=== PATIENT | female | born 2005 | race Caucasian/White ===

== ENCOUNTER 2025-01-25 21:31 | Inpatient (IN) | payer OTHER, SELFPAY ==
[2025-01-25 21:32] VITALS: BP 97/54; PULSE 142; RESP 18; TEMP 39.3; O2SAT 98; BMI 21.4
[2025-01-25 21:59] VITALS: BP 106/66; PULSE 112; PULSE 115; RESP 20; TEMP 37.9; O2SAT 100; BMI 21.7
[2025-01-25 22:04] LABS: Hematocrit 31.9 % (37-47); Hemoglobin 10.3 g/dL (12.0-15.0); Immature Granulocytes Count 0.070 X10^3/uL (0.0-0.0); Mean Corp Hgb Conc 32.3 g/dL (32-36); Mean Corpuscular Volume 85.3 fL (81-99); Mean Platelet Vol. 9.3 fl (6.2-12.0); NRBC Flagged by Analyzer 0 % (0-5); Platelet Count 456 K/mm3 (150-450); RBC Distribution Width CV 13.7 % (11.6-14.6); RBC Distribution Width SD 42.0 fl (35.1-43.9); Red Blood Count 3.74 M/mm3 (4.2-5.4); White Blood Count 12.1 K/mm3 (4.4-11.0)
[2025-01-25 22:13] LABS: Prothrombin Time (Protime)PT. 13.0 SECONDS (11.7-14.9)
[2025-01-25 22:14] LABS: Partial Thromboplast Time 26.7 Seconds (24.1-36.2)
--- NOTE | 2025-01-25 22:30 | RAD_ITS ---
PROCEDURE: CHEST PA AND LATERAL 01/25/2025 REASON FOR EXAM: FEVER TECHNIQUE: CHEST PA AND LATERAL COMPARISON: None. FINDINGS: Lungs/Pleura: Clear. No pleural effusions. Heart/Mediastinum: Normal in size. Bones/Soft tissues: Unremarkable. RAD/Chest PA and Lateral IMPRESSION: No acute pulmonary disease. Reading Location: [id number]
[2025-01-25 22:33] LABS: AST(SGOT) 18 U/L (<=31); Alanine Aminotransfer ALT/SGPT 8 U/L (<=34); Albumin, Serum 3.4 g/dL (3.5-5.0); Alkaline Phosphatase 81 U/L (35-104); Anion Gap 12 (5-15); BUN 13 mg/dL (4-19); BUN/Creat Ratio 14.6 RATIO (10-20); Calcium,Total 8.6 mg/dL (7.6-11.0); Carbon Dioxide 19.3 mmol/L (21.0-32.0); Chloride 104 mmol/L (98-108); Estimated Creatinine Clearance 87.04 ml/min (50-250); Globulin 3.2 g/dL (2.2-4.2); Glucose 126 mg/dL (70-99); Potassium 3.6 mmol/L (3.3-5.1)
[2025-01-25 22:34] VITALS: BP 99/56; PULSE 114; RESP 23; TEMP 37.9; O2SAT 100
--- NOTE | 2025-01-25 22:37 | CT_ITS ---
PROCEDURE: ABDOMEN/PELVIS W IV CONT ONLY 01/26/2025 REASON FOR EXAM: ABDOMINAL PAIN, DIARRHEA, FEVER, ULCERATIVE COLITI None TECHNIQUE: ABDOMEN/PELVIS W IV CONT ONLY Coronal and Sagittal reconstruction series were provided. CONTRAST: VOLUME: mL One or more dose reduction techniques were used (e.g., Automated exposure control, adjustment of the mA and/or kV according to patient size, use of iterative reconstruction technique. RADIATION DOSE SUMMARY: CTDlvol: mGy DLP: mGycm COMPARISON: none FINDINGS: Diffuse rectal and colonic wall thickening and enhancement with prominent isael- rectal, ileocolic and mesenteric lymph nodes, possibly inflammatory (colitis). Advise clinical correlation. Mild gastric wall thickening, possibly gastritis. Advise clinical correlation. The small bowel loops are unremarkable. The appendix is not identified Average sized liver showing homogenous parenchymal attenuation. No dilated intra or extra-hepatic biliary tracts. Gall bladder showing no radiodense calculi. No abnormal mural thickening. Clear surrounding fat planes with no sizeable collections. Normal appearance of the pancreas with clear surrounding fat planes. The spleen, adrenal glands, aorta and IVC are unremarkable. Both kidneys are of average size and showing smooth outline with preserved parenchymal thickness. No renal calculi. No hydronephrosis. Distension of the urinary bladder showing minimal uniform mural thickening with no obvious masses. No obvious masses related to the pelvic viscera. Physiological pelvic fluid noted No ascites or free air. No obvious pathologically enlarged lymph nodes. Scanned osseous structures show no osseous destruction. Scanned lung bases show no obvious abnormalities. CT/Abdomen/Pelvis W IV Cont ONLY IMPRESSION: Diffuse rectal and colonic wall thickening and enhancement with prominent isael- rectal, ileocolic and mesenteric lymph nodes, possibly inflammatory (colitis). Advise clinical correlation. Mild gastric wall thickening, possibly gastritis. Advise clinical correlation. Reading [facility]
[2025-01-25 23:00] VITALS: BP 95/53; PULSE 103; RESP 20; TEMP 37.4; O2SAT 100
[2025-01-25 23:34] LABS: Mucous, Urine 0 SEEN /hpf (<or=2+)
[2025-01-25 23:35] LABS: Glucose, Dipstick Normal (Normal); Ketone-Dipstick Negative (Negative); Leukocyte Esterase-Dipstick 500 /ul (Negative); Nitrite-Dipstick Negative (Negative); Occult Blood-Urine 250 /ul (Negative); Protein-Dipstick 30 mg/dl (Negative); Specific Gravity, Urine 1.005 (1.002-1.030); Urine Bilirubin Dipstick Negative (Negative)
[2025-01-25 23:42] LABS: Color, Urine SEE COMMENT BELOW (Yellow)
[2025-01-26] VITALS (7 sets, daily range): BP systolic 82–97; BP diastolic 51–65; PULSE 62–115; RESP 13–20; TEMP 36.4–37.6; O2SAT 97–100; BMI 21.4
--- NOTE | 2025-01-26 00:12 | EDS_ITS ---
HPI History of Present Illness Chief Complaint: Fever Detail of Chief Complaint: Fever, arthralgias, skin lesion, increased diarrhea with mucus in blood Informant: patient and parent Onset/Context/Timing Onset: Days Context: Sudden Onset Timing: Intermittent Quality: Diarrhea worse at night Location: GI, bowel Current Severity: Moderate Maximum Severity: Severe Worsened by: At night per patient and parents Relieved by: Nothing Associated Symptoms Associated Symptoms: Fever, arthralgias, mild abdominal discomfort, rash Narrative Narrative: Patient is a 19-year-old female who is under the care of Dr. Redd. Her last dose of Humira was 4 weeks ago. She has known history of ulcerative colitis. She presents with several days of increased diarrhea especially at night. She states at night she has 10 loose stools. There is mucus as well as minimal blood. She has had fever without chills. She does report nausea without vomiting. She denies urologic symptoms. She denies upper respiratory symptoms. The rash started 24 to 48 hours ago. Prior similar symptoms: No Recent Illness/Hospitalization: No PFSH PFS Medical History Ulcerative colitis Home Medications ?Medication ?Instructions ?Recorded ?Last Taken ?Type Unobtainable 01/25/25 Unknown History Allergy/AdvReac Type Severity Reaction Status Date / Time morphine Allergy Hives Verified 01/25/25 21:35 prednisone AdvReac can't take Verified 01/25/25 21:35 due to ulcerative colitis Family History no significant family his Surgical History Hx of tonsillectomy Social History (Updated 01/26/25 @ 00:[address] Speedy Amor MD) household members: family Smoking Status: Never smoker ROS ROS ED Constitutional Constitutional ED: Reports fever(s) and sweats; Denies subjective Eyes Eyes: Denies blurry vision or change in vision ENT ENT ED: Denies ear pain, rhinorrhea or sore throat Cardiovascular Cardiovascular: Denies chest pain or palpitations Respiratory/Chest Respiratory/Chest: Denies cough, dyspnea or dyspnea on exertion Genitourinary Genitourinary ED: Denies dysuria or urinary frequency Musculoskeletal Musculoskeletal: Reports arthralgias; Denies back pain, myalgias or neck pain Integumentary Reports rash; Denies abscess or Abrasions Neurologic Neurologic: Reports weakness; Denies headache(s) or paresthesias Endocrine Endocrinology: Denies cold intolerance or heat intolerance Hematologic/Lymphatic Hematologic/Lymphatic: Reports systems reviewed and no addt'l complaints, except as documented EXAM Physical Exam Const Vital Signs: 01/25/25 21:32 01/25/25 21:59 01/25/25 21:59 Temperature 102.8 F H 100.2 F H Temperature Source Oral Oral Pulse Rate 142 H 115 H Respiratory Rate 18 20 H Respiratory Effort Normal Respiratory Pattern Normal Blood Pressure 97/54 L 106/66 Blood Pressure Mean 68 79 Pulse Ox 98 100 Oxygen Delivery Method Room Air Room Air 01/25/25 21:59 01/25/25 21:59 01/25/25 21:59 Temperature Temperature Source Pulse Rate 112 H Respiratory Rate 20 H Respiratory Effort Respiratory Pattern Blood Pressure 106/66 Blood Pressure Mean 79 Pulse Ox 100 100 Oxygen Delivery Method Room Air Room Air Room Air 01/25/25 22:34 01/25/25 23:00 01/26/25 00:00 Temperature 100.2 F H 99.4 F H 99.4 F H Temperature Source Oral Oral Oral Pulse Rate 114 H 103 H 115 H Respiratory Rate 23 H 20 H 18 Respiratory Effort Respiratory Pattern Blood Pressure 99/56 L 95/53 L 95/54 L Blood Pressure Mean 70 67 67 Pulse Ox 100 100 99 Oxygen Delivery Method Room Air Room Air Room Air Vitals are remarkable for low blood pressure. Most recent blood pressure is approximately 109 systolic. She is still tachycardic. Her fever has improved. Positive well nourished and well developed Constitutional Narrative: She appears ill but not toxic. She appears in no obvious discomfort. She appears slightly pale. General Appearance ED: well developed and NAD; Negative for cyanotic, diaphoretic or pallor HEENT Reports dry mucous membranes HEENT Narrative: Head is atraumatic normocephalic. Ears normal. Nares patent. Posterior pharynx is normal. Mouth ED: Yes dry mucous membranes Mouth: dry mucous membranes Eyes PERRL and EOMs intact bilaterally General Eye ED: Negative for pale conjunctiva or scleral icterus Neck no lymphadenopathy, supple and no JVD Chest Wall inspection of chest normal and palpation of chest normal Resp normal respiratory effort and clear to auscultation bilaterally Cardio regular rhythm, S1 normal heart sound, S2 normal heart sound and no murmurs; Negative for regular rate Rate: tachycardic GI normal to inspection, nondistended, normoactive bowel sounds and no masses; Negative for non-tender, non-distended or hepatosplenomegaly GI Narrative: Abdomen is slightly tympanitic. She has slight tenderness left lower quadrant. There is voluntary guarding not involuntary guarding. Auscultation: hyperactive bowel sounds Palpation: soft and tender LLQ Back/Spine no CVA tenderness Extremity Negative for normal to inspection Extremity Narrative: Erythema nodosum lower extremity. General Extremety ED: Yes tenderness; Negative for edema General Extremity: Negative for edema Neuro oriented x3, CN's II-XII intact bilaterally and no sensory deficits noted Sensorium / Orientation: alert Motor Exam: strength 5/5 throughout Psych mental status grossly normal Skin No no rashes or lesions noted, no wounds and skin turgor normal General Skin Exam: Negative for jaundice or pallor MDM MDM MDM Narrative Medical decision making narrative: Concern patient has a flare of ulcerative colitis. In light of the fact she has left lower quadrant abdominal pain fever tachycardia hypotensive we will obtain a CT of the abdomen to assess for abscess, microperforation. There are no prior records for review. Lab Data Attestation: I reviewed the patient's lab results. Lab results narrative: White count is elevated 12.1 thousand. There is a slight shift. Comprehensive metabolic panel is unremarkable. Lactate is normal. UA reveals a spec gravity 1.005. Macro is positive for leukoesterase occult blood negative nitrites. Labs: Laboratory Results - last 24 hr 01/25/25 01/25/25 21:50 23:26 WBC 12.1 H RBC 3.74 L Hgb 10.3 L Hct 31.9 L MCV 85.3 MCH 27.5 MCHC 32.3 RDW Std Deviation 42.0 RDW Coeff of [place] 13.7 Plt Count 456 H MPV 9.3 Immature Gran % (Auto) 0.600 Neut % (Auto) 75.5 H Lymph % (Auto) 11.8 L [place] % (Auto) 10.7 H Eos % (Auto) 1.0 Baso % (Auto) 0.4 Absolute Neuts (auto) 9.2 H Absolute Lymphs (auto) 1.43 Nucleated RBC % 0 PT 13.0 INR 1.0 APTT 26.7 Sodium 136 Potassium 3.6 Chloride 104 Carbon Dioxide 19.3 L Anion Gap 12 BUN 13 Creatinine 0.86 Estim Creat Clear Calc 87.04 Est GFR (MDRD) Non-Af 99 BUN/Creatinine Ratio 14.6 Glucose 126 H Lactic Acid < 1.0 Calcium 8.6 Total Bilirubin 0.16 AST 18 ALT 8 Alkaline Phosphatase 81 Total Protein 6.6 Albumin 3.4 L Globulin 3.2 Albumin/Globulin Ratio 1.0 Urine Color SEE COMMENT BELOW Urine Clarity Sl. Cloudy Urine pH 6.5 Ur Specific [place] 1.005 Urine Protein 30 H Urine Glucose (UA) Normal Urine Ketones Negative Urine Occult Blood 250 H Urine Nitrite Negative Urine Bilirubin Negative Urine Urobilinogen Normal Ur Leukocyte Esterase 500 H Radiography Chest X-Ray - ED: Read by ED Physician (Chest x-ray was obtained per nurse protocol. This reveals no acute pathology. Cardiac silhouette and size normal. Lung parenchyma normal. There is no effusion noted. Osseous structures are unremarkable.) Diagnostic Testing: Clinical Impression(s) from Imaging Studies Chest X-Ray 01/25/25 22:30 IMPRESSION: No acute pulmonary disease. Reading Location: [facility] Abdomen/Pelvis CT 01/25/25 22:37 IMPRESSION: Diffuse rectal and colonic wall thickening and enhancement with prominent isael- rectal, ileocolic and mesenteric lymph nodes, possibly inflammatory (colitis). Advise clinical correlation. Mild gastric wall thickening, possibly gastritis. Advise clinical correlation. Reading Location: [place] [address] The CAT scan was reviewed radiologist. The impression was reviewed. Management Discussion w/another healthcare provider: Hospitalist (Spoke with Dr. Dewey. Patient full admit MedSurg. He will consult GI.) Discharge Plan Triage Chief Complaint: Fever ED Provider: Amor,Speedy Dx/Rx/DC Orders Clinical Impression: Ulcerative colitis, rectosigmoid, Erythema nodosum, Arthralgia, Mesenteric lymphadenopathy, Sinus tachycardia, Acute hypotension, Fever Prescriptions: No Action Unobtainable Primary Care Provider: Gideon Hernandez Referrals: Gideon Hernandez MD [Primary Care Provider] - Print Language: Citizen Of [place]
--- NOTE | 2025-01-26 00:18 | PCM.HP.STD ---
HPI - General General Date of Admission: 01/26/25 Date of Service: 01/26/25 Chief Complaint: Diarrhea and fevers HPI Narrative JUDITH HURLEY, is a 19 F who presented to [facility] ED on 01/26/2025 with diarrhea and fevers. Medical history significant for ulcerative colitis. She was diagnosed 3 years ago and follows with Dr. Artis. She is currently on Humira monthly. Has history of mild UC flares but has not had a flare like this since her initial diagnosis. She has had worsening diarrhea for the past 5 days. There has been some mucus in the diarrhea but minimal blood. She has also had a fever over the past few days now without chills. She does report some nausea but no vomiting. She also reports arthralgias in multiple joints. Vitals in the ED notable for temp 102.8 F, sinus tachycardia to the 120s, BP in the 90s over 50s, otherwise stable on room air. Labs notable for mild leukocytosis with WBC count of 12 and hemoglobin 10.3. BMP was benign. UA infectious appearing with 500 leukocyte esterase, negative nitrates but 3+ bacteria. CT abdomen pelvis showed diffuse rectal and colonic wall thickening and enhancement with prominent perirectal, ileocolic and mesenteric lymph nodes, along with mild gastric wall thickening. Patient was given IV fluids and a dose of IV Solu-Medrol, and hospitalist was contacted for admission. I saw the patient at bedside in the ED, mom and dad were present. Patient was laying back comfortably in bed, conversing normally, in no acute distress. She denied any current abdominal pain or discomfort. Has not had a bowel movement since arriving to the ED. Did feel dry and stated the IV fluids were somewhat helpful for this. No other acute concerns currently. Will be admitted for further management. [facility] Medical History Ulcerative colitis Home Medications ?Medication ?Instructions ?Recorded ?Last Taken ?Type Unobtainable 01/25/25 Unknown History Allergy/AdvReac Type Severity Reaction Status Date / Time morphine Allergy Hives Verified 01/25/25 21:35 prednisone AdvReac can't take Verified 01/25/25 21:35 due to ulcerative colitis Family History no significant family his Surgical History Hx of tonsillectomy Social History (Updated 01/26/25 @ 00:[address] Speedy Amor MD) household members: family Smoking Status: Never smoker ROS Constitutional Constitutional: Reports fatigue and fever(s); Denies chills or weakness Eyes Eyes: Denies change in vision Cardiovascular Cardiovascular: Denies chest pain Respiratory/Chest Respiratory/Chest: Denies shortness of breath at rest Gastrointestinal Gastrointestinal: Reports diarrhea and nausea; Denies abdominal pain, constipation or vomiting Genitourinary Genitourinary: Denies dysuria Musculoskeletal Musculoskeletal: Denies arthralgias or myalgias Neurologic Neurologic: Denies dizziness, focal weakness or headache(s) Vital Signs Vital Signs Vital Signs: 01/25/25 21:32 01/25/25 21:59 01/25/25 21:59 Temperature 102.8 F H 100.2 F H Temperature Source Oral Oral Pulse Rate 142 H 115 H Respiratory Rate 18 20 H Respiratory Effort Normal Respiratory Pattern Normal Blood Pressure 97/54 L 106/66 Blood Pressure Mean 68 79 Pulse Ox 98 100 Oxygen Delivery Method Room Air Room Air 01/25/25 21:59 01/25/25 21:59 01/25/25 21:59 Temperature Temperature Source Pulse Rate 112 H Respiratory Rate 20 H Respiratory Effort Respiratory Pattern Blood Pressure 106/66 Blood Pressure Mean 79 Pulse Ox 100 100 Oxygen Delivery Method Room Air Room Air Room Air 01/25/25 22:34 01/25/25 23:00 01/26/25 00:00 Temperature 100.2 F H 99.4 F H 99.4 F H Temperature Source Oral Oral Oral Pulse Rate 114 H 103 H 115 H Respiratory Rate 23 H 20 H 18 Respiratory Effort Respiratory Pattern Blood Pressure 99/56 L 95/53 L 95/54 L Blood Pressure Mean 70 67 67 Pulse Ox 100 100 99 Oxygen Delivery Method Room Air Room Air Room Air Weight Weight: 55.52 kg Body Mass Index (BMI) 21.7 Physical Exam Const alert, oriented x3, no apparent distress, average body habitus, healthy appearing and well nourished Constitutional Narrative: Pleasant young female, sitting back comfortably in bed, conversing normally, in no acute distress. General Appearance: cooperative, comfortable, well kempt and well developed HEENT normocephalic, head/scalp atraumatic, hearing grossly normal bilaterally and nasal mucous membranes and turbinates normal HEENT Narrative: Dry mucous membranes. Eyes PERRL, EOMs intact bilaterally and conjunctivae normal Neck full ROM Chest inspection of chest normal Resp normal respiratory effort, normal air movement, no use of accessory muscles and clear to auscultation bilaterally Cardio no murmurs and peripheral pulses 2+ throughout Cardio Narrative: Tachycardic, regular rhythm. GI GI Narrative: Mild diffuse tenderness to palpation but otherwise soft and nondistended. Back/Spine normal ROM Extremity normal to inspection, full ROM and no pedal edema Skin Skin Narrative: Erythema nodosum noted on lower extremities. Psych mental status grossly normal Results Lab / Micro Data 01/25/25 21:50 01/25/25 21:50 Labs: Laboratory Results - last 24 hr 01/25/25 21:50: WBC 12.1 H, RBC 3.74 L, Hgb 10.3 L, Hct 31.9 L, MCV 85.3, MCH 27.5, MCHC 32.3, RDW Std Deviation 42.0, RDW Coeff of [place] 13.7, Plt Count 456 H, MPV 9.3, Immature Gran % (Auto) 0.600, Neut % (Auto) 75.5 H, Lymph % (Auto) 11.8 L, [place] % (Auto) 10.7 H, Eos % (Auto) 1.0, Baso % (Auto) 0.4, Absolute Neuts (auto) 9.2 H, Absolute Lymphs (auto) 1.43, Nucleated RBC % 0, PT 13.0, INR 1.0, APTT 26.7, Sodium 136, Potassium 3.6, Chloride 104, Carbon Dioxide 19.3 L, Anion Gap 12, BUN 13, Creatinine 0.86, Estim Creat Clear Calc 87.04, Est GFR (MDRD) Non-Af 99, BUN/Creatinine Ratio 14.6, Glucose 126 H, Lactic Acid < 1.0, Calcium 8.6, Total Bilirubin 0.16, AST 18, ALT 8, Alkaline Phosphatase 81, Total Protein 6.6, Albumin 3.4 L, Globulin 3.2, Albumin/Globulin Ratio 1.0 01/25/25 23:26: Urine Color SEE COMMENT BELOW, Urine Clarity Sl. Cloudy, Urine pH 6.5, Ur Specific [place] 1.005, Urine Protein 30 H, Urine Glucose (UA) Normal, Urine Ketones Negative, Urine Occult Blood 250 H, Urine Nitrite Negative, Urine Bilirubin Negative, Urine Urobilinogen Normal, Ur Leukocyte Esterase 500 H Micro: Microbiology 01/25/25 21:45 Mucosa - Nose SARS-CoV-2, Influenza & RSV (PCR) - Final Imaging Radiology Impression Chest X-Ray 01/25/25 22:30 IMPRESSION: No acute pulmonary disease. Reading Location: [id number] Abdomen/Pelvis CT 01/25/25 22:37 IMPRESSION: Diffuse rectal and colonic wall thickening and enhancement with prominent isael-rectal, ileocolic and mesenteric lymph nodes, possibly inflammatory (colitis). Advise clinical correlation. Mild gastric wall thickening, possibly gastritis. Advise clinical correlation. Reading Location: [place] [address] Assessment & Plan Assessment/Plan (1) Ulcerative colitis, acute: PLAN: Plan Patient is a 19-year-old female who presented to [facility] ED on 01/26/2025 with diarrhea and fevers. 1. Acute ulcerative colitis flare ? Admit under inpatient status to [facility]. GI consulted. Patient diagnosed with UC in 2021, follows with Dr. Artis. Van Stafford every 4 weeks. History of mild UC flares but no significant flares like this since diagnosis. CT abdomen pelvis showed diffuse rectal and colonic wall thickening and enhancement with prominent perirectal, ileocolic and mesenteric lymph nodes, along with mild gastric wall thickening. Febrile, mild hypotension to the 90s over 50s and tachycardic to the 110s on admission. Given 2 L of IV fluids and will run maintenance IV fluids for now as well. Okay for clear liquid diet. Stool PCR panel ordered. Given dose of IV Solu-Medrol 125 mg in the ED; will treat with IV Solu-Medrol 20 mg every 8 hours for now, appreciate further GI recommendations. 2. Concern for UTI ? UA infectious appearing with 500 leukocyte esterase, 10-25 WBCs and 3+ bacteria. Patient denies dysuria but will empirically treat with IV ceftriaxone for now. Follow-up urine culture. 3. Mild normocytic anemia ? Hemoglobin 10.3, MCV 85 on admit. Baseline unknown. Iron studies, B12 and folate ordered for further evaluation. DVT prophylaxis: Low risk, ambulate CODE STATUS: Full code, verified Expected disposition: Home, TBD Total clinical time spent by myself addressing the patient's medical issues, reviewing all the data, and collaborating with patient's care team: 55 minutes. Charges/Coding Visit Charges Inpatient E&M: 81578 Init Hosp L2
[2025-01-26 00:23] LABS: Red Blood Cells-Urine 10-25 SEEN /hpf (0-5); Squamous Epithelial Cells - UA 5-10 SEEN /hpf (5-10)
[2025-01-26] MEDS: 0.9% Normal Saline (1000mL) 1,000 ML 1000 ML IV (00:27)
[2025-01-26 02:04] LABS: Ferritin 104 ng/mL (22-378)
[2025-01-26] MEDS: Lactated Ringers 1,000 ML 999 ML IV (02:21)
[2025-01-26 02:42] LABS: Iron 11 ug/dL (50-170); Iron Binding Capacity,Unsat 212 ug/dL (228-428)
[2025-01-26 02:52] LABS: Iron Binding Capacity,Total 223 ug/dL (250-450)
[2025-01-26] MEDS: Ceftriaxone 2 GM in 0.9% Normal Saline (50mL MB+) 50 ML IV ×2 (03:38→22:24)
[2025-01-26 03:46] LABS: Vitamin B12 2622 pg/mL (180-914)
[2025-01-26 03:58] LABS: Hematocrit 30.5 % (37-47); Hemoglobin 9.9 g/dL (12.0-15.0); Mean Corp Hgb Conc 32.5 g/dL (32-36); Mean Corpuscular Volume 86.2 fL (81-99); Mean Platelet Vol. 9.5 fl (6.2-12.0); Platelet Count 385 K/mm3 (150-450); RBC Distribution Width CV 13.6 % (11.6-14.6); RBC Distribution Width SD 42.3 fl (35.1-43.9); Red Blood Count 3.54 M/mm3 (4.2-5.4); White Blood Count 15.0 K/mm3 (4.4-11.0)
[2025-01-26 04:34] LABS: Anion Gap 10 (5-15); BUN 8 mg/dL (4-19); BUN/Creat Ratio 12.4 RATIO (10-20); Calcium,Total 8.5 mg/dL (7.6-11.0); Carbon Dioxide 20.3 mmol/L (21.0-32.0); Chloride 109 mmol/L (98-108); Estimated Creatinine Clearance 111.72 ml/min (50-250); Glucose 170 mg/dL (70-99); Potassium 4.2 mmol/L (3.3-5.1)
[2025-01-26] MEDS: Lactated Ringers 1,000 ML 75 ML IV ×2 (04:49→19:50)
--- NOTE | 2025-01-26 07:25 | PCM.PN.HOSP ---
Reason for Visit Reason for Visit: Diagnoses Ulcerative colitis, unspecified, without complications (01/26/25) Subjective Subjective Patient notes clinical improvement since initial ED arrival with resolved abdominal pain, no recent diarrhea and toleration of diet. Discussed plan of care which included continued IV steroids and evaluation with gastroenterology. She notes when she was having more loose stools she denied any hematochezia or bloody stools. Patient denies fevers, chills, nausea, emesis, abdominal pain, chest pain or dyspnea. Objective Data Objective Data Vital Signs: Vital Signs Temp Pulse Resp BP Pulse Ox O2 Del Method 97.7 F L 76 16 93/65 98 Room Air 01/26/25 05:00 01/26/25 05:00 01/26/25 05:00 01/26/25 05:00 01/26/25 05:00 01/26/25 05:00 Oxygen Delivery Method Room Air Weight: 121 lb 4.068 oz Body Mass Index (BMI) 21.4 Intake & Output: Intake and Output for Last 24 Hours 01/24/25 01/25/25 01/26/25 23:59 23:59 23:59 Intake Total 1600 / 1600 Balance 1600 / 1600 Lab / Micro Data 01/26/25 03:37 01/26/25 03:37 Labs: Laboratory Results - last 24 hr 01/25/25 21:50: WBC 12.1 H, RBC 3.74 L, Hgb 10.3 L, Hct 31.9 L, MCV 85.3, MCH 27.5, MCHC 32.3, RDW Std Deviation 42.0, RDW Coeff of Lokesh 13.7, Plt Count 456 H, MPV 9.3, Immature Gran % (Auto) 0.600, Neut % (Auto) 75.5 H, Lymph % (Auto) 11.8 L, [place] % (Auto) 10.7 H, Eos % (Auto) 1.0, Baso % (Auto) 0.4, Absolute Neuts (auto) 9.2 H, Absolute Lymphs (auto) 1.43, Nucleated RBC % 0, PT 13.0, INR 1.0, APTT 26.7, Sodium 136, Potassium 3.6, Chloride 104, Carbon Dioxide 19.3 L, Anion Gap 12, BUN 13, Creatinine 0.86, Estim Creat Clear Calc 87.04, Est GFR (MDRD) Non-Af 99, BUN/Creatinine Ratio 14.6, Glucose 126 H, Lactic Acid < 1.0, Calcium 8.6, Iron 11 L, TIBC 223 L, Iron Saturation 4.9 L, Unsaturated IBC 212 L, Ferritin 104, Total Bilirubin 0.16, AST 18, ALT 8, Alkaline Phosphatase 81, Total Protein 6.6, Albumin 3.4 L, Globulin 3.2, Albumin/Globulin Ratio 1.0, Vitamin B12 2622 H 01/25/25 23:26: Urine Color SEE COMMENT BELOW, Urine Clarity Sl. Cloudy, Urine pH 6.5, Ur Specific [place] 1.005, Urine Protein 30 H, Urine Glucose (UA) Normal, Urine Ketones Negative, Urine Occult Blood 250 H, Urine Nitrite Negative, Urine Bilirubin Negative, Urine Urobilinogen Normal, Ur Leukocyte Esterase 500 H, Urine RBC 10-25 SEEN, Urine WBC 10-25 SEEN, Ur Squamous Epith Cells 5-10 SEEN, Urine Bacteria 3+, Urine Mucus 0 SEEN 01/26/25 03:37: WBC 15.0 H, RBC 3.54 L, Hgb 9.9 L, Hct 30.5 L, MCV 86.2, MCH 28.0, MCHC 32.5, RDW Std Deviation 42.3, RDW Coeff of Lokesh 13.6, Plt Count 385, MPV 9.5, Sodium 139, Potassium 4.2, Chloride 109 H, Carbon Dioxide 20.3 L, Anion Gap 10, BUN 8, Creatinine 0.67 L, Estim Creat Clear Calc 111.72, Est GFR (MDRD) Non-Af 129, BUN/Creatinine Ratio 12.4, Glucose 170 H, Calcium 8.5 Micro: Microbiology 01/25/25 21:45 Mucosa - Nose SARS-CoV-2, Influenza & RSV (PCR) - Final Radiography Diagnostic Testing: Radiology Impression Chest X-Ray 01/25/25 22:30 IMPRESSION: No acute pulmonary disease. Reading Location: [facility] Abdomen/Pelvis CT 01/25/25 22:37 IMPRESSION: Diffuse rectal and colonic wall thickening and enhancement with prominent isael-rectal, ileocolic and mesenteric lymph nodes, possibly inflammatory (colitis). Advise clinical correlation. Mild gastric wall thickening, possibly gastritis. Advise clinical correlation. Reading Location: [place] [id number] Physical Exam Narrative Physical Examination: General: Awake, alert, oriented x 3 and cooperative, seated upright in PCU bed is MedSurg patient, no acute distress. Skin: Normal color, normal turgor, no icterus, no cyanosis. HEENT: AT/NC, EOMI, PERRLA, improved MMM. Lungs: CTA bilaterally, moderate effort, mild decrease BL bases, no rales, ronchi or wheezing. Heart: Regular rate and rhythm; no gallop, rub audible. Abdomen: Soft, NTTP, ND, mildly hyperactive BS. Extremities: No cyanosis, clubbing, or edema. Neurological: Patient awake, alert, oriented as noted, cognitive function intact; pupils equally reactive to light and accommodation, cranial nerves grossly normal, moving all 4 extremities, no focal deficits, strength mildly globally creased. Psychiatric: Affect appears fatigued otherwise normal, no acute evidence of depressive or anxiety feelings. Assessment & Plan Assessment/Plan (1) Ulcerative colitis, acute: PLAN: Plan The patient is an 19 y/o F w/ PMHx: Ulcerative colitis, Chronic anemia who presents to the [facility] ED on 01/26/25 with history of significant persistent diarrhea as well as fevers noted to be on Humira monthly with history of previous mild UC flares however never as severe as her current presentation with worsening loose stools for the last 5 days with some mucus in the stools and minimal blood with nausea without emesis prompting eventual ED evaluation. #1. Acute exacerbation ulcerative colitis with associated mild hematochezia: Patient admitted to medical surgical floor, initiated on Solu-Medrol 20 mg IV every 8, will continue to trend CBC, pain regimen and antiemetic regimen as needed, currently on clear liquids, GI consulted and evaluation pending. #2. Chronic normocytic anemia: Admission hemoglobin 10.3, MCV 85, unclear exact baseline, repeat 01/27/2020 5 AM hemoglobin 9.9, MCV 86.2, given acute presentation #1 some concerns about associated mild blood loss, vitamin B12 2622, iron 11, TIBC 223, iron saturation 4.9%, unsaturated IBC 212, ferritin 104, will transfusion of iron 200 mg IV daily x 3 days with then transition to oral regimen following, will continue to trend CBC. #3. Questionable acute complicated urinary tract infection: UA with positive leukocyte esterase, 10-25 urine WBCs and 3+ bacteria, no marked history of dysuria however initiated with empiric IV Rocephin, will continue pending urine culture. #4. Hyperglycemia with no diabetic history: Admission glucose initially 126, repeat 170, ongoing steroid treatments with no previous diabetic history, will obtain hemoglobin C be cautious but low suspicion. #5. DVT prophylaxis: Low risk, encourage ambulation. Charges/Coding Procedures Hospitalists Procedures: Other Procedure - See Report (Billing Code: [id number], nonbillable, admitted same day.)
[2025-01-26 08:38] LABS: Magnesium 1.6 mg/dL (1.5-2.2)
[2025-01-26] MEDS: Sodium Ferric Gluconat 250 MG in 0.9% Normal Saline 250 ML 135 MG IV (10:25)
--- NOTE | 2025-01-26 14:00 | CASEMGMT ---
Dx: Acute UC Flare LACE: 1 6-Clicks: 24 Medical record reviewed and patient evaluated for identification of discharge planning needs. Based on this review, at this time criteria are not present to indicate a need for discharge planning. Will remain available to assist with discharge planning needs as identified or requested.
[2025-01-26] MEDS: 0.9% Saline Lock 10 ML Syringe IV ×2 (14:35→22:24)
--- NOTE | 2025-01-26 17:30 | EX.PCM.CON.G ---
HPI Consult Data Date of Consult: 01/26/25 HPI Narrative Reason for Consultation: presumed UC flare HPI Narrative: JUDITH HURLEY, is a 19 F who presented to [facility] with a presumed history of ulcerative colitis diagnosed approximately 3 years ago at an outside hospital. She presents with a 5-day history of profuse watery diarrhea (8?10 BMs/day), nausea, lower abdominal cramping, and subjective fevers. She reports that her last colonoscopy was at the time of initial diagnosis, but no documentation or pathology reports are currently available. She is on monthly adalimumab (Humira), with the last dose taken approximately 4 weeks ago. She initially presented to the ED with a temperature of 102?F, WBC 12 (which has since risen to 15), and was found to have a positive urinalysis, for which she is receiving ceftriaxone 2g IV daily. Her temperature has since normalized. She also tested C. difficile PCR positive, but toxin was negative. Stool culture is negative. Notably, her hemoglobin has decreased slightly from 10.3 to 9.9, which may be dilutional, and iron studies show iron deficiency. She is presently on her menstrual cycle and receiving Na Ferric Gluconate 250mg IV x3. She remains on CL and is receiving LR at 75 mL/hr. She was started on Solu-Medrol 125 mg IV x1 in the ED and has now been transitioned to methylprednisolone 20 mg IV Q8 hours (60 mg/day) for presumed [id number] UC flare. She has noted an improvement in stools today with two soft (Rocky Type 6) stools. She denies any ongoing abdominal pain or fecal urgency. CT A&P showed diffuse rectal and colonic wall thickening and enhancement, with prominent perirectal, ileocolic, colonic, and mesenteric lymphadenopathy, concerning for active colitis, along with mild gastric wall thickening likely secondary to underdistention. [facility] Medical History Ulcerative colitis Home Medications ?Medication ?Instructions ?Recorded ?Last Taken ?Type adalimumab 40 mg/0.8 mL See Rx Instructions subcut 01/26/25 12/31/24 History subcutaneous pen kit (Humira Pen) .COMPLEX ulcerative colitis Allergy/AdvReac Type Severity Reaction Status Date / Time morphine Allergy Hives Verified 01/25/25 21:35 prednisone AdvReac can't take Verified 01/25/25 21:35 due to ulcerative colitis Family History no significant family his Surgical History Hx of tonsillectomy Social History (Updated 01/26/25 @ 00:[address] Speedy Amor MD) household members: family Smoking Status: Never smoker ROS Constitutional Constitutional: Reports as per HPI Eyes Eyes: Denies change in vision ENT HEENT: Denies dizziness Gastrointestinal Gastrointestinal: Reports as per HPI Physical Exam Const no apparent distress and healthy appearing GI Palpation: soft; Negative for tender or guarding Lab / Micro Data Attestation: I reviewed the patient's lab results. 01/26/25 03:37 01/26/25 03:37 Labs: Laboratory Results - last 24 hr 01/25/25 21:50: WBC 12.1 H, RBC 3.74 L, Hgb 10.3 L, Hct 31.9 L, MCV 85.3, MCH 27.5, MCHC 32.3, RDW Std Deviation 42.0, RDW Coeff of Lokesh 13.7, Plt Count 456 H, MPV 9.3, Immature Gran % (Auto) 0.600, Neut % (Auto) 75.5 H, Lymph % (Auto) 11.8 L, [place] % (Auto) 10.7 H, Eos % (Auto) 1.0, Baso % (Auto) 0.4, Absolute Neuts (auto) 9.2 H, Absolute Lymphs (auto) 1.43, Nucleated RBC % 0, PT 13.0, INR 1.0, APTT 26.7, Sodium 136, Potassium 3.6, Chloride 104, Carbon Dioxide 19.3 L, Anion Gap 12, BUN 13, Creatinine 0.86, Estim Creat Clear Calc 87.04, Est GFR (MDRD) Non-Af 99, BUN/Creatinine Ratio 14.6, Glucose 126 H, Lactic Acid < 1.0, Calcium 8.6, Iron 11 L, TIBC 223 L, Iron Saturation 4.9 L, Unsaturated IBC 212 L, Ferritin 104, Total Bilirubin 0.16, AST 18, ALT 8, Alkaline Phosphatase 81, Total Protein 6.6, Albumin 3.4 L, Globulin 3.2, Albumin/Globulin Ratio 1.0, Vitamin B12 2622 H 01/25/25 23:26: Urine Color SEE COMMENT BELOW, Urine Clarity Sl. Cloudy, Urine pH 6.5, Ur Specific [place] 1.005, Urine Protein 30 H, Urine Glucose (UA) Normal, Urine Ketones Negative, Urine Occult Blood 250 H, Urine Nitrite Negative, Urine Bilirubin Negative, Urine Urobilinogen Normal, Ur Leukocyte Esterase 500 H, Urine RBC 10-25 SEEN, Urine WBC 10-25 SEEN, Ur Squamous Epith Cells 5-10 SEEN, Urine Bacteria 3+, Urine Mucus 0 SEEN 01/26/25 03:37: WBC 15.0 H, RBC 3.54 L, Hgb 9.9 L, Hct 30.5 L, MCV 86.2, MCH 28.0, MCHC 32.5, RDW Std Deviation 42.3, RDW Coeff of Lokesh 13.6, Plt Count 385, MPV 9.5, Sodium 139, Potassium 4.2, Chloride 109 H, Carbon Dioxide 20.3 L, Anion Gap 10, BUN 8, Creatinine 0.67 L, Estim Creat Clear Calc 111.72, Est GFR (MDRD) Non-Af 129, BUN/Creatinine Ratio 12.4, Glucose 170 H, Hemoglobin A1c 5.6, Calcium 8.5, Phosphorus 3.7, Magnesium 1.6 Micro: Microbiology 01/26/25 07:26 Stool C. difficile GDH Antigen & Toxins - Final 01/26/25 07:26 Stool Clostridioides difficile (PCR) - Final 01/26/25 07:26 Stool Enteric Bacteriology - Final 01/25/25 21:45 Mucosa - Nose SARS-CoV-2, Influenza & RSV (PCR) - Final Imaging Radiology Impression Chest X-Ray 01/25/25 22:30 IMPRESSION: No acute pulmonary disease. Reading Location: [id number] Abdomen/Pelvis CT 01/25/25 22:37 IMPRESSION: Diffuse rectal and colonic wall thickening and enhancement with prominent isael-rectal, ileocolic and mesenteric lymph nodes, possibly inflammatory (colitis). Advise clinical correlation. Mild gastric wall thickening, possibly gastritis. Advise clinical correlation. Reading [facility] Assessment & Plan Assessment/Plan (1) Ulcerative colitis, acute: QUALIFIERS: Digestive disease complication type: unspecified complication Qualified Code(s): K51.919 - Ulcerative colitis, unspecified with unspecified complications PLAN: Continue IV methylprednisolone 20mg IV Q8h. Hold adalimumab for now. Continue CL and LR at 75ml/hr pending recommendation from regarding in-patient colonoscopy vs sigmoidoscopy. Adalimumab antibodies/levels, fecal calprotectin, CRP ordered. Continue to monitor CBC, BMP, stool frequency. Request outside colonoscopy/pathology records for diagnosis confirmation. (2) Iron deficiency anemia: QUALIFIERS: Iron deficiency anemia type: other iron deficiency Qualified Code(s): D50.8 - Other iron deficiency anemias PLAN: Hbg 9.9 with low iron and Tsat. Chronic inflammation and possible GI losses. Iron replacement ordered. (3) Leukocytosis: QUALIFIERS: Leukocytosis type: other Qualified Code(s): D72.828 - Other elevated white blood cell count PLAN: WBC 12->15 after initiating IV steroids She is now afebrile, clinically improving, and without new s/sx of infection Likely steroid induced leukocytosis, no evidence of bandemia or left shift (4) Other specified abnormal findings of blood chemistry: PLAN: Hypercobalaminemia (B12) 2622 Discontinue supplements. (5) Hypotension: QUALIFIERS: Hypotension type: unspecified hypotension type Qualified Code(s): I95.9 - Hypotension, unspecified PLAN: Blood cultures pending from ER. C.diff PCR positive with negative toxin. Suspected colonization with improving diarrhea. If hypotension continues to be a concern, consider empiric treatment for C.diff if clinical status does not stabilize. Monitor response to IV fluid. Questionable acute complicated UTI, on empiric IV ceftriaxone, pending UCx PLAN: Plan DVT prophylaxis: Risk of DVT in hospitalized UC patients, especially during a flare, are at substantially increased risk compared to the general population. Given elevated risk both ACG and AHA recommend thromboprophylaxis for all hospitalized patients with active UC, regardless of age or Aj score. Given mild iron deficiency anemia, recommend SCDs while bed.
--- NOTE | 2025-01-26 18:59 | PN_ITS ---
Progress Note 19-year-old female admitted with an acute exacerbation of Ulcerative Colitis, experiencing increased diarrhea, abdominal pain, and rectal bleeding. She is currently on her menstrual cycle. * Patient reports experiencing increased frequency of watery, bloody diarrhea over the past week, now averaging 8-10 bowel movements per day. Notes significant urgency and tenesmus. Denies fever initially, but reports feeling weak and fatigued. Reports abdominal cramping and diffuse tenderness, most pronounced in the lower left quadrant. Has had decreased appetite and unintentional weight loss. Currently experiencing joint pain in her knees and ankles. * Past Medical History (PMH):?Diagnosed with Ulcerative Colitis at age 16. Previous flares managed with oral budesonide and intermittent corticosteroid courses. No prior hospitalizations for UC. * Medications:?Oral mesalamine, dosage as prescribed. * Allergies:?None reported. * Social History:?Denies smoking, alcohol, or illicit drug use. Lives at home with parents. Reports stress from home and social activities, which she feels may worsen her symptoms. * Review of Systems (ROS): * Constitutional:?Fatigue, weight loss. * Gastrointestinal:?Diarrhea, blood and mucus in stool, abdominal pain/cramping, tenesmus, decreased appetite. * Musculoskeletal:?Joint pain. * Psychiatric:?Reports feeling anxious and frustrated due to the impact of UC on her daily life. * Objective: * Vital Signs:?Temperature 37.8?C, HR 98 bpm, BP 110/65 mmHg, RR 18 breaths/min, SpO2 98% on room air. * General Appearance:?Alert and oriented, appears tired and slightly pale. * Cardiovascular:?Regular heart rate and rhythm, no murmurs noted. * Respiratory:?Clear to auscultation bilaterally. * Abdomen:?Mildly distended, active bowel sounds. Tenderness to palpation in the lower left quadrant. No guarding or rebound tenderness. * Rectal Exam:?Mild tenderness, blood and mucus present in stool. * Skin:?No rashes or lesions observed. * Musculoskeletal:?Mild swelling and tenderness noted in both knees. Physical Exam Narrative Physical Examination: General: Awake, alert, oriented x 3 and cooperative, seated upright in PCU bed is MedSurg patient, no acute distress. Skin: Normal color, normal turgor, no icterus, no cyanosis. HEENT: AT/NC, EOMI, PERRLA, improved MMM. Lungs: CTA bilaterally, moderate effort, mild decrease BL bases, no rales, ronchi or wheezing. Heart: Regular rate and rhythm; no gallop, rub audible. Abdomen: Soft, NTTP, ND, mildly hyperactive BS. Extremities: No cyanosis, clubbing, or edema. Neurological: Patient awake, alert, oriented as noted, cognitive function intact; pupils equally reactive to light and accommodation, cranial nerves grossly normal, moving all 4 extremities, no focal deficits, strength mildly globally creased. Psychiatric: Affect appears fatigued otherwise normal, no acute evidence of depressive or anxiety feelings. Assessment & Plan Assessment/Plan (1) Iron deficiency anemia: QUALIFIERS: Iron deficiency anemia type: other iron deficiency Qualified Code(s): D50.8 - Other iron deficiency anemias (2) Ulcerative colitis, acute: QUALIFIERS: Digestive disease complication type: unspecified complication Qualified Code(s): K51.919 - Ulcerative colitis, unspecified with unspecified complications (3) Fever: (4) Ulcerative colitis, rectosigmoid: (5) Erythema nodosum: (6) Hypotension: QUALIFIERS: Hypotension type: unspecified hypotension type Qualified Code(s): I95.9 - Hypotension, unspecified PLAN: Assessment: * 19-year-old female with Ulcerative Colitis, currently experiencing a [id number] flare. * Symptoms include frequent bloody diarrhea, abdominal pain, weight loss, and extra-intestinal manifestations (arthralgia). * Patient requires hospitalization for disease management, control of inflammation, hydration, and nutritional support. Plan: * Medications: * Initiate IV corticosteroids (e.g., methylprednisolone) to reduce inflammation. * Continue oral mesalamine. * Administer intravenous fluids and electrolytes to manage dehydration. * I talk with the patient and patient's mom for a long time she says that she has Humira at home and she missed 1 dose. * Monitoring: * Daily assessment of stool frequency, consistency, and presence of blood. * Monitor vital signs, especially temperature, heart rate, and blood pressure. * Assess for abdominal distension or worsening tenderness, which could indicate complications like toxic megacolon. Clinically she is not showing any signs of toxic megacolon. * Monitor inflammatory markers (CRP). * Check IBD SGI, check adalimumab levels and check ANCA check ,KUSHAL, check food allergy panel * Nutrition: * Consult with a registered dietitian for nutritional assessment and recommendations as an outpatient * Consider a low-fiber diet to reduce gut irritation during the flare. * Pain Management:?Administer pain medication as ordered (avoiding NSAIDs). She does not have any pain at this time. * Follow-up:?Arrange for follow-up with the gastroenterology team if patient decides to switch to [facility]. She was encouraged to follow-up with Dr. Redd. Visit Charges Inpatient E&M: 61776 Subs Hosp L3
--- NOTE | 2025-01-26 18:59 | PCM.PN.BLA ---
Progress Note 19-year-old female admitted with an acute exacerbation of Ulcerative Colitis, experiencing increased diarrhea, abdominal pain, and rectal bleeding. She is currently on her menstrual cycle. Patient reports experiencing increased frequency of watery, bloody diarrhea over the past week, now averaging 8-10 bowel movements per day. Notes significant urgency and tenesmus. Denies fever initially, but reports feeling weak and fatigued. Reports abdominal cramping and diffuse tenderness, most pronounced in the lower left quadrant. Has had decreased appetite and unintentional weight loss. Currently experiencing joint pain in her knees and ankles. Past Medical History (PMH):?Diagnosed with Ulcerative Colitis at age 16. Previous flares managed with oral budesonide and intermittent corticosteroid courses. No prior hospitalizations for UC. Medications:?Oral mesalamine, dosage as prescribed. Allergies:?None reported. Social History:?Denies smoking, alcohol, or illicit drug use. Lives at home with parents. Reports stress from home and social activities, which she feels may worsen her symptoms. Review of Systems (ROS): Constitutional:?Fatigue, weight loss. Gastrointestinal:?Diarrhea, blood and mucus in stool, abdominal pain/cramping, tenesmus, decreased appetite. Musculoskeletal:?Joint pain. Psychiatric:?Reports feeling anxious and frustrated due to the impact of UC on her daily life. Objective: Vital Signs:?Temperature 37.8?C, HR 98 bpm, BP 110/65 mmHg, RR 18 breaths/min, SpO2 98% on room air. General Appearance:?Alert and oriented, appears tired and slightly pale. Cardiovascular:?Regular heart rate and rhythm, no murmurs noted. Respiratory:?Clear to auscultation bilaterally. Abdomen:?Mildly distended, active bowel sounds. Tenderness to palpation in the lower left quadrant. No guarding or rebound tenderness. Rectal Exam:?Mild tenderness, blood and mucus present in stool. Skin:?No rashes or lesions observed. Musculoskeletal:?Mild swelling and tenderness noted in both knees. Physical Exam Narrative Physical Examination: General: Awake, alert, oriented x 3 and cooperative, seated upright in PCU bed is MedSurg patient, no acute distress. Skin: Normal color, normal turgor, no icterus, no cyanosis. HEENT: AT/NC, EOMI, PERRLA, improved MMM. Lungs: CTA bilaterally, moderate effort, mild decrease BL bases, no rales, ronchi or wheezing. Heart: Regular rate and rhythm; no gallop, rub audible. Abdomen: Soft, NTTP, ND, mildly hyperactive BS. Extremities: No cyanosis, clubbing, or edema. Neurological: Patient awake, alert, oriented as noted, cognitive function intact; pupils equally reactive to light and accommodation, cranial nerves grossly normal, moving all 4 extremities, no focal deficits, strength mildly globally creased. Psychiatric: Affect appears fatigued otherwise normal, no acute evidence of depressive or anxiety feelings. Assessment & Plan Assessment/Plan (1) Iron deficiency anemia: QUALIFIERS: Iron deficiency anemia type: other iron deficiency Qualified Code(s): D50.8 - Other iron deficiency anemias (2) Ulcerative colitis, acute: QUALIFIERS: Digestive disease complication type: unspecified complication Qualified Code(s): K51.919 - Ulcerative colitis, unspecified with unspecified complications (3) Fever: (4) Ulcerative colitis, rectosigmoid: (5) Erythema nodosum: (6) Hypotension: QUALIFIERS: Hypotension type: unspecified hypotension type Qualified Code(s): I95.9 - Hypotension, unspecified PLAN: Assessment: 19-year-old female with Ulcerative Colitis, currently experiencing a [id number] flare. Symptoms include frequent bloody diarrhea, abdominal pain, weight loss, and extra-intestinal manifestations (arthralgia). Patient requires hospitalization for disease management, control of inflammation, hydration, and nutritional support. Plan: Medications: Initiate IV corticosteroids (e.g., methylprednisolone) to reduce inflammation. Continue oral mesalamine. Administer intravenous fluids and electrolytes to manage dehydration. I talk with the patient and patient's mom for a long time she says that she has Humira at home and she missed 1 dose. Monitoring: Daily assessment of stool frequency, consistency, and presence of blood. Monitor vital signs, especially temperature, heart rate, and blood pressure. Assess for abdominal distension or worsening tenderness, which could indicate complications like toxic megacolon. Clinically she is not showing any signs of toxic megacolon. Monitor inflammatory markers (CRP). Check IBD SGI, check adalimumab levels and check ANCA check ,KUSHAL, check food allergy panel Nutrition: Consult with a registered dietitian for nutritional assessment and recommendations as an outpatient Consider a low-fiber diet to reduce gut irritation during the flare. Pain Management:?Administer pain medication as ordered (avoiding NSAIDs). She does not have any pain at this time. Follow-up:?Arrange for follow-up with the gastroenterology team if patient decides to switch to [facility]. She was encouraged to follow-up with Dr. Redd. Visit Charges Inpatient E&M: 94413 Subs Hosp L3
[2025-01-27 04:50] VITALS: BP 100/58; PULSE 77; RESP 16; TEMP 37.2; O2SAT 99
[2025-01-27 05:44] LABS: Hematocrit 29.3 % (37-47); Hemoglobin 9.2 g/dL (12.0-15.0); Immature Granulocytes Count 0.420 X10^3/uL (0.0-0.0); Mean Corp Hgb Conc 31.4 g/dL (32-36); Mean Corpuscular Volume 86.9 fL (81-99); Mean Platelet Vol. 9.8 fl (6.2-12.0); NRBC Flagged by Analyzer 0 % (0-5); POSITIVE DIFFERENTIAL YES; Platelet Count 435 K/mm3 (150-450); RBC Distribution Width CV 14.0 % (11.6-14.6); RBC Distribution Width SD 43.8 fl (35.1-43.9); Red Blood Count 3.37 M/mm3 (4.2-5.4); White Blood Count 18.5 K/mm3 (4.4-11.0)
[2025-01-27 05:47] LABS: Differential Indicated SCAN CRITERIA MET
[2025-01-27 06:07] LABS: AST(SGOT) 11 U/L (<=31); Alanine Aminotransfer ALT/SGPT 8 U/L (<=34); Albumin, Serum 2.8 g/dL (3.5-5.0); Alkaline Phosphatase 77 U/L (35-104); Anion Gap 11 (5-15); BUN 6 mg/dL (4-19); BUN/Creat Ratio 10.1 RATIO (10-20); Calcium,Total 9.1 mg/dL (7.6-11.0); Carbon Dioxide 22.2 mmol/L (21.0-32.0); Chloride 109 mmol/L (98-108); Estimated Creatinine Clearance 120.73 ml/min (50-250); Globulin 3.1 g/dL (2.2-4.2); Glucose 162 mg/dL (70-99); Potassium 4.1 mmol/L (3.3-5.1)
[2025-01-27 06:31] LABS: Differential Comment SCANNED
[2025-01-27] MEDS: 0.9% Saline Lock 10 ML Syringe IV (06:35)
--- NOTE | 2025-01-27 06:51 | PN.HOSP_ITS ---
Reason for Visit Reason for Visit: Diagnoses Other iron deficiency anemias (01/26/25) Other elevated white blood cell count (01/26/25) Hypotension, unspecified (01/26/25) Ulcerative (chronic) rectosigmoiditis without complications (01/26/25) Ulcerative colitis, unspecified, without complications (01/26/25) Ulcerative colitis, unspecified with unspecified complications (01/26/25) Erythema nodosum (01/26/25) Fever, unspecified (01/26/25) Other specified abnormal findings of blood chemistry (01/26/25) Subjective Subjective Patient with no acute events overnight per self and per nursing report. Patient has had no further marked diarrhea and notes that her stool is just mildly soft. She notes resolution of previous abdominal pain. She denies any current dysuria. Her and her family are still deciding whether or not they want a follow-up with Dr. Gonzalez or continue to follow with Dr. Redd. Patient denies fevers, chills, nausea, emesis, abdominal pain, chest pain or dyspnea. Objective Data Objective Data Vital Signs: Vital Signs Temp Pulse Resp BP Pulse Ox O2 Del Method 98.9 F 77 16 100/58 L 99 Room Air 01/27/25 04:50 01/27/25 04:50 01/27/25 04:50 01/27/25 04:50 01/27/25 04:50 01/27/25 04:50 Oxygen Delivery Method Room Air Weight: 121 lb 4.068 oz Body Mass Index (BMI) 21.4 Intake & Output: Intake and Output for Last 24 Hours 01/25/25 01/26/25 01/27/25 23:59 23:59 23:59 Intake Total 3010.00 / 3010.00 Balance 3010.00 / 3010.00 Lab / Micro Data 01/27/25 05:11 01/27/25 05:11 Labs: Laboratory Results - last 24 hr 01/26/25 03:37: Hemoglobin A1c 5.6, Phosphorus 3.7, Magnesium 1.6 01/26/25 19:57: Rheumatoid Factor 16.0 H, DEE DEE-1 Antibody TNP, Sm (Garcia) Antibody TNP, WARP TYING MACHINE TENDER Antibody TNP, Scl-70 Scleroderma Ab TNP, Antichromatin Antibodies TNP, Centromere B Antibody TNP, Miscellaneous Test 2 Cancelled 01/27/25 05:11: WBC 18.5 H, RBC 3.37 L, Hgb 9.2 L, Hct 29.3 L, MCV 86.9, MCH 27.3, MCHC 31.4 L, RDW Std Deviation 43.8, RDW Coeff of Lokesh 14.0, Plt Count 435, MPV 9.8, Immature Gran % (Auto) 2.300 H, Neut % (Auto) 76.1 H, Lymph % (Auto) 11.5 L, [place] % (Auto) 9.8, Eos % (Auto) 0.0, Baso % (Auto) 0.3, Absolute Neuts (auto) 14.1 H, Absolute Lymphs (auto) 2.13, Nucleated RBC % 0, Differential Comment SCANNED, Sodium 143, Potassium 4.1, Chloride 109 H, Carbon Dioxide 22.2, Anion Gap 11, BUN 6, Creatinine 0.62 L, Estim Creat Clear Calc 120.73, Est GFR (MDRD) Non-Af 131, BUN/Creatinine Ratio 10.1, Glucose 162 H, Calcium 9.1, Total Bilirubin < 0.15, AST 11, ALT 8, Alkaline Phosphatase 77, Total Protein 6.0, A lbumin 2.8 L, Globulin 3.1, Albumin/Globulin Ratio 0.9 Micro: Microbiology 01/26/25 07:26 Stool C. difficile GDH Antigen & Toxins - Final 01/26/25 07:26 Stool Clostridioides difficile (PCR) - Final 01/26/25 07:26 Stool Enteric Bacteriology - Final 01/25/25 21:45 Mucosa - Nose SARS-CoV-2, Influenza & RSV (PCR) - Final Physical Exam Narrative Physical Examination: General: Awake, alert, oriented x 3 and cooperative, seated upright in PCU bed is MedSur patient, notes resolution of previous abdominal pain. Skin: Normal color, normal turgor, no icterus, no cyanosis. HEENT: AT/NC, EOMI, PERRLA, improved MMM. Lungs: CTA bilaterally, moderate effort, mild decrease BL bases, no rales, ronchi or wheezing. Heart: Regular rate and rhythm; no gallop, rub audible. Abdomen: Soft, NTTP, ND, normalized BS. Extremities: No cyanosis, clubbing, or edema. Neurological: Patient awake, alert, oriented as noted, cognitive function intact; pupils equally reactive to light and accommodation, cranial nerves grossly normal, moving all 4 extremities, no focal deficits, strength improved, preserved. Psychiatric: Affect appears normal, no acute evidence of depressive or anxiety feelings. Assessment & Plan Assessment/Plan (1) Ulcerative colitis, acute: QUALIFIERS: Digestive disease complication type: unspecified complication Qualified Code(s): K51.919 - Ulcerative colitis, unspecified with unspecified complications PLAN: Plan The patient is an 19 y/o F w/ PMHx: Ulcerative colitis, Chronic anemia who presents to the [facility] ED on 01/26/25 with history of significant persistent diarrhea as well as fevers noted to be on Humira monthly with history of previous mild UC flares however never as severe as her current presentation with worsening loose stools for the last 5 days with some mucus in the stools and minimal blood with nausea without emesis prompting eventual ED evaluation. #1. Acute exacerbation ulcerative colitis with associated mild hematochezia: Patient admitted to medical surgical floor, initiated on Solu-Medrol 20 mg IV every 8, CBC trended, pain regimen and antiemetic regimen as needed, tolerating diet, GI consulted and given improvement recommended discharge on prednisone 60 mg daily, omeprazole 20 mg daily while on steroid therapy, follow-up with gastroenterology in 2 weeks. #2. Chronic normocytic anemia: Admission hemoglobin 10.3, MCV 85, unclear exact baseline, repeat 01/27/2020 5 AM hemoglobin 9.9, MCV 86.2, given acute presentation #1 some concerns about associated mild blood loss, vitamin B12 2622, iron 11, TIBC 223, iron saturation 4.9%, unsaturated IBC 212, ferritin 104, upon admission maintained on transfusion of iron 200 mg IV daily with plan transition to oral regimen at discharge. #3. Questionable acute complicated urinary tract infection: UA with positive leukocyte esterase, 10-25 urine WBCs and 3+ bacteria, no marked history of dysuria however initiated with empiric IV Rocephin, will continue pending urine culture. Given clinical improvement quicker than expected #1 plan to discharge patient home on oral Keflex therapy with noted urine culture still pending at discharge. #4. Hyperglycemia with no diabetic history: Admission glucose initially 126, repeat 170, ongoing steroid treatments with no previous diabetic history, hemoglobin A1c 5.6%. #5. DVT prophylaxis: Low risk, encourage ambulation. Charges/Coding Visit Charges Inpatient E&M: 23867 Subs Hosp L2
[2025-01-27 09:17] VITALS: BP 96/69; PULSE 65; RESP 18; TEMP 36.7; O2SAT 98
[2025-01-27] MEDS: Lactated Ringers 1,000 ML 75 ML IV (09:22)
[2025-01-27 10:04] VITALS: O2SAT 99
[2025-01-27] MEDS: Sodium Ferric Gluconat 250 MG in 0.9% Normal Saline 250 ML 135 MG IV (11:03)
--- NOTE | 2025-01-27 11:39 | DS.PCM_ITS ---
Providers Date of Admission: 01/26/25 Date of Discharge: 01/27/25 Primary Care Physician: Dr. Gideon Hernandez MD Consultations 01/26/25 01:45 Consult: Gastroenterology Routine Consulting Provider: [facility] Reason for Consult: acute ulcerative colitis flare EMERGENT Consult: No MD Notified: Yes Date Notified: 01/26/25 Time Notified: 06:45 Method of Notification: Text Reason For Visit: ACUTE UC FLARE Diagnosis Discharge Diagnosis (1) Ulcerative colitis, acute: Status: Acute Code(s): K51.90 - Ulcerative colitis, unspecified, without complications Qualifiers: Digestive disease complication type: unspecified complication Qualified Code(s): K51.919 - Ulcerative colitis, unspecified with unspecified complications Plan: DISCHARGE DIAGNOSES: #1. Acute exacerbation ulcerative colitis with associated mild hematochezia w/ #2 #2. Chronic normocytic anemia #3. Questionable acute complicated urinary tract infection, unclear organism #4. Hyperglycemia with no diabetic history, stress response/steroids Medications at Discharge Home Medications adalimumab 40 mg/0.8 mL subcutaneous pen kit (Humira Pen) See Rx Instructions subcut .COMPLEX ulcerative colitis 01/26/25 cephalexin 500 mg capsule 500 mg PO BID 5 days #10 caps 01/27/25 ferrous gluconate 324 mg (38 mg iron) tablet 324 mg PO DAILY 30 days #30 tabs 01/27/25 omeprazole 20 mg capsule,delayed release 20 mg PO DAILY 30 days #30 caps 01/27/25 prednisone 20 mg tablet 60 mg (3 x 20 mg) PO DAILY 30 days #90 tabs 01/27/25 Hospital Course Operations None Procedures None Summary of Care Provided Minutes Spent on Discharge: 35 Hospital Course: The patient is an 19 y/o F w/ PMHx: Ulcerative colitis, Chronic anemia who presented to the [facility] ED on 01/26/25 with history of significant persistent diarrhea as well as fevers noted to be on Humira monthly with history of previous mild UC flares however never as severe as her current presentation with worsening loose stools for the last 5 days with some mucus in the stools and minimal blood with nausea without emesis prompting eventual ED evaluation. Patient admitted to medical surgical floor, initiated on Solu-Medrol 20 mg IV every 8, CBC trended, pain regimen and antiemetic regimen as needed, tolerating diet, GI consulted. Admission hemoglobin 10.3, MCV 85, unclear exact baseline, repeat 01/26/25 AM hemoglobin 9.9, MCV 86.2->01/27/25 Hgb 9.2, MCV 86.9,, given acute presentation #1 some concerns about associated mild blood loss, vitamin B12 2622, iron 11, TIBC 223, iron saturation 4.9%, unsaturated IBC 212, ferritin 104, upon admission maintained on transfusion of iron 200 mg IV daily with transition to oral regimen at discharge. UA with positive leukocyte esterase, 10-25 urine WBCs and 3+ bacteria, no marked history of dysuria however initiated with empiric IV Rocephin, will continue pending urine culture. Given patient had notable clinical improvement quicker than expected with her UC flare, patient transitioned to oral keflex upon discharge with UCx still pending w/ recommendation to follow-up with PCP to assure UCx re-assessed at follow-up. #1 plan to discharge patient home on oral Keflex therapy with noted urine culture still pending at discharge. Given again as noted clinical improvement quicker than medically expected, GI cleared for discharge on prednisone 60 mg daily, omeprazole 20 mg daily while on steroid therapy, follow-up with gastroenterology in 2 weeks. Weight / BMI Weight Weight: 121 lb 4.068 oz Body Mass Index (BMI) 21.4 ABG / Lab / Microbiology Data 01/27/25 05:11 01/27/25 05:11 Laboratory: Laboratory Results - last 24 hr 01/26/25 19:57: Rheumatoid Factor 16.0 H, DEE DEE-1 Antibody TNP, Sm (Garcia) Antibody TNP, COMMERCIAL ADMINISTRATOR Antibody TNP, Scl-70 Scleroderma Ab TNP, Antichromatin Antibodies TNP, Centromere B Antibody TNP, Miscellaneous Test 2 Cancelled 01/27/25 05:11: WBC 18.5 H, RBC 3.37 L, Hgb 9.2 L, Hct 29.3 L, MCV 86.9, MCH 27.3, MCHC 31.4 L, RDW Std Deviation 43.8, RDW Coeff of Lokesh 14.0, Plt Count 435, MPV 9.8, Immature Gran % (Auto) 2.300 H, Neut % (Auto) 76.1 H, Lymph % (Auto) 11.5 L, [place] % (Auto) 9.8, Eos % (Auto) 0.0, Baso % (Auto) 0.3, Absolute Neuts (auto) 14.1 H, Absolute Lymphs (auto) 2.13, Nucleated RBC % 0, Differential Comment SCANNED, Sodium 143, Potassium 4.1, Chloride 109 H, Carbon Dioxide 22.2, Anion Gap 11, BUN 6, Creatinine 0.62 L, Estim Creat Clear Calc 120.73, Est GFR (MDRD) Non-Af 131, BUN/Creatinine Ratio 10.1, Glucose 162 H, Calcium 9.1, Total Bilirubin < 0.15, AST 11, ALT 8, Alkaline Phosphatase 77, Total Protein 6.0, A lbumin 2.8 L, Globulin 3.1, Albumin/Globulin Ratio 0.9 Microbiology: Microbiology 01/26/25 07:26 Stool C. difficile GDH Antigen & Toxins - Final 01/26/25 07:26 Stool Clostridioides difficile (PCR) - Final 01/26/25 07:26 Stool Enteric Bacteriology - Final 01/25/25 21:45 Mucosa - Nose SARS-CoV-2, Influenza & RSV (PCR) - Final D/C Instructions Discharge Diet: No restrictions May resume sexual activity in: - (No anal sex.) Weight Bearing Status: Weight bearing as tolerated Call your doctor if you observe: Fever of 101 or Higher, Shortness of breath, Dizziness, Swelling in the ankles, Chest pain, Increased palpitations (irregular heartbeat), Calf discomfort, Uncontrolled pain and - (Recurrent severe abdominal pain, diarrhea, nausea or emesis.) DC O2, CPAP, BIPAP Needs Home O2 Discharge instructions: No Meaningful Use Info Meaningful Use Meaningful Use Diagnoses (Choose all that apply): None applicable Ischemic Stroke Statin Dosing Therapy Reference: STATIN DOSE THERAPY REFERENCE: * Patients > 75 years receive moderate or high dose statin therapy. * Patients 75 years or YOUNGER should receive HIGH intensity statin dose unless contraindicated. You will be required to document reason for non-treatment if statin daily dose does not meet guidelines. HIGH DOSE STATIN THERAPY DAILY Atorvastatin > than or = to 40 mg Rosuvastatin > than or = to 20 mg Amlodipine + Atorvastatin > than or = to 2.5/40 mg Ezetimibe + Simvastatin 10/80 mg Simvastatin 80mg Discharge Plan Admission Admit Date/Time: 01/26/25 00:18 Primary Reason for Your Visit: Ulcerative Colitis Flare, Chronic normocytic anemia, UTI Attending Provider: Nikki Harrell Primary Care Provider: Gideon Hernandez Consulting Providers: Tj Dewey Patient Instructions: Your Child Has Ulcerative Colitis, ED Cystitis Female Adult Additional Instructions / Restrictions: ADDITIONAL FOLLOW-UP/INSTRUCTIONS: --Please continue prednisone 60 mg daily until re-evaluation with Gastroenterology. --Please continue omeprazole 20 mg daily while on the high-dose prednisone therapy. --Please continue Keflex 500 mg twice daily to completion for urinary tract infection concern. -- Please continue initiated iron supplementation oral therapy with plan repeat outpatient iron studies and complete blood count at PCP versus gastroenterology discretion. -- Labs pending upon discharge per GI which may be followed up with them in their office at reevaluation included: IBD SGI, adalimumab levels, ANCA check, KUSHAL, food allergy panel. -- Please follow-up with gastroenterology in 2 weeks. You may contact her office earlier if there is any concerns or questions. You may follow with Dr. Gonzalez if you prefer to transition or you make also continue with Dr. Redd. --Urine culture is pending at your discharge, this may be rechecked at follow-up with your primary care physician. Discharge Orders/Prescriptions Prescriptions: New prednisone 20 mg tablet 60 mg PO DAILY 30 Days Qty: 90 0RF omeprazole 20 mg capsule,delayed release(DR/EC) 20 mg PO DAILY 30 Days Qty: 30 0RF ferrous gluconate 324 mg (38 mg iron) tablet 324 mg PO DAILY 30 Days Qty: 30 0RF cephalexin 500 mg capsule 500 mg PO BID 5 Days Qty: 10 0RF Continued Humira Pen 40 mg/0.8 mL pen injector kit See Rx Instructions .ROUTE .COMPLEX Rx Instructions: pt. unsure, follow up needed Referrals / Follow Up: Agustín Gonzalez DO [Med Staff - Active Staff] - (Please follow-up with Dr. Gonzalez in 2 weeks if you prefer to transition.) Gentry Redd MD [Non-Staff] - (Please follow-up with Dr. Redd in 2 weeks for re-evaluation UNLESS you prefer to transition to Dr. Gonzalez.) Gideon Hernandez MD [Primary Care Provider] - (Follow-up in 3-5 days to review admission.) Disposition Disposition (needs filled in before D/C Order can be placed): Home, Self Care Charges/Coding Visit Charges Inpatient E&M: 22744 Disch Hosp >30min
--- NOTE | 2025-01-27 13:18 | CASEMGMT ---
Patient has order for discharge. RN CM in to discuss needs at discharge. Patient denies needs or help at discharge. Patient had no further questions or concerns.
[2025-01-27 15:08] LABS: Folate, Hemolysate Test > 620.0 ng/mL (Not Estab.); Folate, RBC (Hct) Test 30.4 % (34.0-46.6); Folates, RBC Test > 2039 ng/mL (>498)
--- NOTE | 2025-01-27 18:43 | PN_ITS ---
Progress Note Patient did well overnight. She has been tolerating normal diet. She does not seem to be suffering any side effects from steroids. She has been afebrile. She had a normal bowel movement today. She denied any bleeding per rectum, mucus, abdominal pain or urgency. Physical Exam Narrative Physical Examination: General: Awake, alert, oriented x 3 and cooperative, seated upright in PCU bed is MedSurg patient, notes resolution of previous abdominal pain. Skin: Normal color, normal turgor, no icterus, no cyanosis. HEENT: AT/NC, EOMI, PERRLA, improved MMM. Lungs: CTA bilaterally, moderate effort, mild decrease BL bases, no rales, ronchi or wheezing. Heart: Regular rate and rhythm; no gallop, rub audible. Abdomen: Soft, NTTP, ND, normalized BS. Extremities: No cyanosis, clubbing, or edema. Neurological: Patient awake, alert, oriented as noted, cognitive function int act; pupils equally reactive to light and accommodation, cranial nerves grossly normal, moving all 4 extremities, no focal deficits, strength improved, preserved. Psychiatric: Affect appears normal, no acute evidence of depressive or anxiety feelings. Assessment & Plan Assessment/Plan (1) Iron deficiency anemia: QUALIFIERS: Iron deficiency anemia type: other iron deficiency Qualified Code(s): D50.8 - Other iron deficiency anemias (2) Ulcerative colitis, acute: QUALIFIERS: Digestive disease complication type: unspecified complication Qualified Code(s): K51.919 - Ulcerative colitis, unspecified with unspecified complications (3) Fever: (4) Ulcerative colitis, rectosigmoid: (5) Erythema nodosum: (6) Hypotension: QUALIFIERS: Hypotension type: unspecified hypotension type Qualified Code(s): I95.9 - Hypotension, unspecified PLAN: Assessment: * 19-year-old female with Ulcerative Colitis, currently experiencing a tcssihqg-wv-[id number] flare. * Symptoms include frequent bloody diarrhea, abdominal pain, weight loss, and extra-intestinal manifestations (arthralgia). * Patient requires hospitalization for disease management, control of inflammation, hydration, and nutritional support. Plan: * Medications: * Initiate IV corticosteroids (e.g., methylprednisolone) to reduce inflammation. * Switch IV steroids to oral steroids * DC IV fluids * I talk with the patient and patient's mom for a long time she says that she has Humira at home and she missed 1 dose. * Monitoring: * Daily assessment of stool frequency, consistency, and presence of blood. * Monitor vital signs, especially temperature, heart rate, and blood pressure. * Assess for abdominal distension or worsening tenderness, which could indicate complications like toxic megacolon. Clinically she is not showing any signs of toxic megacolon. * Monitor inflammatory markers (CRP). * Check IBD SGI, check adalimumab levels and check ANCA check ,KUSHAL, check food allergy panel * Await biochemical workup * Nutrition: * Consult with a registered dietitian for nutritional assessment and recommendations as an outpatient * Consider a low-fiber diet to reduce gut irritation during the flare. * Pain Management:?Administer pain medication as ordered (avoiding NSAIDs). She does not have any pain at this time. * Follow-up:?Arrange for follow-up with the gastroenterology team if patient decides to switch to [place] [facility]. She was encouraged to follow-up with Dr. Redd. Visit Charges Inpatient E&M: 68869 Subs Hosp L3
[2025-01-28 04:07] LABS: CRP, High Sensitivity 162.20 mg/L (0.00-3.00)
[2025-01-28 23:07] LABS: Calprotectin, Stool 5630 ug/g (0-120)
[2025-01-31 15:07] LABS: Anti-Chromatin <0.2 AI (0.0-0.9); Anti-Jo <0.2 AI (0.0-0.9); Anti-dsDNA Ab 2 IU/mL (0-9); Egg, White <0.10 kU/L (Class 0); SCALLOP <0.10 kU/L (Class 0); SESAME SEED <0.10 kU/L (Class 0); SJOGREN'S Anti-SS-A test < 0.2 AI (0.0-0.9); SJOGREN'S Anti-SS-B test < 0.2 AI (0.0-0.9); Walnut, (Food) <0.10 kU/L (Class 0)
[2025-02-03 15:08] LABS: ACCA 8 units (0-90); ALCA 40 units (0-60); AMCA 12 units (0-100); Albumin 2.9 g/dL (2.9-4.4); Cytoplasmic Ab (C-ANCA) <1:20 titer (Neg:<1:20); Gamma Globulin 1.2 g/dL (0.4-1.8); HEPATITIS B SURFACE AG Negative (Negative); Hep C Antibodies Non Reactive (Non Reactive); IgG, Quant 1174 mg/dL (719-1475); Immunoglobulin A 160 mg/dL (87-352); Immunoglobulin G, Subclass 1 631 mg/dL (325-846); Immunoglobulin G, Subclass 2 327 mg/dL (133-509); Immunoglobulin G, Subclass 3 89 mg/dL (19-109); Immunoglobulin G, Subclass 4 21 mg/dL (3-104); Immunoglobulin M 150 mg/dL (58-230); PROEL- TOTAL PROTEIN 6.7 g/dL (6.0-8.5); Perinuclear Ab (P-ANCA) <1:20 titer (Neg:<1:20)
== END 2025-01-27 15:17 | disposition home or self-care (01) | DRG 386 ==
LOC: ED 22:28 → PCU 01-26 00:42
PROVIDERS: Internal Medicine Gastroenterology; Nurse Practitioner Acute Care; Admitting Provider Hospitalist; Emergency Provider Emergency Medicine; PCP Family Medicine; Visit Provider Family Medicine
DX: K51.311 Ulcerative (chronic) rectosigmoiditis with rectal bleeding (principal); N39.0 Urinary tract infection, site not specified; L52 Erythema nodosum; D50.9 Iron deficiency anemia, unspecified; I95.9 Hypotension, unspecified; D72.828 Other elevated white blood cell count; R73.9 Hyperglycemia, unspecified; T38.0X5A Adverse effect of glucocorticoids and synthetic analogues, initial encounter; Z79.899 Other long term (current) drug therapy
CPT/HCPCS: 36415; 71046; 74177; 80048; 80053; 80074; 81001; 82607; 82728; 82747; 82784; 82785; 82787; 83036; 83516; 83540; 83550; 83605; 83735; 83993; 84100; 84165; 85014; 85025; 85027; 85610; 85730; 86003; 86036; 86037; 86141; 86200; 86225; 86235; 86334; 86431; 86480; 86671; 87040; 87086; 87088; 87493; 87506; 87631; 94668; 94760; 99285; Q9967; A4216; J0696; J2916

== ENCOUNTER → 2025-03-11 | Outpatient (CLI) | payer OTHER, SELFPAY ==
[2025-03-11 13:28] LABS: Hematocrit 37.4 % (37-47); Hemoglobin 12.2 g/dL (12.0-15.0); Immature Granulocytes Count 0.020 X10^3/uL (0.0-0.0); Mean Corp Hgb Conc 32.6 g/dL (32-36); Mean Corpuscular Volume 90.1 fL (81-99); Mean Platelet Vol. 9.6 fl (6.2-12.0); NRBC Flagged by Analyzer 0 % (0-5); Platelet Count 465 K/mm3 (150-450); RBC Distribution Width CV 15.5 % (11.6-14.6); RBC Distribution Width SD 52.1 fl (35.1-43.9); Red Blood Count 4.15 M/mm3 (4.2-5.4); White Blood Count 8.5 K/mm3 (4.4-11.0)
[2025-03-11 14:24] LABS: AST(SGOT) 23 U/L (<=31); Alanine Aminotransfer ALT/SGPT 18 U/L (<=34); Albumin, Serum 4.2 g/dL (3.5-5.0); Alkaline Phosphatase 70 U/L (35-104); Anion Gap 10 (5-15); BUN 14 mg/dL (4-19); BUN/Creat Ratio 17.1 RATIO (10-20); CRP 6.34 mg/L (0.0-3.0); Calcium,Total 9.7 mg/dL (7.6-11.0); Carbon Dioxide 25.3 mmol/L (21.0-32.0); Chloride 104 mmol/L (98-108); Globulin 2.7 g/dL (2.2-4.2); Glucose 82 mg/dL (70-99); Potassium 4.0 mmol/L (3.3-5.1)
[2025-03-13 05:07] LABS: QNTFERON TB Mitogen Value > 10.00 IU/mL (.); QNTFERON TB Nil Value 0.05 IU/mL (.); QNTFERON TB1+ Ag Value 0.04 IU/mL (.); QNTFERON TB2+ Ag Value 0.04 IU/mL (.); QNTIFERON TB Positive Criteria Negative (Negative)
[2025-03-14 00:07] LABS: Calprotectin, Stool 821 ug/g (0-120)
== END | disposition home or self-care (01) ==
PROVIDERS: PCP Family Medicine
DX: K51.919 Ulcerative colitis, unspecified with unspecified complications (principal)
CPT/HCPCS: 36415; 80053; 83993; 85025; 85652; 86140; 86480

== ENCOUNTER → 2025-06-24 | Outpatient (CLI) | payer OTHER, SELFPAY ==
[2025-06-24 15:04] LABS: Hematocrit 34.4 % (37-47); Hemoglobin 11.0 g/dL (12.0-15.0); Immature Granulocytes Count 0.020 X10^3/uL (0.0-0.0); Mean Corp Hgb Conc 32.0 g/dL (32-36); Mean Corpuscular Volume 88.9 fL (81-99); Mean Platelet Vol. 9.8 fl (6.2-12.0); NRBC Flagged by Analyzer 0 % (0-5); POSITIVE DIFFERENTIAL YES; Platelet Count 445 K/mm3 (150-450); RBC Distribution Width CV 12.8 % (11.6-14.6); RBC Distribution Width SD 41.3 fl (35.1-43.9); Red Blood Count 3.87 M/mm3 (4.2-5.4); White Blood Count 8.4 K/mm3 (4.4-11.0)
[2025-06-24 15:31] LABS: Differential Indicated SCAN CRITERIA MET
[2025-06-24 15:43] LABS: AST(SGOT) 16 U/L (<=31); Alanine Aminotransfer ALT/SGPT 8 U/L (<=34); Albumin, Serum 3.6 g/dL (3.5-5.0); Alkaline Phosphatase 64 U/L (35-104); Anion Gap 9 (5-15); BUN 11 mg/dL (4-19); BUN/Creat Ratio 13.7 RATIO (10-20); CRP 26.90 mg/L (0.0-3.0); Calcium,Total 9.3 mg/dL (7.6-11.0); Carbon Dioxide 25.6 mmol/L (21.0-32.0); Chloride 103 mmol/L (98-108); Globulin 2.8 g/dL (2.2-4.2); Glucose 97 mg/dL (70-99); Potassium 4.0 mmol/L (3.3-5.1)
--- OUTSIDE RECORDS SUMMARY | 2025-06-24 17:55 | XMS RPT_ITS | CCD ---
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 Meneses Primary Care Provider Mt ALVARADO, Dr. Ruff Emergency Provider Dr. Tj Dewey DO Admit Provider [phone] Dr. Tj Dewey DO Attending Provider [employer]OVANA [employer], DREW Carcamo Unavailable Unav ailable SCOTT ALVARADO, SAÚL Doll Unavailable HERON [place] Unavailable Unavailable ABRAHAM HOWARD MD Unavailable Dr. Tj Dewey DO Other Provider Dr. Nikki Harrell MD Attending Provider Dr. Nikki Harrell MD Other Provider Abelardo JONES-CDanni Attending Provider Dr. Agustín Gonzalez DO Attending Provider Dr. Deya Chavez MD Referring Provider [phone] Dr. Tj Dewey DO Referring Provider Dr. Agustín Gonzalez DO Attending Provider Dr. Nikki Harrell MD Referring Provider Abelardo JONES-CDanni Attending Provider [phone] Danni Kruger Referring Provider [phone] Tj Dewey Consulting Unavailable Zuleima Jt Referring Unavailable Zuleima Tj Admitting Unavailable Chavez, Deya Primary Care Unavailable Friend, Agustín Attending Unavailable Nikki Harrell L Consulting Unavailable Tj Dewey Attending Unavailable Tj Dewey Consulting Unavailable Zuleima, Tj Admitting Unavailable Chavez, Deya Primary Care Unavailable WhiteNikki L Attending Unavailable Chavez, Deya Referring Unavailable Chavez, Deya Primary Care Unavailable Friend, Agustín Attending Unavailable Chavez, Deya Primary Care Unavailable Danni Zhou Attending Unavailable Danni Zhou Referring Unavailable Chavez, Deya Referring Unavailable Chavez, Deya Primary Care Unavailable Danni Zhou Attending Unavailable WhiteNikki L Referring Unavailable WhiteNikki L Attending Unavailable Allergies Allergy Classification Reported Allergen(s) Allergy Type Date of Onset Reaction(s) Facility (11 sources) Morphine Drug Allergy 5 [facility] (5 sources) predniSONE Drug Allergy 5 can't take due to ulcerative colitis [facility] (1 source) Morphine Drug Allergy 5 [facility] (1 source) predniSONE Drug Allergy 5 [facility] Medications Current Medications Medication Drug Class(es) Dates Sig (Normalized) Sig (Original) 0.8 ml adalimumab 50 mg/ml auto-injector (4 sources) Tumor Necrosis Factor Naresh Start: 01-26-2025 Adalimumab (Humira Pen) 40 mg/0.8 mL pen injector kit Active 0 SC .COMPLEX January 26, 2025 12:00am ulcerative colitis pt. unsure, follow up needed cephalexin 500 mg oral capsule (4 sources) Cephalosporin Antibacterial Start: 01-27-2025 take 1 capsule by mouth twice daily Cephalexin 500 mg capsule Active 500 mg PO TWICE A DAY 10 5 0 January 27, 2025 12:00am ferrous gluconate 324 mg oral tablet (4 sources) Start: 01-27-2025 take 1 tablet by mouth once daily Ferrous Gluconate 324 mg (38 mg iron) tablet Active 324 mg PO DAILY 30 30 0 January 27, 2025 12:00am Multivitamin preparation (6 sources) take 1 tablet by mouth once daily CHEWABLE MULTIVITAMIN (PO Chew Tab) ; 1 daily omeprazole 20 mg delayed release oral capsule (4 sources) Proton Pump Inhibitor Start: 01-27-2025 take 1 capsule by mouth once daily Omeprazole 20 mg capsule,delayed release(DR/EC) Active 20 mg PO DAILY 30 30 0 January 27, 2025 12:00am Completed/Discontinued Medications Medication Drug Class(es) Dates Sig (Normalized) Sig (Original) azithromycin 40 mg/ml oral suspension (6 sources) Macrolide Antimicrobial Start: 02-27-2012 End: 03-03-2012 AZITHROMYCIN, 200MG/5ML (Oral Suspension Reconstituted) ; 1 x 1 then 1/2 x 4 tsp daily for 5 days Quantity: 1 {bottle(s)} Refills: 0 Ordered: 29-Jan-2022 MD ABRAHAM HOWARD Start: 27-Feb-2012 End: 03-Mar-2012 Status: Inactive Comments: 5.5 cc day one then 3 cc daily for 4 daysmeds to be dispensed in office Comment on above: 5.5 cc day one then 3 cc daily for 4 daysmeds to be dispensed in office predniSONE 20 mg oral tablet (6 sources) Start: 02-13-2025 End: 03-16-2025 take 2 tablets by mouth once daily, then take 1 tablet by mouth once daily Prednisone 20 mg tablet Discontinued 20 mg PO daily 38 0 February 13, 2025 12:00am March 15, 2025 12:00am March 16, 2025 12:05am Starting 7.28.25 Take 40mg, 2 tabs, by mouth daily x2 weeks then take 20mg, 1 tab, by mouth daily x1 week then take 10mg, 1/2 tab, by mouth daily x6 days Start: 01-27-2025 End: 02-13-2025 take 3 tablets by mouth once daily Prednisone 20 mg tablet Discontinued 60 mg PO DAILY 90 30 0 January 27, 2025 12:00am February 13, 2025 11:42am Problems Active Problems Problem Classification Problem Date Documented Da te Episodic/Chronic Cardiac dysrhythmias (7 sources) Sinus tachycardia; Translations: [Tachycardia, unspecified] 01-26-2025 Episodic Deficiency and other anemia (8 sources) Iron deficiency anemia; Translations: [Iron deficiency anemia, unspecified] 01-26-2025 Episodic Deficiency and other anemia (1 source) Other iron deficiency anemias; Translations: [Other iron deficiency anemias] Onset: 02-23-2025 Episodic Diseases of white blood cells (6 sources) Leukocytosis; Translations: [Elevated white blood cell count, unspecified] Onset: 02-23-2025 01-26-2025 Chronic Fever of unknown origin (8 sources) Fever; Translations: [Fever, unspecified] Onset: 02-23-2025 01-26-2025 Episodic Lymphadenitis (7 sources) Mesenteric lymphadenopathy; Translations: [Localized enlarged lymph nodes] 01-26-2025 Episodic Other circulatory disease (12 sources) Low blood pressure; Translations: [Hypotension, unspecified] 01-26-2025 Episodic Other circulatory disease (1 source) Hypotension, unspecified; Translations: [Hypotension, unspecified] Onset: 02-23-2025 Episodic Other gastrointestinal disorders (1 source) Diarrhea, unspecified; Translations: [Diarrhea, unspecified] Onset: 02-23-2025 Episodic Other inflammatory condition of skin (10 sources) Erythema nodosum; Translations: [Erythema nodosum] 01-26-2025 Episodic Other inflammatory condition of skin (1 source) Erythema nodosum; Translations: [Erythema nodosum] Onset: 02-23-2025 Episodic Other non-traumatic joint disorders (7 sources) Joint pain; Translations: [Pain in unspecified joint] 01-26-2025 Episodic Other screening for suspected conditions (not mental disorders or infectious disease) (6 sources) Blood chemistry abnormal; Translations: [Other specified abnormal findings of blood chemistry] Onset: 02-23-2025 01-26-2025 Episodic Pneumonia (except that caused by tuberculosis or sexually transmitted disease) (12 sources) Pneumonia, organism unspecified 02-27-2012 Episodic Regional enteritis and ulcerative colitis (20 sources) Ulcerative colitis, unspecified, without complications; Translations: [Proctosigmoiditis ] Onset: 01-24-2022 Chronic Unclassified (4 sources) Please follow-up with Dr. Gonzalez in 2 weeks if you prefer to transition. Unclassified (4 sources) Follow-up in 3-5 days to review admission. Past or Other Problems Problem Classification Problem Date Documented Da te Episodic/Chronic Unclassified (6 sources) cough - The cough has been occurring for 3 days. The cough is characterized as productive of mucopurulent sputum. The symptoms have been associated with fever and sore throat, while the symptoms have not been associated with chest pain, dyspnea, hoarseness or runny nose. 02-27-2012 Results Test Name Value Interpretation Reference Range Facility Gastroenterology Visit Repor ton 03-25-2025 Gastroenterology Visit Report [facility] [address] [place] [address] OFFICE VISIT Date of Service: 03/25/25 MR#: [id number] Acct: [id number] Name: JUDITH HURLEY Rep #: [id number] : 2005 Provider: Agustín Gonzalez DO Age/Sex: 19/F Location[place] [facility] [place] Status: Signed Intake Vital Signs 01/26/25 14:25 Height 5 ft 3 in Intake Visit Reasons: 2 M FU Allergies morphine Allergy (Verified 02/11/25 08:39) Hives prednisone Adverse Reaction (Verified 02/11/25 08:39) can't take due to ulcerative colitis Medications ???Medication ???Instructions ???Recorded ???Confirmed ???Type adalimumab 40 mg/0.8 mL See Rx Instructions subcut 5 03/25/25 History subcutaneous pen kit (Humira Pen) .COMPLEX ulcerative colitis cephalexin 500 mg capsule 500 mg PO BID 5 days #10 caps 04/1503/25/25 Rx ferrous gluconate 324 mg (38 mg 324 mg PO DAILY 30 days #30 tabs 0 01/27/25 03/25/25 Rx iron) tablet omeprazole 20 mg capsule,delayed 20 mg PO DAILY 30 days #30 caps 03/25/25 Rx release [facility] Medical History (Updated 02/11/25 @ 12:50 by SHEREE Menchaca) Iron deficiency anemia Erythema nodosum Ulcerative colitis, rectosigmoid Ulcerative colitis Surgical History Hx of tonsillectomy Social History household members: family Smoking Status: Never smoker HPI HPI Details: JUDITH HURLEY, is a 19 F who presents to the office today for follow up. abd/pelvis CT 7.02.12 Diffuse rectal and colonic wall thickening and enhancement with prominent isael-rectal, ileocolic and mesenteric lymph nodes, possibly inflammatory (colitis). Advise clinical correlation. Mild gastric wall thickening, possibly gastritis. Advise clinical correlation. *BGI established 02.11.25 for ER f/u. PMH of UC diagnosed at outside facility approximately 3 years ago. Pt is taking monthly Humira. OV 03.25.25 pt reports that she is feeling well overall and denies GI symptoms of concern at this time. Pt reports she is here to follow up. ESR / CRP Calp / Lact Serum / AB 01.26.25 -- / -- 5630 / -- -- / -- 03.11.25 821 / -- -- / -- ROS Const Constitutional: No fatigue, fever(s) or weight change ENT ENT: No difficulty swallowing Gastro GI: No abdominal pain, belching, bloating, change in bowel habits, change in stool character, coffee ground emesis, constipation, cramping, diarrhea, heartburn, difficulty swallowing, feeling full early, excessive flatus, incontinent of stools, Vomiting blood/hematemesis, Blood in stool, loose stools, Black,tarry stools, nausea/dyspepsia, pain with swallowing, vomiting or other Musc Musculoskeletal: No joint pain Skin Skin: No yellowing of the eye or itchy eyes Psych Psychiatric: No anxiety and No depression Endo Endocrine: No fatigue or weight change Aller/Imm Allergy/Immunologic: No itchy eyes Bandar/Lymp Hematologic/Lymphatic: No easy bleeding or easy bruising Exam Const General: cooperative, healthy appearing, comfortable, no acute distress and well groomed Nutritional Appearance: average body habitus Orientation: alert and oriented x3 [facility] Head: normal to inspection Ears: hearing grossly normal bilaterally Eyes General: appearance normal, both eyes and all related structures Sclera: sclerae normal Neck Neck: normal visual inspection and full ROM Chest Chest palpation inspection: normal inspection of the chest Resp Effort Inspection: normal respiratory effort, able to speak in complete sentences and symmetric chest movement GI Inspection: normal to inspection Palpation: soft, no hepatosplenomegaly, no guarding and nontender Skin General: no rashes or lesions noted Neuro General: patient alert, patient oriented x3 and moves all extremities Cognition: normal cognition Speech: speech normal Gait: normal gait Extrem General: full ROM Psych Appearance: well kempt Mental Status: mental status grossly normal Mood: congruent mood Judgment: judgment good Assessment and Plan Assessment and Plan (1) Ulcerative colitis: Status: Chronic Qualifiers: Ulcerative colitis location: unspecified ulcerative colitis location Digestive disease complication type: unspecified complication Qualified Code(s): K51.919 - Ulcerative colitis, unspecified with unspecified complications Plan: 19-year-old female with a long-standing history of UC. The patient was recently hospitalized for an acute flare. The patient was successfully stabilized on intravenous corticosteroids and Humira. The patient reports that her Humira regimen has managed her symptoms for several years prior to this most recent flare. The patient feels that the flare was triggered by stress (more content not included)... Normal [facility] L3410.9992on 03-18-2025 [facility] Misc. COMMENT Normal . [facility] Comment on above: Order Comment: [id number] 0adalimumab drug Ab SST FZ Result Comment: Test Ordered: [id number] Adalimumab Drug + Antibody Adalimumab Drug Level 4.6 ug/mL ES Reference Range: . Quantitation Limit: <0.6 ug/mL Results of 0.6 or higher indicate detection of adalimumab. Comments: - The optimal drug concentration depends upon patient- specific factors including the disease and desired therapeutic endpoint. - Maintenance trough concentrations >=7.5 may correspond to higher remission rates.(1) - Mucosal healing may be more likely in patients with maintenance trough levels >8.14.(2) - In rheumatoid arthritis, trough levels of 5-8 are associated with clinical (EULAR) response.(3) - This assay measures the antibody-unbound (free) fraction of adalimumab when serum anti-adalimumab antibodies are present. Anti-Adalimumab Antibody <25 ng/mL ES Reference Range: . Interpretation: The above result is an UNDETECTED Antibody titer Quantitation Limit: <25 ng/mL. Results of 25 or higher indicate detection of anti- adalimumab antibodies. 25 - 100 ng/mL: LOW titer 101 - 300 ng/mL: INTERMEDIATE titer 301 or greater ng/mL: HIGH titer Comments: - Anti-drug antibody levels should be interpreted in the context of the concomitant free drug trough concentration. - Low anti-drug antibodies may be transient while high titers are likely to be more consequential.(4-6) - Some immunogenicity is reversible. Elimination of intermediate titer (and even some high titer) anti-adalimumab antibodies has been achieved with dose escalation and/or methotrexate or 6-MP.(7) - This anti-adalimumab antibody assay is drug tolerant, and all positive results are verified for anti-drug specificity by a confirmatory test. References: 1. Mayela Lopez, et al. AGA Review on TDM in IBD. Gastroenterol 2017;153:835-857. 2. Ze Doll et al. J Crohns Col 2016;10(5):510-515. 3. Pouw MF, et al. Heydi Rheum Dis 2015;74:513-518. 4. Guanaco GM, et al. CARLITO 2011;305(14):3818-7701. 5. Steenhoscart C, et al. J Clin Gastroenterol 2016; 50:482-489. 6. Yanai H, et al. Clin Gastroenterol Hepatol 2015; 13(3):522-530. 7. Karen A, et al. Gastroenterol 2019;156(6):S-617. These tests were developed and their performance characteristics determined by [facility]. They have not been cleared or approved by the Food and Drug Administration. However, these electrochemiluminescence immunoassay (ECLIA) measurements of adalimumab and anti-adalimumab antibody (constituting DoseASSURE ADL) have been developed and validated in accordance with CLIA (Clinical Laboratory Improvement Amendments) and the FDA Guidance document, Assay Development and Validation for Immunogenicity Testing of Therapeutic Protein Products (2019). Performed at: [facility] [address] [place] [id number] Data Support Specialist: Philip Herrera MD, Phone: [phone] Performed at: [address] [id number] Data Support Specialist: Gentry Perkins PhD, Phone: [phone] Performed By: #### L 5548.2742, B452.2309, Z332.2461 #### [facility] [address] [place], [address] Calprotectin, Stoolon [address] 821 ug/g Abnormal 0-120 [facility] Comment on above: Result Comment: Re sults verified by repeat testing Concentration Interpretation Follow-Up < 5 - 50 ug/g Normal None >50 -120 ug/g Borderline Re-evaluate in 4-6 weeks >120 ug/g Abnormal Repeat as clinically indicated Performed at: [address] [id number] Data Support Specialist: Wilmer Allen MD, Phone: [phone] Performed By: #### L 7000.0700 #### [facility] [address] [place], [address] Quantiferon TB-Gold+on 03-13 QFT MITOGEN DORIAN > 10.00 Normal . [facility] Comment on above: Performed By: #### L 3100.1725, L503.6550, L503.6030 #### [facility] [address] [place], [address] QFT NIL VALUE 0.05 IU/mL Normal . [facility] Comment on above: Performed By: #### L 3100.1725, L503.6550, L503.6030 #### [facility] [address] [place], [address] QFT TB GOLD+ Comment Normal . [facility] Comment on above: Result Comment: Braden tiFERON-TB Gold Plus is a qualitative indirect test for M tuberculosis infection (including disease) and is intended for use in conjunction with risk assessment, radiography, and other medical and diagnostic evaluations. The QuantiFERON-TB Gold Plus result is determined by subtracting the Nil value from either TB antigen (Ag) value. The Mitogen tube serves as a control for the test. Performed By: #### L 3100.1725, L503.6550, L503.6030 #### [facility] [address] [place], [address] QFT TB POS CRIT Negative Normal Negative [facility] Comment on above: Result Comment: No r esponse to M tuberculosis antigens detected. Infection with M tuberculosis is unlikely, but high risk individuals should be considered for additional testing (ATS/IDSA/CDC Clinical Practice Guidelines, 2017). The reference range is an Antigen minus Nil result of <0.35 IU/mL. The specimen received for QuantiFERON testing was incubated by the ordering institution. Specific procedures outlined in our Directory of Services and in the package insert for the QuantiFERON Gold (In Tube) test must be followed to enable for proper stimulation of cells for the production of interferon gamma. Chemiluminescence immunoassay methodology Performed at: [address] [id number] Data Support Specialist: Gentry Perkins PhD, Phone: [phone] Performed By: #### L 3100.1725, L503.6550, L503.6030 #### [facility] [address] [place], [address] QFT TB1+ AG DORIAN 0.04 IU/mL Normal . [facility] Comment on above: Performed By: #### L 3100.1725, L503.6550, L503.6030 #### [facility] [address] [place], [address] QFT TB2+ AG DORIAN 0.04 IU/mL Normal . [facility] Comment on above: Performed By: #### L 3100.1725, L503.6550, L503.6030 #### [facility] [address] [place], [address] Absolute lymphocyte countOrd ered By: Danni Zhou on 03-11-2025 Lymphocytes Auto (Unsp spec) [#/Vol] 2.80 10*3/uL 0.83-4.51 [facility] Absolute neutrophil countOrd ered By: Danni Zhou on 03-11-2025 Neutrophils (Bld) [#/Vol] 4.5 10*3/uL 2.0-7.7 [facility] Anion gap in Serum or Plasma Ordered By: Danni Zhou on 03-11-2025 Anion gap [Moles/Vol] 10 mmol/L 5-15 [facility] Automated lymphocyte count a s percentage of total leukocytesOrdered By: Danni Zhou on 03-11-2025 Lymphocytes/100 WBC Auto (Unsp spec) 33.0 % 19-41 [facility] BUN/creatinine ratioOrdered By: Danni Zhou on 03-11-2025 Urea nitrogen/Creatinine [Mass ratio] 17.1 mg/mg 10- [facility] Basophil percentageOrdered B y: Danni Zhou on 03-11-2025 Basophils/100 WBC (Bld) 0.2 % 0-1 [facility] Bilirubin, totalOrdered By: Danni Zhou on 03-11-2025 Bilirubin [Mass/Vol] 0.21 mg/dL 0.00-1.30 [facility] CBC W/Diff, Automatedon 02-20 Absolute Lymph 2.80 X10 3/uL Normal 0.83-4.51 [facility] Comment on above: Performed By: #### L 3410.9992, L100.0100, L101.9900, L501.6710, L3400.8000, L500.4050 #### [facility] [address] [place], [address] Absolute Neut 4.5 X10 3/uL Normal 2.0-7.7 [facility] Comment on above: Performed By: #### L 3410.9992, L100.0100, L101.9900, L501.6710, L3400.8000, L500.4050 #### [facility] [address] [place], [address] Basophils/100 WBC (Bld) 0.2 % Normal 0-1 [facility] Comment on above: Performed By: #### L 3410.9992, L100.0100, L101.9900, L501.6710, L3400.8000, L500.4050 #### [facility] [address] [place], [address] Eosinophils/100 WBC (Bld) 1.6 % Normal 0-5 [facility] Comment on above: Performed By: #### L 3410.9992, L100.0100, L101.9900, L501.6710, L3400.8000, L500.4050 #### [facility] [address] [place], [address] Erythrocyte distribution width (RBC) [Ratio] 15.5 % High 11.6-14.6 [facility] Comment on above: Performed By: #### L 3410.9992, L100.0100, L101.9900, L501.6710, L3400.8000, L500.4050 #### [facility] [address] [place], [address] Hematocrit (Bld) [Volume fraction] 37.4 % Normal 37-47 [facility] Comment on above: Performed By: #### L 3410.9992, L100.0100, L101.9900, L501.6710, L3400.8000, L500.4050 #### [facility] [address] [place], [address] Hemoglobin (Bld) [Mass/Vol] 12.2 g/dL Normal 12.0-15.0 [facility] Comment on above: Performed By: #### L 3410.9992, L100.0100, L101.9900, L501.6710, L3400.8000, L500.4050 #### [facility] [address] [place], [address] IG% 0.200 Normal 0.0-0.9 [facility] Comment on above: Result Comment: IG% - Immature Granulocytes (promyelocytes, myelocytes and metamyelocytes) > 1% indicates that a LEFT SHIFT is Present. Performed By: #### L 3410.9992, L100.0100, L101.9900, L501.6710, L3400.8000, L500.4050 #### [facility] [address] [place], [address] Lymphocytes/100 WBC (Bld) 33.0 % Normal 19-41 [facility] Comment on above: Performed By: #### L 3410.9992, L100.0100, L101.9900, L501.6710, L3400.8000, L500.4050 #### [facility] [address] [place], [address] MCH (RBC) [Entitic mass] 29.4 pg Normal 27.0-32.0 [facility] Comment on above: Performed By: #### L 3410.9992, L100.0100, L101.9900, L501.6710, L3400.8000, L500.4050 #### [facility] [address] [place], [address] MCHC (RBC) [Mass/Vol] 32.6 g/dL Normal 32-36 [facility] Comment on above: Performed By: #### L 3410.9992, L100.0100, L101.9900, L501.6710, L3400.8000, L500.4050 #### [facility] [address] [place], [address] MCV (RBC) [Entitic vol] 90.1 fL Normal 81-99 [facility] Comment on above: Performed By: #### L 3410.9992, L100.0100, L101.9900, L501.6710, L3400.8000, L500.4050 #### [facility] [address] [place], [address] Monocytes/100 WBC (Bld) 11.4 % High 0-10 [facility] Comment on above: Performed By: #### L 3410.9992, L100.0100, L101.9900, L501.6710, L3400.8000, L500.4050 #### [facility] [address] [place], [address] Neutrophils/100 WBC (Bld) 53.6 % Normal 47-70 [facility] Comment on above: Performed By: #### L 3410.9992, L100.0100, L101.9900, L501.6710, L3400.8000, L500.4050 #### [facility] [address] [place], [address] Nucleated RBC (Bld) [#/Vol] 0 10*3/uL Normal 0-5 [facility] Comment on above: Performed By: #### L 3410.9992, L100.0100, L101.9900, L501.6710, L3400.8000, L500.4050 #### [facility] [address] [place], [address] Platelet mean volume (Bld) [Entitic vol] 9.6 fL Normal 6.2-12.0 [facility] Comment on above: Performed By: #### L 3410.9992, L100.0100, L101.9900, L501.6710, L3400.8000, L500.4050 #### [facility] [address] [place], [address] Platelets (Bld) [#/Vol] 465 10*3/uL High 150-450 [facility] Comment on above: Performed By: #### L 3410.9992, L100.0100, L101.9900, L501.6710, L3400.8000, L500.4050 #### [facility] [address] [place], [address] RBC (Bld) [#/Vol] 4.15 10*6/uL Low 4.2-5.4 [facility] Comment on above: Performed By: #### L 3410.9992, L100.0100, L101.9900, L501.6710, L3400.8000, L500.4050 #### [facility] [address] [place], [address] RDW SD 52.1 fl High 35.1-43.9 [facility] Comment on above: Performed By: #### L 3410.9992, L100.0100, L101.9900, L501.6710, L3400.8000, L500.4050 #### [facility] [address] [place], [address] WBC (Bld) [#/Vol] 8.5 10*3/uL Normal 4.4-11.0 [facility] Comment on above: Performed By: #### L 3410.9992, L100.0100, L101.9900, L501.6710, L3400.8000, L500.4050 #### [facility] [address] [place], [address] CRPon 03-11-2025 C-REACTIVE PROT 6.34 mg/L High 0.0-3.0 [facility] Comment on above: Performed By: #### L 3100.1725, L503.6550, L503.6030 #### [facility] [address] [place], [address] Calprotectin stoolOrdered By : Danni Zhou on 03-11-2025 Calprotectin stool 821 ug/g High 0-120 [facility] Comment on above: Results verified b y repeat testingConcentration Interpretation Follow-Up< 5 - 50 ug/g Normal None>50 -120 ug/g Borderline Re-evaluate in 4-6 weeks >120 ug/g Abnormal Repeat as clinically indicatedPerformed at: - [facility] [id number] Director: Wilmer Allen MD, Phone: [phone] Carbon dioxide, total [Moles /volume] in Central venous bloodOrdered By: Danni Zhou on 03-11-2025 CO2 [Moles/Vol] 25.3 mmol/L 21.0-32.0 [facility] Chloride assayOrdered By: Rainer Zhou on 03-11-2025 Chloride [Moles/Vol] 104 mmol/L 98-108 [facility] Comprehensive Metabolic Prof ilon 03-11-2025 Albumin [Mass/Vol] 4.2 g/dL Normal 3.5-5.0 [facility] Comment on above: Performed By: #### L 3410.9992, L100.0100, L101.9900, L501.6710, L3400.8000, L500.4050 #### [facility] [address] [place], [address] Albumin/Globulin [Mass ratio] 1.6 {ratio} Normal 0.9-2.4 [facility] Comment on above: Performed By: #### L 3410.9992, L100.0100, L101.9900, L501.6710, L3400.8000, L500.4050 #### [facility] [address] [place], [address] ALK PHOS 70 U/L Normal 35-104 [facility] Comment on above: Performed By: #### L 3410.9992, L100.0100, L101.9900, L501.6710, L3400.8000, L500.4050 #### [facility] [address] [place], [address] ALT [Catalytic activity/Vol] 18 U/L Normal <=34 [facility] Comment on above: Performed By: #### L 3410.9992, L100.0100, L101.9900, L501.6710, L3400.8000, L500.4050 #### [facility] [address] [place], [address] AST [Catalytic activity/Vol] 23 U/L Normal <=31 [facility] Comment on above: Performed By: #### L 3410.9992, L100.0100, L101.9900, L501.6710, L3400.8000, L500.4050 #### [facility] [address] [place], [address] Bilirubin [Mass/Vol] 0.21 mg/dL Normal 0.00-1.30 [facility] Comment on above: Performed By: #### L 3410.9992, L100.0100, L101.9900, L501.6710, L3400.8000, L500.4050 #### [facility] [address] [place], [address] BUN/CRE 17.1 RATIO Normal 10-20 [facility] Comment on above: Performed By: #### L 3410.9992, L100.0100, L101.9900, L501.6710, L3400.8000, L500.4050 #### [facility] [address] [place], [address] Calcium [Mass/Vol] 9.7 mg/dL Normal 7.6-11.0 [facility] Comment on above: Performed By: #### L 3410.9992, L100.0100, L101.9900, L501.6710, L3400.8000, L500.4050 #### [facility] [address] [place], [address] Chloride [Moles/Vol] 104 mmol/L Normal 98-108 [facility] Comment on above: Performed By: #### L 3410.9992, L100.0100, L101.9900, L501.6710, L3400.8000, L500.4050 #### [facility] [address] [place], [address] CO2 [Moles/Vol] 25.3 mmol/L Normal 21.0-32.0 [facility] Comment on above: Performed By: #### L 3410.9992, L100.0100, L101.9900, L501.6710, L3400.8000, L500.4050 #### [facility] [address] [place], [address] Creatinine [Mass/Vol] 0.82 mg/dL Normal 0.70-1.20 [facility] Comment on above: Performed By: #### L 3410.9992, L100.0100, L101.9900, L501.6710, L3400.8000, L500.4050 #### [facility] [address] [place], [address] GAP 10 Normal 5-15 [facility] Comment on above: Performed By: #### L 3410.9992, L100.0100, L101.9900, L501.6710, L3400.8000, L500.4050 #### [facility] [address] [place], [address] GFR/1.73 sq M.predicted among non-blacks MDRD (S/P/Bld) [Vol rate/Area] 105 mL/min/{1.73_m2} Normal >60 [facility] Comment on above: Result Comment: mL/m in/1.73m2 CKD-EPI Creatinine Equation (2020) Performed By: #### L 3410.9992, L100.0100, L101.9900, L501.6710, L3400.8000, L500.4050 #### [facility] [address] [place], [address] Globulin (S) [Mass/Vol] 2.7 g/dL Normal 2.2-4.2 [facility] Comment on above: Performed By: #### L 3410.9992, L100.0100, L101.9900, L501.6710, L3400.8000, L500.4050 #### [facility] [address] [place], [address] Glucose [Mass/Vol] 82 mg/dL Normal 70-99 [facility] Comment on above: Performed By: #### L 3410.9992, L100.0100, L101.9900, L501.6710, L3400.8000, L500.4050 #### [facility] [address] [place], [address] Potassium [Moles/Vol] 4.0 mmol/L Normal 3.3-5.1 [facility] Comment on above: Performed By: #### L 3410.9992, L100.0100, L101.9900, L501.6710, L3400.8000, L500.4050 #### [facility] [address] [place], [address] Sodium [Moles/Vol] 140 mmol/L Normal 133-145 [facility] Comment on above: Performed By: #### L 3410.9992, L100.0100, L101.9900, L501.6710, L3400.8000, L500.4050 #### [facility] [address] [place], [address] T PROT 6.9 g/dL Normal 5.9-8.4 [facility] Comment on above: Performed By: #### L 3410.9992, L100.0100, L101.9900, L501.6710, L3400.8000, L500.4050 #### [facility] [address] [place], [address] Urea nitrogen [Mass/Vol] 14 mg/dL Normal 4-19 [facility] Comment on above: Performed By: #### L 3410.9992, L100.0100, L101.9900, L501.6710, L3400.8000, L500.4050 #### [facility] [address] [place], [address] Eosinophil percentageOrdered By: Danni Zhou on 03-11-2025 Eosinophils/100 WBC (Bld) 1.6 % 0-5 [facility] Erythrocyte Sed Rateon 03-11 SED RATE 2 mm/hr Normal 0-30 [facility] Comment on above: Performed By: #### L 3410.9992, L100.0100, L101.9900, L501.6710, L3400.8000, L500.4050 #### [facility] [place], [address] Erythrocyte distribution wid th ratioOrdered By: Danni Zhou on 03-11-2025 Erythrocyte distribution width (RBC) [Ratio] 15.5 % High 11.6-14.6 [facility] Erythrocyte distribution wid th standard deviationOrdered By: Danni Zhou on 03-11-2025 Erythrocyte distribution width (RBC) [Ratio] 52.1 fl High 35.1-43.9 [facility] Erythrocyte sedimentation ra teOrdered By: Danni Zhou on 03-11-2025 ESR (Bld) [Velocity] 2 mm/h 0-30 [facility] Glomerular filtration rate ( GFR) estimation/1.73 sq m using serum, plasma, or whole bOrdered By: Danni Zhou on 03-11-2025 GFR/1.73 sq M.predicted among non-blacks MDRD (S/P/Bld) [Vol rate/Area] 105 mL/min/{1.73_m2} >60 [facility] Comment on above: mL/min/1.73m2 CKD-EP I Creatinine Equation (2020) Hematocrit Auto (Bld) [Volum e fraction]Ordered By: Danni Zhou on 03-11-2025 Hematocrit (Bld) [Volume fraction] 37.4 % 37-47 [facility] Hemoglobin measurementOrdere d By: Danni Zhou on 03-11-2025 Hemoglobin (Bld) [Mass/Vol] 12.2 g/dL 12.0-15.0 [facility] Immature granulocytes/100 WB C Auto (Bld)Ordered By: Danni Zhou on 03-11-2025 Immature granulocytes/100 WBC (Bld) 0.200 % 0.0-0.9 [facility] Comment on above: IG% - Immature Granu locytes (promyelocytes, myelocytes and metamyelocytes) > 1% indicates that a LEFT SHIFT is Present. Laboratory - Chemistry and C hemistry - challengeOrdered By: Danni Zhou on 03-11-2025 AST [Catalytic activity/Vol] 23 U/L <32 [facility] MCV (mean corpuscular volume ) determinationOrdered By: Danni Zhou on 03-11-2025 MCV (RBC) [Entitic vol] 90.1 fL 81-99 [facility] Mean corpuscular hemoglobin (MCH) determinationOrdered By: Danni Zhou on 03-11-2025 MCH (RBC) [Entitic mass] 29.4 pg 27.0-32.0 [facility] Mean corpuscular hemoglobin concentration (MCHC) determinationOrdered By: Danni Zhou on 03-11-2025 MCHC (RBC) [Mass/Vol] 32.6 g/dL 32-36 [facility] Mean platelet volume determi nationOrdered By: Danni Zhou on 03-11-2025 Platelet mean volume (Bld) [Entitic vol] 9.6 fL 6.2-12.0 [facility] Monocyte percentageOrdered B y: Danni Zhou on 03-11-2025 Monocytes/100 WBC (Bld) 11.4 % High 0-10 [facility] Neutrophil percentageOrdered By: Danni Zhou on 03-11-2025 Neutrophils/100 WBC (Bld) 53.6 % 47-70 [facility] Nucleated red blood cell per centageOrdered By: Danni Zhou on 03-11-2025 Nucleated RBC/100 WBC (Bld) [Ratio] 0 % 0-5 [facility] Platelet countOrdered By: Rainer Zhou on 03-11-2025 Platelets (Bld) [#/Vol] 465 10*3/uL High 150-450 [facility] Potassium measurement (mass/ volume)Ordered By: Danni Zhou on 03-11-2025 Potassium (Unsp spec) [Mass/Vol] 4.0 mmol/L 3.3-5.1 [facility] Qualitative QuantiFERON-TB g old in tube testOrdered By: Danni Zhou on 03-11-2025 M. tuberculosis tuberculin stim IFN-g Ql (Bld) 0.04 IU/mL . [facility] RBC Auto (Bld) [#/Vol]Ordere d By: Danni Zhou on 03-11-2025 RBC (Bld) [#/Vol] 4.15 10*6/uL Low 4.2-5.4 [facility] Serum creatinine measurement (mass/volume)Ordered By: Danni Zhou on 03-11-2025 Creatinine [Mass/Vol] 0.82 mg/dL 0.70-1.20 [facility] Serum globulin measurementOr dered By: Danni Zhou on 03-11-2025 Globulin (S) [Mass/Vol] 2.7 g/dL 2.2-4.2 [facility] Serum glucose measurement (m ass/volume)Ordered By: Danni Zhou on 03-11-2025 Glucose [Mass/Vol] 82 mg/dL 70-99 [facility] Serum or plasma C reactive p rotein measurement (mass/volume)Ordered By: Danni Zhou on 03-11-2025 CRP [Mass/Vol] 6.34 mg/L High 0.0-3.0 [facility] Serum or plasma alanine thompson otransferase (ALT) measurementOrdered By: Danni Zhou on 03-11-2025 ALT [Catalytic activity/Vol] 18 U/L <35 [facility] Serum or plasma albumin dalton urement (mass/volume)Ordered By: Danni Zhou on 03-11-2025 Albumin [Mass/Vol] 4.2 g/dL 3.5-5.0 [facility] Serum or plasma albumin/glob ulin mass ratioOrdered By: Danni Zhou on 03-11-2025 Albumin/Globulin [Mass ratio] 1.6 {ratio} 0.9-2.4 [facility] Serum or plasma alkaline zen sphatase measurementOrdered By: Danni Zhou on 03-11-2025 ALP [Catalytic activity/Vol] 70 U/L 35-104 [facility] Serum or plasma calcium dalton urement (mass/volume)Ordered By: Danni Zhou on 03-11-2025 Calcium [Mass/Vol] 9.7 mg/dL 7.6-11.0 [facility] Serum or plasma urea nitroge n measurement (mass/volume)Ordered By: Danni Zhou on 03-11-2025 Urea nitrogen [Mass/Vol] 14 mg/dL 4-19 [facility] Sodium levelOrdered By: Alma Rosa Zhou on 03-11-2025 Sodium [Moles/Vol] 140 mmol/L 133-145 [facility] Total proteinOrdered By: Chuckie Zhou on 03-11-2025 Protein [Mass/Vol] 6.9 g/dL 5.9-8.4 [facility] White blood cell (WBC) count Ordered By: Danni Zhou on 03-11-2025 WBC (Bld) [#/Vol] 8.5 10*3/uL 4.4-11.0 [facility] Gastroenterology Visit Repor ton 02-11-2025 Gastroenterology Visit Report [facility] [address] [place] [address] OFFICE VISIT Date of Service: 02/11/25 MR#: [id number] Acct: [id number] Name: JUDITH HURLEY Rep #: [id number] : 2005 Provider: SHEREE mcmillan Age/Sex: 19/F Location[place] [facility] [place] Status: Signed Intake Vital Signs 01/26/25 14:25 Height 5 ft 3 in Intake Visit Reasons: HOSP FU Allergies morphine Allergy (Verified 02/11/25 08:39) Hives prednisone Adverse Reaction (Verified 02/11/25 08:39) can't take due to ulcerative colitis Medications ???Medication ???Instructions ???Recorded ???Confirmed ???Type adalimumab 40 mg/0.8 mL See Rx Instructions subcut 5 02/11/25 History subcutaneous pen kit (Humira Pen) .COMPLEX ulcerative colitis cephalexin 500 mg capsule 500 mg PO BID 5 days #10 caps 04/1502/11/25 Rx ferrous gluconate 324 mg (38 mg 324 mg PO DAILY 30 days #30 tabs 0 01/27/25 02/11/25 Rx iron) tablet omeprazole 20 mg capsule,delayed 20 mg PO DAILY 30 days #30 caps 02/11/25 Rx release prednisone 20 mg tablet 20 mg PO QDAY #38 tabs 02/13/25 Rx PFSH Medical History (Updated 02/11/25 @ 12:50 by SHEREE Menchaca) Iron deficiency anemia Erythema nodosum Ulcerative colitis, rectosigmoid Ulcerative colitis Surgical History Hx of tonsillectomy Social History household members: family Smoking Status: Never smoker HPI HPI Details: JUDITH HURLEY, is a 19 F who presents to the office today for [facility] hospitalization FU regarding presumed ulcerative colitis flare. She presented to [facility] ER on 01.26.25 with a presumed history of ulcerative colitis diagnosed approximately 3 years ago at an outside hospital. She presented with a 5-day history of profuse watery diarrhea (8???10 BMs/day), nausea, lower abdominal cramping, and subjective fevers. She reports that her last colonoscopy was at the time of initial diagnosis at the age of 16, but no documentation or pathology reports are currently available. She had been on monthly adalimumab (Humira), with the last dose taken approximately 4 weeks ago. Her parents are present for exam. She reports never feeling better. States that her abdominal pain and cramping is gone and she is having nearly formed stools daily without straining. She continues to take the 60mg of prednisone that she was discharged on and is taking her scheduled doses of adalimumab every 2 weeks. Her mother states they were directed by to continue taking the adalimumab in addition to the prednisone daily, every 2weeks, and after 4 doses we would retest her drug and drug antibody levels. At the mention of considering a colonoscopy, her mother reports that saw all he needed to see on the cat scan of her abdomen and she didn't need another colonoscopy. She is asking how to taper off of the prednisone ROS Const Constitutional: No fatigue, fever(s) or weight change ENT ENT: No difficulty swallowing Gastro GI: No abdominal pain, belching, bloating, change in bowel habits, change in stool character, coffee ground emesis, constipation, cramping, diarrhea, heartburn, difficulty swallowing, feeling full early, excessive flatus, incontinent of stools, Vomiting blood/hematemesis, Blood in stool, loose stools, Black,tarry stools, nausea/dyspepsia, pain with swallowing, vomiting or other Musc Musculoskeletal: No joint pain Skin Skin: No yellowing of the eye or itchy eyes Psych Psychiatric: No anxiety and No depression Endo Endocrine: No fatigue or weight change Aller/Imm Allergy/Immunologic: No itchy eyes Bandar/Lymp Hematologic/Lymphatic: No easy bleeding or easy bruising Exam Const General: cooperative, healthy appearing, comfortable, no acute distress and well groomed Nutritional Appearance: average body habitus Orientation: alert and oriented x3 HENMT Head: normal to inspection Ears: hearing grossly normal bilaterally Eyes General: appearance normal, both eyes and all related structures Sclera: sclerae normal Neck Neck: normal visual inspection and full ROM Chest Chest palpation inspection: normal inspection of the chest Resp Effort Inspection: normal respiratory effort, able to speak in complete sentences and symmetric chest movement GI Inspection: normal to inspection Palpation: soft, no hepatosplenomegaly, no guarding and nontender Skin General: no rashes or lesions noted Neuro General: patient alert, patient oriented x3 and moves all extremities Cognition: normal cognition Speech: speech normal Gait: normal gait Extrem General: full ROM Psych Appearance: well kempt Mental Status: mental status grossly normal Mood: congruent mood (more content not included)... Normal [facility] ANCAon 02-03-2025 Atypical pANCA <1:20 Normal Neg:<1:20 [facility] Comment on above: Result Comment: The atypical pANCA pattern has been observed in a significant percentage of patients with ulcerative colitis, primary sclerosing cholangitis and autoimmune hepatitis. Performed By: #### L 3100.1725, L503.6550, L503.6030 #### [facility] [address] [place], [address] Cytoplasmic Ab <1:20 Normal Neg:<1:20 [facility] Comment on above: Performed By: #### L 3100.1725, L503.6550, L503.6030 #### [facility] [address] [place], [address] Perinuclear Ab. <1:20 Normal Neg:<1:20 [facility] Comment on above: Result Comment: The presence of positive fluorescence exhibiting P-ANCA or C-ANCA patterns alone is not specific for the diagnosis of Anaid's Granulomatosis (WG) or microscopic polyangiitis. Decisions about treatment should not be based solely on ANCA IFA results. The International ANCA [employer] Consensus recommends follow up testing of positive sera with both TX- 3 and MPO-ANCA enzyme immunoassays. As many as 5% serum samples are positive only by EIA. Ref. AM J Clin Pathol 1999;111:507-513. Performed By: #### L 3100.1725, L503.6550, L503.6030 #### [facility] [address] [place], [address] CCP IgG Antibodieson 025 CCP IgG Ab. 5 units Normal 0-19 [facility] Comment on above: Result Comment: Nega tive <20 Weak positive 20 - 39 Moderate positive 40 - 59 Strong positive >59 Performed By: #### L 3100.1725, L503.6550, L503.6030 #### [facility] [address] [place], [address] Hepatitis Panel Acuteon 01-19 HEP B CORE,IgM Negative Normal Negative [facility] Comment on above: Performed By: #### L 3100.1725, L503.6550, L503.6030 #### [facility] [address] [place], [address] HEP B SURF AG Negative Normal Negative [facility] Comment on above: Performed By: #### L 3100.1725, L503.6550, L503.6030 #### [facility] [address] [place], [address] HEP C VIRUS AB Non-Reactive Normal Non Reactive [facility] Comment on above: Performed By: #### L 3100.1725, L503.6550, L503.6030 #### [facility] [address] [place], [address] HEPATITIS A-IgM Negative Normal Negative [facility] Comment on above: Result Comment: A ne gative anti-HAV IgM result suggests no recent or current HAV infection. Performed By: #### L 3100.1725, L503.6550, L503.6030 #### [facility] [address] [place], [address] GLORIA + Protein Elect, Serumon 02-03-2025 Albumin [Mass/Vol] 2.9 g/dL Normal 2.9-4.4 [facility] Comment on above: Performed By: #### L 3100.1725, L503.6550, L503.6030 #### [facility] [address] [place], [address] Albumin/Globulin [Mass ratio] 0.8 {ratio} Normal 0.7-1.7 [facility] Comment on above: Performed By: #### L 3100.1725, L503.6550, L503.6030 #### [facility] [address] [place], [address] CKLNR-[id number] 0.6 g/dL High 0.0-0.4 [facility] Comment on above: Performed By: #### L 3100.1725, L503.6550, L503.6030 #### [facility] [address] [place], [address] RGTWF-0-LFLX 1.0 g/dL Normal 0.4-1.0 [facility] Comment on above: Performed By: #### L 3100.1725, L503.6550, L503.6030 #### [facility] [address] [place], [address] BETA GLOBULIN 1.0 g/dL Normal 0.7-1.3 [facility] Comment on above: Performed By: #### L 3100.1725, L503.6550, L503.6030 #### [facility] [address] [place], [address] GAMMA GLOBULIN 1.2 g/dL Normal 0.4-1.8 [facility] Comment on above: Performed By: #### L 3100.1725, L503.6550, L503.6030 #### [facility] [address] [place], [address] Globulin (S) [Mass/Vol] 3.8 g/dL Normal 2.2-3.9 [facility] Comment on above: Performed By: #### L 3100.1725, L503.6550, L503.6030 #### [facility] [address] [place], [address] GLORIA RESULT,S Comment Normal . [facility] Comment on above: Result Comment: No m onoclonality detected. Performed By: #### L 3100.1725, L503.6550, L503.6030 #### [facility] [address] [place], [address] IMMUNOGLOB A QN 160 mg/dL Normal 87-352 [facility] Comment on above: Performed By: #### L 3100.1725, L503.6550, L503.6030 #### [facility] [address] [place], [address] IMMUNOGLOB M QN 150 mg/dL Normal 58-230 [facility] Comment on above: Performed By: #### L 3100.1725, L503.6550, L503.6030 #### [facility] [address] [place], [address] M-Sabino Not Observed Normal Not Observed [facility] Comment on above: Performed By: #### L 3100.1725, L503.6550, L503.6030 #### [facility] [address] [place], [address] NOTE: Comment Normal . [facility] Comment on above: Result Comment: Prot ein electrophoresis scan will follow via computer, mail, or christmas tree grower delivery. Performed By: #### L 3100.1725, L503.6550, L503.6030 #### [facility] [address] [place], [address] Protein [Mass/Vol] 6.7 g/dL Normal 6.0-8.5 [facility] Comment on above: Performed By: #### L 3100.1725, L503.6550, L503.6030 #### [facility] [address] [place], [address] IgG Subclasseson 02-03-2025 IgG, SUBCLASS 1 631 mg/dL Normal 325-846 [facility] Comment on above: Performed By: #### L 3100.1725, L503.6550, L503.6030 #### [facility] [address] [place], [address] IgG, SUBCLASS 2 327 mg/dL Normal 133-509 [facility] Comment on above: Performed By: #### L 3100.1725, L503.6550, L503.6030 #### [facility] [address] [place], [address] IgG, SUBCLASS 3 89 mg/dL Normal 19-109 [facility] Comment on above: Performed By: #### L 3100.1725, L503.6550, L503.6030 #### [facility] [address] [place], [address] IgG, SUBCLASS 4 21 mg/dL Normal 3-104 [facility] Comment on above: Performed By: #### L 3100.1725, L503.6550, L503.6030 #### [facility] [address] [place], [address] IGG,QUANT 1174 mg/dL Normal 719-1475 [facility] Comment on above: Performed By: #### L 3100.1725, L503.6550, L503.6030 #### [facility] [address] [place], [address] Immunoglobulins G/A/M/Marcos IMMUNOGLOB E QN 29 IU/mL Normal 6-495 [facility] Comment on above: Performed By: #### L 3100.1725, L503.6550, L503.6030 #### [facility] Laboratory [address] [place], [address] L2100.0000on 02-03-2025 ACCA 8 units Normal 0-90 [facility] Comment on above: Result Comment: Nega tive: <80 Equivocal: 80-90 Positive: >90 Performed By: #### L 3100.1725, L503.6550, L503.6030 #### [facility] [address] [place], [address] ALCA 40 units Normal 0-60 [facility] Comment on above: Result Comment: Nega tive:<55 Equivocal: 55-60 Positive: >60 Performed By: #### L 3100.1725, L503.6550, L503.6030 #### [facility] [address] [place], [address] AMCA 12 units Normal 0-100 [facility] Comment on above: Result Comment: Nega tive: <90 Equivocal: 90-100 Positive: >100 This test was developed and its performance characteristics determined by [employer]. It has not been cleared or approved by the Food and Drug Administration. The FDA has determined that such clearance or approval is not necessary. Performed By: #### L 3100.1725, L503.6550, L503.6030 #### [facility] [address] [place], [address] Atypical pANCA Negative Normal Negative [facility] Comment on above: Performed By: #### L 3100.1725, L503.6550, L503.6030 #### [facility] [address] [place], [address] COMMENT Comment Normal . [facility] Comment on above: Result Comment: Carmelina antonio is not suggestive of Inflammatory Bowel Disease Performed By: #### L 3100.1725, L503.6550, L503.6030 #### [facility] [address] [place], [address] Result Comment: Not infected with HCV unless early or acute infection is suspected (which may be delayed in an immunocompromised individual), or other evidence exists to indicate HCV infection. Ophelia 7 units Normal 0-50 [facility] Comment on above: Result Comment: Nega tive: <45 Equivocal: 45-50 Positive: >50 Performed By: #### L 3100.1725, L503.6550, L503.6030 #### [facility] [address] [place], [address] Quantiferon TB-Gold+on 02-03 QFT MITOGEN DORIAN TNP Normal . [facility] Comment on above: Result Comment: Test not performed Performed By: #### L 3100.1725, L503.6550, L503.6030 #### [facility] [address] [place], [address] QFT NIL VALUE TNP Normal . [facility] Comment on above: Result Comment: Test not performed Performed By: #### L 3100.1725, L503.6550, L503.6030 #### [facility] [address] [place], [address] QFT TB GOLD+ TNP Normal . [facility] Comment on above: Performed By: #### L 3100.1725, L503.6550, L503.6030 #### [facility] [address] [place], [address] QFT TB POS CRIT TNP Normal . [facility] Comment on above: Performed By: #### L 3100.1725, L503.6550, L503.6030 #### [facility] [address] [place], [address] QFT TB1+ AG DORIAN TNP Normal . [facility] Comment on above: Result Comment: Test not performed. Insufficient specimen to perform or complete analysis. Performed By: #### L 3100.1725, L503.6550, L503.6030 #### [facility] [address] [place], [address] QFT TB2+ AG DORIAN TNP Normal . [facility] Comment on above: Result Comment: Test not performed Performed By: #### L 3100.1725, L503.6550, L503.6030 #### [facility] [address] [place], [address] CBC W/Diff, Automatedon 07- Absolute Neut Normal 2.0-7.7 [facility] Comment on above: Result Comment: Canc elled via OM: Order cancelled - Patient discharged Performed By: #### L 100.0100, L500.4050 #### [facility] [address] [place], [address] HCT Normal 37-47 [facility] Comment on above: Result Comment: Canc elled via OM: Order cancelled - Patient discharged Performed By: #### L 100.0100, L500.4050 #### [facility] [address] [place], [address] HGB Normal 12.0-15.0 [facility] Comment on above: Result Comment: Canc elled via OM: Order cancelled - Patient discharged Performed By: #### L 100.0100, L500.4050 #### [facility] [address] [place], [address] MCH Normal 27.0-32.0 [facility] Comment on above: Result Comment: Canc elled via OM: Order cancelled - Patient discharged Performed By: #### L 100.0100, L500.4050 #### [facility] [address] [place], [address] MCHC Normal 32-36 [facility] Comment on above: Result Comment: Canc elled via OM: Order cancelled - Patient discharged Performed By: #### L 100.0100, L500.4050 #### [facility] [address] [place], [address] MCV Normal 81-99 [facility] Comment on above: Result Comment: Canc elled via OM: Order cancelled - Patient discharged Performed By: #### L 100.0100, L500.4050 #### [facility] [address] [place], [address] NEUT% Normal 47-70 [facility] Comment on above: Result Comment: Canc elled via OM: Order cancelled - Patient discharged Performed By: #### L 100.0100, L500.4050 #### [facility] [address] [place], [address] PLT Normal 150-450 [facility] Comment on above: Result Comment: Canc elled via OM: Order cancelled - Patient discharged Performed By: #### L 100.0100, L500.4050 #### [facility] [address] [place], [address] RBC Normal 4.2-5.4 [facility] Comment on above: Result Comment: Canc elled via OM: Order cancelled - Patient discharged Performed By: #### L 100.0100, L500.4050 #### [facility] [address] [place], [address] RDW CV Normal 11.6-14.6 [facility] Comment on above: Result Comment: Canc elled via OM: Order cancelled - Patient discharged Performed By: #### L 100.0100, L500.4050 #### [facility] [address] [place], [address] RDW SD Normal 35.1-43.9 [facility] Comment on above: Result Comment: Canc elled via OM: Order cancelled - Patient discharged Performed By: #### L 100.0100, L500.4050 #### [facility] [address] [place], [address] WBC Normal 4.4-11.0 [facility] Comment on above: Result Comment: Canc elled via OM: Order cancelled - Patient discharged Performed By: #### L 100.0100, L500.4050 #### [facility] [address] [place], [address] Comprehensive Metabolic Prof ilon 02-01-2025 ALB Normal 3.5-5.0 [facility] Comment on above: Result Comment: Canc elled via OM: Order cancelled - Patient discharged Performed By: #### L 100.0100, L500.4050 #### [facility] [address] [place], [address] ALK PHOS Normal 35-104 [facility] Comment on above: Result Comment: Canc elled via OM: Order cancelled - Patient discharged Performed By: #### L 100.0100, L500.4050 #### [facility] [address] [place], [address] ALT Normal <=34 [facility] Comment on above: Result Comment: Canc elled via OM: Order cancelled - Patient discharged Performed By: #### L 100.0100, L500.4050 #### [facility] [address] [place], [address] AST Normal <=31 [facility] Comment on above: Result Comment: Canc elled via OM: Order cancelled - Patient discharged Performed By: #### L 100.0100, L500.4050 #### [facility] [address] [place], [address] BUN Normal 4-19 [facility] Comment on above: Result Comment: Canc elled via OM: Order cancelled - Patient discharged Performed By: #### L 100.0100, L500.4050 #### [facility] [address] [place], [address] BUN/CRE Normal 10-20 [facility] Comment on above: Result Comment: Canc elled via OM: Order cancelled - Patient discharged Performed By: #### L 100.0100, L500.4050 #### [facility] [address] [place], [address] Calcium Normal 7.6-11.0 [facility] Comment on above: Result Comment: Canc elled via OM: Order cancelled - Patient discharged Performed By: #### L 100.0100, L500.4050 #### [facility] [address] [place], [address] CL Normal 98-108 [facility] Comment on above: Result Comment: Canc elled via OM: Order cancelled - Patient discharged Performed By: #### L 100.0100, L500.4050 #### [facility] [address] [place], [address] CO2 Normal 21.0-32.0 [facility] Comment on above: Result Comment: Canc elled via OM: Order cancelled - Patient discharged Performed By: #### L 100.0100, L500.4050 #### [facility] [address] [place], [address] CREAT,SERUM Normal 0.70-1.20 [facility] Comment on above: Result Comment: Canc elled via OM: Order cancelled - Patient discharged Performed By: #### L 100.0100, L500.4050 #### [facility] [address] [place], [address] eGFR Normal >60 [facility] Comment on above: Result Comment: Canc elled via OM: Order cancelled - Patient discharged Performed By: #### L 100.0100, L500.4050 #### [facility] [address] [place], [address] GAP Normal 5-15 [facility] Comment on above: Result Comment: Canc elled via OM: Order cancelled - Patient discharged Performed By: #### L 100.0100, L500.4050 #### [facility] [address] [place], [address] GLU Normal 70-99 [facility] Comment on above: Result Comment: Canc elled via OM: Order cancelled - Patient discharged Performed By: #### L 100.0100, L500.4050 #### [facility] [address] [place], [address] Potassium Normal 3.3-5.1 [facility] Comment on above: Result Comment: Canc elled via OM: Order cancelled - Patient discharged Performed By: #### L 100.0100, L500.4050 #### [facility] [address] [place], [address] T BILI Normal 0.00-1.30 [facility] Comment on above: Result Comment: Canc elled via OM: Order cancelled - Patient discharged Performed By: #### L 100.0100, L500.4050 #### [facility] [address] [place], [address] T PROT Normal 5.9-8.4 [facility] Comment on above: Result Comment: Canc elled via OM: Order cancelled - Patient discharged Performed By: #### L 100.0100, L500.4050 #### [facility] [address] [place], [address] Comprehensive Metabolic Profil Normal 133-145 [facility] Comment on above: Result Comment: Canc elled via OM: Order cancelled - Patient discharged Performed By: #### L 100.0100, L500.4050 #### [facility] [address] [place], [address] L3410.9992on 02-01-2025 [facility] [place]. COMMENT Normal . [facility] Comment on above: Order Comment: [id number] 0Adalimumab and Anti-Adalimumab Result Comment: Test Ordered: [id number] Adalimumab Drug + Antibody Adalimumab Drug Level <0.6 ug/mL ES Reference Range: . Quantitation Limit: <0.6 ug/mL Results of 0.6 or higher indicate detection of adalimumab. Comments: - The optimal drug concentration depends upon patient- specific factors including the disease and desired therapeutic endpoint. - Maintenance trough concentrations >=7.5 may correspond to higher remission rates.(1) - Mucosal healing may be more likely in patients with maintenance trough levels >8.14.(2) - In rheumatoid arthritis, trough levels of 5-8 are associated with clinical (EULAR) response.(3) - This assay measures the antibody-unbound (free) fraction of adalimumab when serum anti-adalimumab antibodies are present. Anti-Adalimumab Antibody 152 ng/mL ES Reference Range: . Interpretation: The above result is an INTERMEDIATE Antibody titer Quantitation Limit: <25 ng/mL. Results of 25 or higher indicate detection of anti- adalimumab antibodies. 25 - 100 ng/mL: LOW titer 101 - 300 ng/mL: INTERMEDIATE titer 301 or greater ng/mL: HIGH titer Comments: - Anti-drug antibody levels should be interpreted in the context of the concomitant free drug trough concentration. - Low anti-drug antibodies may be transient while high titers are likely to be more consequential.(4-6) - Some immunogenicity is reversible. Elimination of intermediate titer (and even some high titer) anti-adalimumab antibodies has been achieved with dose escalation and/or methotrexate or 6-MP.(7) - This anti-adalimumab antibody assay is drug tolerant, and all positive results are verified for anti-drug specificity by a confirmatory test. References: 1. Maylea N, et al. AGA Review on TDM in IBD. Gastroenterol 2017;153:835-857. 2. Ze E, et al. J Crohns Col 2016;10(5):510-515. 3. David SHIPMAN, et al. Heydi Rheum Dis 2015;74:513-518. 4. Jodies GM, et al. CARLITO 2011;305(14):7307-1494. 5. Rizwan Crandall, et al. J Clin Gastroenterol 2016; 50:482-489. 6. Aime H, et al. Clin Gastroenterol Hepatol 2015; 13(3):522-530. 7. Karen Thomas, et al. Gastroenterol 2019;156(6):S-617. These tests were developed and their performance characteristics determined by [facility]. They have not been cleared or approved by the Food and Drug Administration. However, these electrochemiluminescence immunoassay (ECLIA) measurements of adalimumab and anti-adalimumab antibody (constituting DoseASSURE ADL) have been developed and validated in accordance with CLIA (Clinical Laboratory Improvement Amendments) and the FDA Guidance document, Assay Development and Validation for Immunogenicity Testing of Therapeutic Protein Products (2019). Performed at: [facility] [address] [place] [id number] Data Support Specialist: Bay Pierce MD, Phone: [phone] Performed at: [address] [id number] Data Support Specialist: Gentry Perkins PhD, Phone: [phone] Performed By: #### L 3100.1725, L503.6550, L503.6030 #### [facility] [address] [place], [address] KUSHAL Comprehensive Panelon ANTI-DNA (DS)AB 2 IU/mL Normal 0-9 [facility] Comment on above: Result Comment: Nega tive <5 Equivocal 5 - 9 Positive >9 Performed By: #### L 3100.1725, L503.6550, L503.6030 #### [facility] [address] [place], [address] ANTI-SS-A < 0.2 Normal 0.0-0.9 [facility] Comment on above: Performed By: #### L 3100.1725, L503.6550, L503.6030 #### [facility] [address] [place], [address] ANTI-SS-B < 0.2 Normal 0.0-0.9 [facility] Comment on above: Performed By: #### L 3100.1725, L503.6550, L503.6030 #### [facility] [address] [place], [address] Allergen, Food Profileon CLAM <0.10 Normal Class 0 [facility] Comment on above: Performed By: #### L 3100.1725, L503.6550, L503.6030 #### [facility] [address] [place], [address] CODFISH <0.10 Normal Class 0 [facility] Comment on above: Performed By: #### L 3100.1725, L503.6550, L503.6030 #### [facility] [address] [place], [address] COMMENT Comment Normal . [facility] Comment on above: Result Comment: [place] of Specific IgE Class Description of Class ----- < 0.10 0 Negative 0.10 - 0.31 0/I Equivocal/Low 0.32 - 0.55 I Low 0.56 - 1.40 II Moderate 1.41 - 3.90 III High 3.91 - 19.00 IV Very High 19.01 - 100.00 V Very High >100.00 Very High Performed By: #### L 3100.1725, L503.6550, L503.6030 #### [facility] [address] [place], [address] CORN <0.10 Normal Class 0 [facility] Comment on above: Performed By: #### L 3100.1725, L503.6550, L503.6030 #### [facility] [address] [place], [address] EGG, WHITE <0.10 Normal Class 0 [facility] Comment on above: Performed By: #### L 3100.1725, L503.6550, L503.6030 #### [facility] [address] [place], [address] MILK (COW) <0.10 Normal Class 0 [facility] Comment on above: Performed By: #### L 3100.1725, L503.6550, L503.6030 #### [facility] [address] [place], [address] PEANUT <0.10 Normal Class 0 [facility] Comment on above: Performed By: #### L 3100.1725, L503.6550, L503.6030 #### [facility] [address] [place], [address] SCALLOP <0.10 Normal Class 0 [facility] Comment on above: Performed By: #### L 3100.1725, L503.6550, L503.6030 #### [facility] [address] [place], [address] SESAME SEED <0.10 Normal Class 0 [facility] Comment on above: Result Comment: Perf ormed at: [facility] [address] [id number] Data Support Specialist: Gentry Perkins PhD, Phone: [phone] Performed at: [facility] [address] [id number] Data Support Specialist: Wilmer Allen MD, Phone: [phone] Performed By: #### L 3100.1725, L503.6550, L503.6030 #### [facility] [address] [place], [address] SHRIMP <0.10 Normal Class 0 [facility] Comment on above: Performed By: #### L 3100.1725, L503.6550, L503.6030 #### [facility] [address] [place], [address] SOYBEAN <0.10 Normal Class 0 [facility] Comment on above: Performed By: #### L 3100.1725, L503.6550, L503.6030 #### [facility] [address] [place], [address] WALNUT,(Food) <0.10 Normal Class 0 [facility] Comment on above: Performed By: #### L 3100.1725, L503.6550, L503.6030 #### [facility] [address] [place], [address] WHEAT <0.10 Normal Class 0 [facility] Comment on above: Performed By: #### L 3100.1725, L503.6550, L503.6030 #### [facility] [address] [place], [address] CBC W/Diff, Automatedon 07-1 Absolute Neut Normal 2.0-7.7 [facility] Comment on above: Result Comment: Canc elled via OM: Order cancelled - Patient discharged Performed By: #### L 100.0100, L500.4050 #### [facility] [address] [place], [address] HCT Normal 37-47 [facility] Comment on above: Result Comment: Canc elled via OM: Order cancelled - Patient discharged Performed By: #### L 100.0100, L500.4050 #### [facility] [address] [place], [address] HGB Normal 12.0-15.0 [facility] Comment on above: Result Comment: Canc elled via OM: Order cancelled - Patient discharged Performed By: #### L 100.0100, L500.4050 #### [facility] [address] [place], [address] MCH Normal 27.0-32.0 [facility] Comment on above: Result Comment: Canc elled via OM: Order cancelled - Patient discharged Performed By: #### L 100.0100, L500.4050 #### [facility] [address] [place], [address] MCHC Normal 32-36 [facility] Comment on above: Result Comment: Canc elled via OM: Order cancelled - Patient discharged Performed By: #### L 100.0100, L500.4050 #### [facility] [address] [place], [address] MCV Normal 81-99 [facility] Comment on above: Result Comment: Canc elled via OM: Order cancelled - Patient discharged Performed By: #### L 100.0100, L500.4050 #### [facility] [address] [place], [address] NEUT% Normal 47-70 [facility] Comment on above: Result Comment: Canc elled via OM: Order cancelled - Patient discharged Performed By: #### L 100.0100, L500.4050 #### [facility] [address] [place], [address] PLT Normal 150-450 [facility] Comment on above: Result Comment: Canc elled via OM: Order cancelled - Patient discharged Performed By: #### L 100.0100, L500.4050 #### [facility] [address] [place], [address] RBC Normal 4.2-5.4 [facility] Comment on above: Result Comment: Canc elled via OM: Order cancelled - Patient discharged Performed By: #### L 100.0100, L500.4050 #### [facility] [address] [place], [address] RDW CV Normal 11.6-14.6 [facility] Comment on above: Result Comment: Canc elled via OM: Order cancelled - Patient discharged Performed By: #### L 100.0100, L500.4050 #### [facility] [address] [place], [address] RDW SD Normal 35.1-43.9 [facility] Comment on above: Result Comment: Canc elled via OM: Order cancelled - Patient discharged Performed By: #### L 100.0100, L500.4050 #### [facility] [address] [place], [address] WBC Normal 4.4-11.0 [facility] Comment on above: Result Comment: Canc elled via OM: Order cancelled - Patient discharged Performed By: #### L 100.0100, L500.4050 #### [facility] [address] [place], [address] Comprehensive Metabolic Prof ilon 01-31-2025 ALB Normal 3.5-5.0 [facility] Comment on above: Result Comment: Canc elled via OM: Order cancelled - Patient discharged Performed By: #### L 100.0100, L500.4050 #### [facility] [address] [place], [address] ALK PHOS Normal 35-104 [facility] Comment on above: Result Comment: Canc elled via OM: Order cancelled - Patient discharged Performed By: #### L 100.0100, L500.4050 #### [facility] [address] [place], [address] ALT Normal <=34 [facility] Comment on above: Result Comment: Canc elled via OM: Order cancelled - Patient discharged Performed By: #### L 100.0100, L500.4050 #### [facility] [address] [place], [address] AST Normal <=31 [facility] Comment on above: Result Comment: Canc elled via OM: Order cancelled - Patient discharged Performed By: #### L 100.0100, L500.4050 #### [facility] [address] [place], [address] BUN Normal 4-19 [facility] Comment on above: Result Comment: Canc elled via OM: Order cancelled - Patient discharged Performed By: #### L 100.0100, L500.4050 #### [facility] [address] [place], [address] BUN/CRE Normal 10-20 [facility] Comment on above: Result Comment: Canc elled via OM: Order cancelled - Patient discharged Performed By: #### L 100.0100, L500.4050 #### [facility] [address] [place], [address] Calcium Normal 7.6-11.0 [facility] Comment on above: Result Comment: Canc elled via OM: Order cancelled - Patient discharged Performed By: #### L 100.0100, L500.4050 #### [facility] [address] [place], [address] CL Normal 98-108 [facility] Comment on above: Result Comment: Canc elled via OM: Order cancelled - Patient discharged Performed By: #### L 100.0100, L500.4050 #### [facility] [address] [place], [address] CO2 Normal 21.0-32.0 [facility] Comment on above: Result Comment: Canc elled via OM: Order cancelled - Patient discharged Performed By: #### L 100.0100, L500.4050 #### [facility] [address] [place], [address] CREAT,SERUM Normal 0.70-1.20 [facility] Comment on above: Result Comment: Canc elled via OM: Order cancelled - Patient discharged Performed By: #### L 100.0100, L500.4050 #### [facility] [address] [place], [address] eGFR Normal >60 [facility] Comment on above: Result Comment: Canc elled via OM: Order cancelled - Patient discharged Performed By: #### L 100.0100, L500.4050 #### [facility] [address] [place], [address] GAP Normal 5-15 [facility] Comment on above: Result Comment: Canc elled via OM: Order cancelled - Patient discharged Performed By: #### L 100.0100, L500.4050 #### [facility] [address] [place], [address] GLU Normal 70-99 [facility] Comment on above: Result Comment: Canc elled via OM: Order cancelled - Patient discharged Performed By: #### L 100.0100, L500.4050 #### [facility] [address] [place], [address] Potassium Normal 3.3-5.1 [facility] Comment on above: Result Comment: Canc elled via OM: Order cancelled - Patient discharged Performed By: #### L 100.0100, L500.4050 #### [facility] [address] [place], [address] T BILI Normal 0.00-1.30 [facility] Comment on above: Result Comment: Canc elled via OM: Order cancelled - Patient discharged Performed By: #### L 100.0100, L500.4050 #### [facility] [address] [place], [address] T PROT Normal 5.9-8.4 [facility] Comment on above: Result Comment: Canc elled via OM: Order cancelled - Patient discharged Performed By: #### L 100.0100, L500.4050 #### [facility] [address] [place], [address] Comprehensive Metabolic Profil Normal 133-145 [facility] Comment on above: Result Comment: Canc elled via OM: Order cancelled - Patient discharged Performed By: #### L 100.0100, L500.4050 #### [facility] [address] [place], [address] Culture, Blood (WB)on 2024 CUB Blood cultures x2, f rom two different sites No growth in 5 days. Normal [facility] Comment on above: Performed By: #### L 100.0100, L500.4050 #### [facility] [address] [place], [address] CBC W/Diff, Automatedon 01-19 Absolute Neut Normal 2.0-7.7 [facility] Comment on above: Result Comment: Canc elled via OM: Order cancelled - Patient discharged Performed By: #### L 3100.1725, L503.6550, L503.6030 #### [facility] [address] [place], [address] HCT Normal 37-47 [facility] Comment on above: Result Comment: Canc elled via OM: Order cancelled - Patient discharged Performed By: #### L 3100.1725, L503.6550, L503.6030 #### [facility] [address] [place], [address] HGB Normal 12.0-15.0 [facility] Comment on above: Result Comment: Canc elled via OM: Order cancelled - Patient discharged Performed By: #### L 3100.1725, L503.6550, L503.6030 #### [facility] [address] [place], [address] MCH Normal 27.0-32.0 [facility] Comment on above: Result Comment: Canc elled via OM: Order cancelled - Patient discharged Performed By: #### L 3100.1725, L503.6550, L503.6030 #### [facility] [address] [place], [address] MCHC Normal 32-36 [facility] Comment on above: Result Comment: Canc elled via OM: Order cancelled - Patient discharged Performed By: #### L 3100.1725, L503.6550, L503.6030 #### [facility] [address] [place], [address] MCV Normal 81-99 [facility] Comment on above: Result Comment: Canc elled via OM: Order cancelled - Patient discharged Performed By: #### L 3100.1725, L503.6550, L503.6030 #### [facility] [address] [place], [address] NEUT% Normal 47-70 [facility] Comment on above: Result Comment: Canc elled via OM: Order cancelled - Patient discharged Performed By: #### L 3100.1725, L503.6550, L503.6030 #### [facility] [address] [place], [address] PLT Normal 150-450 [facility] Comment on above: Result Comment: Canc elled via OM: Order cancelled - Patient discharged Performed By: #### L 3100.1725, L503.6550, L503.6030 #### [facility] [address] [place], [address] RBC Normal 4.2-5.4 [facility] Comment on above: Result Comment: Canc elled via OM: Order cancelled - Patient discharged Performed By: #### L 3100.1725, L503.6550, L503.6030 #### [facility] [address] [place], [address] RDW CV Normal 11.6-14.6 [facility] Comment on above: Result Comment: Canc elled via OM: Order cancelled - Patient discharged Performed By: #### L 3100.1725, L503.6550, L503.6030 #### [facility] [address] [place], [address] RDW SD Normal 35.1-43.9 [facility] Comment on above: Result Comment: Canc elled via OM: Order cancelled - Patient discharged Performed By: #### L 3100.1725, L503.6550, L503.6030 #### [facility] [address] [place], [address] WBC Normal 4.4-11.0 [facility] Comment on above: Result Comment: Canc elled via OM: Order cancelled - Patient discharged Performed By: #### L 3100.1725, L503.6550, L503.6030 #### [facility] [address] [place], [address] Comprehensive Metabolic Prof ilon 01-30-2025 ALB Normal 3.5-5.0 [facility] Comment on above: Result Comment: Canc elled via OM: Order cancelled - Patient discharged Performed By: #### L 3100.1725, L503.6550, L503.6030 #### [facility] [address] [place], [address] ALK PHOS Normal 35-104 [facility] Comment on above: Result Comment: Canc elled via OM: Order cancelled - Patient discharged Performed By: #### L 3100.1725, L503.6550, L503.6030 #### [facility] [address] [place], [address] ALT Normal <=34 [facility] Comment on above: Result Comment: Canc elled via OM: Order cancelled - Patient discharged Performed By: #### L 3100.1725, L503.6550, L503.6030 #### [facility] [address] [place], [address] AST Normal <=31 [facility] Comment on above: Result Comment: Canc elled via OM: Order cancelled - Patient discharged Performed By: #### L 3100.1725, L503.6550, L503.6030 #### [facility] [address] [place], [address] BUN Normal 4-19 [facility] Comment on above: Result Comment: Canc elled via OM: Order cancelled - Patient discharged Performed By: #### L 3100.1725, L503.6550, L503.6030 #### [facility] [address] [place], [address] BUN/CRE Normal 10-20 [facility] Comment on above: Result Comment: Canc elled via OM: Order cancelled - Patient discharged Performed By: #### L 3100.1725, L503.6550, L503.6030 #### [facility] [address] [place], [address] Calcium Normal 7.6-11.0 [facility] Comment on above: Result Comment: Canc elled via OM: Order cancelled - Patient discharged Performed By: #### L 3100.1725, L503.6550, L503.6030 #### [facility] [address] [place], [address] CL Normal 98-108 [facility] Comment on above: Result Comment: Canc elled via OM: Order cancelled - Patient discharged Performed By: #### L 3100.1725, L503.6550, L503.6030 #### [facility] [address] [place], [address] CO2 Normal 21.0-32.0 [facility] Comment on above: Result Comment: Canc elled via OM: Order cancelled - Patient discharged Performed By: #### L 3100.1725, L503.6550, L503.6030 #### [facility] [address] [place], [address] CREAT,SERUM Normal 0.70-1.20 [facility] Comment on above: Result Comment: Canc elled via OM: Order cancelled - Patient discharged Performed By: #### L 3100.1725, L503.6550, L503.6030 #### [facility] [address] [place], [address] eGFR Normal >60 [facility] Comment on above: Result Comment: Canc elled via OM: Order cancelled - Patient discharged Performed By: #### L 3100.1725, L503.6550, L503.6030 #### [facility] [address] [place], [address] GAP Normal 5-15 [facility] Comment on above: Result Comment: Canc elled via OM: Order cancelled - Patient discharged Performed By: #### L 3100.1725, L503.6550, L503.6030 #### [facility] [address] [place], [address] GLU Normal 70-99 [facility] Comment on above: Result Comment: Canc elled via OM: Order cancelled - Patient discharged Performed By: #### L 3100.1725, L503.6550, L503.6030 #### [facility] [address] [place], [address] Potassium Normal 3.3-5.1 [facility] Comment on above: Result Comment: Canc elled via OM: Order cancelled - Patient discharged Performed By: #### L 3100.1725, L503.6550, L503.6030 #### [facility] [address] [place], [address] T BILI Normal 0.00-1.30 [facility] Comment on above: Result Comment: Canc elled via OM: Order cancelled - Patient discharged Performed By: #### L 3100.1725, L503.6550, L503.6030 #### [facility] [address] [place], [address] T PROT Normal 5.9-8.4 [facility] Comment on above: Result Comment: Canc elled via OM: Order cancelled - Patient discharged Performed By: #### L 3100.1725, L503.6550, L503.6030 #### [facility] [address] [place], [address] Comprehensive Metabolic Profil Normal 133-145 [facility] Comment on above: Result Comment: Canc elled via OM: Order cancelled - Patient discharged Performed By: #### L 3100.1725, L503.6550, L503.6030 #### [facility] [address] [place], [address] CBC W/Diff, Automatedon 07-1 Absolute Neut Normal 2.0-7.7 [facility] Comment on above: Result Comment: Canc elled via OM: Order cancelled - Patient discharged Performed By: #### L 7000.0700 #### [facility] [address] [place], [address] HCT Normal 37-47 [facility] Comment on above: Result Comment: Canc elled via OM: Order cancelled - Patient discharged Performed By: #### L 7000.0700 #### [facility] [address] [place], [address] HGB Normal 12.0-15.0 [facility] Comment on above: Result Comment: Canc elled via OM: Order cancelled - Patient discharged Performed By: #### L 7000.0700 #### [facility] [address] [place], [address] MCH Normal 27.0-32.0 [facility] Comment on above: Result Comment: Canc elled via OM: Order cancelled - Patient discharged Performed By: #### L 7000.0700 #### [facility] [address] [place], [address] MCHC Normal 32-36 [facility] Comment on above: Result Comment: Canc elled via OM: Order cancelled - Patient discharged Performed By: #### L 7000.0700 #### [facility] [address] [place], [address] MCV Normal 81-99 [facility] Comment on above: Result Comment: Canc elled via OM: Order cancelled - Patient discharged Performed By: #### L 7000.0700 #### [facility] [address] [place], [address] NEUT% Normal 47-70 [facility] Comment on above: Result Comment: Canc elled via OM: Order cancelled - Patient discharged Performed By: #### L 7000.0700 #### [facility] [address] [place], [address] PLT Normal 150-450 [facility] Comment on above: Result Comment: Canc elled via OM: Order cancelled - Patient discharged Performed By: #### L 7000.0700 #### [facility] [address] [place], [address] RBC Normal 4.2-5.4 [facility] Comment on above: Result Comment: Canc elled via OM: Order cancelled - Patient discharged Performed By: #### L 7000.0700 #### [facility] [address] [place], [address] RDW CV Normal 11.6-14.6 [facility] Comment on above: Result Comment: Canc elled via OM: Order cancelled - Patient discharged Performed By: #### L 7000.0700 #### [facility] [address] [place], [address] RDW SD Normal 35.1-43.9 [facility] Comment on above: Result Comment: Canc elled via OM: Order cancelled - Patient discharged Performed By: #### L 7000.0700 #### [facility] [address] [place], [address] WBC Normal 4.4-11.0 [facility] Comment on above: Result Comment: Canc elled via OM: Order cancelled - Patient discharged Performed By: #### L 7000.0700 #### [facility] [address] [place], [address] Comprehensive Metabolic Prof ilon 01-29-2025 ALB Normal 3.5-5.0 [facility] Comment on above: Result Comment: Canc elled via OM: Order cancelled - Patient discharged Performed By: #### L 7000.0700 #### [facility] [address] [place], [address] ALK PHOS Normal 35-104 [facility] Comment on above: Result Comment: Canc elled via OM: Order cancelled - Patient discharged Performed By: #### L 7000.0700 #### [facility] [address] [place], [address] ALT Normal <=34 [facility] Comment on above: Result Comment: Canc elled via OM: Order cancelled - Patient discharged Performed By: #### L 7000.0700 #### [facility] [address] [place], [address] AST Normal <=31 [facility] Comment on above: Result Comment: Canc elled via OM: Order cancelled - Patient discharged Performed By: #### L 7000.0700 #### [facility] [address] [place], [address] BUN Normal 4-19 [facility] Comment on above: Result Comment: Canc elled via OM: Order cancelled - Patient discharged Performed By: #### L 7000.0700 #### [facility] [address] [place], [address] BUN/CRE Normal 10-20 [facility] Comment on above: Result Comment: Canc elled via OM: Order cancelled - Patient discharged Performed By: #### L 7000.0700 #### [facility] [address] [place], [address] Calcium Normal 7.6-11.0 [facility] Comment on above: Result Comment: Canc elled via OM: Order cancelled - Patient discharged Performed By: #### L 7000.0700 #### [facility] [address] [place], [address] CL Normal 98-108 [facility] Comment on above: Result Comment: Canc elled via OM: Order cancelled - Patient discharged Performed By: #### L 7000.0700 #### [facility] [address] [place], [address] CO2 Normal 21.0-32.0 [facility] Comment on above: Result Comment: Canc elled via OM: Order cancelled - Patient discharged Performed By: #### L 7000.0700 #### [facility] [address] [place], [address] CREAT,SERUM Normal 0.70-1.20 [facility] Comment on above: Result Comment: Canc elled via OM: Order cancelled - Patient discharged Performed By: #### L 7000.0700 #### [facility] [address] [place], [address] eGFR Normal >60 [facility] Comment on above: Result Comment: Canc elled via OM: Order cancelled - Patient discharged Performed By: #### L 7000.0700 #### [facility] [address] [place], [address] GAP Normal 5-15 [facility] Comment on above: Result Comment: Canc elled via OM: Order cancelled - Patient discharged Performed By: #### L 7000.0700 #### [facility] [address] [place], [address] GLU Normal 70-99 [facility] Comment on above: Result Comment: Canc elled via OM: Order cancelled - Patient discharged Performed By: #### L 7000.0700 #### [facility] [address] [place], [address] Potassium Normal 3.3-5.1 [facility] Comment on above: Result Comment: Canc elled via OM: Order cancelled - Patient discharged Performed By: #### L 7000.0700 #### [facility] [address] [place], [address] T BILI Normal 0.00-1.30 [facility] Comment on above: Result Comment: Canc elled via OM: Order cancelled - Patient discharged Performed By: #### L 7000.0700 #### [facility] [address] [place], [address] T PROT Normal 5.9-8.4 [facility] Comment on above: Result Comment: Canc elled via OM: Order cancelled - Patient discharged Performed By: #### L 7000.0700 #### [facility] [address] [place], [address] Comprehensive Metabolic Profil Normal 133-145 [facility] Comment on above: Result Comment: Canc elled via OM: Order cancelled - Patient discharged Performed By: #### L 7000.0700 #### [facility] [address] [place], [address] CBC W/Diff, Automatedon 07-1 0-2024 Absolute Neut Normal 2.0-7.7 [facility] Comment on above: Result Comment: Canc elled via OM: Order cancelled - Patient discharged Performed By: #### L 3100.1725, L503.6550, L503.6030 #### [facility] [address] [place], [address] HCT Normal 37-47 [facility] Comment on above: Result Comment: Canc elled via OM: Order cancelled - Patient discharged Performed By: #### L 3100.1725, L503.6550, L503.6030 #### [facility] [address] [place], [address] HGB Normal 12.0-15.0 [facility] Comment on above: Result Comment: Canc elled via OM: Order cancelled - Patient discharged Performed By: #### L 3100.1725, L503.6550, L503.6030 #### [facility] [address] [place], [address] MCH Normal 27.0-32.0 [facility] Comment on above: Result Comment: Canc elled via OM: Order cancelled - Patient discharged Performed By: #### L 3100.1725, L503.6550, L503.6030 #### [facility] [address] [place], [address] MCHC Normal 32-36 [facility] Comment on above: Result Comment: Canc elled via OM: Order cancelled - Patient discharged Performed By: #### L 3100.1725, L503.6550, L503.6030 #### [facility] [address] [place], [address] MCV Normal 81-99 [facility] Comment on above: Result Comment: Canc elled via OM: Order cancelled - Patient discharged Performed By: #### L 3100.1725, L503.6550, L503.6030 #### [facility] [address] [place], [address] NEUT% Normal 47-70 [facility] Comment on above: Result Comment: Canc elled via OM: Order cancelled - Patient discharged Performed By: #### L 3100.1725, L503.6550, L503.6030 #### [facility] [address] [place], [address] PLT Normal 150-450 [facility] Comment on above: Result Comment: Canc elled via OM: Order cancelled - Patient discharged Performed By: #### L 3100.1725, L503.6550, L503.6030 #### [facility] [address] [place], [address] RBC Normal 4.2-5.4 [facility] Comment on above: Result Comment: Canc elled via OM: Order cancelled - Patient discharged Performed By: #### L 3100.1725, L503.6550, L503.6030 #### [facility] [address] [place], [address] RDW CV Normal 11.6-14.6 [facility] Comment on above: Result Comment: Canc elled via OM: Order cancelled - Patient discharged Performed By: #### L 3100.1725, L503.6550, L503.6030 #### [facility] [address] [place], [address] RDW SD Normal 35.1-43.9 [facility] Comment on above: Result Comment: Canc elled via OM: Order cancelled - Patient discharged Performed By: #### L 3100.1725, L503.6550, L503.6030 #### [facility] [address] [place], [address] WBC Normal 4.4-11.0 [facility] Comment on above: Result Comment: Canc elled via OM: Order cancelled - Patient discharged Performed By: #### L 3100.1725, L503.6550, L503.6030 #### [facility] [address] [place], [address] CRP, High Sensitivity 625730 on 01-28-2025 CRP, HIGH SENS 162.20 mg/L High 0.00-3.00 [facility] Comment on above: Result Comment: Resu lts confirmed on dilution. Relative Risk for Future Cardiovascular Event Low <1.00 Average 1.00 - 3.00 High >3.00 Performed at: [facility] [address] [id number] Data Support Specialist: Gentry Perkins PhD, Phone: [phone] Performed By: #### L 3100.1725, L503.6550, L503.6030 #### [facility] [address] [place], [address] Calprotectin, Stoolon [address] 5630 ug/g Abnormal 0-120 [facility] Comment on above: Result Comment: Re sults verified by repeat testing Concentration Interpretation Follow-Up < 5 - 50 ug/g Normal None >50 -120 ug/g Borderline Re-evaluate in 4-6 weeks >120 ug/g Abnormal Repeat as clinically indicated Performed at: [facility] [address] [id number] Data Support Specialist: Wilmer Allen MD, Phone: [phone] Performed By: #### L 100.0100, L500.4050 #### [facility] [address] [place], [address] Comprehensive Metabolic Prof ilon 01-28-2025 ALB Normal 3.5-5.0 [facility] Comment on above: Result Comment: Canc elled via OM: Order cancelled - Patient discharged Performed By: #### L 3100.1725, L503.6550, L503.6030 #### [facility] [address] [place], [address] ALK PHOS Normal 35-104 [facility] Comment on above: Result Comment: Canc elled via OM: Order cancelled - Patient discharged Performed By: #### L 3100.1725, L503.6550, L503.6030 #### [facility] [address] [place], [address] ALT Normal <=34 [facility] Comment on above: Result Comment: Canc elled via OM: Order cancelled - Patient discharged Performed By: #### L 3100.1725, L503.6550, L503.6030 #### [facility] [address] [place], [address] AST Normal <=31 [facility] Comment on above: Result Comment: Canc elled via OM: Order cancelled - Patient discharged Performed By: #### L 3100.1725, L503.6550, L503.6030 #### [facility] [address] [place], [address] BUN Normal 4-19 [facility] Comment on above: Result Comment: Canc elled via OM: Order cancelled - Patient discharged Performed By: #### L 3100.1725, L503.6550, L503.6030 #### [facility] [address] [place], [address] BUN/CRE Normal 10-20 [facility] Comment on above: Result Comment: Canc elled via OM: Order cancelled - Patient discharged Performed By: #### L 3100.1725, L503.6550, L503.6030 #### [facility] [address] [place], [address] Calcium Normal 7.6-11.0 [facility] Comment on above: Result Comment: Canc elled via OM: Order cancelled - Patient discharged Performed By: #### L 3100.1725, L503.6550, L503.6030 #### [facility] [address] [place], [address] CL Normal 98-108 [facility] Comment on above: Result Comment: Canc elled via OM: Order cancelled - Patient discharged Performed By: #### L 3100.1725, L503.6550, L503.6030 #### [facility] [address] [place], [address] CO2 Normal 21.0-32.0 [facility] Comment on above: Result Comment: Canc elled via OM: Order cancelled - Patient discharged Performed By: #### L 3100.1725, L503.6550, L503.6030 #### [facility] [address] [place], [address] CREAT,SERUM Normal 0.70-1.20 [facility] Comment on above: Result Comment: Canc elled via OM: Order cancelled - Patient discharged Performed By: #### L 3100.1725, L503.6550, L503.6030 #### [facility] [address] [place], [address] eGFR Normal >60 [facility] Comment on above: Result Comment: Canc elled via OM: Order cancelled - Patient discharged Performed By: #### L 3100.1725, L503.6550, L503.6030 #### [facility] [address] [place], [address] GAP Normal 5-15 [facility] Comment on above: Result Comment: Canc elled via OM: Order cancelled - Patient discharged Performed By: #### L 3100.1725, L503.6550, L503.6030 #### [facility] [address] [place], [address] GLU Normal 70-99 [facility] Comment on above: Result Comment: Canc elled via OM: Order cancelled - Patient discharged Performed By: #### L 3100.1725, L503.6550, L503.6030 #### [facility] [address] [place], [address] Potassium Normal 3.3-5.1 [facility] Comment on above: Result Comment: Canc elled via OM: Order cancelled - Patient discharged Performed By: #### L 3100.1725, L503.6550, L503.6030 #### [facility] [address] [place], [address] T BILI Normal 0.00-1.30 [facility] Comment on above: Result Comment: Canc elled via OM: Order cancelled - Patient discharged Performed By: #### L 3100.1725, L503.6550, L503.6030 #### [facility] [address] [place], [address] T PROT Normal 5.9-8.4 [facility] Comment on above: Result Comment: Canc elled via OM: Order cancelled - Patient discharged Performed By: #### L 3100.1725, L503.6550, L503.6030 #### [facility] [address] [place], [address] Comprehensive Metabolic Profil Normal 133-145 [facility] Comment on above: Result Comment: Canc elled via OM: Order cancelled - Patient discharged Performed By: #### L 3100.1725, L503.6550, L503.6030 #### [facility] [address] [place], [address] Urine Cultureon 01-28-2025 URC #1 POSSIBLE PROTEUS SPP. Below infection level. Gram negative truong [place] Count 1000-10,000 Mixed Gram Pos Gram Neg Org Mixed Gram Pos Gram Neg Org MIXC Mixed contaminants. Submit a new specimen if indicated. Normal [facility] Comment on above: Performed By: #### L 100.0100, L500.4050 #### [facility] [address] [place], [address] Absolute lymphocyte countOrd ered By: Nikki Harrell on 01-27-2025 Lymphocytes Auto (Unsp spec) [#/Vol] 2.13 10*3/uL 0.83-4.51 [facility] Absolute neutrophil countOrd ered By: Nikki Julio Cesar on 01-27-2025 Neutrophils (Bld) [#/Vol] 14.1 10*3/uL High 2.0-7.7 [facility] Anion gap in Serum or Plasma Ordered By: Nikki Julio Cesar on 01-27-2025 Anion gap [Moles/Vol] 11 mmol/L 5-15 [facility] Automated blood erythrocyte countOrdered By: Nikki Julio Cesar on 01-27-2025 RBC (Bld) [#/Vol] 3.37 10*6/uL Low 4.2-5.4 [facility] Automated blood hematocrit ( percentage)Ordered By: Nikki Julio Cesar on 01-27-2025 Hematocrit (Bld) [Volume fraction] 29.3 % Low 37-47 [facility] Automated lymphocyte count a s percentage of total leukocytesOrdered By: Nikki Julio Cesar on 01-27-2025 Lymphocytes/100 WBC Auto (Unsp spec) 11.5 % Low 19-41 [facility] BUN/creatinine ratioOrdered By: Nikki Julio Cesar on 01-27-2025 Urea nitrogen/Creatinine [Mass ratio] 10.1 mg/mg 10-20 [facility] Basophil percentageOrdered B y: Nikki Julio Cesar on 01-27-2025 Basophils/100 WBC (Bld) 0.3 % 0-1 [facility] Bilirubin, totalOrdered By: Nikki Harrell on 01-27-2025 Bilirubin [Mass/Vol] mg/dL 0.00-1.30 [facility] Blood manual differential co mment interpretation (narrative result)Ordered By: Nikki Harrell on 01-27-2025 Manual differential comment John (Bld) [Interp] SCANNED [facility] C-reactive protein measureme nt by high sensitivity methodOrdered By: Asmita Allen on 01-27-2025 C-reactive protein measurement by high sensitivity method 162.20 mg/L High 0.00-3.00 [facility] Comment on above: Results confirmed on dilution. Relative Risk for Future Cardiovascular Event Low <1.00 Average 1.00 - 3.00 High >3.00Performed at: CB - [facility] [id number] [place], [place] [id number] Director: Gentry Perkins PhD, Phone: [phone] CBC W/Diff, Automatedon 07-0 SMEAR COMMENT SCANNED Normal [facility]; [facility] Work Phone: Comment on above: Performed By: #### L 3100.1725, L503.6550, L503.6030 #### [facility] [address] [place], [place], [address] Carbon dioxide, total [Moles /volume] in Central venous bloodOrdered By: Nikki Harrell on 01-27-2025 CO2 [Moles/Vol] 22.2 mmol/L 21.0-32.0 [facility] Chloride assayOrdered By: Sammie Harrell on 01-27-2025 Chloride [Moles/Vol] 109 mmol/L High 98-108 [facility] Comprehensive Metabolic Prof ilon 01-27-2025 Albumin [Mass/Vol] 2.8 g/dL Low 3.5-5.0 [facility] Comment on above: Performed By: #### L 3100.1725, L503.6550, L503.6030 #### [facility] [address] [place], [address] Albumin/Globulin [Mass ratio] 0.9 {ratio} Normal 0.9-2.4 [facility] Comment on above: Performed By: #### L 3100.1725, L503.6550, L503.6030 #### [facility] [address] [place], [address] ALK PHOS 77 U/L Normal 35-104 [facility]. Work Phone: Comment on above: Performed By: #### L 3100.1725, L503.6550, L503.6030 #### [facility] [facility] [address] [place], [address] ALT [Catalytic activity/Vol] 8 U/L Normal <=34 [facility] Comment on above: Performed By: #### L 3100.1725, L503.6550, L503.6030 #### [facility] [address] [place], [address] AST [Catalytic activity/Vol] 11 U/L Normal <=31 [facility] Comment on above: Performed By: #### L 3100.1725, L503.6550, L503.6030 #### [facility] [address] [place], [address] BUN/CRE 10.1 RATIO Normal 10-20 [facility] Comment on above: Performed By: #### L 3100.1725, L503.6550, L503.6030 #### [facility] [address] [place], [address] Calcium [Mass/Vol] 9.1 mg/dL Normal 7.6-11.0 [facility] Comment on above: Performed By: #### L 3100.1725, L503.6550, L503.6030 #### [facility] [address] [place], [address] Chloride [Moles/Vol] 109 mmol/L High 98-108 [facility] Comment on above: Performed By: #### L 3100.1725, L503.6550, L503.6030 #### [facility] [address] [place], [address] CO2 [Moles/Vol] 22.2 mmol/L Normal 21.0-32.0 [facility] Comment on above: Performed By: #### L 3100.1725, L503.6550, L503.6030 #### [facility] [address] [place], [address] Creatinine [Mass/Vol] 0.62 mg/dL Low 0.70-1.20 [facility] Comment on above: Performed By: #### L 3100.1725, L503.6550, L503.6030 #### [facility] [address] [place], [address] ECRCL 120.73 ml/min Normal 50-250 [facility]; [facility] Work Phone: Comment on above: Performed By: #### L 3100.1725, L503.6550, L503.6030 #### [facility] [address] [place], [address] GAP 11 Normal 5-15 [facility]; [facility] Work Phone: Comment on above: Performed By: #### L 3100.1725, L503.6550, L503.6030 #### [facility] [address] [place], [address] GFR/1.73 sq M.predicted among non-blacks MDRD (S/P/Bld) [Vol rate/Area] 131 mL/min/{1.73_m2} Normal >60 [facility] Comment on above: Result Comment: mL/m in/1.73m2 CKD-EPI Creatinine Equation (2020) Performed By: #### L 3100.1725, L503.6550, L503.6030 #### [facility] [address] [place], [address] Globulin (S) [Mass/Vol] 3.1 g/dL Normal 2.2-4.2 [facility] Comment on above: Performed By: #### L 3100.1725, L503.6550, L503.6030 #### [facility] [address] [place] [facility] [place], [address] Glucose [Mass/Vol] 162 mg/dL High 70-99 [facility] Comment on above: Performed By: #### L 3100.1725, L503.6550, L503.6030 #### [facility] [address] [place], [address] Potassium [Moles/Vol] 4.1 mmol/L Normal 3.3-5.1 [facility]; [facility] Work Phone: Comment on above: Performed By: #### L 3100.1725, L503.6550, L503.6030 #### [facility] [address] [place], [address] Sodium [Moles/Vol] 143 mmol/L Normal 133-145 [facility] Comment on above: Performed By: #### L 3100.1725, L503.6550, L503.6030 #### [facility] [address] [place], [address] T BILI < 0.15 Normal 0.00-1.30 [facility]; [facility] Work Phone: Comment on above: Performed By: #### L 3100.1725, L503.6550, L503.6030 #### [facility] [address] [place], [address] T PROT 6.0 g/dL Normal 5.9-8.4 [facility]; [facility] Work Phone: Comment on above: Performed By: #### L 3100.1725, L503.6550, L503.6030 #### [facility] [address] [place], [address] Urea nitrogen [Mass/Vol] 6 mg/dL Normal 4-19 [facility] Comment on above: Performed By: #### L 3100.1725, L503.6550, L503.6030 #### [facility] [address] [place], [address] Discharge Instructionon Discharge Instruction [facility] Medical Records Department [address] [place] [address] Instructions for Home/Discharge Instructions 01/27/25 1138 MR#: [id number] Acct: [id number] Name: JUDITH HURLEY Rep #: [id number] : 2005 From: Nikki Harrell MD PCP: Dr. Deya Chavez MD Status:ADM IN Discharge Instructions Diet Discharge Diet: No restrictions DC O2, CPAP, BIPAP needs Home O2 Discharge instructions: No Dressing / Incision Discharge Activity: Return to Normal Activity May resume sexual activity in: - (No anal sex.) Weight Bearing Status: Weight bearing as tolerated Dressing / Incision Call your doctor if you observe: Fever of 101 or Higher, Shortness of breath, Dizziness, Swelling in the ankles, Chest pain, Increased palpitations (irregular heartbeat), Calf discomfort, Uncontrolled pain and - (Recurrent severe abdominal pain, diarrhea, nausea or emesis.) Follow Up Care Test Results: Test results from this visit will be discussed in further detail at your follow-up appointment, if applicable. Discharge Plan Admission Admit Date/Time: 01/26/25 00:18 Primary Reason for Your Visit: Ulcerative Colitis Flare, Chronic normocytic anemia, UTI Attending Provider: Nikki Harrell Primary Care Provider: Deya Chavez Consulting Providers: Tj Dewey Instructions Patient Instructions: Your Child Has Ulcerative Colitis, ED Cystitis Female Adult Additional Instructions / Restrictions: ADDITIONAL FOLLOW-UP/INSTRUCTIONS: --Please continue prednisone 60 mg daily until re-evaluation with Gastroenterology. --Please continue omeprazole 20 mg daily while on the high-dose prednisone therapy. --Please continue Keflex 500 mg twice daily to completion for urinary tract infection concern. -- Please continue initiated iron supplementation oral therapy with plan repeat outpatient iron studies and complete blood count at PCP versus gastroenterology discretion. -- Labs pending upon discharge per GI which may be followed up with them in their office at reevaluation included: IBD SGI, adalimumab levels, ANCA check, KUSHAL, food allergy panel. -- Please follow-up with gastroenterology in 2 weeks. You may contact her office earlier if there is any concerns or questions. You may follow with Dr. Gonzalez if you prefer to transition or you make also continue with Dr. Rodriguez. Discharge Orders/Prescriptions Prescriptions: New prednisone 20 mg tablet 60 mg PO DAILY 30 Days Qty: 90 0RF omeprazole 20 mg capsule,delayed release(DR/EC) 20 mg PO DAILY 30 Days Qty: 30 0RF ferrous gluconate 324 mg (38 mg iron) tablet 324 mg PO DAILY 30 Days Qty: 30 0RF cephalexin 500 mg capsule 500 mg PO BID 5 Days Qty: 10 0RF Continued Humira Pen 40 mg/0.8 mL pen injector kit See Rx Instructions .ROUTE .COMPLEX Rx Instructions: pt. unsure, follow up needed Referrals / Follow Up: Agustín Gonzalez DO [Med Staff - Active Staff] - (Please follow-up with Dr. Gonzalez in 2 weeks if you prefer to transition.) Gentry Rodriguez MD [Non-Staff] - (Please follow-up with Dr. Rodriguez in 2 weeks for re-evaluation UNLESS you prefer to transition to Dr. Gonzalez.) Deya Chavez MD [Primary Care Provider] - (Follow-up in 3-5 days to review admission.) Disposition Disposition (needs filled in before D/C Order can be placed): Home, Self Care 01/27/25 1139 Nikki Harerll MD CC: Dr. Tj Dewey DO; Dr. Deya Chavez MD Signed Normal [facility] Eosinophil percentageOrdered By: Nikki Julio Cesar on 01-27-2025 Eosinophils/100 WBC (Bld) 0.0 % 0-5 [facility] Erythrocyte distribution wid th ratioOrdered By: Nikki White on 01-27-2025 Erythrocyte distribution width (RBC) [Ratio] 14.0 % 11.6-14.6 [facility] Erythrocyte distribution wid th standard deviationOrdered By: Nikki White on 01-27-2025 Erythrocyte distribution width (RBC) [Ratio] 43.8 fl 35.1-43.9 [facility] Folates, RBCon 01-27-2025 Fol.,Hemolysate > 620.0 Normal Not Estab. [facility] Comment on above: Performed By: #### L 3100.1725, L503.6550, L503.6030 #### [facility] [address] [place], [place], [address] Folate, RBC > 2039 Normal >498 [facility] Comment on above: Result Comment: Perf ormed at: - [facility] [address] [id number] Data Support Specialist: Gentry Perkins PhD, Phone: [phone] Performed By: #### L 3100.1725, L503.6550, L503.6030 #### [facility] [address] [place], [place], [id number] Hematocrit (Bld) [Volume fraction] 30.4 % Low 34.0-46.6 [facility] Comment on above: Performed By: #### L 3100.1725, L503.6550, L503.6030 #### [facility] [address] [place], [place], [address] Glomerular filtration rate ( GFR) estimation/1.73 sq m using serum, plasma, or whole bOrdered By: Nikki Harrell on 01-27-2025 GFR/1.73 sq M.predicted among non-blacks MDRD (S/P/Bld) [Vol rate/Area] 131 mL/min/{1.73_m2} >60 [facility] Comment on above: mL/min/1.73m2 CKD-EP I Creatinine Equation (2020) Hemoglobin measurementOrdere d By: Nikki Harrell on 01-27-2025 Hemoglobin (Bld) [Mass/Vol] 9.2 g/dL Low 12.0-15.0 [facility] Immature granulocytes/100 WB C Auto (Bld)Ordered By: Nikki Harrell on 01-27-2025 Immature granulocytes/100 WBC (Bld) 2.300 % High 0.0-0.9 [facility] Comment on above: IG% - Immature Granu locytes (promyelocytes, myelocytes and metamyelocytes) > 1% indicates that a LEFT SHIFT is Present. Laboratory - Chemistry and C hemistry - challengeOrdered By: Nikki Julio Cesar on 01-27-2025 AST [Catalytic activity/Vol] 11 U/L <32 [facility] - Hematology and Cell countson 01-27-2025 Lymphocytes/100 WBC (Bld) 11.5 % Abnormal 19 - 41 [facility]; [facility] Work Phone: Nucleated RBC (Bld) [#/Vol] 0 10*3/uL Normal 0 - 5 [facility]; [facility] Work Phone: MCV (mean corpuscular volume ) determinationOrdered By: Nikki Harrell on 01-27-2025 MCV (RBC) [Entitic vol] 86.9 fL 81-99 [facility] Mean corpuscular hemoglobin (MCH) determinationOrdered By: on 01-27-2025 MCH (RBC) [Entitic mass] 27.3 pg 27.0-32.0 [facility] Mean corpuscular hemoglobin concentration (MCHC) determinationOrdered By: on 01-27-2025 MCHC (RBC) [Mass/Vol] 31.4 g/dL Low 32-36 [facility] Mean platelet volume determi nationOrdered By: on 01-27-2025 Platelet mean volume (Bld) [Entitic vol] 9.8 fL 6.2-12.0 [facility] Monocyte percentageOrdered B y: on 01-27-2025 Monocytes/100 WBC (Bld) 9.8 % 0-10 [facility] Neutrophil percentageOrdered By: on 01-27-2025 Neutrophils/100 WBC (Bld) 76.1 % High 47-70 [facility] No Panel Informationon 01-27 Absolute Lymph 2.13 {X10_3/uL} Normal 0.83 - 4.51 {X10_3/uL} [facility]; [facility] Work Phone: Absolute Neut 14.1 {X10_3/uL} Abnormal 2.0 - 7.7 {X10_3/uL} [facility]; [facility] Work Phone: BUN/CRE 10.1 {RATIO} Normal 10 - 20 {RATIO} [facility]; [facility] Work Phone: CRP, HIGH SENS 162.20 mg/L Abnormal 0.00 - 3.00 mg/L [facility]; [facility]. Work Phone: IG% 2.300 Abnormal 0.0 - 0.9 [facility]; [facility] Work Phone: RDW SD 43.8 fL Normal 35.1 - 43.9 fL [facility]; [facility] Work Phone: Nucleated red blood cell per centageOrdered By: Nikki Harrell on 01-27-2025 Nucleated RBC/100 WBC (Bld) [Ratio] 0 % 0-5 [facility] Platelet countOrdered By: Sammie Harrell on 01-27-2025 Platelets (Bld) [#/Vol] 435 10*3/uL 150-450 [facility] Potassium measurement (mass/ volume)Ordered By: Nikki Harrell on 01-27-2025 Potassium (Unsp spec) [Mass/Vol] 4.1 mmol/L 3.3-5.1 [facility] Serum creatinine measurement (mass/volume)Ordered By: Nikki Harrell on 01-27-2025 Creatinine [Mass/Vol] 0.62 mg/dL Low 0.70-1.20 [facility] Serum globulin measurementOr dered By: Nikki Harrell on 01-27-2025 Globulin (S) [Mass/Vol] 3.1 g/dL 2.2-4.2 [facility] Serum glucose measurement (m ass/volume)Ordered By: Nikki Harrell on 01-27-2025 Glucose [Mass/Vol] 162 mg/dL High 70-99 [facility] Serum or plasma alanine thompson otransferase (ALT) measurementOrdered By: Nikki Harrell on 01-27-2025 ALT [Catalytic activity/Vol] 8 U/L <35 [facility] Serum or plasma albumin dalton urement (mass/volume)Ordered By: Nikki Harrell on 01-27-2025 Albumin [Mass/Vol] 2.8 g/dL Low 3.5-5.0 [facility] Serum or plasma albumin/glob ulin mass ratioOrdered By: Nikki Harrell on 01-27-2025 Albumin/Globulin [Mass ratio] 0.9 {ratio} 0.9-2.4 [facility] Serum or plasma alkaline zen sphatase measurementOrdered By: Nikki Harrell on 01-27-2025 ALP [Catalytic activity/Vol] 77 U/L 35-104 [facility] Serum or plasma calcium dalton urement (mass/volume)Ordered By: Nikki Harrell on 01-27-2025 Calcium [Mass/Vol] 9.1 mg/dL 7.6-11.0 [facility] Serum or plasma urea nitroge n measurement (mass/volume)Ordered By: Nikki Harrell on 01-27-2025 Urea nitrogen [Mass/Vol] 6 mg/dL 4-19 [facility] Sodium levelOrdered By: Christopheru mn Julio Cesar on 01-27-2025 Sodium [Moles/Vol] 143 mmol/L 133-145 [facility] Total proteinOrdered By: Christopher burkettn Julio Cesar on 01-27-2025 Protein [Mass/Vol] 6.0 g/dL 5.9-8.4 [facility] White blood cell (WBC) count Ordered By: Nikki Harrell on 01-27-2025 WBC (Bld) [#/Vol] 18.5 10*3/uL High 4.4-11.0 [facility] Albumin Elph [Mass/Vol]Order ed By: Agustín Gonzalez on 01-26-2025 Albumin [Mass/Vol] 2.9 g/dL 2.9-4.4 [facility] Basic Metabolic Profile (BMP )on 01-26-2025 BUN/CRE 12.4 RATIO Normal 10-20 [facility] Comment on above: Performed By: #### L 100.0100, L500.4050 #### [facility] [address] [place], [address] Calcium [Mass/Vol] 8.5 mg/dL Normal 7.6-11.0 [facility]; [facility] Work Phone: Comment on above: Performed By: #### L 100.0100, L500.4050 #### [facility] [address] [place], [address] Chloride [Moles/Vol] 109 mmol/L High 98-108 [facility]; [facility] Work Phone: Comment on above: Performed By: #### L 100.0100, L500.4050 #### [facility] [address] [place], [address] CO2 [Moles/Vol] 20.3 mmol/L Low 21.0-32.0 [facility]; [facility], [facility] Work Phone: Comment on above: Performed By: #### L 100.0100, L500.4050 #### [facility] [address] [place], [address] Creatinine [Mass/Vol] 0.67 mg/dL Low 0.70-1.20 [facility]; [facility] Work Phone: Comment on above: Performed By: #### L 100.0100, L500.4050 #### [facility] [address] [place], [address] ECRCL 111.72 ml/min Normal 50-250 [facility]; [facility], [facility] Work Phone: Comment on above: Performed By: #### L 100.0100, L500.4050 #### [facility] [address] [place], [address] GAP 10 Normal 5-15 [facility]; [facility] Work Phone: Comment on above: Performed By: #### L 100.0100, L500.4050 #### [facility] [address] [place], [address] GFR/1.73 sq M.predicted among non-blacks MDRD (S/P/Bld) [Vol rate/Area] 129 mL/min/{1.73_m2} Normal >60 [facility]; [facility] Work Phone: Comment on above: Result Comment: mL/m in/1.73m2 CKD-EPI Creatinine Equation (2020) Performed By: #### L 100.0100, L500.4050 #### [facility] [address] [place], [address] Glucose [Mass/Vol] 170 mg/dL High 70-99 [facility]; [facility] Work Phone: Comment on above: Performed By: #### L 100.0100, L500.4050 #### [facility] [address] [place], [address] Potassium [Moles/Vol] 4.2 mmol/L Normal 3.3-5.1 [facility]; [facility] Work Phone: Comment on above: Performed By: #### L 100.0100, L500.4050 #### [facility] [address] [place], [address] Sodium [Moles/Vol] 139 mmol/L Normal 133-145 [facility]; [facility] Work Phone: Comment on above: Performed By: #### L 100.0100, L500.4050 #### [facility] [address] [place], [address] Urea nitrogen [Mass/Vol] 8 mg/dL Normal 4-19 [facility]; [facility] Work Phone: Comment on above: Performed By: #### L 100.0100, L500.4050 #### [facility] [address] [place], [address] CBC-Complete Blood Cnt No Di ffon 01-26-2025 Erythrocyte distribution width (RBC) [Ratio] 13.6 % Normal 11.6-14.6 [facility]; [facility] Work Phone: Comment on above: Performed By: #### L 100.0100, L500.4050 #### [facility] [address] [place], [address] Hematocrit (Bld) [Volume fraction] 30.5 % Low 37-47 [facility]; [facility] Work Phone: Comment on above: Performed By: #### L 100.0100, L500.4050 #### [facility] [address] [place], [address] Hemoglobin (Bld) [Mass/Vol] 9.9 g/dL Low 12.0-15.0 [facility]; [facility] Work Phone: Comment on above: Performed By: #### L 100.0100, L500.4050 #### [facility] [address] [place], [place], [id number] [phone] [phone] (RBC) [Entitic mass] 28.0 pg Normal 27.0-32.0 [facility]; [facility] Work Phone: Comment on above: Performed By: #### L 100.0100, L500.4050 #### [facility] [address] [place], [address] MCHC (RBC) [Mass/Vol] 32.5 g/dL Normal 32-36 E[facility]; [facility] Work Phone: Comment on above: Performed By: #### L 100.0100, L500.4050 #### [facility] [address] [place], [place], [id number] (337) MCV (RBC) [Entitic vol] 86.2 fL Normal 81-99 [facility]; [facility] Work Phone: Comment on above: Performed By: #### L 100.0100, L500.4050 #### [facility] [address] [place], [address] Platelet mean volume (Bld) [Entitic vol] 9.5 fL Normal 6.2-12.0 [facility]; [facility] Work Phone: Comment on above: Performed By: #### L 100.0100, L500.4050 #### [facility] [address] [place], [address] Platelets (Bld) [#/Vol] 385 10*3/uL Normal 150-450 [facility]; [facility] Work Phone: Comment on above: Performed By: #### L 100.0100, L500.4050 #### [facility] [address] [place], [address] RBC (Bld) [#/Vol] 3.54 10*6/uL Low 4.2-5.4 [facility].; [facility] Work Phone: Comment on above: Performed By: #### L 100.0100, L500.4050 #### [facility] [address] [place], [address] RDW SD 42.3 fL Normal 35.1-43.9 [facility]; [facility] Work Phone: Comment on above: Performed By: #### L 100.0100, L500.4050 #### [facility] [address] [place], [address] WBC (Bld) [#/Vol] 15.0 10*3/uL High 4.4-11.0 [facility].; [facility] Work Phone: Comment on above: Performed By: #### L 100.0100, L500.4050 #### [facility] [address] [place], [address] CDIFF (PCR)on 01-26-2025 CDIFF Is the patient recei ving laxatives? N Above criteria not met but test indicated Y New/unexplained onset of 3 or more stools in past 24 hrs? Y A positive C. difficile molecular test does not differentiate between an active C. difficile infection and C. difficile colonization. Use clinical judgement and paired toxin/antigen testing to identify true infection and need for treatment. C diff DNA Spec Ql JAYME+probe Reference Range: Negative [facility] GeneXpert: polymerase chain reaction (PCR) 027 027 NAP1-B1 Presumptive Negative *for epidemiolologic???use C. Diff PCR A Positive-Toxigenic C. Difficile Detected A Normal [facility] Comment on above: Performed By: #### L 100.0100, L500.4050 #### [facility] [address] [place], [address] Calprotectin stoolOrdered By : Nikki Harrell on 01-26-2025 Calprotectin stool 5630 ug/g High 0-120 [facility] Comment on above: Results verified b y repeat testingConcentration Interpretation Follow-Up< 5 - 50 ug/g Normal None>50 -120 ug/g Borderline Re-evaluate in 4-6 weeks >120 ug/g Abnormal Repeat as clinically indicatedPerformed at: [facility] Lab[address] [id number] Director: Wilmer Allen MD, Phone: [phone] Chitobioside IgA antibody as sayOrdered By: Agustín Friend on 01-26-2025 Chitobioside IgA IA Qn 8 units 0-[address] [facility] Comment on above: Negative: <80 Equivo bowen: 80-90 Positive: >90 Clostridium Diff Toxin/Agon 01-26-2025 CDIFF (EIA) Is the patient recei ving laxatives? N Above criteria not met but test indicated Y New/unexplained onset of 3 or more stools in past 24 hrs? Y Interpretation of C. diff by EIA Method C diff Stl Ql Negative for toxigenic C. difficile, or below limit of detection. C. difficile Antigen Negative C. diff A/B Antigen C. difficile Toxin Negative C. diff Toxin Normal [facility] Comment on above: Performed By: #### L 100.0100, L500.4050 #### [facility] [address] [place], [place], [address] Clostridium difficile detect ion by polymerase chain reactionOrdered By: Nikki Harrell on 01-26-2025 C. difficile DNA JAYME+probe Ql (Unsp spec) [facility] ENTERIC PATHOGEN PANEL STOOL on 01-26-2025 EP PANEL Normal Reference Ran ge = Not Detected Nucleic acid amplification test method Not detected for Campylobacter group, Salmonella species, Shigella species, Vibrio Group, Yersinia enterocolitica, EHEC (Shiga Toxin 1, Shiga Toxin 2), Norovirus Gl/Gll, and Rotavirus A. Other common stool pathogens are not detected on this panel include: Aeromonas/Plesiomonas or parasites. Order testing for these organisms separately if suspected. This is an amplified DNA test which makes it both specific and sensitive. CAMPYLOBACTER Not Detected Norovirus Not Detected Rotavirus Not Detected Salmonella Not Detected Shiga Toxin Not Detected Shigella sp. Not Detected VIBRIO Not Detected Yersinia Not Detected Normal [facility] Comment on above: Performed By: #### L 100.0100, L500.4050 #### [facility] [address] [facility] [place], [address] Emergency Department Summary on 01-26-2025 Emergency Department Summary [facility] Medical Records Department [address] [place] [address] Emergency Department Summary 01/26/25 MR#: [id number] Acct: [id number] Name: UJDITH HURLEY Rep #: [id number] : 2005 19 From: Speedy Amor MD PCP: Dr. Deya Chavez MD Status:REG ER Location: ED HPI History of Present Illness Chief Complaint: Fever Detail of Chief Complaint: Fever, arthralgias, skin lesion, increased diarrhea with mucus in blood Informant: patient and parent Onset/Context/Timing Onset: Days Context: Sudden Onset Timing: Intermittent Quality: Diarrhea worse at night Location: GI, bowel Current Severity: Moderate Maximum Severity: Severe Worsened by: At night per patient and parents Relieved by: Nothing Associated Symptoms Associated Symptoms: Fever, arthralgias, mild abdominal discomfort, rash Narrative Narrative: Patient is a 19-year-old female who is under the care of Dr. Rodriguez. Her last dose of Humira was 4 weeks ago. She has known history of ulcerative colitis. She presents with several days of increased diarrhea especially at night. She states at night she has 10 loose stools. There is mucus as well as minimal blood. She has had fever without chills. She does report nausea without vomiting. She denies urologic symptoms. She denies upper respiratory symptoms. The rash started 24 to 48 hours ago. Prior similar symptoms: No Recent Illness/Hospitalization: No PFSH PFS Medical History Ulcerative colitis Home Medications ???Medication ???Instructions ???Recorded ???Last Taken ???Type Unobtainable 01/25/25 Unknown History Allergy/AdvReac Type Severity Reaction Status Date / Time morphine Allergy Hives Verified 01/25/25 21:35 prednisone AdvReac can't take Verified 01/25/25 21:35 due to ulcerative colitis Family History no significant family his Surgical History Hx of tonsillectomy Social History (Updated 01/26/25 @ 00:[address] Speedy Amor MD) household members: family Smoking Status: Never smoker ROS ROS ED Constitutional Constitutional ED: Reports fever(s) and sweats; Denies subjective Eyes Eyes: Denies blurry vision or change in vision ENT ENT ED: Denies ear pain, rhinorrhea or sore throat Cardiovascular Cardiovascular: Denies chest pain or palpitations Respiratory/Chest Respiratory/Chest: Denies cough, dyspnea or dyspnea on exertion Genitourinary Genitourinary ED: Denies dysuria or urinary frequency Musculoskeletal Musculoskeletal: Reports arthralgias; Denies back pain, myalgias or neck pain Integumentary Reports rash; Denies abscess or Abrasions Neurologic Neurologic: Reports weakness; Denies headache(s) or paresthesias Endocrine Endocrinology: Denies cold intolerance or heat intolerance Hematologic/Lymphatic Hematologic/Lymphatic: Reports systems reviewed and no addt'l complaints, except as documented EXAM Physical Exam Const Vital Signs: 01/25/25 21:32 01/25/25 21:59 01/25/25 21:59 Temperature 102.8 F H 100.2 F H Temperature Source Oral Oral Pulse Rate 142 H 115 H Respiratory Rate 18 20 H Respiratory Effort Normal Respiratory Pattern Normal Blood Pressure 97/54 L 106/66 Blood Pressure Mean 68 79 Pulse Ox 98 100 Oxygen Delivery Method Room Air Room Air 01/25/25 21:59 01/25/25 21:59 01/25/25 21:59 Temperature Temperature Source Pulse Rate 112 H Respiratory Rate 20 H Respiratory Effort Respiratory Pattern Blood Pressure 106/66 Blood Pressure Mean 79 Pulse Ox 100 100 Oxygen Delivery Method Room Air Room Air Room Air 01/25/25 22:34 01/25/25 23:00 01/26/25 00:00 Temperature 100.2 F H 99.4 F H 99.4 F H Temperature Source Oral Oral Oral Pulse Rate 114 H 103 H 115 H Respiratory Rate 23 H 20 H 18 Respiratory Effort Respiratory Pattern Blood Pressure 99/56 L 95/53 L 95/54 L Blood Pressure Mean 70 67 67 Pulse Ox 100 100 99 Oxygen Delivery Method Room Air Room Air Room Air Vitals are remarkable for low blood pressure. Most recent blood pressure is approximately 109 systolic. She is still tachycardic. Her fever has improved. Positive well nourished and well developed Constitutional Narrative: She appears ill but not toxic. She appears in no obvious discomfort. She appears slightly pale. General Appearance ED: well developed and NAD; Negative for cyanotic, diaphoretic or pallor HEENT Reports dry mucous membranes HEENT Narrative: Head is atraumatic normocephalic. Ears normal. Nares patent. Posterior pharynx is normal. Mouth ED: Yes dry mucous membranes Mouth: dry mucous membranes Eyes PERRL and EOMs intact bilaterally General Eye ED: Negative for pale c (more content not included)... Normal [facility] Erythrocyte folate measureme nt with hematocritOrdered By: Tj Dewey on 01-26-2025 Hematocrit (Bld) [Volume fraction] 30.4 % Low 34.0-46.6 [facility] Ferritinon 01-26-2025 Ferritin [Mass/Vol] 104 ng/mL Normal 22-378 [facility] Comment on above: Performed By: #### L 3100.1725, L503.6550, L503.6030 #### [facility] [address] [facility] [place], [place], [address] [facility] H&P Exam - Hospitalist [facility] Medical Records Department [address] [facility] [place] [address] H P Exam - Hospitalist 01/26/25 0018 MR#: [id number] Acct: [id number] Name: JUDITH HURLEY Rep #: [id number] : 2005 19 From: Tj Dewey DO PCP: Dr. Deya Chavez MD Status:ADM IN Location: [facility] [id number] HPI - General General Date of Admission: 01/26/25 Date of Service: 01/26/25 Chief Complaint: Diarrhea and fevers HPI Narrative JUDITH HURLEY, is a 19 F who presented to [facility] ED on 01/26/2025 with diarrhea and fevers. Medical history significant for ulcerative colitis. She was diagnosed 3 years ago and follows with Dr. Artis. She is currently on Humira monthly. Has history of mild UC flares but has not had a flare like this since her initial diagnosis. She has had worsening diarrhea for the past 5 days. There has been some mucus in the diarrhea but minimal blood. She has also had a fever over the past few days now without chills. She does report some nausea but no vomiting. She also reports arthralgias in multiple joints. Vitals in the ED notable for temp 102.8 F, sinus tachycardia to the 120s, BP in the 90s over 50s, otherwise stable on room air. Labs notable for mild leukocytosis with WBC count of 12 and hemoglobin 10.3. BMP was benign. UA infectious appearing with 500 leukocyte esterase, negative nitrates but 3+ bacteria. CT abdomen pelvis showed diffuse rectal and colonic wall thickening and enhancement with prominent perirectal, ileocolic and mesenteric lymph nodes, along with mild gastric wall thickening. Patient was given IV fluids and a dose of IV Solu-Medrol, and hospitalist was contacted for admission. I saw the patient at bedside in the ED, mom and dad were present. Patient was laying back comfortably in bed, conversing normally, in no acute distress. She denied any current abdominal pain or discomfort. Has not had a bowel movement since arriving to the ED. Did feel dry and stated the IV fluids were somewhat helpful for this. No other acute concerns currently. Will be admitted for further management. [facility] Medical History Ulcerative colitis Home Medications ???Medication ???Instructions ???Recorded ???Last Taken ???Type Unobtainable 01/25/25 Unknown History Allergy/AdvReac Type Severity Reaction Status Date / Time morphine Allergy Hives Verified 01/25/25 21:35 prednisone AdvReac can't take Verified 01/25/25 21:35 due to ulcerative colitis Family History no significant family his Surgical History Hx of tonsillectomy Social History (Updated 01/26/25 @ 00:[address] Speedy Amor MD) household members: family Smoking Status: Never smoker ROS Constitutional Constitutional: Reports fatigue and fever(s); Denies chills or weakness Eyes Eyes: Denies change in vision Cardiovascular Cardiovascular: Denies chest pain Respiratory/Chest Respiratory/Chest: Denies shortness of breath at rest Gastrointestinal Gastrointestinal: Reports diarrhea and nausea; Denies abdominal pain, constipation or vomiting Genitourinary Genitourinary: Denies dysuria Musculoskeletal Musculoskeletal: Denies arthralgias or myalgias Neurologic Neurologic: Denies dizziness, focal weakness or headache(s) Vital Signs Vital Signs Vital Signs: 01/25/25 21:32 01/25/25 21:59 01/25/25 21:59 Temperature 102.8 F H 100.2 F H Temperature Source Oral Oral Pulse Rate 142 H 115 H Respiratory Rate 18 20 H Respiratory Effort Normal Respiratory Pattern Normal Blood Pressure 97/54 L 106/66 Blood Pressure Mean 68 79 Pulse Ox 98 100 Oxygen Delivery Method Room Air Room Air 01/25/25 21:59 01/25/25 21:59 01/25/25 21:59 Temperature Temperature Source Pulse Rate 112 H Respiratory Rate 20 H Respiratory Effort Respiratory Pattern Blood Pressure 106/66 Blood Pressure Mean 79 Pulse Ox 100 100 Oxygen Delivery Method Room Air Room Air Room Air 01/25/25 22:34 01/25/25 23:00 01/26/25 00:00 Temperature 100.2 F H 99.4 F H 99.4 F H Temperature Source Oral Oral Oral Pulse Rate 114 H 103 H 115 H Respiratory Rate 23 H 20 H 18 Respiratory Effort Respiratory Pattern Blood Pressure 99/56 L 95/53 L 95/54 L Blood Pressure Mean 70 67 67 Pulse Ox 100 100 99 Oxygen Delivery Method Room Air Room Air Room Air Weight Weight: 55.52 kg Body Mass Index (BMI) 21.7 Physical Exam Const alert, oriented x3, no apparent distress, average body habitus, healthy appearing and well nourished Constitutional Narrative: Pleasant young female, sitting back comfortably in bed, conversing normally, in no acute distress. General Appearance: coope (more content not included)... Normal [facility] Hemoglobin A1c percentageon 01-26-2025 HbA1c (Bld) [Mass fraction] 5.6 % Normal <=5.6 [facility] Work Phone: Comment on above: Normal < 5.7 % Predi abetic 5.7 - 6.4 % Diabetic >or= 6.5 % Please note range changes. Order Comment: Comme nts: add to AM labs Result Comment: Norm al < 5.7 % Prediabetic 5.7 - 6.4 % Diabetic >or= 6.5 % Please note range changes. Performed By: #### L 7000.0700 #### [facility] [address] [place], [address] IgEOrdered By: Agustín oje on 01-26-2025 IgE 29 IU/mL 6-495 [facility] Interpretation of serum or p lasma protein pattern by immunofixation (narrative resultOrdered By: Agustín Gonzalez on 01-26-2025 Protein Fractions Immunofixation John [Interp] Not Observed g/dL Not Observed [facility] Iron+Iron Binding Capacityon 01-26-2025 TIBC 223 ug/dL Low 250-450 [facility] Comment on above: Performed By: #### L 3100.1725, L503.6550, L503.6030 #### [facility] [address] [place], [address] Laboratory - Microbiology an d Antimicrobial susceptibilityon 01-26-2025 C. difficile DNA JAYME+probe Ql (Unsp spec) See Note Normal [facility]; [facility] Work Phone: Laboratory - Miscellaneous t estsOrdered By: Agustín Gonzalez on 01-26-2025 Laboratory comment John (Report) Comment . [facility] Comment on above: Pattern is not sugge stive of Inflammatory Bowel Disease Service comment (Unsp spec) [Interp] Comment . [facility] Comment on above: Levels of Specific I gE Class Description of Class ----- < 0.10 0 Negative 0.10 - 0.31 0/I Equivocal/Low 0.32 - 0.55 I Low 0.56 - 1.40 II Moderate 1.41 - 3.90 III High 3.91 - 19.00 IV Very High 19.01 - 100.00 V Very High >100.00 Very High Laminaribioside carbohydrate IgG antibody assayOrdered By: Agustín Gonzalez on 01-26-2025 Laminaribioside IgG IA Qn 40 units 0-60 [facility] Comment on above: Negative:<55 Equivoc al: 55-60 Positive: >60 MR/CON.PCM.GIon 01-26-2025 MR/CON.PCM.GI [facility] Medical Records Department [address] [place] [address] Consultation - GI 01/26/25 1730 MR#: [id number] Acct: [id number] Name: JUDITH HURLEY Rep #: [id number] : 2005 19 From: Danni BAINC PCP: Dr. Deya Chavez MD Status:ADM IN Location: [place] [address] ADDENDUM by Agustín Gonzalez DO on 01/27/25 at [facility] Addendum Patient seen and evaluated. Agree with above. 01/27/25 [facility] Cosigner Signature (if applicable): cc: Dr. Deya Chavez MD * Signed HPI Consult Data Date of Consult: 01/26/25 HPI Narrative Reason for Consultation: presumed UC flare HPI Narrative: JUDITH HURLEY, is a 19 [address] to [facility] with a presumed history of ulcerative colitis diagnosed approximately 3 years ago at an outside hospital. She presents with a 5-day history of profuse watery diarrhea (8???10 BMs/day), nausea, lower abdominal cramping, and subjective fevers. She reports that her last colonoscopy was at the time of initial diagnosis, but no documentation or pathology reports are currently available. She is on monthly adalimumab (Humira), with the last dose taken approximately 4 weeks ago. She initially presented to the ED with a temperature of 102???F, WBC 12 (which has since risen to 15), and was found to have a positive urinalysis, for which she is receiving ceftriaxone 2g IV daily. Her temperature has since normalized. She also tested C. difficile PCR positive, but toxin was negative. Stool culture is negative. Notably, her hemoglobin has decreased slightly from 10.3 to 9.9, which may be dilutional, and iron studies show iron deficiency. She is presently on her menstrual cycle and receiving Na Ferric Gluconate 250mg IV x3. She remains on CL and is receiving LR at 75 mL/hr. She was started on Solu-Medrol 125 mg IV x1 in the ED and has now been transitioned to methylprednisolone 20 mg IV Q8 hours (60 mg/day) for presumed [id number] UC flare. She has noted an improvement in stools today with two soft ([place] Type 6) stools. She denies any ongoing abdominal pain or fecal urgency. CT A P showed diffuse rectal and colonic wall thickening and enhancement, with prominent perirectal, ileocolic, colonic, and mesenteric lymphadenopathy, concerning for active colitis, along with mild gastric wall thickening likely secondary to underdistention. [facility] Medical History Ulcerative colitis Home Medications ???Medication ???Instructions ???Recorded ???Last Taken ???Type adalimumab 40 mg/0.8 mL See Rx Instructions subcut 5 12/31/24 History subcutaneous pen kit (Humira Pen) .COMPLEX ulcerative colitis Allergy/AdvReac Type Severity Reaction Status Date / Time morphine Allergy Hives Verified 01/25/25 21:35 prednisone AdvReac can't take Verified 01/25/25 21:35 due to ulcerative colitis Family History no significant family his Surgical History Hx of tonsillectomy Social History (Updated 01/26/25 @ 00:[address] Speedy Amor MD) household members: family Smoking Status: Never smoker ROS Constitutional Constitutional: Reports as per HPI Eyes Eyes: Denies change in vision ENT HEENT: Denies dizziness Gastrointestinal Gastrointestinal: Reports as per HPI Physical Exam Const no apparent distress and healthy appearing GI Palpation: soft; Negative for tender or guarding Lab / Micro Data Attestation: I reviewed the patient's lab results. 01/26/25 03:37 01/26/25 03:37 Labs: Laboratory Results - last 24 hr 01/25/25 21:50: WBC 12.1 H, RBC 3.74 L, Hgb 10.3 L, Hct 31.9 L, MCV 85.3, MCH 27.5, MCHC 32.3, RDW Std Deviation 42.0, RDW Coeff of Lokesh 13.7, Plt Count 456 H, MPV 9.3, Immature Gran % (Auto) 0.600, N eut % (Auto) 75.5 H, Lymph % (Auto) 11.8 L, Prairie % (Auto) 10.7 H, Eos % (Auto) 1.0, Baso % (Auto) 0.4, Absolute Neuts (auto) 9.2 H, Absolute Lymphs (auto) 1.43, Nucleated RBC % 0, PT 13.0, INR 1.0, APTT 26.7, Sodium 136, Potassium 3.6, Chloride 104, Carbon Dioxide 19.3 L, Anion Gap 12, BUN 13, Creatinine 0.86, Estim Creat Clear Calc 87.04, Est GFR (MDRD) Non-Af 99, BUN/Creatinine Ratio 14.6, Glucose 126 H, Lactic Acid < 1.0, Calcium 8.6, Iron 11 L, TIBC 223 L, Iron Saturation 4.9 L, U nsaturated IBC 212 L, Ferritin 104, Total Bilirubin 0.16, AST 18, ALT 8, Alkaline Phosphatase 81, Total Protein 6.6, Albumin 3.4 L, Globulin 3.2, Albumin/Globulin Ratio 1.0, Vitamin B12 2622 H 01/25/25 23:26: Urine Color SEE COMMENT BELOW, Urine Clarity Sl. Cloudy, Urine pH 6.5, Ur Specific Aldrich 1.005, Urine Protein 30 H, Urine Glucose (UA) Normal, Urine Ketones Negative, Urine Occult Blood 250 H, Urine Nitrite Negative, Urine Bilirubin Negative, Urine Urobilinogen Normal, Ur Leukocyte Esterase 5 (more content not included)... Normal [facility] Magnesiumon 01-26-2025 Magnesium [Mass/Vol] 1.6 mg/dL Normal 1.5-2.2 [employer] [facility] [employer]. Work Phone: Comment on above: Order Comment: Comme nts: add to AM labs Performed By: #### L 3100.1725, L503.6550, L503.6025 #### [facility] [address] [place], [place], [id number] Magnesium measurement (mass/ volume)Ordered By: Nikki Harrell on 01-26-2025 Magnesium (Unsp spec) [Mass/Vol] 1.6 mg/dL 1.5-2.2 [facility] No Panel InformationOrdered By: Agustín Friend on 01-26-2025 Addendum Document Comment . [facility] Comment on above: Protein electrophore sis scan will follow via computer,mail, or christmas tree grower delivery. Hepatitis C Antibody Comment Comment . [facility] Comment on above: Not infected with HC V unless early or acute infection issuspected (which may be delayed in an immunocompromisedindividual), or other evidence exists to indicate HCVinfection. No Panel Informationon 01-26 KUSHAL TABLE Normal [employer] [facility] [employer]. Work Phone: ANTI-CENT B AB Normal [facility] [employer] [facility] [employer], [employer]. Work Phone: ANTI-DEE DEE-1 Normal [facility] [employer] [facility] [employer], [employer]. Work Phone: ANTICHROMATIN Normal [facility] [employer] [facility] [employer]. Work Phone: ANTISCLERODERM Normal [facility] [employer] [facility] [employer], [employer]. Work Phone: BUN/CRE 12.4 {RATIO} Normal 10 - 20 {RATIO} [employer] [facility] [employer] Work Phone: CDIFF (EIA) See Note Normal [employer]. Work Phone: EP PANEL See Note Normal [facility], [employer]. Work Phone: Fol.,Hemolysate > 620.0 Normal [facility].; [employer] [facility], [employer]. Work Phone: Folate, RBC > 2039 Normal [facility].; [employer] [facility], [employer]. Work Phone: RHEUMATOID FAC 16.0 {IU/mL} [facility]normal [facility], [facility]. Work Phone: ASSISTANT CLINICAL DIRECTOR Ab Normal [facility], [employer]. Work Phone: GARCIA Ab Normal [facility].; [employer] [facility], [employer]. Work Phone: Phosphoruson 01-26-2025 Phosphate [Mass/Vol] 3.7 mg/dL Normal 2.7-4.5 [facility] [employer] [facility], [employer]. Work Phone: Comment on above: Order Comment: Comme nts: add to AM labs Performed By: #### L 100.0100, L500.4050 #### [facility] [address] [place], [address] Qualitative QuantiFERON-TB g old in tube testOrdered By: Agustín Gonzalez on 01-26-2025 M. tuberculosis tuberculin stim IFN-g Ql (Bld) TNP [facility] Comment on above: Test not performedTe st not performed. Insufficient specimen to perform orcomplete analysis. Rheumatoid Factoron 01-27-20 25 RHEUMATOID FAC 16.0 IU/mL High <15 [facility] Comment on above: Performed By: #### L 3100.9185, L503.5653, L503.6018 #### [facility] [address] [place], [address] Serum DNA double strand anti body assay (units/volume)Ordered By: Agustín Gonzalez on 01-26-2025 DNA double strand Ab Qn (S) 2 [IU]/mL 0-9 [facility] Comment on above: Negative <5 Equivoca l 5 - 9 Positive >9 Serum IgG subclass 1 measure ment (mass/volume)Ordered By: Agustín Gonzalez on 01-26-2025 IgG subclass 1 (S) [Mass/Vol] 631 mg/dL 325-846 [facility] Serum IgG subclass 2 measure ment (mass/volume)Ordered By: Agustín Gonzalez on 01-26-2025 IgG subclass 2 (S) [Mass/Vol] 327 mg/dL 133-509 [facility] Serum IgG subclass 3 measure ment (mass/volume)Ordered By: Agustín Gonzalez on 01-26-2025 IgG subclass 3 (S) [Mass/Vol] 89 mg/dL 19-109 [facility] Serum Scl-70 antibody assay (units/volume)Ordered By: Agustín Gonzalez on 01-26-2025 SCL-70 extractable nuclear Ab Qn (S) TNP [facility] Comment on above: Test not performed SCL-70 extractable nuclear Ab Qn (S) <0.2 AI 0.0-0.9 [facility] Comment on above: Previous reported re sult: TNP AIEdited by: CYRUS on 01/31/25:1507 AMENDED REPORT 01/31/25 1507 ANTISCLER previously reported as: Test not performed Serum black walnut IgE antib mily assay (units/volume)Ordered By: Agustín Gonzalez on 01-26-2025 Black Floris IgE Qn (S) <0.10 kU/L Class 0 [facility] Serum clam IgE antibody assa y (units/volume)Ordered By: Agustín Gonzalez on 01-26-2025 Clam IgE Qn (S) <0.10 kU/L Class 0 [facility] Serum classic neutrophil cyt oplasmic antibody assay (units/volume)Ordered By: Agustín Gonzalez on 01-26-2025 Neutrophil cytoplasmic Ab.classic Qn (S) <1:20 titer Neg:<1:20 [facility] Serum codfish IgE antibody a ssay (units/volume)Ordered By: Agustín Gonzalez on 01-26-2025 Codfish IgE Qn (S) <0.10 kU/L Class 0 [facility] Serum corn IgE antibody assa y (units/volume)Ordered By: Agustín Gonzalez on 01-26-2025 [place] IgE Qn (S) <0.10 kU/L Class 0 [facility] Serum cow milk IgE antibody assay (units/volume)Ordered By: Agustín Gonzalez on 01-26-2025 Cow milk IgE Qn (S) <0.10 kU/L Class 0 [facility] Serum egg white IgE antibody assay (units/volume)Ordered By: Agustín Gonzalez on 01-26-2025 Egg white IgE Qn (S) <0.10 kU/L Class 0 [facility] Serum or plasma IgA measurem ent (mass/volume)Ordered By: Agustín Gonzalez on 01-26-2025 IgA [Mass/Vol] 160 mg/dL 87-352 [facility] Serum or plasma IgG measurem ent (mass/volume)Ordered By: Agustín Gonzalez on 01-26-2025 IgG [Mass/Vol] 1174 mg/dL 719-1475 [facility] IgG [Mass/Vol] Not Reportable [facility] Serum or plasma alpha 1 glob ulin measurement by electrophoresis (mass/volume)Ordered By: Agustín Gonzalez on 01-26-2025 Alpha 1 globulin Elph [Mass/Vol] 0.6 g/dL High 0.0-0.4 [facility] Alpha 1 globulin Elph [Mass/Vol] 1.0 g/dL 0.4-1.0 [facility] Serum or plasma beta globuli n measurement by electrophoresis (mass/volume)Ordered By: Agustín Gonzalez on 01-26-2025 Beta globulin Elph [Mass/Vol] 1.0 g/dL 0.7-1.3 [facility] Serum or plasma cyclic citru llinated peptide IgG antibody assay (units/volume)Ordered By: Agustín Gonzalez on 01-26-2025 Cyclic citrullinated peptide IgG Qn 5 units 0-19 [facility] Comment on above: Negative <20 Weak po sitive 20 - 39 Moderate positive 40 - 59 Strong positive >59 Serum or plasma gamma globul in measurement by electrophoresis (mass/volume)Ordered By: Agustín Gonzalez on 01-26-2025 Gamma globulin Elph [Mass/Vol] 1.2 g/dL 0.4-1.8 [facility] Serum or plasma hepatitis B virus surface antigen detection by immunoassayOrdered By: Agustín Gonzalez on 01-26-2025 HBV surface Ag IA Ql Negative Negative [facility] Serum or plasma immunoelectr ophoresis interpretation (nominal result)Ordered By: Agustín Gonzalez on 01-26-2025 Interpretation IEP [Interp] Comment . [facility] Comment on above: No monoclonality det ected. Serum or plasma mannobioside IgG antibody assay by immunoassay (units/volume)Ordered By: Agustín Gonzalez on 01-26-2025 Mannobioside IgG IA Qn 12 units 0-[address] [facility] Comment on above: Negative: <90 Equivo bowen: 90-100 Positive: >100 This test was developed and its performance characteristics determined by [employer]. It has not been cleared or approved by the Food and Drug Administration. The FDA has determined that such clearance or approval is not necessary. Serum or plasma protein dalton urement (mass/volume)Ordered By: Agustín Gonzalez on 01-26-2025 Protein [Mass/Vol] 6.7 g/dL 6.0-8.5 [facility] Serum peanut IgE antibody as say (units/volume)Ordered By: Agustín Gonzalez on 01-26-2025 Peanut IgE Qn (S) <0.10 kU/L Class 0 [facility] Serum perinuclear neutrophil cytoplasmic antibody titer by immunofluorescenceOrdered By: Agustín Gonzalez 01-26-2025 Neutrophil cytoplasmic Ab.perinuclear IF (S) [Titer] <1:20 titer Neg:<1:20 [facility] Comment on above: The presence of posi tive fluorescence exhibiting P-ANCA orC-ANCA patterns alone is not specific for the diagnosis ofWegener's Granulomatosis (WG) or microscopic polyangiitis.Decisions about treatment should not be based solely onANCA IFA results. The [employer] ANCA [employer] Consensusrecommends follow up testing of positive sera with both TX-3 and MPO-ANCA enzyme immunoassays. As many as 5% serumsamples are positive only by EIA. Ref. AM J Clin [id number];111:507-513. Serum rheumatoid factor dete ctionOrdered By: Agustín Gonzalez on 01-26-2025 Rheumatoid factor Ql (S) 16.0 IU/mL High <15 [facility] Serum soybean IgE antibody a ssay (units/volume)Ordered By: Agustín Gonzalez on 01-26-2025 Soybean IgE Qn (S) <0.10 kU/L Class 0 [facility] Serum wheat IgE antibody ass ay (units/volume)Ordered By: Agustín Gonzalez on 01-26-2025 Wheat IgE Qn (S) <0.10 kU/L Class 0 [facility] Stool Clostridium difficile detectionOrdered By: Nikki Harrell on 01-26-2025 C. difficile Ql (Stl) [facility] Urinalysis, Completeon 01-26 BACTERIA 3+ /hpf Normal None Seen [facility] Comment on above: Order Comment: ORI CTOR TO SPECIFY Performed By: #### L 100.0100, L500.4050 #### [facility] [address] [facility] [address] EPI,SQUAMOUS 5-10 SEEN Normal 5-10 [facility].; [facility]. Work Phone: Comment on above: Order Comment: ORI CTOR TO SPECIFY Performed By: #### L 100.0100, L500.4050 #### [facility] [address] [facility] [address] RBC 10-25 SEEN Normal 0-5 [facility].; [facility]. Work Phone: Comment on above: Order Comment: ORI CTOR TO SPECIFY Performed By: #### L 100.0100, L500.4050 #### [facility] [address] [place], [place], [address] WBC 10-25 SEEN Normal 0-5 [facility]; [facility] Work Phone: Comment on above: Order Comment: COLLE CTOR TO SPECIFY Performed By: #### L 100.0100, L500.4050 #### [facility] [address] [place], [place], [address] Vitamin B12on 01-26-2025 Cobalamin (Vitamin B12) [Mass/Vol] 2622 pg/mL High 180-914 [facility] Comment on above: Performed By: #### L 503.010 #### [facility] [address] [place], [place], [address] Abdomen/Pelvis W IV Cont ONL Yon 01-25-2025 Abdomen/Pelvis W IV Cont ONLY [facility] Imaging Services [address] [place], [place] [address] Abdomen/Pelvis W IV Cont ONLY MR#: [id number] Acct: [id number] Name: JUDITH HURLEY Rep #: [id number] : 2005 F 19 From: Ivette lopez MD PCP: Dr. Deya Chavez MD Status: REG ER Study: Abdomen/Pelvis W IV Cont ONLY Date of Exam: Exam# [id number] Ordering Dr: Speedy Amor MD PROCEDURE: ABDOMEN/PELVIS W IV CONT ONLY 01/26/2025 REASON FOR EXAM: ABDOMINAL PAIN, DIARRHEA, FEVER, ULCERATIVE COLITI None TECHNIQUE: ABDOMEN/PELVIS W IV CONT ONLY Coronal and Sagittal reconstruction series were provided. CONTRAST: VOLUME: mL One or more dose reduction techniques were used (e.g., Automated exposure control, adjustment of the mA and/or kV according to patient size, use of iterative reconstruction technique. RADIATION DOSE SUMMARY: CTDlvol: mGy DLP: mGycm COMPARISON: none FINDINGS: Diffuse rectal and colonic wall thickening and enhancement with prominent isael-rectal, ileocolic and mesenteric lymph nodes, possibly inflammatory (colitis). Advise clinical correlation. Mild gastric wall thickening, possibly gastritis. Advise clinical correlation. The small bowel loops are unremarkable. The appendix is not identified Average sized liver showing homogenous parenchymal attenuation. No dilated intra or extra-hepatic biliary tracts. Gall bladder showing no radiodense calculi. No abnormal mural thickening. Clear surrounding fat planes with no sizeable collections. Normal appearance of the pancreas with clear surrounding fat planes. The spleen, adrenal glands, aorta and IVC are unremarkable. Both kidneys are of average size and showing smooth outline with preserved parenchymal thickness. No renal calculi. No hydronephrosis. Distension of the urinary bladder showing minimal uniform mural thickening with no obvious masses. No obvious masses related to the pelvic viscera. Physiological pelvic fluid noted No ascites or free air. No obvious pathologically enlarged lymph nodes. Scanned osseous structures show no osseous destruction. Scanned lung bases show no obvious abnormalities. CT/Abdomen/Pelvis W IV Cont ONLY IMPRESSION: Diffuse rectal and colonic wall thickening and enhancement with prominent isael-rectal, ileocolic and mesenteric lymph nodes, possibly inflammatory (colitis). Advise clinical correlation. Mild gastric wall thickening, possibly gastritis. Advise clinical correlation. Reading Location: [place] [address] CC: Dr. Speedy Amor MD; Dr. Deya Chavez MD Beauty Therapist: Signed Normal [facility] Absolute lymphocyte countOrd ered By: ED PROVIDER on 01-25-2025 Lymphocytes Auto (Unsp spec) [#/Vol] 1.43 10*3/uL 0.83-4.51 [facility] Absolute neutrophil countOrd ered By: ED PROVIDER on 01-25-2025 Neutrophils (Bld) [#/Vol] 9.2 10*3/uL High 2.0-7.7 [facility] Activated partial thrombopla stin time (aPTT) in platelet poor plasma by coagulation aOrdered By: Speedy Amor on 01-25-2025 aPTT Coag (PPP) [Time] 26.7 s 24.1-36.[address] [facility] Anion gap in Serum or Plasma Ordered By: Speedy Amor on 01-25-2025 Anion gap [Moles/Vol] 12 mmol/L 5-15 [facility] Automated blood erythrocyte countOrdered By: ED PROVIDER on 01-25-2025 RBC (Bld) [#/Vol] 3.74 10*6/uL Abnormal 4.2 - 5.4 {M/mm3} [facility] Automated blood hematocrit ( percentage)Ordered By: ED PROVIDER on 01-25-2025 Hematocrit (Bld) [Volume fraction] 31.9 % Abnormal 37 - 47 [facility] Automated lymphocyte count a s percentage of total leukocytesOrdered By: ED PROVIDER on 01-25-2025 Lymphocytes/100 WBC Auto (Unsp spec) 11.8 % Low 19-41 [facility] BUN/creatinine ratioOrdered By: Speedy Amor on 01-25-2025 Urea nitrogen/Creatinine [Mass ratio] 14.6 mg/mg 10-20 [facility] Basophil percentageOrdered B y: ED PROVIDER on 01-25-2025 Basophils/100 WBC (Bld) 0.4 % Normal 0 - 1 [facility] Bilirubin Test strip Ql (U)O rdered By: Speedy Amor on 01-25-2025 Bilirubin Ql (U) Negative Negative [facility] Bilirubin, totalOrdered By: Speedynaman Amor on 01-25-2025 Bilirubin [Mass/Vol] 0.16 mg/dL Normal 0.00 - 1.30 mg/dL [facility] Blood cultureOrdered By: ED PROVIDER on 01-25-2025 Bacteria identified Cx Nom (Bld) No growth in 5 days. [facility] Blood cultureOrdered By: Speedy Amor on 01-25-2025 Bacteria identified Cx Nom (Bld) No growth in 5 days. [facility] CBC W/Diff, Automatedon Absolute Lymph 1.43 X10 3/uL Normal 0.83-4.51 [facility] Comment on above: Performed By: #### L 100.0100, L500.4050 #### [facility] [address] [place], [address] Absolute Neut 9.2 X10 3/uL High 2.0-7.7 [facility] Comment on above: Performed By: #### L 100.0100, L500.4050 #### [facility] [address] [place], [address] Basophils/100 WBC (Bld) 0.4 % Normal 0-1 [facility] Comment on above: Performed By: #### L 100.0100, L500.4050 #### [facility] [address] [place], [address] Eosinophils/100 WBC (Bld) 1.0 % Normal 0-5 [facility] Comment on above: Performed By: #### L 100.0100, L500.4050 #### [facility] [address] [place], [address] Erythrocyte distribution width (RBC) [Ratio] 13.7 % Normal 11.6-14.6 [facility] Comment on above: Performed By: #### L 100.0100, L500.4050 #### [facility] [address] [place], [address] Hematocrit (Bld) [Volume fraction] 31.9 % Low 37-47 [facility] Comment on above: Performed By: #### L 100.0100, L500.4050 #### [facility] [address] [place], [address] Hemoglobin (Bld) [Mass/Vol] 10.3 g/dL Low 12.0-15.0 [facility] Comment on above: Performed By: #### L 100.0100, L500.4050 #### [facility] [address] [place], [address] IG% 0.600 Normal 0.0-0.9 [facility]; [facility] Work Phone: Comment on above: Result Comment: IG% - Immature Granulocytes (promyelocytes, myelocytes and metamyelocytes) > 1% indicates that a LEFT SHIFT is Present. Performed By: #### L 100.0100, L500.4050 #### [facility] [address] [place], [address] Lymphocytes/100 WBC (Bld) 11.8 % Low 19-41 [facility]; [facility] Work Phone: Comment on above: Performed By: #### L 100.0100, L500.4050 #### [facility] [address] [place], [address] MCH (RBC) [Entitic mass] 27.5 pg Normal 27.0-32.0 [facility] Comment on above: Performed By: #### L 100.0100, L500.4050 #### [facility] [address] [place], [address] MCHC (RBC) [Mass/Vol] 32.3 g/dL Normal 32-36 [facility] Comment on above: Performed By: #### L 100.0100, L500.4050 #### [facility] [address] [place], [address] MCV (RBC) [Entitic vol] 85.3 fL Normal 81-99 [facility] Comment on above: Performed By: #### L 100.0100, L500.4050 #### [facility] [address] [place], [address] Monocytes/100 WBC (Bld) 10.7 % High 0-10 [facility] Comment on above: Performed By: #### L 100.0100, L500.4050 #### [facility] [address] [place], [address] Neutrophils/100 WBC (Bld) 75.5 % High 47-70 [facility] Comment on above: Performed By: #### L 100.0100, L500.4050 #### [facility] [address] [place], [address] Nucleated RBC (Bld) [#/Vol] 0 10*3/uL Normal 0-5 [facility].; [facility] Work Phone: Comment on above: Performed By: #### L 100.0100, L500.4050 #### [facility] [address] [place], [address] Platelet mean volume (Bld) [Entitic vol] 9.3 fL Normal 6.2-12.0 [facility] Comment on above: Performed By: #### L 100.0100, L500.4050 #### [facility] [address] [place], [address] Platelets (Bld) [#/Vol] 456 10*3/uL High 150-450 [facility] Comment on above: Performed By: #### L 100.0100, L500.4050 #### [facility] [address] [place], [address] RBC (Bld) [#/Vol] 3.74 10*6/uL Low 4.2-5.4 [facility] Comment on above: Performed By: #### L 100.0100, L500.4050 #### [facility] [address] [place], [address] RDW SD 42.0 fL Normal 35.1-43.9 [facility].; [facility]. Work Phone: Comment on above: Performed By: #### L 100.0100, L500.4050 #### [facility] [address] [place], [address] WBC (Bld) [#/Vol] 12.1 10*3/uL High 4.4-11.0 [facility] Comment on above: Performed By: #### L 100.0100, L500.4050 #### [facility] [address] [place], [address] Carbon dioxide, total [Moles /volume] in Central venous bloodOrdered By: Speedy Amor on 01-25-2025 CO2 [Moles/Vol] 19.3 mmol/L Abnormal 21.0 - 32.0 mmol/L [facility] Chest PA and Lateralon 01-25 Chest PA and Lateral [facility] Imaging Services [address] [place], [place] [address] Chest PA and Lateral MR#: [id number] Acct: [id number] Name: JUDITH HURLEY Rep #: [id number] : 2005 F 19 From: Milton Shah MD PCP: Dr. Deya Chavez MD Status: REG ER Study: Chest PA and Lateral Date of Exam: 01/25/25 Exam# [id number] Ordering Dr: Speedy Amor MD PROCEDURE: CHEST PA AND LATERAL 01/25/2025 REASON FOR EXAM: FEVER TECHNIQUE: CHEST PA AND LATERAL COMPARISON: None. FINDINGS: Lungs/Pleura: Clear. No pleural effusions. Heart/Mediastinum: Normal in size. Bones/Soft tissues: Unremarkable. RAD/Chest PA and Lateral IMPRESSION: No acute pulmonary disease. Reading Location: [id number] CC: Dr. Speedy Amor MD; Dr. Deya Chavez MD Beauty Therapist: Signed Normal [facility] Chloride assayOrdered By: Flor Amor on 01-25-2025 Chloride [Moles/Vol] 104 mmol/L Normal 98 - 10 8 mmol/L [facility] Comprehensive Metabolic Prof ilon 01-25-2025 Albumin [Mass/Vol] 3.4 g/dL Low 3.5-5.0 [facility] Comment on above: Performed By: #### L 100.0100, L500.4050 #### [facility] [address] [place], [address] Albumin/Globulin [Mass ratio] 1.0 {ratio} Normal 0.9-2.4 [facility] Comment on above: Performed By: #### L 100.0100, L500.4050 #### [facility] [address] [place], [address] ALK PHOS 81 U/L Normal 35-104 [facility]; [facility] Work Phone: Comment on above: Performed By: #### L 100.0100, L500.4050 #### [facility] [address] [place], [address] ALT [Catalytic activity/Vol] 8 U/L Normal <=34 [facility] Comment on above: Performed By: #### L 100.0100, L500.4050 #### [facility] [address] [place], [address] AST [Catalytic activity/Vol] 18 U/L Normal <=31 [facility] Comment on above: Performed By: #### L 100.0100, L500.4050 #### [facility] [address] [place], [address] Bilirubin [Mass/Vol] 0.16 mg/dL Normal 0.00-1.30 [facility] Comment on above: Performed By: #### L 100.0100, L500.4050 #### [facility] [address] [place], [address] BUN/CRE 14.6 RATIO Normal 10-20 [facility] Comment on above: Performed By: #### L 100.0100, L500.4050 #### [facility] [address] [place], [address] Calcium [Mass/Vol] 8.6 mg/dL Normal 7.6-11.0 [facility] Comment on above: Performed By: #### L 100.0100, L500.4050 #### [facility] [address] [place], [address] Chloride [Moles/Vol] 104 mmol/L Normal 98-108 [facility] Comment on above: Performed By: #### L 100.0100, L500.4050 #### [facility] [address] [place], [address] CO2 [Moles/Vol] 19.3 mmol/L Low 21.0-32.0 [facility] Comment on above: Performed By: #### L 100.0100, L500.4050 #### [facility] [address] [place], [address] Creatinine [Mass/Vol] 0.86 mg/dL Normal 0.70-1.20 [facility] Comment on above: Performed By: #### L 100.0100, L500.4050 #### [facility] [address] [place], [address] ECRCL 87.04 ml/min Normal 50-250 [facility].; [facility] Work Phone: Comment on above: Performed By: #### L 100.0100, L500.4050 #### [facility] [address] [place], [address] GAP 12 Normal 5-15 [facility] Work Phone: Comment on above: Performed By: #### L 100.0100, L500.4050 #### [facility] [address] [place], [address] GFR/1.73 sq M.predicted among non-blacks MDRD (S/P/Bld) [Vol rate/Area] 99 mL/min/{1.73_m2} Normal >[address] [facility] Comment on above: Result Comment: mL/m in/1.73m2 CKD-EPI Creatinine Equation (2020) Performed By: #### L 100.0100, L500.4050 #### [facility] [address] [place], [address] Globulin (S) [Mass/Vol] 3.2 g/dL Normal 2.2-4.2 [facility] Comment on above: Performed By: #### L 100.0100, L500.4050 #### [facility] [address] [place], [address] Glucose [Mass/Vol] 126 mg/dL High 70-99 [facility] Comment on above: Performed By: #### L 100.0100, L500.4050 #### [facility] [address] [place], [address] Potassium [Moles/Vol] 3.6 mmol/L Normal 3.3-5.1 [facility]; [facility] Work Phone: Comment on above: Performed By: #### L 100.0100, L500.4050 #### [facility] [address] [place], [address] Sodium [Moles/Vol] 136 mmol/L Normal 133-145 [facility] Comment on above: Performed By: #### L 100.0100, L500.4050 #### [facility] [address] [place], [address] T PROT 6.6 g/dL Normal 5.9-8.4 [facility]; [facility] Work Phone: Comment on above: Performed By: #### L 100.0100, L500.4050 #### [facility] [address] [place], [address] Urea nitrogen [Mass/Vol] 13 mg/dL Normal 4-19 [facility] Comment on above: Performed By: #### L 100.0100, L500.4050 #### [facility] [address] [place], [address] Eosinophil percentageOrdered By: ED PROVIDER on 01-25-2025 Eosinophils/100 WBC (Bld) 1.0 % Normal 0 - 5 [facility] Erythrocyte distribution wid th ratioOrdered By: ED PROVIDER on 01-25-2025 Erythrocyte distribution width (RBC) [Ratio] 13.7 % Normal 11.6 - 14.6 [facility] Erythrocyte distribution wid th standard deviationOrdered By: ED PROVIDER on 01-25-2025 Erythrocyte distribution width (RBC) [Ratio] 42.0 fl 35.1-43.9 [facility] Glomerular filtration rate ( GFR) estimation/1.73 sq m using serum, plasma, or whole bOrdered By: Speedy Amor on 01-25-2025 GFR/1.73 sq M.predicted among non-blacks MDRD (S/P/Bld) [Vol rate/Area] 99 mL/min/{1.73_m2} Normal [facility] Comment on above: mL/min/1.73m2 CKD-EP I Creatinine Equation (2020) Hemoglobin measurementOrdere d By: ED PROVIDER on 01-25-2025 Hemoglobin (Bld) [Mass/Vol] 10.3 g/dL Abnormal 12.0 - 15.0 g/dL [facility] Immature granulocytes/100 WB C Auto (Bld)Ordered By: ED PROVIDER on 01-25-2025 Immature granulocytes/100 WBC (Bld) 0.600 % 0.0-0.9 [facility] Comment on above: IG% - Immature Granu locytes (promyelocytes, myelocytes and metamyelocytes) > 1% indicates that a LEFT SHIFT is Present. Influenza virus A and B and SARS-CoV-2 (COVID-19) and Respiratory syncytial virus RNAOrdered By: Speedy Amor on 01-25-2025 SARS-CoV-2 (COVID-19) RNA JAYME+probe Ql (Unsp spec) [facility] International normalized rat io (INR) calculationOrdered By: Speedy Amor on 01-25-2025 INR Coag (Bld) [Relative time] 1.0 {INR} [facility] Iron measurement (mass/mass) Ordered By: Tj Dewey on 01-25-2025 Iron (Unsp spec) [Mass/Mass] 11 ug/dL Low 50-170 [facility] Ketones Test strip Ql (U)Ord ered By: Speedy Amor on 01-25-2025 Ketones Ql (U) Negative Negative [facility] Laboratory - Chemistry and C hemistry - challengeOrdered By: Speedy Amor on 01-25-2025 AST [Catalytic activity/Vol] 18 U/L Normal [facility] Laboratory - Chemistry and C hemistry - challengeon 01-25-2025 Iron [Mass/Vol] 11 ug/dL Abnormal 50 - 170 ug/dL [facility]; [facility] Work Phone: Magnesium [Mass/Vol] 30 mg/dL Abnormal [facility]; [facility] Work Phone: Laboratory - Microbiology an d Antimicrobial susceptibilityon 01-25-2025 Bacteria identified Cx Nom (Unsp spec) 3+ Normal [facility]; [facility] Work Phone: Lactic Acidon 01-25-2025 Lactate [Moles/Vol] mmol/L Normal 0.0-2.0 [facility] Comment on above: Order Comment: Y Performed By: #### L 100.0100, L500.4050 #### [facility] [address] [place], [place], [id number] Lactic acid measurementOrder ed By: Speedy Amor on 01-25-2025 Lactate [Moles/Vol] mmol/L 0.0-2.0 [facility] M100.678on 01-25-2025 M100.678 Normal Reference Ran ge = Negative FLUABV+SARS-CoV-2+RSV Pnl Resp JAYME+probe GeneXpert Instrument, PCR method SARS-CoV-2 (COVID 19) Negative INFLUENZA A Negative INFLUENZA B Negative RSV PCR Negative Normal [facility] Comment on above: Performed By: #### L 3100.1725, L503.6537, L503.6088 #### [facility] [address] [place], [address] MCV (mean corpuscular volume ) determinationOrdered By: ED PROVIDER on 01-25-2025 MCV (RBC) [Entitic vol] 85.3 fL Normal 81 - 99 fL [facility] Mean corpuscular hemoglobin (MCH) determinationOrdered By: ED PROVIDER on 01-25-2025 MCH (RBC) [Entitic mass] 27.5 pg Normal 27. 0 - 32.0 pg [facility] Mean corpuscular hemoglobin concentration (MCHC) determinationOrdered By: ED PROVIDER on 01-25-2025 MCHC (RBC) [Mass/Vol] 32.3 g/dL Normal 32 - 3 6 g/dL [facility] Mean platelet volume determi nationOrdered By: ED PROVIDER on 01-25-2025 Platelet mean volume (Bld) [Entitic vol] 9.3 fL Normal 6.2 - 12.0 fL [facility] Microscopic analysis of urin e for red blood cells (RBC)Ordered By: Speedy Amor on 01-25-2025 Microscopic analysis of urine for red blood cells (RBC) 10-25 SEEN /hpf 0-5 [facility] Monocyte percentageOrdered B y: ED PROVIDER on 01-25-2025 Monocytes/100 WBC (Bld) 10.7 % Abnormal 0 - 10 [facility] Mucus LM Ql (Urine sed)Order ed By: Speedy Amor on 01-25-2025 Mucus Ql (Urine sed) 0 SEEN /hpf [facility] Neutrophil percentageOrdered By: ED PROVIDER on 01-25-2025 Neutrophils/100 WBC (Bld) 75.5 % Abnormal 47 - 70 [facility] No Panel InformationOrdered By: Tj Dewey on 01-25-2025 Unsaturated Iron Binding Capacity 212 ug/dL Low 228-428 [facility] No Panel Informationon 01-25 Absolute Lymph 1.43 {X10_3/uL} Normal 0.83 - 4.51 {X10_3/uL} [facility].; [facility], [facility]. Work Phone: Absolute Neut 9.2 {X10_3/uL} Abnormal 2.0 - 7.7 {X10_3/uL} [facility].; [facility], [facility]. Work Phone: BILIRUBIN URINE Negative Normal [facility].; [facility], [facility]. Work Phone: BUN/CRE 14.6 {RATIO} Normal 10 - 20 {RATIO} [facility].; [facility], [facility]. Work Phone: GLUCOSE, UR Normal Normal [facility].; [facility], [facility]. Work Phone: IRON SATURATION 4.9 Abnormal 13 - 59 [facility].; [facility], [facility]. Work Phone: KETONE UR Negative Normal [facility].; [facility], [facility]. Work Phone: LEUK ESTERASE 500 /ul Abnormal [facility].; [facility], [facility]. Work Phone: M100.678 See Note Normal [facility].; [facility], [facility]. Work Phone: OCCULT BLOOD-UR 250 /ul Abnormal [facility].; [facility], [facility]. Work Phone: pH UR 6.5 Normal 5.0 - 8.0 [facility].; [facility], [facility]. Work Phone: SP.GR. DIPSTX 1.005 Normal 1.002 - 1.030 [facility].; [facility], [facility]. Work Phone: TIBC 223 ug/dL Abnormal 250 - 450 ug/dL [facility]; [facility]. Work Phone: UIBC 212 ug/dL Abnormal 228 - 428 ug/dL [facility]; [facility]. Work Phone: URC See Note Normal [facility]; [facility]. Work Phone: UROBILI Normal Normal [facility]; [facility] Work Phone: Nucleated red blood cell per centageOrdered By: ED PROVIDER on 01-25-2025 Nucleated RBC/100 WBC (Bld) [Ratio] 0 % 0-5 [facility] Partial Thromboplast Timeon 01-25-2025 aPTT Coag (Bld) [Time] 26.7 s Normal 24.1-36.2 [facility]; [facility] Work Phone: Comment on above: Performed By: #### L 100.0100, L500.4050 #### [facility] [address] [place] [address]. [place], [address] Platelet countOrdered By: ED PROVIDER on 01-25-2025 Platelets (Bld) [#/Vol] 456 10*3/uL Abnormal 150 - 450 K/mm3 [facility] Potassium measurement (mass/ volume)Ordered By: Speedy Amor on 01-25-2025 Potassium (Unsp spec) [Mass/Vol] 3.6 mmol/L 3.3-5.1 [facility] Protein Test strip Ql (U)Ord ered By: Speedy Amor on 01-25-2025 Protein Ql (U) 30 mg/dl High Negative [facility] Prothrombin Time w/INRon INR Coag (PPP) [Relative time] 1.0 {INR} Normal [facility]; [facility]. Work Phone: Comment on above: Performed By: #### L 100.0100, L500.4050 #### [facility] [address] [place], [place], [id number] PT Coag (PPP) [Time] 13.0 s Normal 11.7-14.9 [facility] Comment on above: Performed By: #### L 100.0100, L500.4050 #### [facility] [address] [place], [place], [id number] Prothrombin timeOrdered By: Speedy Amor on 01-25-2025 PT Coag (PPP) [Time] 13.0 s 11.7-14.9 [facility] Serum creatinine measurement (mass/volume)Ordered By: Speedy Amor on 01-25-2025 Creatinine [Mass/Vol] 0.86 mg/dL Normal 0.70 - 1.20 mg/dL [facility] Serum globulin measurementOr dered By: Speedy Amor on 01-25-2025 Globulin (S) [Mass/Vol] 3.2 g/dL Normal 2.2 - 4.2 g/dL [facility] Serum glucose measurement (m ass/volume)Ordered By: Speedy Amor on 01-25-2025 Glucose [Mass/Vol] 126 mg/dL Abnormal 70 - 99 mg/dL [facility] Serum or plasma alanine thompson otransferase (ALT) measurementOrdered By: Speedy Amor on 01-25-2025 ALT [Catalytic activity/Vol] 8 U/L Normal [facility] Serum or plasma albumin dalton urement (mass/volume)Ordered By: Speedy Amor on 01-25-2025 Albumin [Mass/Vol] 3.4 g/dL Abnormal 3.5 - 5.0 g/dL [facility] Serum or plasma albumin/glob ulin mass ratioOrdered By: Speedy Amor on 01-25-2025 Albumin/Globulin [Mass ratio] 1.0 {ratio} Normal 0.9 - 2.4 {RATIO} [facility] Serum or plasma alkaline zen sphatase measurementOrdered By: Speedy Amor on 01-25-2025 ALP [Catalytic activity/Vol] 81 U/L 35-104 [facility] Serum or plasma calcium dalton urement (mass/volume)Ordered By: Speedy Amor on 01-25-2025 Calcium [Mass/Vol] 8.6 mg/dL Normal 7.6 - 11. 0 mg/dL [facility] Serum or plasma ferritin russ surement (mass/volume)on 01-25-2025 Ferritin [Mass/Vol] 104 ng/mL 22-378 [facility]; [facility] Work Phone: Serum or plasma iron saturat ion measurement (mass fraction)Ordered By: Tj Dewey on 01-25-2025 Iron saturation [Mass fraction] 4.9 % Low 13-59 [facility] Comment on above: Previous reported re sult: 5.0 %Edited by: EHSAN on 01/26/25:0252 AMENDED REPORT 01/26/25 0252 IRON SATURATION previously reported as: 5.0 L % Serum or plasma urea nitroge n measurement (mass/volume)Ordered By: Speedy Amor on 01-25-2025 Urea nitrogen [Mass/Vol] 13 mg/dL Normal 4 - 19 mg/dL [facility] Sodium levelOrdered By: Speedynaman Amor on 01-25-2025 Sodium [Moles/Vol] 136 mmol/L Normal 133 - 145 mmol/L [facility] Squamous epithelial cells de tection in urine sediment by light microscopyOrdered By: Speedy Amor on 01-25-2025 Epithelial cells.squamous LM Ql (Urine sed) 5-10 SEEN /hpf 5-10 [facility] Total proteinOrdered By: Speedy Amor on 01-25-2025 Protein [Mass/Vol] 6.6 g/dL 5.9-8.4 [facility] Urinalysis, Completeon 01-25 Mucus Ql (Urine sed) 0 SEEN Normal [facility]; [facility] Work Phone: Comment on above: Order Comment: COLLE CTOR TO SPECIFY Performed By: #### L 100.0100, L500.4050 #### [facility] [address] [place], [address] Urine clarityOrdered By: Speedy Amor on 01-25-2025 Clarity (U) Sl. Cloudy Clear [facility] Urine color determinationOrd ered By: Speedy Amor on 01-25-2025 Color (U) SEE COMMENT BELOW Yellow [facility] Comment on above: Visual Urine Color: PINK Urine cultureOrdered By: Speedy Amor on 01-25-2025 Bacteria identified Cx Nom (U) Negative Abnormal [facility] Bacteria identified Cx Nom (U) Mixed Gram Pos & Gram Neg Org Abnormal [facility] Urine glucose detectionOrder ed By: Speedy Amor on 01-25-2025 Glucose Ql (U) Normal mg/dl Normal [facility] Urine leukocyte esterase det ection by dipstickOrdered By: Speedy Amor on 01-25-2025 Leukocyte esterase Test strip Ql (U) 500 /ul High Negative [facility] Urine nitrite test by dipsti ckOrdered By: Speedy Amor on 01-25-2025 Nitrite Ql (U) Negative Negative [facility] Urine pHOrdered By: Speedy florence on 01-25-2025 pH (U) 6.5 [pH] 5.0 - 8.0 [facility] Urine sediment bacteria coun t by microscopy (number/high power field)Ordered By: Speedy Amor on 01-25-2025 Bacteria LM.HPF (Urine sed) [#/Area] 3 /[HPF] None Seen [facility] Urine specific gravity measu rementOrdered By: Speedy Amor on 01-25-2025 Specific gravity (U) [Rel density] 1.005 1.002-1.03 0 [facility] Urine urobilinogen measureme ntOrdered By: Speedy Amor on 01-25-2025 Urobilinogen Ql (U) Normal mg/dl Normal [facility] Vitamin B12 ser/plason 01-25 Cobalamin (Vitamin B12) [Mass/Vol] 2622 pg/mL High 180-914 [facility]; [facility] Work Phone: White blood cell (WBC) count Ordered By: ED PROVIDER on 01-25-2025 WBC (Bld) [#/Vol] 12.1 10*3/uL Abnormal 4.4 - 11.0 K/mm3 [facility] White blood cell countOrdere d By: Speedy Amor on 01-25-2025 White blood cell count 10-25 SEEN /hpf 0-5 [facility] HEP B CORE AB, TOTAL (IgM & IgG) [CCL]on 01-26-2022 Hep B Core Ab,Total Negative Normal Negative [facility] Comment on above: Result Comment: No e vidence of current or past infection with Hepatitis B virus. Should recent infection be suspected, repeat testing may be considered 3-4 weeks after this draw. [facility] [place] [id number] Curt Toussaint III, M.D. [id number] Performed By: #### 2 18698 #### [address] [address] HEP B SURFACE AG [CCL]on Hepatitis B Surf. Ag Negative Normal Negative [facility] Comment on above: Result Comment: [facility] [place] [address] Curt Toussaint III, M.D. [id number] Performed By: #### 2 71633 #### [address] [address] QUANTIFERON TB INCUBATED [CC L]on 01-26-2022 Mitogen minus Nil >9.93 Normal >=0.50 [facility] Comment on above: Result Comment: [facility] [place] [address] Curt Toussaint III, M.D. [id number] Performed By: #### 2 73637 #### [address] [address] TB Gamma Interferon Negative Normal [facility] Comment on above: Performed By: #### 2 29786 #### [facility],[address] [place] [address] TB Gamma Interpretation Infection with M . tuberculosis complex is unlikely. If latent tuberculosis infec Normal [facility] Comment on above: Performed By: #### 2 53177 #### [facility],[address] [place], [place] [id number] TB NIL 0.07 IU/mL Normal <=8.00 [facility] Comment on above: Performed By: #### 2 30120 #### [facility],[address] [place] [address] TB1 Ag minus Nil 0.00 IU/mL Normal <0.35 [facility] Comment on above: Performed By: #### 2 67576 #### [facility],[address] [place] [address] TB2 Ag minus Nil <0.00 Normal <0.35 [facility] Comment on above: Performed By: #### 2 48129 #### [facility],[address] [place] [address] CBC + DIFFon 01-24-2022 Baso # 0.00 x10EE3/UL Normal 0.00 - 0.10 [facility] Comment on above: Performed By: #### 2 18423 #### [facility],[address] [place] [address] Basophils/100 WBC (Bld) 0.4 % Normal 0.0 - 2.0 % [facility] Comment on above: Performed By: #### 2 11629 #### [facility],[address] [place], [place] [id number] CBC + DIFF Normal [facility] Comment on above: Result Comment: CBC- COMPLETE BLOOD COUNT Performed By: #### 2 05397 #### [facility],[address] [place] [address] EO # 0.40 x10EE3/UL Normal 0.00 - 0.50 [facility] Comment on above: Performed By: #### 2 80707 #### [facility],[address] [place] [address] Eosinophils/100 WBC (Bld) 3.6 % Normal 0. 0 - 7.0 % [facility] Comment on above: Performed By: #### 2 [address] #### [place] [address] Erythrocyte distribution width (RBC) [Ratio] 19.1 % Abnormal 12.0 - 15.6 % [facility] Comment on above: Performed By: #### 2 92217 #### [place] [address] Hematocrit (Bld) [Volume fraction] 31.8 % Abnormal 34.0 - 46.0 % [facility] Comment on above: Performed By: #### 2 [address]2871 #### [place] [address] Hemoglobin (Bld) [Mass/Vol] 10.5 g/dL Abnormal 12.0 - 16.0 g/dL [facility] Comment on above: Performed By: #### 2 17466 #### [place] [address] Lymph # 2.00 x10EE3/UL Normal 0.80 - 2.80 [facility] Comment on above: Performed By: #### 2 57643 #### [place] [address] Lymphocytes/100 WBC (Bld) 20.5 % Normal 20 .0 - 45.0 % [facility] Comment on above: Performed By: #### 2 30843 #### [place] [address] MANUAL DIFF N/A Normal [facility] Comment on above: Performed By: #### 2 19271 #### [place] [address] MCH (RBC) [Entitic mass] 26 pg Abnormal 27 - 33 pg [facility] Comment on above: Performed By: #### 2 54081 #### [place] [address] MCHC 33 X10 3 Normal 32 - 36 [facility] Comment on above: Performed By: #### 2 55204 #### [facility],[address] [place] [address] MCV (RBC) [Entitic vol] 78 fL Abnormal 80 - 99 fL [facility] l [facility] Comment on above: Performed By: #### 2 85882 #### [place] [address] [place] # 1.30 x10EE3/UL High 0.20 - 1.00 [facility] Comment on above: Performed By: #### 2 15555 #### [place] [address] MONOS % 12.6 % High 0.0 - 10.0 [facility] Comment on above: Performed By: #### 2 28183 #### [place] [address] Morphology John (Bld) [Interp] N/A Normal [facility] Comment on above: Result Comment: {CD] Performed By: #### 2 36912 #### [place] [address] Neut # 6.30 x10EE3/UL Normal 1.50 - 7.10 [facility] Comment on above: Performed By: #### 2 62635 #### [place] [address] Neutrophils/100 WBC (Bld) 62.9 % Normal 46 .0 - 76.0 % [facility] Comment on above: Performed By: #### 2 30376 #### [place] [address] PLATELET 458 x10EE3/UL High 150 - 450 [facility] Comment on above: Performed By: #### 2 50983 #### [facility],[address] [place] [address] Platelet mean volume (Bld) [Entitic vol] 7.3 fL Normal 6.6 - 10.5 fL [facility] Comment on above: Result Comment: AUTO MATED DIFFERENTIAL Performed By: #### 2 32312 #### [facility],[address] [place] [address] RBC 4.07 x 10EE6/UL Low 4.10 - 5.30 [facility] Comment on above: Performed By: #### 2 57645 #### [facility],[address] [place] [address] WBC 10.0 x 10EE3/UL Normal 4.5 - 10.8 [facility] Comment on above: Performed By: #### 2 10673 #### [facility],[address] [place], [place] [id number] Laboratory - Hematology and Cell countson 01-24-2022 Basophils (Bld) [#/Vol] 0.00 {x10EE3/UL} Normal 0.00 - 0.10 {x10EE3/UL } [facility]. Work Phone: Eosinophils (Bld) [#/Vol] 0.40 {x10EE3/UL} Normal 0.00 - 0.50 {x10EE3/UL } [facility].; [facility]. Work Phone: Lymphocytes (Bld) [#/Vol] 2.00 {x10EE3/UL} Normal 0.80 - 2.80 {x10EE3/UL } [facility].; [facility]. Work Phone: MCHC (RBC) [Mass/Vol] 33 {X10_3} Normal 32 - 3 6 {X10_3} [facility].; [facility], [facility]. Work Phone: Monocytes (Bld) [#/Vol] 1.30 {x10EE3/UL} Abnormal 0.20 - 1.00 {x10EE3/UL } [facility].; [facility], [facility]. Work Phone: Monocytes/100 WBC (Bld) 12.6 % Abnormal 0.0 - 10.0 % [facility]; [facility], [facility]. Work Phone: Neutrophils (Bld) [#/Vol] 6.30 {x10EE3/UL} Normal 1.50 - 7.10 {x10EE3/UL } [facility].; [facility], [facility]. Work Phone: Platelets (Bld) [#/Vol] 458 {x10EE3/UL} Abnormal 1 50 - 450 {x10EE3/UL } [facility].; [facility], [facility]. Work Phone: RBC (Bld) [#/Vol] 4.07 {x_10EE6/UL} Abnormal 4.10 - 5.30 {x_10EE6/U L} [facility].; [facility], [facility]. Work Phone: WBC (Bld) [#/Vol] 10.0 {x_10EE3/UL} Normal 4.5 - 10.8 {x_10EE3/U L} [facility].; [facility], [facility]. Work Phone: No Panel Informationon 01-24 CBC + DIFF Normal [facility]; [facility]. Work Phone: Hep B Core Ab,Total Negative Normal [facility]; [facility]. Work Phone: Hepatitis B Surf. Ag Negative [facility].; [facility]. Work Phone: Mitogen minus Nil >9.93 Normal [facility].; [facility]. Work Phone: TB Gamma Interferon Negative Normal [facility].; [facility]. Work Phone: TB Gamma Interpretation Infection with M . tuberculosis complex is unlikely. If latent tuberculosis infec [facility].; [facility] Work Phone: TB NIL 0.07 {IU/mL} [facility].; [facility]. Work Phone: TB1 Ag minus Nil 0.00 {IU/mL} Normal [facility].; [facility]. Work Phone: TB2 Ag minus Nil <0.00 [facility].; [facility] Work Phone: Vital Signs Date Time Vital Sign Value Performing Clinician Facility 01-27-2025 10:04-0400 SaO2% (BldA) [Mass fraction] 99 % Dr. Deya Chavez MD Work Phone: [facility] 01-27-2025 09:17-0400 Body temperature 98.1 [degF] Dr. Deya Chavez MD Work Phone: [facility] 01-27-2025 09:17-0400 Diastolic blood pressure 69 mm[Hg] Dr. Deya Chavez MD Work Phone: [facility] 01-27-2025 09:17-0400 Heart rate 65 /min Dr. Deya Chavez MD Work Phone: [facility] 01-27-2025 09:17-0400 Respiratory rate 18 /min Dr. Deya Chavez MD Work Phone: [facility] 01-27-2025 09:17-0400 Systolic blood pressure 96 mm[Hg] Dr. Deya Chavez MD Work Phone: [facility] 01-26-2025 14:25-0400 Body height 160.[address] Deya Chavez MD Work Phone: [facility] 01-26-2025 14:25-0400 Body weight [address] Deya Chavez MD Work Phone: [facility] 01-26-2025 01:46-0400 Body mass index (BMI) [Percentile] Per age and sex 46.8 % Dr. Deya Chavez MD Work Phone: [facility] 01-26-2025 01:46-0400 Body mass index (BMI) [Ratio] 21.4 kg/m2 Dr. Deya Chavez MD Work Phone: [facility] 01-26-2025 00:29-0400 Body temperature 99.7 [degF] Dr. Deya Chavez MD Work Phone: [facility] 01-26-2025 00:29-0400 Diastolic blood pressure 55 mm[Hg] Dr. Deya Chavez MD Work Phone: [facility] 01-26-2025 00:29-0400 Heart rate 113 /min Dr. Deya Chavez MD Work Phone: [facility] 01-26-2025 00:29-0400 Respiratory rate 20 /min Dr. Deya Chavez MD Work Phone: [facility] 01-26-2025 00:29-0400 SaO2% (BldA) [Mass fraction] 99 % Dr. Deya Chavez MD Work Phone: [facility] 01-26-2025 00:29-0400 Systolic blood pressure 97 mm[Hg] Dr. Deya Chavez MD Work Phone: [facility] 01-25-2025 21:59-0400 Body height 160.[address] Deya Chavez MD Work Phone: [facility] 01-25-2025 21:59-0400 Body mass index (BMI) [Percentile] Per age and sex 50.5 % Dr. Deya Chavez MD Work Phone: [facility] 01-25-2025 21:59-0400 Body mass index (BMI) [Ratio] 21.7 kg/m2 Dr. Deya Chavez MD Work Phone: [facility] 01-25-2025 21:59-0400 Body weight 55.[address] Deya Chavez MD Work Phone: [facility] 02-27-2012 13:17-0400 Body height 119.38 cm [facility].; [facility]. 02-27-2012 13:17-0400 Body mass index (BMI) [Percentile] Per age and sex 40 % [facility]ITALMARTIKING[facility]ENTERCode71[facility] [place] [facility].; [facility] CenterExp[facility]. 02-27-2012 13:17-0400 Body mass index (BMI) [Ratio] 14.96 kg/m2 DREW YEN [facility] [place] [facility].; [facility]. 02-27-2012 13:17-0400 Body surface area Derived from formula 0.85 m2 [facility]GHANSHYAM [facility]Code71[facility] Center[facility] [place] [facility].; [facility]. 02-27-2012 13:17-0400 Body temperature 99.4 [degF] DREW YEN [facility]71[facility] Center[facility] [place] [facility].; [facility]. Comment on above: Method: Oral 02-27-2012 13:17-0400 Body weight 21.32 kg DREW YEN [employer] [facility] [employer] [facility] 02-27-2012 13:17-0400 Diastolic blood pressure 64 mm[Hg] DREW YEN [employer] [facility] [employer] [facility] Comment on above: Patient Position: Sitting; Cuff Location : Left Arm; Cuff Size: Standard 02-27-2012 13:17-0400 Heart rate 103 /min DREW YEN [employer] E[employer] [facility] [employer] [facility] Comment on above: Pattern: Regular 02-27-2012 13:17-0400 Systolic blood pressure 94 mm[Hg] DREW YEN [employer] [facility] [employer] [facility] Comment on above: Patient Position: Sitting; Cuff Location : Left Arm; Cuff Size: Standard Encounters Encounter Date Encounter Type Care Provider Facility Start: 03-25-2025 End: 03-25-2025 Patient encounter procedure Agustín Gonzalez DO -[facility] Work Phone: Start: 03-25-2025 End: 03-25-[address] Deya Chavez MD Work Phone: [facility] Start: 03-11-2025 End: 03-11-[address] Deya Chavez MD Work Phone: -Laboratory Start: 03-11-2025 End: 03-11-2025 Patient encounter procedure Danni BENTLEY -Laboratory Work Phone: Start: 03-11-2025 End: 03-11-2025 ambulatory Deya Chavez Facility:[facility] Start: 02-11-2025 End: 02-11-2025 Patient encounter procedure Danni BENTLEY -[facility] Work Phone: Start: 02-11-2025 End: 02-11-[address] Deya Chavez MD Work Phone: [facility] Start: 01-27-2025 Non-patient / Non-visit Agustín Gonzalez DO -[facility] Start: 01-27-2025 Non-patient / Non-visit Dr. Nikki Harrell MD -[facility] Work Phone: Start: 01-26-2025 Non-patient / Non-visit Danni Zhou DIRECTOR OF QUALITY CONTROL-C -[facility] Start: 01-26-2025 ambulatory Tj Dewey Fac ility:[facility] Start: 01-26-2025 End: 01-27-2025 Evaluation and management of inpatient Dr. Tj Dewey DO -[facility] Work Phone: Start: 01-24-2022 End: 01-24-[address] GENTRY RODRIGUEZ [facility] Start: 02-27-2012 End: 02-27-2012 Patient encounter procedure [employer] [facility] [employer] [facility] Start: 11-06-2011 End: 11-06-2011 Injection/immunizatio n only [employer] [facility] [employer] [facility] [employer] [facility]. Procedures Date Procedure Procedure Detail Performing Clinician Start: 03-11-2025 In-vitro immunologic test Dr. Deya andrews MD Work Phone: Comment on above: QuantiFERON-TB Gold Plus is a qualitativ e indirect test forM tuberculosis infection (including disease) and isintended for use in conjunction with risk assessment,radiography, and other medical and diagnostic evaluations.The QuantiFERON-TB Gold Plus result is determined bysubtracting the Nil value from either TB antigen (Ag)value. The Mitogen tube serves as a control for the test. No response to M tub erculosis antigens detected.Infection with M tuberculosis is unlikely, but high riskindividuals should be considered for additional testing(ATS/IDSA/CDC Clinical Practice Guidelines, 2017). Thereference range is an Antigen minus Nil result of <0.35IU/mL.The specimen received for QuantiFERON testing was incubatedby the ordering institution. Specific procedures outlinedin our Directory of Services and in the package insert forthe QuantiFERON Gold (In Tube) test must be followed toenable for proper stimulation of cells for the productionof interferon gamma. Chemiluminescence immunoassaymethodologyPerformed at: CB - [facility] [address] [place], [place] [id number] Director: Gentry Perkins PhD, Phone: [phone] Start: 03-11-[address] Deya Chavez MD Work Phone: Comment on above: Test Ordered: [id number] Adalimumab Drug + A ntibodyAdalimumab Drug Level 4.6 ug/mL ES Reference Range: .Quantitation Limit: <0.6 ug/mLResults of 0.6 or higher indicate detection of adalimumab.Comments: - The optimal drug concentration depends upon patient- specific factors including the disease and desired therapeutic endpoint. - Maintenance trough concentrations >=7.5 may correspond to higher remission rates.(1) - Mucosal healing may be more likely in patients with maintenance trough levels >8.14.(2) - In rheumatoid arthritis, trough levels of 5-8 are associated with clinical (EULAR) response.(3) - This assay measures the antibody-unbound (free) fraction of adalimumab when serum anti-adalimumab antibodies are present.Anti-Adalimumab Antibody <25 ng/mL ES Reference Range: . Interpretation: The above result is an UNDETECTED Antibody titer Quantitation Limit: <25 ng/mL. Results of 25 or higher indicate detection of anti- adalimumab antibodies. 25 - 100 ng/mL: LOW titer 101 - 300 ng/mL: INTERMEDIATE titer 301 or greater ng/mL: HIGH titerComments: - Anti-drug antibody levels should be interpreted in the context of the concomitant free drug trough concentration. - Low anti-drug antibodies may be transient while high titers are likely to be more consequential.(4-6) - Some immunogenicity is reversible. Elimination of intermediate titer (and even some high titer) anti-adalimumab antibodies has been achieved with dose escalation and/or methotrexate or 6-MP.(7) - This anti-adalimumab antibody assay is drug tolerant, and all positive results are verified for anti-drug specificity by a confirmatory test.References:1. Mayela Lopez et al. AGA Review on TDM in IBD. Gastroenterol 2017;153:835-857.2. Ze E, et al. J Crohns Col 2016;10(5):510-515.3. David SHIPMAN, et al. Heydi Rheum Dis 2015;74:513-518.4. Barttessas GM, et al. CARLITO 2011;305(14):5971-3090.5. Steenholdt C, et al. J Clin Gastroenterol 2016; 50:482-489.6. Aime H, et al. Clin Gastroenterol Hepatol 2015; 13(3):522-530.7. Karen A, et al. Gastroenterol 2019;156(6):S-617.These tests were developed and their performancecharacteristics determined by [facility]. They have not beencleared or approved by the Food and Drug Administration.However, these electrochemiluminescence immunoassay (ECLIA)measurements of adalimumab and anti-adalimumab antibody(constituting DoseASSURE ADL) have been developed andvalidated in accordance with CLIA (Clinical LaboratoryImprovement Amendments) and the FDA Guidance document, AssayDevelopment and Validation for Immunogenicity Testing ofTherapeutic Protein Products (2019).Performed at: [facility] - [facility] [address] [id number] Director: Philip Herrera MD, Phone: [phone] at: - [facility] [address] [id number] Director: Gentry Perkins PhD, Phone: [phone] Start: 01-27-[address] Marlene Chavez MD Work Phone: Start: 01-26-2025 Albumin/Globulin ratio Dr. Deya Chavez MD Work Phone: Start: 01-26-[address] Deya Chavez MD Work Phone: Comment on above: *Additional results available. Contact l aboratory/see report*The atypical pANCA pattern has been observed in asignificant percentage of patients with ulcerative colitis,primary sclerosing cholangitis and autoimmune hepatitis. Start: 01-26-2025 Antibody to centromere measurement Dr. Eros Chavez MD Work Phone: Comment on above: Test not performed Previous reported re sult: TNP AIEdited by: CYRUS on 01/31/25:1507 AMENDED REPORT 01/31/25 1507 ANTI-CENT B previously reported as: Test not performed Start: 01-26-2025 Antibody to extractable nuclear antigen measurement Dr. Deya Chavez MD Work Phone: Comment on above: Test not performed Previous reported re sult: TNP AIEdited by: CYRUS on 01/31/25:1507 AMENDED REPORT 01/31/25 1507 GARCIA Ab previously reported as: Test not performed Start: 01-26-2025 Antibody to DEE DEE-[address] Deya Chavez MD Work Phone: Comment on above: Test not performed Previous reported re sult: TNP AIEdited by: CYRUS on 01/31/25:1507 AMENDED REPORT 01/31/25 1507 ANTI-DEE DEE previously reported as: Test not performed Start: 01-26-2025 Antibody to lupus La protein measurement Dr. Deya Chavez MD Work Phone: Start: 01-26-2025 Antibody to SS-A measurement Dr. Deya Chavez MD Work Phone: Start: 01-26-[address] Deya joe MD Work Phone: Comment on above: Test not performed Previous reported re sult: TNP AIEdited by: CYRUS on 01/31/25:1507 AMENDED REPORT 01/31/25 1507 ANTICHROMATIN previously reported as: Test not performed Start: 01-26-2025 Hepatitis A virus antibody, IgM type Dr. Deya Chavez MD Work Phone: Comment on above: A negative anti-HAV IgM result suggests no recent orcurrent HAV infection. Start: 01-26-2025 Hepatitis B core antibody measurement, IgM type Dr. Deya Chavez MD Work Phone: Start: 01-26-2025 Hepatitis C antibody measurement Dr. Hero hCavez MD Work Phone: Start: 01-26-2025 Immunoglobulin G subclass, G4 measurement Dr. Deya Chavez MD Work Phone: Start: 01-26-[address] M measurement Dr. Deya Chavez MD Work Phone: Start: 01-26-2025 In-vitro immunologic test Dr. Deya andrews MD Work Phone: Comment on above: Test not performed Test not performedTe st not performed Start: 01-26-2025 Measurement of fungal antibody Dr. Marlene Chavez MD Work Phone: Comment on above: Negative: <45 Equivocal: 45-50 Positive: >50 Start: 01-26-[address] Deya Chavez MD Work Phone: Comment on above: Test Ordered: [id number] Adalimumab Drug + A ntibodyAdalimumab Drug Level <0.6 ug/mL ES Reference Range: .Quantitation Limit: <0.6 ug/mLResults of 0.6 or higher indicate detection of adalimumab.Comments: - The optimal drug concentration depends upon patient- specific factors including the disease and desired therapeutic endpoint. - Maintenance trough concentrations >=7.5 may correspond to higher remission rates.(1) - Mucosal healing may be more likely in patients with maintenance trough levels >8.14.(2) - In rheumatoid arthritis, trough levels of 5-8 are associated with clinical (EULAR) response.(3) - This assay measures the antibody-unbound (free) fraction of adalimumab when serum anti-adalimumab antibodies are present.Anti-Adalimumab Antibody 152 ng/mL ES Reference Range: . Interpretation: The above result is an INTERMEDIATE Antibody titer Quantitation Limit: <25 ng/mL. Results of 25 or higher indicate detection of anti- adalimumab antibodies. 25 - 100 ng/mL: LOW titer 101 - 300 ng/mL: INTERMEDIATE titer 301 or greater ng/mL: HIGH titerComments: - Anti-drug antibody levels should be interpreted in the context of the concomitant free drug trough concentration. - Low anti-drug antibodies may be transient while high titers are likely to be more consequential.(4-6) - Some immunogenicity is reversible. Elimination of intermediate titer (and even some high titer) anti-adalimumab antibodies has been achieved with dose escalation and/or methotrexate or 6-MP.(7) - This anti-adalimumab antibody assay is drug tolerant, and all positive results are verified for anti-drug specificity by a confirmatory test.References:1. Mayela Lopez, et al. AGA Review on TDM in IBD. Gastroenterol 2017;153:835-857.2. Ze Doll et al. J Crohns Col 2016;10(5):510-515.3. Pouw MF, et al. Heydi Rheum Dis 2015;74:513-518.4. Guanaco GM, et al. CARLITO 2011;305(14):2663-6467.5. Steenholdt C, et al. J Clin Gastroenterol 2016; 50:482-489.6. Yanai H, et al. Clin Gastroenterol Hepatol 2015; 13(3):522-530.7. Karen A, et al. Gastroenterol 2019;156(6):S-617.These tests were developed and their performancecharacteristics determined by [employer]. They have not beencleared or approved by the Food and Drug Administration.However, these electrochemiluminescence immunoassay (ECLIA)measurements of adalimumab and anti-adalimumab antibody(constituting DoseASSURE ADL) have been developed andvalidated in accordance with CLIA (Clinical LaboratoryImprovement Amendments) and the FDA Guidance document, AssayDevelopment and Validation for Immunogenicity Testing ofTherapeutic Protein Products (2019).Performed at: [facility] - [facility] [address] [id number] Director: Bay Pierce MD, Phone: [phone] at: [facility] [id number] Director: Gentry Perkins PhD, Phone: [phone] Start: 01-26-2025 ASSISTANT CLINICAL DIRECTOR antibody measurement Dr. Deya joe MD Work Phone: Comment on above: Test not performed Previous reported re sult: TNP AIEdited by: CYRUS on 01/31/25:1507 AMENDED REPORT 01/31/25 150 ASSISTANT CLINICAL DIRECTOR Ab previously reported as: Test not performed Start: 01-26-2025 Trey Chavez MD Work Phone: Start: 01-26-2025 Sesame seed NANDO Chavez MD Work Phone: Comment on above: Performed at: [address] [id number] Director: Gentry Perkins PhD, Phone: [phone] at: [address] [id number] Director: Wilmer Allen MD, Phone: [phone] Start: 01-26-[address] Deya Chavez MD Work Phone: Start: 01-26-[address] Juve Chavez MD Work Phone: Start: 01-26-[address] Deya Chavez MD Work Phone: Start: 01-26-2025 Iadna-dna/rna gi pthgn multiplex probe tq 6-11 Dr. Deya Chavez MD Work Phone: Start: 01-26-2025 Folic acid measurement, RBC Dr. Deya Chavez MD Work Phone: Comment on above: Performed at: [address] [id number] Director: Gentry Perkins PhD, Phone: [phone] Start: 01-26-2025 Serum inorganic phosphate measurement Dr Fabricio Chavez MD Work Phone: Start: 01-25-2025 Urnls dip stick/tablet reagent auto microscopy Dr. Deya Chavez MD Work Phone: Start: 01-25-2025 Computed tomography of abdomen and pelvis with intravenous contrast Dr. Deya Chavez MD Work Phone: Start: 01-25-2025 X-ray of chest, PA and lateral views Dr. Deya Chavez MD Work Phone: Start: 01-25-[address] Marlene Chavez MD Work Phone: Start: 01-25-2025 Total iron binding capacity measurement Dr. Deya Chavez MD Work Phone: Start: 01-25-[address] Deya Chavez MD Work Phone: Start: 01-25-2025 SARS-CoV-2, Influenza & RSV (PCR) Dr. Tania Chavez MD Work Phone: Start: 01-25-[address] Deya Chavez MD Work Phone: Start: 02-27-2012 End: 02-27-2012 Ceftriaxone sodium injection ABRAHAM DUQUE MD Work Phone: Start: 02-27-2012 End: 02-27-2012 Therapeutic prophylactic/dx injection subq/im ABRAHAM HOWARD MD Work Phone: Plan of Treatment Date Care Activity Detail Author Start: 01-27-2025 Patient discharge [facility] Start: 01-26-2025 [facility] Start: 01-26-2025 Immunoglobulin measurement [facility] Start: 01-26-2025 In-vitro immunologic test [facility] Start: 01-26-2025 Procedure [facility] Start: 01-26-2025 Serum immunofixation [facility] Start: 01-26-2025 End: 01-27-2025 [facility] Start: 01-26-2025 Protein measurement [facility] Start: 01-26-2025 Measurement of C-reactive protein using high sensitivity technique [facility] Start: 01-26-2025 Following clinical pathway protocol [facility] Start: 01-26-2025 Ambulation without limitation [facility] Start: 01-26-2025 Assessment of risk of venous thromboembolism [facility] Start: 01-26-2025 Incentive spirometry [facility] Start: 01-26-2025 Insertion of catheter into peripheral vein [facility] Start: 01-26-2025 Oxygen therapy [facility] Start: 01-26-2025 Providing care according to standard [facility] Start: 01-26-2025 Referral to gastroenterology service [facility] Start: 01-26-2025 [facility] Start: 01-26-2025 Hospital admission, emergency, from emergency room, medical nature [facility] Start: 01-26-2025 Folic acid measurement, RBC [facility] Start: 01-26-2025 Nucleic acid assay [facility] Start: 01-26-2025 Verification routine [facility] Start: 01-26-2025 Admission procedure [facility] Start: 01-25-2025 [facility] Start: 01-25-2025 End: 01-25-2025 [facility] Start: 01-25-2025 Bacteria identified in Blood by Culture Blood Culture [facility] Start: 01-25-2025 Bacteria identified in Urine by Culture Urine Culture [facility] Start: 02-27-2012 Patient Education BRONCHITIS - PNEUMONIA INSTRUCTIONS Indication: PNEUMONIA (486.) Start: 27-Feb-2012 Instruction Type: Patient Education [facility] Albumin [Moles/volum e] in Serum or Plasma [facility] Albumin/Globulin ratio [facility] Antibody to lupus La protein measurement [facility] Antibody to SS-A measurement [facility] Chitobioside IgA Ab [Units/volume] in Serum or Plasma by Immunoassay [facility] Clam IgE Ab [Units/v olume] in Serum [facility] Codfish IgE Ab [Unit s/volume] in Serum [facility] [place] IgE Ab [Units/v olume] in Serum [facility] Cow milk IgE Ab [Units/volume] in Serum [facility] Cyclic citrullinated peptide IgG Ab [Units/volume] in Serum or Plasma [facility] DNA double strand Ab [Units/volume] in Serum [facility] Egg white RAST [facility] Electrophoresis: [id number] [facility] Electrophoresis: rob ma globulin [facility] Ferritin [Mass/volum e] in Serum or Plasma [facility] Globulin measurement [facility] Hematocrit [Volume F raction] of Blood [facility] Hepatitis A virus Ig M Ab [Presence] in Serum [facility] Hepatitis B core ant ibody measurement, IgM type [facility] Hepatitis B surface antigen measurement [facility] Hepatitis C antibody measurement [facility] IgA [Mass/volume] in Serum or Plasma [facility] IgE [Units/volume] i n Serum or Plasma [facility] IgG [Mass/volume] in Serum or Plasma [facility] IgG subclass 1 [Mass /volume] in Serum [facility] IgG subclass 2 [Mass /volume] in Serum [facility] IgG subclass 3 [Mass /volume] in Serum [facility] IgG subclass 4 [Mass /volume] in Serum [facility] IgM [Mass/volume] in Serum or Plasma [facility] Iron [Mass/mass] in Unspecified specimen [facility] Iron saturation [Mas s Fraction] in Serum or Plasma [facility] Laboratory data interpretation [facility] Laminaribioside IgG Ab [Units/volume] in Serum or Plasma by Immunoassay [facility] Mannobioside IgG Ab [Units/volume] in Serum or Plasma by Immunoassay [facility] Measurement of C-jere ctive protein using high sensitivity technique [facility] Measurement of funga l antibody [facility] Mycobacterium tuberc ulosis tuberculin stimulated gamma interferon [Presence] in Blood [facility] Neutrophil cytoplasm ic Ab.classic [Units/volume] in Serum [facility] Neutrophil cytoplasm ic Ab.perinuclear.atypical [Titer] in Serum by Immunofluorescence [facility] P-ANCA measurement [facility] Patient Education Your Child Has Ulcerative Colitis ED Cystitis Female Adult [facility] Work Phone: Peanut IgE Ab [Units /volume] in Serum [facility] Procedure [facility] Protein electrophore sis panel - Serum or Plasma [facility] Scallop RAST [facility] Sesame seed RAST [facility] Shrimp IgE Ab [Units /volume] in Serum [facility] Soybean IgE Ab [Unit s/volume] in Serum [facility] Total iron binding c apacity measurement [facility] Urine culture 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; [facility] 11-20-2006 DTaP-hepatitis B and poliovirus vaccine [facility]; [facility] 06-26-2006 DTaP-hepatitis B and poliovirus vaccine [facility]; [facility] 03-27-2006 DTaP-hepatitis B and poliovirus vaccine [facility]; [facility] Payers Date Payer Category Payer Self-pay 2025 Unknown [id number] 1981 Unknown [id number] 2.16.84 [id number] Unknown [id number] Unknown [id number] 2.16.8 [id number] Unknown [id number] 2.16.8 [id number] Unknown [id number] 2.16.8 [id number] Unknown [id number] 2.16.8 [id number] Unknown [id number] 2.16.8 [id number] Unknown [id number] 2.16.8 [id number] Unknown [id number] 2.16.8 [id number] Unknown [id number] Social History Date Type Detail Facility Start: 01-26-2025 End: 02-11-2025 Tobacco smoking status NVIS Never smoked tobacco (finding) [facility] Start: 2005 Sex Assigned At Female W [facility] Work Phone: Not [facility] NEGATED: Highlighted row No Social History Information Available No Social History Information Available [facility] Work Phone: NEGATED: Highlighted row Not [facility] Goals Date Patient Goal Desired Activity /State Functional Status Date Assessment Result Facility 01-27-2025 Functional status Ambulates;Up a d dottie;Chair;Bathroom Privilege [facility] Work Phone: Mental Status Date Assessment Result Facility 01-27-2025 Cognitive function Voice/Name [facility] Work Phone: 01-25-2025 Cognitive function Level Of Cons ciousness Awake;Alert;Appropriate;Follow s Commands [facility] Work Phone: Clinical Notes 01-25-2025 to 01-27-2025 Note Date & Type Note Facility 01-27-2025 Discharge summary Note Date/Time January 27, 2025 11:45am [facility] Medical Records Department [address] [place] [address] Discharge Summary 01/27/25 1139 MR#: [id number] Acct: [id number] Name: JUDITH HURLEY Rep #:[id number] 5 : 2005 19 From: Nikki Harrell MD PCP: Dr. Deya Chavez MD Status:ADM I N Location: [place] [address] Providers Date of Admission: 01/26/25 Date of Discharge: 01/27/25 Primary Care Physician: Dr. Deya Chavez MD Consultations 01/26/25 01:45 Consult: Gastroenterology Routine Consulting Provider: [facility] Reason for Consult: acute ulcerative colitis flare EMERGENT Consult: No MD Notified: Yes Date Notified: 01/26/25 Time Notified: 06:45 Method of Notification: Text Reason For Visit: ACUTE UC FLARE Diagnosis Discharge Diagnosis (1) Ulcerative colitis, acute: Status: Acute Code(s): K51.90 - Ulcerative colitis, unspecified, without complications Qualifiers: Digestive disease complication type: unspecified complication QualifiedCode(s): K51.919 - Ulcerative colitis, unspecified with unspecified complications Plan: DISCHARGE DIAGNOSES: #1. Acute exacerbation ulcerative colitis with associated mild hematochezia w/ #2 #2. Chronic normocytic anemia #3. Questionable acute complicated urinary tract infection, unclear organism #4. Hyperglycemia with no diabetic history, stress response/steroids Medications at Discharge Home Medications adalimumab 40 mg/0.8 mL subcutaneous pen kit (Humira Pen) See Rx Instructions subcut .COMPLEX ulcerative colitis 01/26/25 cephalexin 500 mg capsule 500 mg PO BID 5 days #10 caps 01/27/25 ferrous gluconate 324 mg (38 mg iron) tablet 324 mg PO DAILY 30 days #30 tabs 01/27/25 omeprazole 20 mg capsule,delayed release 20 mg PO DAILY 30 days #30 caps 01/27/25 prednisone 20 mg tablet 60 mg (3 x 20 mg) PO DAILY 30 days #90 tabs 01/27/25 Hospital Course Operations None Procedures None Summary of Care Provided Minutes Spent on Discharge: 35 Hospital Course: The patient is an 19 y/o F w/ PMHx: Ulcerative colitis, Chronic anemia who presented to the [facility] ED on 01/26/25 with history of significant persistent diarrhea as well as fevers noted to be on Humira monthly with history of previous mild UC flares however never as severe as her current presentation with worsening loose stools for the last 5 days with some mucus in the stools and minimal blood with nausea without emesis prompting eventual ED evaluation. Patient admitted to medical surgical floor, initiated on Solu-Cpsmvr99 mg IV every 8, CBC trended, pain regimen and antiemetic regimen as needed, tolerating diet, GI consulted. Admission hemoglobin 10.3, MCV 85, unclear exact baseline, repeat 01/26/25 AM hemoglobin 9.9, MCV 86.2->01/27/25 Hgb 9.2, MCV 86.9,, given acute presentation #1 some concerns about associated mild blood loss, vitamin B12 2622, iron 11, TIBC 223, iron saturation 4.9%, unsaturated IBC 212, ferritin 104, upon admission maintained on transfusion of iron 200 mg IV daily with transition to oral regimen at discharge. UA with positive leukocyte esterase, 10-25 urine WBCs and 3+ bacteria, no marked history of dysuria howeverinitiated with empiric IV Rocephin, will continue pending urine culture. Given patient had notable clinical improvement quicker than expected with her UC flare, patient transitioned to oral keflex upon discharge with UCx still pendingw/ recommendation to follow-up with PCP to assure UCx re-assessed at follow-up. #1 plan to discharge patient home on oral Keflex therapy with noted urine culture still pending at discharge. Given again as noted clinical improvement quicker than medically expected, GI cleared for discharge on prednisone 60 mg daily, omeprazole 20 mg daily while on steroid therapy, follow-up with gastroenterology in 2 weeks. Weight / BMI Weight Weight: 121 lb 4.068 oz Body Mass Index (BMI) 21.4 ABG / Lab / Microbiology Data 01/27/25 05:11 01/27/25 05:11 Laboratory: Laboratory Results - last 24 hr 01/26/25 19:57: Rheumatoid Factor 16.0 H, DEE DEE-1 Antibody TNP, Sm (Garcia) AntibodyTNP, ASSISTANT CLINICAL DIRECTOR Antibody TNP, Scl-70 Scleroderma Ab TNP, Antichromatin Antibodies TNP, Centromere B Antibody TNP, Miscellaneous Test 2 Cancelled 01/27/25 05:11: WBC 18.5 H, RBC 3.37 L, Hgb 9.2 L, Hct 29.3 L, MCV 86.9, MCH 27.3, MCHC 31.4 L, RDW Std Deviation 43.8, RDW Coeff of Lokesh 14.0, Plt Count 435,MPV 9.8, Immature Gran % (Auto) 2.300 H, Neut % (Auto) 76.1 H, Lymph % (Auto) 11.5 L, Prairie % (Auto) 9.8, Eos % (Auto) 0.0, Baso % (Auto) 0.3, Absolute Neuts (auto) 14.1 H, Absolute Lymphs (auto) 2.13, Nucleated RBC % 0, Differential Comment SCANNED, Sodium 143, Potassium 4.1, Chloride 109 H, Carbon Dioxide 22.2,Anion Gap 11, BUN 6, Creatinine 0.62 L, Estim Creat Clear Calc 120.73, Est GFR (MDRD) Non-Af 131, BUN/Creatinine Ratio 10.1, Glucose 162 H, Calcium 9.1, Total Bilirubin < 0.15, AST 11, ALT 8, Alkaline Phosphatase 77, Total Protein 6.0, Albumin 2.8 L, Globulin 3.1, Albumin/Globulin Ratio 0.9 Microbiology: Microbiology 01/26/25 07:26 Stool C. difficile GDH Antigen & Toxins - Final 01/26/25 07:26 Stool Clostridioides difficile (PCR) - Final 01/26/25 07:26 Stool Enteric Bacteriology - Final 01/25/25 21:45 Mucosa - Nose SARS-CoV-2, Influenza & RSV (PCR) - Final D/C Instructions Discharge Diet: No restrictions May resume sexual activity in: - (No anal sex.) Weight Bearing Status: Weight bearing as tolerated Call your doctor if you observe: Fever of 101 or Higher, Shortness of breath, Dizziness, Swelling in the ankles, Chest pain, Increased palpitations (irregularheartbeat), Calf discomfort, Uncontrolled pain and - (Recurrent severe abdominalpain, diarrhea, nausea or emesis.) DC O2, CPAP, BIPAP Needs Home O2 Discharge instructions: No Meaningful Use Info Meaningful Use Meaningful Use Diagnoses (Choose all that apply): None applicable Ischemic Stroke Statin Dosing Therapy Reference: STATIN DOSE THERAPY REFERENCE: * Patients > 75 years receive moderate or high dose statin therapy. * Patients 75 years or YOUNGER should receive HIGH intensity statin dose unless contraindicated. You will be required to document reason for non-treatment if statin daily dose does not meet guidelines. HIGH DOSE STATIN THERAPY DAILY Atorvastatin > than or = to 40 mg Rosuvastatin > than or = to 20 mg Amlodipine + Atorvastatin > than or = to 2.5/40 mg Ezetimibe + Simvastatin 10/80 mg Simvastatin 80mg Discharge Plan Admission Admit Date/Time: 01/26/25 00:18 Primary Reason for Your Visit: Ulcerative Colitis Flare, Chronic normocytic anemia, UTI Attending Provider: Nikki Harrell Primary Care Provider: Deya Chavez Consulting Providers: Tj Dewey Instructions Patient Instructions: Your Child Has Ulcerative Colitis, ED Cystitis Female Adult Additional Instructions / Restrictions: ADDITIONAL FOLLOW-UP/INSTRUCTIONS: --Please continue prednisone 60 mg daily until re-evaluation with Gastroenterology. --Please continue omeprazole 20 mg daily while on the high-dose prednisone therapy. --Please continue Keflex 500 mg twice daily to completion for urinary tract infection concern. -- Please continue initiated iron supplementation oral therapy with plan repeat outpatient iron studies and complete blood count at PCP versus gastroenterology discretion. -- Labs pending upon discharge per GI which may be followed up with them in their office at reevaluation included: IBD SGI, adalimumab levels, ANCA check, KUSHAL, food allergy panel. -- Please follow-up with gastroenterology in 2 weeks. You may contact her office earlier if there is any concerns or questions. You may follow with Dr. Gonzalez if you prefer to transition or you make also continue with Dr. Rodriguez. --Urine culture is pending at your discharge, this may be rechecked at follow-upwith your primary care physician. Discharge Orders/Prescriptions Prescriptions: New prednisone 20 mg tablet 60 mg PO DAILY 30 Days Qty: 90 0RF omeprazole 20 mg capsule,delayed release(DR/EC) 20 mg PO DAILY 30 Days Qty: 30 0RF ferrous gluconate 324 mg (38 mg iron) tablet 324 mg PO DAILY 30 Days Qty: 30 0RF cephalexin 500 mg capsule 500 mg PO BID 5 Days Qty: 10 0RF Continued Humira Pen 40 mg/0.8 mL pen injector kit See Rx Instructions .ROUTE .COMPLEX Rx Instructions: pt. unsure, follow up needed Referrals / Follow Up: Agustín Gonzalez DO [Med Staff - Active Staff] - (Please follow-up with Dr. Gonzalez in 2 weeks if you prefer to transition.) Gentry Rodriguez MD [Non-Staff] - (Please follow-up with Dr. Rodriguez in 2 weeks for re-evaluation UNLESS you prefer to transition to Dr. Gonzalez.) Deya Chavez MD [Primary Care Provider] - (Follow-up in 3-5 days to review admission.) Disposition Disposition (needs filled in before D/C Order can be placed): Home, Self Care Charges/Coding Visit Charges Inpatient E&M: 30492 Disch Hosp >30min 01/27/25 1145 <Electronically signed by Nikki Harrell MD> Cosigner Signature (if applicable): CC: Dr. Nikki Harrell MD; Dr. Deya Chavez MD~ Signed [facility] Work Phone: 1(781) 902-269207-09-2025 Progress note Author Nikki Harrell [facility] Note Date/Time January 27, 2025 11:41 am [facility] Medical Records Department [address] [place] [address] Progress Note - Hospitalist 01/27/2551 MR#: [id number] Acct: [id number] Name: JUDITH HURLEY Rep #:[id number] 7 : 2005 19 From: Nikki Harrell MD PCP: Dr. 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 Patienthaarnold had no further marked diarrhea and notes that her stool is just mildly soft. She notes resolution of previous abdominal pain. She denies any current dysuria. Her and her family are still deciding whether or not they want a follow-up with Dr. Gonzalez or continue to follow with Dr. Rodriguez. Patient deniesfevers, chills, nausea, emesis, abdominal pain, chest pain or dyspnea. Objective Data Objective Data Vital Signs: Vital Signs Temp Pulse Resp BP Pulse Ox O2 Del Method 98.9 F 77 16 100/58 L 99 Room Air 01/27/25 04:50 01/27/25 04:50 01/27/25 04:50 01/27/25 04:50 01/27/25 04:50 01/27/25 04:50 Oxygen Delivery Method Room Air Weight: 121 lb 4.068 oz Body Mass Index (BMI) 21.4 Intake & Output: Intake and Output for Last 24 Hours 01/25/25 01/26/25 01/27/25 23:59 23:59 23:59 Intake Total 3010.00 / 3010.00 Balance 3010.00 / 3010.00 Lab / Micro Data 01/27/25 05:11 01/27/25 05:11 Labs: Laboratory Results - last 24 hr 01/26/25 03:37: Hemoglobin A1c 5.6, Phosphorus 3.7, Magnesium 1.6 01/26/25 19:57: Rheumatoid Factor 16.0 H, DEE DEE-1 Antibody TNP, Sm (Garcia) AntibodyTNP, ASSISTANT CLINICAL DIRECTOR Antibody TNP, Scl-70 Scleroderma Ab TNP, Antichromatin Antibodies TNP, Centromere B Antibody TNP, Miscellaneous Test 2 Cancelled 01/27/25 05:11: WBC 18.5 H, RBC 3.37 L, Hgb 9.2 L, Hct 29.3 L, MCV 86.9, MCH 27.3, MCHC 31.4 L, RDW Std Deviation 43.8, RDW Coeff of Lokesh 14.0, Plt Count 435,MPV 9.8, Immature Gran % (Auto) 2.300 H, Neut % (Auto) 76.1 H, Lymph % (Auto) 11.5 L, Prairie % (Auto) 9.8, Eos % (Auto) 0.0, Baso % (Auto) 0.3, Absolute Neuts (auto) 14.1 H, Absolute Lymphs (auto) 2.13, Nucleated RBC % 0, Differential Comment SCANNED, Sodium 143, Potassium 4.1, Chloride 109 H, Carbon Dioxide 22.2,Anion Gap 11, BUN 6, Creatinine 0.62 L, Estim Creat Clear Calc 120.73, Est GFR (MDRD) Non-Af 131, BUN/Creatinine Ratio 10.1, Glucose 162 H, Calcium 9.1, Total Bilirubin < 0.15, AST 11, ALT 8, Alkaline Phosphatase 77, Total Protein 6.0, Albumin 2.8 L, Globulin 3.1, Albumin/Globulin Ratio 0.9 Micro: Microbiology 01/26/25 07:26 Stool C. difficile GDH Antigen & Toxins - Final 01/26/25 07:26 Stool Clostridioides difficile (PCR) - Final 01/26/25 07:26 Stool Enteric Bacteriology - Final 01/25/25 21:45 Mucosa - Nose SARS-CoV-2, Influenza & RSV (PCR) - Final Physical Exam Narrative Physical Examination: General: Awake, alert, oriented x 3 and cooperative, seated upright in PCU bed is MedSurg patient, notes resolution of previous abdominal pain. Skin: Normal color, normal turgor, no icterus, no cyanosis. HEENT: AT/NC, EOMI, PERRLA, improved MMM. Lungs: CTA bilaterally, moderate effort, mild decrease BL bases, no rales, ronchi or wheezing. Heart: Regular rate and rhythm; no gallop, rub audible. Abdomen: Soft, NTTP, ND, normalized BS. Extremities: No cyanosis, clubbing, or edema. Neurological: Patient awake, alert, oriented as noted, cognitive function intact; pupils equally reactive to light and accommodation, cranial nerves grossly normal, moving all 4 extremities, no focal deficits, strength improved, preserved. Psychiatric: Affect appears normal, no acute evidence of depressive or anxiety feelings. Assessment & Plan Assessment/Plan (1) Ulcerative colitis, acute: QUALIFIERS: Digestive disease complication type: unspecified complication Qualified Code(s): K51.919 - Ulcerative colitis, unspecified with unspecified complications PLAN: Plan The patient is an 19 y/o F w/ PMHx: Ulcerative colitis, Chronic anemia who presents to the [facility] ED on 01/26/25 with history of significant persistent diarrhea as well as fevers noted to be on Humira monthly with history of previous mild UC flares however never as severe as her current presentation with worsening loose stools for the last 5 days with some mucus in the stools and minimal blood with nausea without emesis prompting eventual ED evaluation. #1. Acute exacerbation ulcerative colitis with associated mild hematochezia: Patient admitted to medical surgical floor, initiated on Solu-Medrol 20 mg IV every 8, CBC trended, pain regimen and antiemetic regimen as needed, tolerating diet, GI consulted and given improvement recommended discharge on prednisone 60 mg daily, omeprazole 20 mg daily while on steroid therapy, follow-up with gastroenterology in 2 weeks. #2. Chronic normocytic anemia: Admission hemoglobin 10.3, MCV 85, unclear exactbaseline, repeat 01/27/2020 5 AM hemoglobin 9.9, MCV 86.2, given acute presentation #1 some concerns about associated mild blood loss, vitamin B12 2622, iron 11, TIBC 223, iron saturation 4.9%, unsaturated IBC 212, ferritin 104, upon admission maintained on transfusion of iron 200 mg IV daily with plan transition to oral regimen at discharge. #3. Questionable acute complicated urinary tract infection: UA with positive leukocyte esterase, 10-25 urine WBCs and 3+ bacteria, no marked history of dysuria however initiated with empiric IV Rocephin, will continue pending urine culture. Given clinical improvement quicker than expected #1 plan to discharge patient home on oral Keflex therapy with noted urine culture still pending at discharge. #4. Hyperglycemia with no diabetic history: Admission glucose initially 126, repeat 170, ongoing steroid treatments with no previous diabetic history, hemoglobin A1c 5.6%. #5. DVT prophylaxis: Low risk, encourage ambulation. Charges/Coding Visit Charges Inpatient E&M: 66374 Subs Hosp L2 01/27/25 1141 <Electronically signed by Nikki Harrell MD> Cosigner Signature (if applicable): CC: ~ Signed [facility] Work Phone: 1(282) 243-689807-09-2025 Discharge summary Author [facility] Note Date/Time January 27, 2025 11:39 am [facility] Medical Records Department [address] [place] [address] Instructions for Home/Discharge Instructions 01/27/25 1138 MR#: [id number] Acct: [id number] Name: JUDITH HURLEY Rep #:[id number] 4 : 2005 19 From: Nikki Harrell MD PCP: Dr. Deya Chavez MD Status:ADM I N Discharge Instructions Diet Discharge Diet: No restrictions DC O2, CPAP, BIPAP needs Home O2 Discharge instructions: No Dressing / Incision Discharge Activity: Return to Normal Activity May resume sexual activity in: - (No anal sex.) Weight Bearing Status: Weight bearing as tolerated Dressing / Incision Call your doctor if you observe: Fever of 101 or Higher, Shortness of breath, Dizziness, Swelling in the ankles, Chest pain, Increased palpitations (irregularheartbeat), Calf discomfort, Uncontrolled pain and - (Recurrent severe abdominalpain, diarrhea, nausea or emesis.) Follow Up Care Test Results: Test results from this visit will be discussed in further detail at your follow- up appointment, if applicable. Discharge Plan Admission Admit Date/Time: 01/26/25 00:18 Primary Reason for Your Visit: Ulcerative Colitis Flare, Chronic normocytic anemia, UTI Attending Provider: Nikki Harrell Primary Care Provider: Deya Chavez Consulting Providers: Tj Dewey Instructions Patient Instructions: Your Child Has Ulcerative Colitis, ED Cystitis Female Adult Additional Instructions / Restrictions: ADDITIONAL FOLLOW-UP/INSTRUCTIONS: --Please continue prednisone 60 mg daily until re-evaluation with Gastroenterology. --Please continue omeprazole 20 mg daily while on the high-dose prednisone therapy. --Please continue Keflex 500 mg twice daily to completion for urinary tract infection concern. -- Please continue initiated iron supplementation oral therapy with plan repeat outpatient iron studies and complete blood count at PCP versus gastroenterology discretion. -- Labs pending upon discharge per GI which may be followed up with them in their office at reevaluation included: IBD SGI, adalimumab levels, ANCA check, KUSHAL, food allergy panel. -- Please follow-up with gastroenterology in 2 weeks. You may contact her office earlier if there is any concerns or questions. You may follow with Dr. Gonzalez if you prefer to transition or you make also continue with Dr. Rodriguez. Discharge Orders/Prescriptions Prescriptions: New prednisone 20 mg tablet 60 mg PO DAILY 30 Days Qty: 90 0RF omeprazole 20 mg capsule,delayed release(DR/EC) 20 mg PO DAILY 30 Days Qty: 30 0RF ferrous gluconate 324 mg (38 mg iron) tablet 324 mg PO DAILY 30 Days Qty: 30 0RF cephalexin 500 mg capsule 500 mg PO BID 5 Days Qty: 10 0RF Continued Humira Pen 40 mg/0.8 mL pen injector kit See Rx Instructions .ROUTE .COMPLEX Rx Instructions: pt. unsure, follow up needed Referrals / Follow Up: Agustín Gonzalez DO [Med Staff - Active Staff] - (Please follow-up with Dr. Gonzalez in 2 weeks if you prefer to transition.) Gentry Rodriguez MD [Non-Staff] - (Please follow-up with Dr. Rodriguez in 2 weeks for re-evaluation UNLESS you prefer to transition to Dr. Gonzalez.) Deya Chavez MD [Primary Care Provider] - (Follow-up in 3-5 days to review admission.) Disposition Disposition (needs filled in before D/C Order can be placed): Home, Self Care 01/27/25 4504<Electronically signed by Nikki Harrell MD>Nikki Harrell MD CC: Dr. Tj Dewey DO; Dr. Deya Chavez MD ~ Signed [facility] Work Phone: 1(978) 269-137507-09-2025 Discharge summary [facility] Medical Records Department [address] [place] [address] Discharge Summary 01/27/25 1139 MR#: [id number] Acct: [id number] Name: JUDITH HURLEY Rep #:[id number] 5 : 2005 19 From: Nikki Harrell MD PCP: Dr. Deya Chavez MD Status:ADM I N Location: [place] [address] Providers Date of Admission: 01/26/25 Date of Discharge: 01/27/25 Primary Care Physician: Dr. Deya Chavez MD Consultations 01/26/25 01:45 Consult: Gastroenterology Routine Consulting Provider: [facility] Reason for Consult: acute ulcerative colitis flare EMERGENT Consult: No MD Notified: Yes Date Notified: 01/26/25 Time Notified: 06:45 Method of Notification: Text Reason For Visit: ACUTE UC FLARE Diagnosis Discharge Diagnosis (1) Ulcerative colitis, acute: Status: Acute Code(s): K51.90 - Ulcerative colitis, unspecified, without complications Qualifiers: Digestive disease complication type: unspecified complication QualifiedCode(s): K51.919 - Ulcerative colitis, unspecified with unspecified complications Plan: DISCHARGE DIAGNOSES: #1. Acute exacerbation ulcerative colitis with associated mild hematochezia w/ #2 #2. Chronic normocytic anemia #3. Questionable acute complicated urinary tract infection, unclear organism #4. Hyperglycemia with no diabetic history, stress response/steroids Medications at Discharge Home Medications adalimumab 40 mg/0.8 mL subcutaneous pen kit (Humira Pen) See Rx Instructions subcut .COMPLEX ulcerative colitis 01/26/25 cephalexin 500 mg capsule 500 mg PO BID 5 days #10 caps 01/27/25 ferrous gluconate 324 mg (38 mg iron) tablet 324 mg PO DAILY 30 days #30 tabs 01/27/25 omeprazole 20 mg capsule,delayed release 20 mg PO DAILY 30 days #30 caps 01/27/25 prednisone 20 mg tablet 60 mg (3 x 20 mg) PO DAILY 30 days #90 tabs 01/27/25 Hospital Course Operations None Procedures None Summary of Care Provided Minutes Spent on Discharge: 35 Hospital Course: The patient is an 19 y/o F w/ PMHx: Ulcerative colitis, Chronic anemia who presented to the [facility] ED on 01/26/25 with history of significant persistent diarrhea as well as fevers noted to be on Humira monthly with history of previous mild UC flares however never as severe as her current presentation with worsening loose stools for the last 5 days with some mucus in the stools and minimal blood with nausea without emesis prompting eventual ED evaluation. Patient admitted to medical surgical floor, initiated on Solu- Stcyrk20 mg IV every 8, CBC trended, pain regimen and antiemetic regimen as needed, tolerating diet, GI consulted. Admission hemoglobin 10.3, MCV 85, unclear exact baseline, repeat 01/26/25 AM hemoglobin 9.9, MCV 86.2->01/27/25 Hgb 9.2, MCV 86.9,, given acute presentation #1 some concerns about associated mild blood loss, vitamin B12 2622, iron 11, TIBC 223, iron saturation 4.9%, unsaturated IBC 212, ferritin 104, upon admission maintained on transfusion of iron 200 mg IV daily with transition to oral regimen at discharge. UA with positive leukocyte esterase, 10-25 urine WBCs and 3+ bacteria, no marked history of dysuria howeverinitiated with empiric IVRocephin, will continue pending urine culture. Given patient had notable clinical improvement quicker than expected with her UC flare, patient transitioned to oral keflex upon discharge with UCx still pendingw/ recommendation to follow-up with PCP to assure UCx re-assessed at follow-up. #1 plan to discharge patient home on oral Keflex therapy with noted urine culture still pending at discharge. Given again as noted clinical improvement quicker than medically expected, GI cleared for discharge on prednisone 60 mg daily, omeprazole 20 mg daily while on steroid therapy, follow- up with gastroenterology in 2 weeks. Weight / BMI Weight Weight: 121 lb 4.068 oz Body Mass Index (BMI) 21.4 ABG / Lab / Microbiology Data 01/27/25 05:11 01/27/25 05:11 Laboratory: Laboratory Results - last 24 hr 01/26/25 19:57: Rheumatoid Factor 16.0 H, DEE DEE-1 Antibody TNP, Sm (Garcia) AntibodyTNP, ASSISTANT CLINICAL DIRECTOR Antibody TNP, Scl-70 Scleroderma Ab TNP, Antichromatin Antibodies TNP, Centromere B Antibody TNP, Miscellaneous Test 2 Cancelled 01/27/25 05:11: WBC 18.5 H, RBC 3.37 L, Hgb 9.2 L, Hct 29.3 L, MCV 86.9, MCH 27.3, MCHC 31.4 L, RDWStd Deviation 43.8, RDW Coeff of Lokesh 14.0, Plt Count 435,MPV 9.8, Immature Gran % (Auto) 2.300 H, Neut % (Auto) 76.1 H, Lymph % (Auto) 11.5 L, Prairie % (Auto) 9.8, Eos % (Auto) 0.0, Baso % (Auto) 0.3, Absolute Neuts (auto) 14.1 H, Absolute Lymphs (auto) 2.13, Nucleated RBC % 0, Differential Comment SCANNED, Sodium 143, Potassium 4.1, Chloride 109 H, Carbon Dioxide 22.2,Anion Gap 11, BUN 6, Creatinine 0.62 L, Estim Creat Clear Calc 120.73, Est GFR (MDRD) Non-Af 131, BUN/Creatinine Ratio 10.1, Glucose 162 H, Calcium 9.1, Total Bilirubin < 0.15, AST 11, ALT 8, Alkaline Phosphatase 77, Total Protein 6.0, Albumin 2.8 L, Globulin 3.1, Albumin/Globulin Ratio 0.9 Microbiology: Microbiology 01/26/25 07:26 Stool C. difficile GDH Antigen & Toxins - Final 01/26/25 07:26 Stool Clostridioides difficile (PCR) - Final 01/26/25 07:26 Stool Enteric Bacteriology - Final 01/25/25 21:45 Mucosa - Nose SARS-CoV-2, Influenza & RSV (PCR) - Final D/C Instructions Discharge Diet: No restrictions May resume sexual activity in: - (No anal sex.) Weight Bearing Status: Weight bearing as tolerated Call your doctor if you observe: Fever of 101 or Higher, Shortness of breath, Dizziness, Swelling in the ankles, Chest pain, Increased palpitations (irregularheartbeat), Calf discomfort, Uncontrolledpain and - (Recurrent severe abdominalpain, diarrhea, nausea or emesis.) DC O2, CPAP, BIPAP Needs Home O2 Discharge instructions: No Meaningful Use Info Meaningful Use Meaningful Use Diagnoses (Choose all that apply): None applicable Ischemic Stroke Statin Dosing Therapy Reference: STATIN DOSE THERAPY REFERENCE: * Patients > 75 years receive moderate or high dose statin therapy. * Patients 75 years or YOUNGER should receive HIGH intensity statin dose unless contraindicated. You will be required to document reason for non-treatment if statin daily dose does not meet guidelines. HIGH DOSE STATIN THERAPY DAILY Atorvastatin > than or = to 40 mg Rosuvastatin > than or = to 20 mg Amlodipine + Atorvastatin > than or = to 2.5/40 mg Ezetimibe + Simvastatin 10/80 mg Simvastatin 80mg Discharge Plan Admission Admit Date/Time: 01/26/25 00:18 Primary Reason for Your Visit: Ulcerative Colitis Flare, Chronic normocytic anemia, UTI Attending Provider: Nikki Harrell Primary Care Provider: Deya Chavez Consulting Providers: Tj Dewey Instructions Patient Instructions: Your Child Has Ulcerative Colitis, ED Cystitis Female Adult Additional Instructions / Restrictions: ADDITIONAL FOLLOW-UP/INSTRUCTIONS: --Please continue prednisone 60 mg daily until re-evaluation with Gastroenterology. --Please continue omeprazole 20 mg daily while on the high-dose prednisone therapy. --Please continue Keflex 500 mg twice daily to completion for urinary tract infection concern. -- Please continue initiated iron supplementation oral therapy with plan repeat outpatient iron studies and complete blood count at PCP versus gastroenterology discretion. -- Labs pending upon discharge per GI which may be followed up with them in their office at reevaluation included: IBD SGI, adalimumab levels, ANCA check, KUSHAL, food allergy panel. -- Please follow-up with gastroenterology in 2 weeks. You may contact her office earlier if there is any concerns or questions. You may follow with Dr. Gonzalez if you prefer to transition or you make also continue with Dr. Rodriguez. --Urine culture is pending at your discharge, this may be rechecked at follow- upwith your primary care physician. Discharge Orders/Prescriptions Prescriptions: New prednisone 20 mg tablet 60 mg PO DAILY 30 Days Qty: 90 0RF omeprazole 20 mg capsule,delayed release(DR/EC) 20 mg PO DAILY 30 Days Qty: 30 0RF ferrous gluconate 324 mg (38 mg iron) tablet 324 mg PO DAILY 30 Days Qty: 30 0RF cephalexin 500 mg capsule 500 mg PO BID 5 Days Qty: 10 0RF Continued Humira Pen 40 mg/0.8 mL pen injector kit See Rx Instructions .ROUTE .COMPLEX Rx Instructions: pt. unsure, follow up needed Referrals / Follow Up: Agustín Gonzalez DO [Med Staff - Active Staff] - (Please follow-up with Dr. Gonzalez in 2 weeks if youprefer to transition.) Gentry Rodriguez MD [Non-Staff] - (Please follow-up with Dr. Rodriguez in 2 weeks for re-evaluation UNLESS you prefer to transition to Dr. Gonzalez.) Deya Chavez MD [Primary Care Provider] - (Follow-up in 3-5 days to review admission.) Disposition Disposition (needs filled in before D/C Order can be placed): Home, Self Care Charges/Coding Visit Charges Inpatient E&M: 80088 Disch Hosp >30min 01/27/25 1145 Cosigner Signature (if applicable): CC: Dr. Nikki Harrell MD; Dr. Deya Chavez MD~ Signed [facility]07-09-2025 Progress note [facility] Medical Records Department [address] [place] [address] Progress Note - Hospitalist 01/27/25 0651 MR#: [id number] Acct: [id number] Name: JUDITH HURLEY Rep #:[id number] : 2005 19 From: Nikki Harrell MD PCP: Dr. 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 Patienthas had no further marked diarrhea and notes that her stool is just mildly soft. She notes resolution of previous abdominal pain. She denies any current dysuria. Her and her family are still deciding whether or not they want a follow-up with Dr. Gonzalez or continue to follow with Dr. Rodriguez. Patient deniesfevers, chills, nausea, emesis, abdominal pain, chest pain or dyspnea. Objective Data Objective Data Vital Signs: Vital Signs Temp Pulse Resp BP Pulse Ox O2 Del Method 98.9 F 77 16 100/58 L 99 Room Air 01/27/25 04:50 01/27/25 04:50 01/27/25 04:50 01/27/25 04:50 01/27/25 04:50 01/27/25 04:50 Oxygen Delivery Method Room Air Weight: 121 lb 4.068 oz Body Mass Index (BMI) 21.4 Intake & Output: Intake and Output for Last 24 Hours 01/25/25 01/26/25 01/27/25 23:59 23:59 23:59 Intake Total 3010.00 / 3010.00 Balance 3010.00 / 3010.00 Lab / Micro Data 01/27/25 05:11 01/27/25 05:11 Labs: Laboratory Results - last 24 hr 01/26/25 03:37: Hemoglobin A1c 5.6, Phosphorus 3.7, Magnesium 1.6 01/26/25 19:57: Rheumatoid Factor 16.0 H, DEE DEE-1 Antibody TNP, Sm (Garcia) AntibodyTNP, ASSISTANT CLINICAL DIRECTOR Antibody TNP, Scl-70 Scleroderma Ab TNP, Antichromatin Antibodies TNP, Centromere B Antibody TNP, Miscellaneous Test 2 Cancelled 01/27/25 05:11: WBC 18.5 H, RBC 3.37 L, Hgb 9.2 L, Hct 29.3 L, MCV 86.9, MCH 27.3, MCHC 31.4 L, RDWStd Deviation 43.8, RDW Coeff of Lokesh 14.0, Plt Count 435,MPV 9.8, Immature Gran % (Auto) 2.300 H, Neut % (Auto) 76.1 H, Lymph % (Auto) 11.5 L, Prairie % (Auto) 9.8, Eos % (Auto) 0.0, Baso % (Auto) 0.3, Absolute Neuts (auto) 14.1 H, Absolute Lymphs (auto) 2.13, Nucleated RBC % 0, Differential Comment SCANNED, Sodium 143, Potassium 4.1, Chloride 109 H, Carbon Dioxide 22.2,Anion Gap 11, BUN 6, Creatinine 0.62 L, Estim Creat Clear Calc 120.73, Est GFR (MDRD) Non-Af 131, BUN/Creatinine Ratio 10.1, Glucose 162 H, Calcium 9.1, Total Bilirubin < 0.15, AST 11, ALT 8, Alkaline Phosphatase 77, Total Protein 6.0, Albumin 2.8 L, Globulin 3.1, Albumin/Globulin Ratio 0.9 Micro: Microbiology 01/26/25 07:26 Stool C. difficile GDH Antigen & Toxins - Final 01/26/25 07:26 Stool Clostridioides difficile (PCR) - Final 01/26/25 07:26 Stool Enteric Bacteriology - Final 01/25/25 21:45 Mucosa - Nose SARS-CoV-2, Influenza & RSV (PCR) - Final Physical Exam Narrative Physical Examination: General: Awake, alert, oriented x 3 and cooperative, seated upright in PCU bed is MedSurg patient, notes resolution of previous abdominal pain. Skin: Normal color, normal turgor, no icterus, no cyanosis. HEENT: AT/NC, EOMI, PERRLA, improved MMM. Lungs: CTA bilaterally, moderate effort, mild decrease BL bases, no rales, ronchi or wheezing. Heart: Regular rate and rhythm; no gallop, rub audible. Abdomen: Soft, NTTP, ND, normalized BS. Extremities: No cyanosis, clubbing, or edema. Neurological: Patient awake, alert, oriented as noted, cognitive function intact; pupils equally reactive to light and accommodation, cranial nerves grossly normal, moving all 4 extremities, no focaldeficits, strength improved, preserved. Psychiatric: Affect appears normal, no acute evidence of depressive or anxiety feelings. Assessment & Plan Assessment/Plan (1) Ulcerative colitis, acute: QUALIFIERS: Digestive disease complication type: unspecified complication Qualified Code(s): K51.919 - Ulcerative colitis, unspecified with unspecified complications PLAN: Plan The patient is an 19 y/o F w/ PMHx: Ulcerative colitis, Chronic anemia who presents to the [facility] ED on 01/26/25 with history of significant persistent diarrhea as well as fevers noted to be on Humira monthly with history of previous mild UC flares however never as severe as her current presentation with worsening loose stools for the last 5 days with some mucus in the stools and minimal blood with nausea without emesis prompting eventual ED evaluation. #1. Acute exacerbation ulcerative colitis with associated mild hematochezia: Patient admitted to medical surgical floor, initiated on Solu-Medrol 20 mg IV every 8, CBC trended, pain regimen and antiemetic regimen as needed, tolerating diet, GI consulted and given improvement recommended discharge on prednisone 60 mg daily, omeprazole 20 mg daily while on steroid therapy, follow-up with gastroenterology in 2 weeks. #2. Chronic normocytic anemia: Admission hemoglobin 10.3, MCV 85, unclear exactbaseline, repeat 01/27/2020 5 AM hemoglobin 9.9, MCV 86.2, given acute presentation #1 some concerns about associated mildblood loss, vitamin B12 2622, iron 11, TIBC 223, iron saturation 4.9%, unsaturated IBC 212, ferritin 104, upon admission maintained on transfusion of iron 200 mg IV daily with plan transition to oralregimen at discharge. #3. Questionable acute complicated urinary tract infection: UA with positive leukocyte esterase, 10-25 urine WBCs and 3+ bacteria, no marked history of dysuria however initiated with empiric IV Rocephin, will continue pending urine culture. Given clinical improvement quicker than expected #1 plan to discharge patient home on oral Keflex therapy with noted urine culture still pending at discharge. #4. Hyperglycemia with no diabetic history: Admission glucose initially 126, repeat 170, ongoing steroid treatments with no previous diabetic history, hemoglobin A1c 5.6%. #5. DVT prophylaxis: Low risk, encourage ambulation. Charges/Coding Visit Charges Inpatient E&M: 01388 Subs Hosp L2 01/27/25 1141 Cosigner Signature (if applicable): CC: ~ Signed [facility]07-09-2025 Discharge summary [facility] Medical Records Department [address] [place] [address] Instructions for Home/Discharge Instructions 01/27/25 1138 MR#: [id number] Acct: [id number] Name: JUDITH HURLEY Rep #:[id number] : 2005 19 From: Nikki Harrell MD PCP: Dr. Deya Chavez MD Status:ADM I N Discharge Instructions Diet Discharge Diet: No restrictions DC O2, CPAP, BIPAP needs Home O2 Discharge instructions: No Dressing / Incision Discharge Activity: Return to Normal Activity May resume sexual activity in: - (No anal sex.) Weight Bearing Status: Weight bearing as tolerated Dressing / Incision Call your doctor if you observe: Fever of 101 or Higher, Shortness of breath, Dizziness, Swelling in the ankles, Chest pain, Increased palpitations (irregularheartbeat), Calf discomfort, Uncontrolledpain and - (Recurrent severe abdominalpain, diarrhea, nausea or emesis.) Follow Up Care Test Results: Test results from this visit will be discussed in further detail at your follow- up appointment, if applicable. Discharge Plan Admission Admit Date/Time: 01/26/25 00:18 Primary Reason for Your Visit: Ulcerative Colitis Flare, Chronic normocytic anemia, UTI Attending Provider: Nikki Harrell Primary Care Provider: Deya Chavez Consulting Providers: Tj Dewey Patient Instructions: Your Child Has Ulcerative Colitis, ED Cystitis Female Adult Additional Instructions / Restrictions: ADDITIONAL FOLLOW-UP/INSTRUCTIONS: --Please continue prednisone 60 mg daily until re-evaluation with Gastroenterology. --Please continue omeprazole 20 mg daily while on the high-dose prednisone therapy. --Please continue Keflex 500 mg twice daily to completion for urinary tract infection concern. -- Please continue initiated iron supplementation oral therapy with plan repeat outpatient iron studies and complete blood count at PCP versus gastroenterology discretion. -- Labs pending upon discharge per GI which may be followed up with them in their office at reevaluation included: IBD SGI, adalimumab levels, ANCA check, KUSHAL, food allergy panel. -- Please follow-up with gastroenterology in 2 weeks. You may contact her office earlier if there is any concerns or questions. You may follow with Dr. Gonzalez if you prefer to transition or you make also continue with Dr. Rodriguez. Discharge Orders/Prescriptions Prescriptions: New prednisone 20 mg tablet 60 mg PO DAILY 30 Days Qty: 90 0RF omeprazole 20 mg capsule,delayed release(DR/EC) 20 mg PO DAILY 30 Days Qty: 30 0RF ferrous gluconate 324 mg (38 mg iron) tablet 324 mg PO DAILY 30 Days Qty: 30 0RF cephalexin 500 mg capsule 500 mg PO BID 5 Days Qty: 10 0RF Continued Humira Pen 40 mg/0.8 mL pen injector kit See Rx Instructions .ROUTE .COMPLEX Rx Instructions: pt. unsure, follow up needed Referrals / Follow Up: Agustín Gonzalez DO [Med Staff - Active Staff] - (Please follow-up with Dr. Gonzalez in 2 weeks if youprefer to transition.) Gentry Rodriguez MD [Non-Staff] - (Please follow-up with Dr. Rodriguez in 2 weeks for re-evaluation UNLESS you prefer to transition to Dr. Gonzalez.) Deya Chavez MD [Primary Care Provider] - (Follow-up in 3-5 days to review admission.) Disposition Disposition (needs filled in before D/C Order can be placed): Home, Self Care 01/27/25 1139Asarkis Harrell MD CC: Dr. Tj Dewey DO; Dr. Deya Chavez MD ~ Signed [facility]07-09-2025 [facility] Medical Records Department [address] [place] [address] Discharge Summary 01/27/25 1139 MR#: [id number] Acct: [id number] Name: JUDITH HURLEY Rep #: [id number] : 2005 19 From: Nikki Harrell MD PCP: Dr. Deya Chavez MD Status:ADM IN Location: [place] [address]1 Providers Date of Admission: 01/26/25 Date of Discharge: 01/27/25 Primary Care Physician: Dr. Deya Chavez MD Consultations 01/26/25 01:45 Consult: Gastroenterology Routine Consulting Provider: [facility] Reason for Consult: acute ulcerative colitis flare EMERGENT Consult: No MD Notified: Yes Date Notified: 01/26/25 Time Notified: 06:45 Method of Notification: Text Reason For Visit: ACUTE UC FLARE Diagnosis Discharge Diagnosis (1) Ulcerative colitis, acute: Status: Acute Code(s): K51.90 - Ulcerative colitis, unspecified, without complications Qualifiers: Digestive disease complication type: unspecified complication Qualified Code(s): K51.919 - Ulcerative colitis, unspecified with unspecified complications Plan: DISCHARGE DIAGNOSES: #1. Acute exacerbation ulcerative colitis with associated mild hematochezia w/ #2 #2. Chronic normocytic anemia #3. Questionable acute complicated urinary tract infection, unclear organism #4. Hyperglycemia with no diabetic history, stress response/steroids Medications at Discharge Home Medications adalimumab 40 mg/0.8 mL subcutaneous pen kit (Humira Pen) See Rx Instructions subcut .COMPLEX ulcerative colitis 01/26/25 cephalexin 500 mg capsule 500 mg PO BID 5 days #10 caps 01/27/25 ferrous gluconate 324 mg (38 mg iron) tablet 324 mg PO DAILY 30 days #30 tabs 01/27/25 omeprazole 20 mg capsule,delayed release 20 mg PO DAILY 30 days #30 caps 01/27/25 prednisone 20 mg tablet 60 mg (3 x 20 mg) PO DAILY 30 days #90 tabs 01/27/25 Hospital Course Operations None Procedures None Summary of Care Provided Minutes Spent on Discharge: 35 Hospital Course: The patient is an 19 y/o F w/ PMHx: Ulcerative colitis, Chronic anemia who presented to the [facility] ED on 01/26/25 with history of significant persistent diarrhea as well as fevers noted to be on Humira monthly with history of previous mild UC flares however never as severe as her current presentation with worsening loose stools for the last 5 days with some mucus in the stools and minimal blood with nausea without emesis prompting eventual ED evaluation. Patient admitted to medical surgical floor, initiated on Solu-Medrol 20 mg IV every 8, CBC trended, pain regimen and antiemetic regimen as needed, tolerating diet, GI consulted. Admission hemoglobin 10.3, MCV 85, unclear exact baseline, repeat 01/26/25 AM hemoglobin 9.9, MCV 86.2->01/27/25 Hgb 9.2, MCV 86.9,, given acute presentation #1 some concerns about associated mild blood loss, vitamin B12 2622, iron 11, TIBC 223, iron saturation 4.9%, unsaturated IBC 212, ferritin 104, upon admission maintained on transfusion of iron 200 mg IV daily with transition to oral regimen at discharge. UA with positive leukocyte esterase, 10-25 urine WBCs and 3+ bacteria, no marked history of dysuria however initiated with empiric IV Rocephin, will continue pending urine culture. Given patient had notable clinical improvement quicker than expected with her UC flare, patient transitioned to oral keflex upon discharge with UCx still pending w/ recommendation to follow-up with PCP to assure UCx re-assessed at follow-up. #1 plan to discharge patient home on oral Keflex therapy with noted urine culture still pending at discharge. Given again as noted clinical improvement quicker than medically expected, GI cleared for discharge on prednisone 60 mg daily, omeprazole 20 mg daily while on steroid therapy, follow-up with gastroenterology in 2 weeks. Weight / BMI Weight Weight: 121 lb 4.068 oz Body Mass Index (BMI) 21.4 ABG / Lab / Microbiology Data 01/27/25 05:11 01/27/25 05:11 Laboratory: Laboratory Results - last 24 hr 01/26/25 19:57: Rheumatoid Factor 16.0 H, DEE DEE-1 Antibody TNP, Sm (Garcia) Antibody TNP, ASSISTANT CLINICAL DIRECTOR Antibody TNP, Scl-70 Scleroderma Ab TNP, Antichromatin Antibodies TNP, Centromere B Antibody TNP, Miscellaneous Test 2 Cancelled 01/27/25 05:11: WBC 18.5 H, RBC 3.37 L, Hgb 9.2 L, Hct 29.3 L, MCV 86.9, MCH 27.3, MCHC 31.4 L, RDW Std Deviation 43.8, RDW Coeff of Lokesh 14.0, Plt Count 435, MPV 9.8, Immature Gran % (Auto) 2.300 H, N eut % (Auto) 76.1 H, Lymph % (Auto) 11.5 L, Prairie % (Auto) 9.8, Eos % (Auto) 0.0, Baso % (Auto) 0.3, Absolute Neuts (auto) 14.1 H, Absolute Lymphs (auto) 2.13, Nucleated RBC % 0, Differential Comment SCANNED, Sodium 143, Potassium 4.1, Chloride 109 H, Carbon Dioxide 22.2, Anion Gap 11, BUN 6, C reatinine 0.62 L, Estim Creat Clear Calc 120.73, Est GFR (MDRD) Non-Af 131, BUN/Creatinine Ratio 10 (more content not included)...[facility]07-09-2025 Consult note Author Danni Zhou [facility] Note Date/Time January 27, 2025 7:44a m [facility] Medical Records Department [address] [place] [address] Consultation - GI 01/26/25 1730 MR#: [id number] Acct: [id number] Name: JUDITH HURLEY Rep #:[id number] : 2005 19 From: Danni Cruz PCP: Dr. Deya Chavez MD Status:ADM I N Location: [place] [address] ADDENDUM by Agustín Gonzalez DO on 01/27/25 at 0744 Addendum Patient seen and evaluated. Agree with above. 01/27/25 0744<Electronically signed by Agustín Gonzalez DO> Cosigner Signature (if applicable): cc: Dr. Deya Chavez MD ~* Signed HPI Consult Data Date of Consult: 01/26/25 HPI Narrative Reason for Consultation: presumed UC flare HPI Narrative: JUDITH HURLEY, is a 19 F [address] to [facility] with a presumed history of ulcerative colitis diagnosed approximately 3 years ago at an outside hospital. She presents with a 5-day history of profuse watery diarrhea (8?10 BMs/day), nausea, lower abdominal cramping, and subjective fevers. She reports that her last colonoscopy was at the time of initial diagnosis, but no documentation or pathology reports are currently available. She is on monthly adalimumab (Humira), with the last dose taken approximately 4 weeks ago. She initially presented to the ED with a temperature of 102?F, WBC 12 (which hassince risen to 15), and was found to have a positive urinalysis, for which she is receiving ceftriaxone 2g IV daily. Her temperature has since normalized. She also tested C. difficile PCR positive, but toxin was negative. Stool culture is negative. Notably, her hemoglobin has decreased slightly from 10.3 to 9.9, whichmay be dilutional, and iron studies show iron deficiency. She is presently on her menstrual cycle and receiving Na Ferric Gluconate 250mg IV x3. She remains on CL and is receiving LR at 75 mL/hr. She was started on Solu-Medrol 125 mg IV x1 in the ED and has now been transitioned to methylprednisolone 20 mg IV Q8 hours (60 mg/day) for presumed [id number] UC flare. She has noted an improvement in stools today with two soft ([place] Type 6) stools. She denies any ongoing abdominal pain or fecalurgency. CT A&P showed diffuse rectal and colonic wall thickening and enhancement, with prominent perirectal, ileocolic, colonic, and mesenteric lymphadenopathy, concerning for active colitis, along with mild gastric wall thickening likely secondary to underdistention. [facility] Medical History Ulcerative colitis Home Medications ?Medication ?Instructions ?Recorded ?Last Taken ?Type adalimumab 40 mg/0.8 mL See Rx Instructions subcut 0 01/26/25 12/31/24 History subcutaneous pen kit (Humira Pen) .COMPLEX ulcerative colitis Allergy/AdvReac Type Severity Reaction Status Date / Time morphine Allergy Hives Verified 01/25/25 21:35 prednisone AdvReac can't take Verified 01/25/25 21:35 due to ulcerative colitis Family History no significant family his Surgical History Hx of tonsillectomy Social History (Updated 01/26/25 @ 00:[address] Speedy Amor MD) household members: family Smoking Status: Never smoker ROS Constitutional Constitutional: Reports as per HPI Eyes Eyes: Denies change in vision ENT HEENT: Denies dizziness Gastrointestinal Gastrointestinal: Reports as per HPI Physical Exam Const no apparent distress and healthy appearing GI Palpation: soft; Negative for tender or guarding Lab / Micro Data Attestation: I reviewed the patient's lab results. 01/26/25 03:37 01/26/25 03:37 Labs: Laboratory Results - last 24 hr 01/25/25 21:50: WBC 12.1 H, RBC 3.74 L, Hgb 10.3 L, Hct 31.9 L, MCV 85.3, MCH 27.5, MCHC 32.3, RDW Std Deviation 42.0, RDW Coeff of Lokesh 13.7, Plt Count 456 H,MPV 9.3, Immature Gran % (Auto) 0.600, Neut % (Auto) 75.5 H, Lymph % (Auto) 11.8L, Prairie % (Auto) 10.7 H, Eos % (Auto) 1.0, Baso % (Auto) 0.4, Absolute Neuts (auto) 9.2 H, Absolute Lymphs (auto) 1.43, Nucleated RBC % 0, PT 13.0, INR 1.0, APTT 26.7, Sodium 136, Potassium 3.6, Chloride 104, Carbon Dioxide 19.3 L, AnionGap 12, BUN 13, Creatinine 0.86, Estim Creat Clear Calc 87.04, Est GFR (MDRD) Non-Af 99, BUN/Creatinine Ratio 14.6, Glucose 126 H, Lactic Acid < 1.0, Calcium 8.6, Iron 11 L, TIBC 223 L, Iron Saturation 4.9 L, Unsaturated IBC 212 L, Ferritin 104, Total Bilirubin 0.16, AST 18, ALT 8, Alkaline Phosphatase 81, Total Protein 6.6, Albumin 3.4 L, Globulin 3.2, Albumin/Globulin Ratio 1.0, Vitamin B12 2622 H 01/25/25 23:26: Urine Color SEE COMMENT BELOW, Urine Clarity Sl. Cloudy, Urine pH 6.5, Ur Specific Aldrich 1.005, Urine Protein 30 H, Urine Glucose (UA) Normal, Urine Ketones Negative, Urine Occult Blood 250 H, Urine Nitrite Negative, Urine Bilirubin Negative, Urine Urobilinogen Normal, Ur Leukocyte Esterase 500 H, Urine RBC 10- 25 SEEN, Urine WBC 10-25 SEEN, Ur Squamous Epith Cells 5-10 SEEN, Urine Bacteria 3+, Urine Mucus 0 SEEN 01/26/25 03:37: WBC 15.0 H, RBC 3.54 L, Hgb 9.9 L, Hct 30.5 L, MCV 86.2, MCH 28.0, MCHC 32.5, RDW Std Deviation 42.3, RDW Coeff of Lokesh 13.6, Plt Count 385, MPV 9.5, Sodium 139, Potassium 4.2, Chloride 109 H, Carbon Dioxide 20.3 L, AnionGap 10, BUN 8, Creatinine 0.67 L, Estim Creat Clear Calc 111.72, Est GFR (MDRD) Non-Af 129, BUN/Creatinine Ratio 12.4, Glucose 170 H, Hemoglobin A1c 5.6, Calcium 8.5, Phosphorus 3.7, Magnesium 1.6 Micro: Microbiology 01/26/25 07:26 Stool C. difficile GDH Antigen & Toxins - Final 01/26/25 07:26 Stool Clostridioides difficile (PCR) - Final 01/26/25 07:26 Stool Enteric Bacteriology - Final 01/25/25 21:45 Mucosa - Nose SARS-CoV-2, Influenza & RSV (PCR) - Final Imaging Radiology Impression Chest X-Ray 01/25/25 22:30 IMPRESSION: No acute pulmonary disease. Reading Location: [facility] Abdomen/Pelvis CT 01/25/25 22:37 IMPRESSION: Diffuse rectal and colonic wall thickening and enhancement with prominent isael-rectal, ileocolic and mesenteric lymph nodes, possibly inflammatory (colitis). Advise clinical correlation. Mild gastric wall thickening, possibly gastritis. Advise clinical correlation. Reading Location: [place] [address] Assessment & Plan Assessment/Plan (1) Ulcerative colitis, acute: QUALIFIERS: Digestive disease complication type: unspecified complication Qualified Code(s): K51.919 - Ulcerative colitis, unspecified with unspecified complications PLAN: Continue IV methylprednisolone 20mg IV Q8h. Hold adalimumab for now. Continue CL and LR at 75ml/hr pending recommendation from regarding in-patient colonoscopy vs sigmoidoscopy. Adalimumab antibodies/levels, fecal calprotectin, CRP ordered. Continue to monitor CBC, BMP, stool frequency. Request outside colonoscopy/pathology records for diagnosis confirmation. (2) Iron deficiency anemia: QUALIFIERS: Iron deficiency anemia type: other iron deficiency Qualified Code(s): D50.8 - Other iron deficiency anemias PLAN: Hbg 9.9 with low iron and Tsat. Chronic inflammation and possible GI losses. Iron replacement ordered. (3) Leukocytosis: QUALIFIERS: Leukocytosis type: other Qualified Code(s): D72.828 -Other elevated white blood cell count PLAN: WBC 12->15 after initiating IV steroids She is now afebrile, clinically improving, and without new s/sx of infection Likely steroid induced leukocytosis, no evidence of bandemia or left shift (4) Other specified abnormal findings of blood chemistry: PLAN: Hypercobalaminemia (B12) 2622 Discontinue supplements. (5) Hypotension: QUALIFIERS: Hypotension type: unspecified hypotension type Qualified Code(s): I95.9 - Hypotension, unspecified PLAN: Blood cultures pending from ER. C.diff PCR positive with negative toxin. Suspected colonization with improving diarrhea. If hypotension continues to be a concern, consider empiric treatment for C.diff if clinical status does not stabilize. Monitor response to IV fluid. Questionable acute complicated UTI, on empiric IV ceftriaxone, pending UCx PLAN: Plan DVT prophylaxis: Risk of DVT in hospitalized UC patients, especially during a flare, are at substantially increased risk compared to the general population. Given elevated risk both ACG and AHA recommend thromboprophylaxis for all hospitalized patients with active UC, regardless of age or Aj score. Given mild iron deficiency anemia, recommend SCDs while bed. 01/26/25 1847 <Electronically signed by Danni BENTLEY> Cosigner Signature (if applicable): CC: Dr. Deya Chavez MD~ Signed [facility] Work Phone: [phone]) 168-444207-09-2025 Consult note [facility] Medical Records Department [address] [place] [address] Consultation - GI 01/26/25 1730 MR#: [id number] Acct: [id number] Name: JUDITH HURLEY Rep #:[id number] : 2005 19 From: Danni Cruz PCP: Dr. Deya Chavez MD Status:ADM I N Location: [place] [address] ADDENDUM by Agustín Gonzalez DO on 01/27/25 at 0744 Addendum Patient seen and evaluated. Agree with above. 01/27/25 0744 Cosigner Signature (if applicable): cc: Dr. Deya Chavez MD ~* Signed HPI Consult Data Date of Consult: 01/26/25 HPI Narrative Reason for Consultation: presumed UC flare HPI Narrative: JUDITH HURLEY, is a 19 F [address] presented to [facility] with a presumed history of ulcerative colitis diagnosed approximately 3 years ago at an outside hospital. She presents with a 5-day history of profuse watery diarrhea (8?10 BMs/day), nausea, lower abdominal cramping, and subjective fevers. She reports that her last colonoscopy was at the time of initial diagnosis, but no documentation or pathologyreports are currently available. She is on monthly adalimumab (Humira), with the last dose taken approximately 4 weeks ago. She initially presented to the ED with a temperature of 102?F, WBC 12 (which hassince risen to 15),and was found to have a positive urinalysis, for which she is receiving ceftriaxone 2g IV daily. Her temperature has since normalized. She also tested C. difficile PCR positive, but toxin was negative. Stool culture is negative. Notably, her hemoglobin has decreased slightly from 10.3 to 9.9, whichmay be dilutional, and iron studies show iron deficiency. She is presently on her menstrual cycle and receiving Na Ferric Gluconate 250mg IV x3. She remains on CL and is receiving LR at 75 mL/hr. She was started on Solu-Medrol 125 mg IV x1 in the ED and has now been transitioned to methylprednisolone 20 mg IV Q8 hours (60 mg/day) for presumed hxlvbldz-oq-jfdajs UC flare. She has noted an improvement in stools today with two soft ([place] Type 6) stools. She denies any ongoing abdominal painor fecalurgency. CT A&P showed diffuse rectal and colonic wall thickening and enhancement, with prominent perirectal, ileocolic, colonic, and mesenteric lymphadenopathy, concerning for active colitis, along with mild gastric wall thickening likely secondary to underdistention. [facility] Medical History Ulcerative colitis Home Medications ?Medication ?Instructions ?Recorded ?Last Taken ?Type adalimumab 40 mg/0.8 mL See Rx Instructions subcut 0 01/26/25 12/31/24 History subcutaneous pen kit (Humira Pen) .COMPLEX ulcerative colitis Allergy/AdvReac Type Severity Reaction Status Date / Time morphine Allergy Hives Verified 01/25/25 21:35 prednisone AdvReac can't take Verified 01/25/25 21:35 due to ulcerative colitis Family History no significant family his Surgical History Hx of tonsillectomy Social History (Updated 01/26/25 @ 00:[address] Speedy Amor MD) household members: family Smoking Status: Never smoker ROS Constitutional Constitutional: Reports as per HPI Eyes Eyes: Denies change in vision ENT HEENT: Denies dizziness Gastrointestinal Gastrointestinal: Reports as per HPI Physical Exam Const no apparent distress and healthy appearing GI Palpation: soft; Negative for tender or guarding Lab / Micro Data Attestation: I reviewed the patient's lab results. 01/26/25 03:37 01/26/25 03:37 Labs: Laboratory Results - last 24 hr 01/25/25 21:50: WBC 12.1 H, RBC 3.74 L, Hgb 10.3 L, Hct 31.9 L, MCV 85.3, MCH 27.5, MCHC 32.3, RDW Std Deviation 42.0, RDW Coeff of Lokesh 13.7, Plt Count 456 H,MPV 9.3, Immature Gran % (Auto) 0.600, Neut % (Auto) 75.5 H, Lymph % (Auto) 11.8L, [place] % (Auto) 10.7 H, Eos % (Auto) 1.0, Baso % (Auto) 0.4,Absolute Neuts (auto) 9.2 H, Absolute Lymphs (auto) 1.43, Nucleated RBC % 0, PT 13.0, INR 1.0, APTT26.7, Sodium 136, Potassium 3.6, Chloride 104, Carbon Dioxide 19.3 L, AnionGap 12, BUN 13, Creatinine 0.86, Estim Creat Clear Calc 87.04, Est GFR (MDRD) Non-Af 99, BUN/Creatinine Ratio 14.6, Glucose 126 H, Lactic Acid < 1.0, Calcium 8.6, Iron 11 L, TIBC 223 L, Iron Saturation 4.9 L, Unsaturated IBC 212 L, Ferritin 104, Total Bilirubin 0.16, AST 18, ALT 8, Alkaline Phosphatase 81, Total Protein6.6, Albumin 3.4 L, Globulin 3.2, Albumin/Globulin Ratio 1.0, Vitamin B12 2622 H 01/25/25 23:26: Urine Color SEE COMMENT BELOW, Urine Clarity Sl. Cloudy, Urine pH 6.5, Ur Specific Aldrich 1.005, Urine Protein 30 H, Urine Glucose (UA) Normal, Urine Ketones Negative, Urine Occult Blood 250 H, Urine Nitrite Negative, Urine Bilirubin Negative, Urine Urobilinogen Normal, Ur Leukocyte Esterase 500 H, Urine RBC 10-25 SEEN, Urine WBC 10-25 SEEN, Ur Squamous Epith Cells 5-10 SEEN, Urine Bacteria 3+, Urine Mucus 0 SEEN 01/26/25 03:37: WBC 15.0 H, RBC 3.54 L, Hgb 9.9 L, Hct 30.5 L, MCV 86.2, MCH 28.0, MCHC 32.5, RDW Std Deviation 42.3, RDW Coeff of Lokesh 13.6, Plt Count 385, MPV 9.5, Sodium 139, Potassium 4.2, Chloride 109 H, Carbon Dioxide 20.3 L, AnionGap 10, BUN 8, Creatinine 0.67 L, Estim Creat Clear Calc 111.72, Est GFR (MDRD) Non-Af 129, BUN/Creatinine Ratio 12.4, Glucose 170 H, Hemoglobin A1c 5.6, Calcium 8.5, Phosphorus 3.7, Magnesium 1.6 Micro: Microbiology 01/26/25 07:26 Stool C. difficile GDH Antigen & Toxins - Final 01/26/25 07:26 Stool Clostridioides difficile (PCR) - Final 01/26/25 07:26 Stool Enteric Bacteriology - Final 01/25/25 21:45 Mucosa - Nose SARS-CoV-2, Influenza & RSV (PCR) - Final Imaging Radiology Impression Chest X-Ray 01/25/25 22:30 IMPRESSION: No acute pulmonary disease. Reading Location: [id number] Abdomen/Pelvis CT 01/25/25 22:37 IMPRESSION: Diffuse rectal and colonic wall thickening and enhancement with prominent isael- rectal, ileocolic and mesenteric lymph nodes, possibly inflammatory (colitis). Advise clinical correlation. Mild gastric wall thickening, possibly gastritis. Advise clinical correlation. Reading Location: [place] [address] Assessment & Plan Assessment/Plan (1) Ulcerative colitis, acute: QUALIFIERS: Digestive disease complication type: unspecified complication Qualified Code(s): K51.919 - Ulcerative colitis, unspecified with unspecified complications PLAN: Continue IV methylprednisolone 20mg IV Q8h. Hold adalimumab for now. Continue CL and LR at 75ml/hr pending recommendation from regarding in-patient colonoscopy vs sigmoidoscopy. Adalimumab antibodies/levels, fecal calprotectin, CRP ordered. Continue to monitor CBC, BMP, stool frequency. Request outside colonoscopy/pathology records for diagnosis confirmation. (2) Iron deficiency anemia: QUALIFIERS: Iron deficiency anemia type: other iron deficiency Qualified Code(s): D50.8 - Other iron deficiency anemias PLAN: Hbg 9.9 with low iron and Tsat. Chronic inflammation and possible GI losses. Iron replacementordered. (3) Leukocytosis: QUALIFIERS: Leukocytosis type: other Qualified Code(s): D72.828 -Other elevated white blood cell count PLAN: WBC 12->15 after initiating IV steroids She is now afebrile, clinically improving, and without new s/sx of infection Likely steroid induced leukocytosis, no evidence of bandemia or left shift (4) Other specified abnormal findings of blood chemistry: PLAN: Hypercobalaminemia (B12) 2622 Discontinue supplements. (5) Hypotension: QUALIFIERS: Hypotension type: unspecified hypotension type Qualified Code(s): I95.9 - Hypotension, unspecified PLAN: Blood cultures pending from ER. C.diff PCR positive with negative toxin. Suspected colonization with improving diarrhea. If hypotension continues to be a concern, consider empiric treatment for C.diff if clinical status does not stabilize. Monitor response to IV fluid. Questionable acute complicated UTI, on empiric IV ceftriaxone, pending UCx PLAN: Plan DVT prophylaxis: Risk of DVT in hospitalized UC patients, especially during a flare, are at substantially increased risk compared to the general population. Given elevated risk both ACG and AHA recommend thromboprophylaxis for all hospitalized patients with active UC, regardless of age or Aj score. Given mild iron deficiency anemia, recommend SCDs while bed. 01/26/25 1847 Cosigner Signature (if applicable): CC: Dr. Deya Chavez MD~ Signed [facility]07-08-2025 Progress note Author Agustín Friend [facility] Note Date/Time January 26, 2025 7:09p m [facility] Medical Records Department [address] [place] [address] Progress Note 01/26/25 1859 MR#: [id number] Acct: [id number] Name: JUDITH HURLEY Rep #:[id number] : 2005 19 From: Agustín Gonzalez DO PCP: Dr. Deya Chavez MD Status:ADM I N Location: [place] [address] Progress Note 19-year-old female admitted with an acute exacerbation of Ulcerative Colitis, experiencing increased diarrhea, abdominal pain, and rectal bleeding. She is currently on her menstrual cycle. * Patient reports experiencing increased frequency of watery, bloody diarrhea over the past week, now averaging 8-10 bowel movements per day. Notes significant urgency and tenesmus. Denies fever initially, but reports feeling weak and fatigued. Reports abdominal cramping and diffuse tenderness, most pronounced in the lower left quadrant. Has had decreased appetite and un intentional weight loss. Currently experiencing joint pain in her knees and ankles. * Past Medical History (PMH):?Diagnosed with Ulcerative Colitis at age 16. Previous flares managed with oral budesonide and intermittent corticosteroid courses. No prior hospitalizations for UC. * Medications:?Oral mesalamine, dosage as prescribed. * Allergies:?None reported. * Social History:?Denies smoking, alcohol, or illicit drug use. Lives at home with parents. Reports stress from home and social activities, which she feels may worsen her symptoms. * Review of Systems (ROS): * Constitutional:?Fatigue, weight loss. * Gastrointestinal:?Diarrhea, blood and mucus in stool, abdominal pain/cramping, tenesmus, decreased appetite. * Musculoskeletal:?Joint pain. * Psychiatric:?Reports feeling anxious and frustrated due to the impact of UC on her daily life. * Objective: * Vital Signs:?Temperature 37.8?C, HR 98 bpm, BP 110/65 mmHg, RR 18 breaths/min, SpO2 98% on room air. * General Appearance:?Alert and oriented, appears tired and slightly pale. * Cardiovascular:?Regular heart rate and rhythm, no murmurs noted. * Respiratory:?Clear to auscultation bilaterally. * Abdomen:?Mildly distended, active bowel sounds. Tenderness to palpation in the lower left quadrant. No guarding or rebound tenderness. * Rectal Exam:?Mild tenderness, blood and mucus present in stool. * Skin:?No rashes or lesions observed. * Musculoskeletal:?Mild swelling and tenderness noted in both knees. Physical Exam Narrative Physical Examination: General: Awake, alert, oriented x 3 and cooperative, seated upright in PCU bed is MedSurg patient, no acute distress. Skin: Normal color, normal turgor, no icterus, no cyanosis. HEENT: AT/NC, EOMI, PERRLA, improved MMM. Lungs: CTA bilaterally, moderate effort, mild decrease BL bases, no rales, ronchi or wheezing. Heart: Regular rate and rhythm; no gallop, rub audible. Abdomen: Soft, NTTP, ND, mildly hyperactive BS. Extremities: No cyanosis, clubbing, or edema. Neurological: Patient awake, alert, oriented as noted, cognitive function intact; pupils equally reactive to light and accommodation, cranial nerves grossly normal, moving all 4 extremities, no focal deficits, strength mildly globally creased. Psychiatric: Affect appears fatigued otherwise normal, no acute evidence of depressive or anxiety feelings. Assessment & Plan Assessment/Plan (1) Iron deficiency anemia: QUALIFIERS: Iron deficiency anemia type: other iron deficiency Qualified Code(s): D50.8 - Other iron deficiency anemias (2) Ulcerative colitis, acute: QUALIFIERS: Digestive disease complication type: unspecified complication Qualified Code(s): K51.919 - Ulcerative colitis, unspecified with unspecified complications (3) Fever: (4) Ulcerative colitis, rectosigmoid: (5) Erythema nodosum: (6) Hypotension: QUALIFIERS: Hypotension type: unspecified hypotension type Qualified Code(s): I95.9 - Hypotension, unspecified PLAN: Assessment: * 19-year-old female with Ulcerative Colitis, currently experiencing a xaptjhyn-ez-lxxaro flare. * Symptoms include frequent bloody diarrhea, abdominal pain, weight loss, and extra-intestinal manifestations (arthralgia). * Patient requires hospitalization for disease management, control of inflammation, hydration, and nutritional support. Plan: * Medications: * Initiate IV corticosteroids (e.g., methylprednisolone) to reduce inflammation. * Continue oral mesalamine. * Administer intravenous fluids and electrolytes to manage dehydration. * I talk with the patient and patient's mom for a long time she says that she has Humira at home and she missed 1 dose. * Monitoring: * Daily assessment of stool frequency, consistency, and presence of blood. * Monitor vital signs, especially temperature, heart rate, and blood pressure. * Assess for abdominal distension or worsening tenderness, which could indicate complications like toxic megacolon. Clinically she is not showing any signs of toxic megacolon. * Monitor inflammatory markers (CRP). * Check IBD SGI, check adalimumab levels and check ANCA check ,KUSHAL, check food allergy panel * Nutrition: * Consult with a registered dietitian for nutritional assessment and recommendations as an outpatient * Consider a low-fiber diet to reduce gut irritation during the flare. * Pain Management:?Administer pain medication as ordered (avoiding NSAIDs). She does not have any pain at this time. * Follow-up:?Arrange for follow-up with the gastroenterology team if patient decides to switch to [facility]. She was encouraged to follow-up with Dr. Rodriguez. Visit Charges Inpatient E&M: 42103 Subs Hosp L3 01/26/25 190 <Electronically signed by Agustín Gonzalez DO> Agustín Gonzalez DO Cosigner Signature (if applicable): CC: ~ Signed [facility] Work Phone: 1(558) 248-246907-08-2025 Progress note [facility] Medical Records Department [address] [place] [address] Progress Note 01/26/25 185 MR#: [id number] Acct: [id number] Name: JUDITH HURLEY Rep #:[id number] 5 : 2005 19 From: Agustín Gonzalez DO PCP: Dr. Deya Chavez MD Status:ADM I N Location: [place] [address] Progress Note 19-year-old female admitted with an acute exacerbation of Ulcerative Colitis, experiencing increased diarrhea, abdominal pain, and rectal bleeding. She is currently on her menstrual cycle. * Patient reports experiencing increased frequency of watery, bloody diarrhea over the past week, now averaging 8-10 bowel movements per day. Notes significant urgency and tenesmus. Denies fever initially, but reports feeling weak and fatigued. Reports abdominal cramping and diffuse tenderness, most pronounced in the lower left quadrant. Has had decreased appetite and un intentional weight loss. Currently experiencing joint pain in her knees and ankles. * Past Medical History (PMH):?Diagnosed with Ulcerative Colitis at age 16. Previous flares managed with oral budesonide and intermittent corticosteroid courses. No prior hospitalizations for UC. * Medications:?Oral mesalamine, dosage as prescribed. * Allergies:?None reported. * Social History:?Denies smoking, alcohol, or illicit drug use. Lives at home with parents. Reportsstress from home and social activities, which she feels may worsen her symptoms. * Review of Systems (ROS): * Constitutional:?Fatigue, weight loss. * Gastrointestinal:?Diarrhea, blood and mucus in stool, abdominal pain/cramping, tenesmus, decreased appetite. * Musculoskeletal:?Joint pain. * Psychiatric:?Reports feeling anxious and frustrated due to the impact of UC on her daily life. * Objective: * Vital Signs:?Temperature 37.8?C, HR 98 bpm, BP 110/65 mmHg, RR 18 breaths/min, SpO2 98% on room air. * General Appearance:?Alert and oriented, appears tired and slightly pale. * Cardiovascular:?Regular heart rate and rhythm, no murmurs noted. * Respiratory:?Clear to auscultation bilaterally. * Abdomen:?Mildly distended, active bowel sounds. Tenderness to palpation in the lower left quadrant. No guarding or rebound tenderness. * Rectal Exam:?Mild tenderness, blood and mucus present in stool. * Skin:?No rashes or lesions observed. * Musculoskeletal:?Mild swelling and tenderness noted in both knees. Physical Exam Narrative Physical Examination: General: Awake, alert, oriented x 3 and cooperative, seated upright in PCU bed is MedSurg patient, no acute distress. Skin: Normal color, normal turgor, no icterus, no cyanosis. HEENT: AT/NC, EOMI, PERRLA, improved MMM. Lungs: CTA bilaterally, moderate effort, mild decrease BL bases, no rales, ronchi or wheezing. Heart: Regular rate and rhythm; no gallop, rub audible. Abdomen: Soft, NTTP, ND, mildly hyperactive BS. Extremities: No cyanosis, clubbing, or edema. Neurological: Patient awake, alert, oriented as noted, cognitive function intact; pupils equally reactive to light and accommodation, cranial nerves grossly normal, moving all 4 extremities, no focaldeficits, strength mildly globally creased. Psychiatric: Affect appears fatigued otherwise normal, no acute evidence of depressive or anxiety feelings. Assessment & Plan Assessment/Plan (1) Iron deficiency anemia: QUALIFIERS: Iron deficiency anemia type: other iron deficiency Qualified Code(s): D50.8 - Other iron deficiency anemias (2) Ulcerative colitis, acute: QUALIFIERS: Digestive disease complication type: unspecified complication Qualified Code(s): K51.919 - Ulcerative colitis, unspecified with unspecified complications (3) Fever: (4) Ulcerative colitis, rectosigmoid: (5) Erythema nodosum: (6) Hypotension: QUALIFIERS: Hypotension type: unspecified hypotension type Qualified Code(s): I95.9 - Hypotension, unspecified PLAN: Assessment: * 19-year-old female with Ulcerative Colitis, currently experiencing a ejvodiza-nf-tefjhv flare. * Symptoms include frequent bloody diarrhea, abdominal pain, weight loss, and extra-intestinal manifestations (arthralgia). * Patient requires hospitalization for disease management, control of inflammation, hydration, and nutritional support. Plan: * Medications: * Initiate IV corticosteroids (e.g., methylprednisolone) to reduce inflammation. * Continue oral mesalamine. * Administer intravenous fluids and electrolytes to manage dehydration. * I talk with the patient and patient's mom for a long time she says that she has Humira at home and she missed 1 dose. * Monitoring: * Daily assessment of stool frequency, consistency, and presence of blood. * Monitor vital signs, especially temperature, heart rate, and blood pressure. * Assess for abdominal distension or worsening tenderness, which could indicate complications like toxic megacolon. Clinically she is not showing any signs of toxic megacolon. * Monitor inflammatory markers (CRP). * Check IBD SGI, check adalimumab levels and check ANCA check ,KUSHAL, check food allergy panel * Nutrition: * Consult with a registered dietitian for nutritional assessment and recommendations as an outpatient * Consider a low-fiber diet to reduce gut irritation during the flare. * Pain Management:?Administer pain medication as ordered (avoiding NSAIDs). She does not have any pain at this time. * Follow-up:?Arrange for follow-up with the gastroenterology team if patient decides to switch to [facility]. She was encouraged to follow- up with Dr. Rodriguez. Visit Charges Inpatient E&M: 80617 [facility] Hosp 01/26/250 [facility] Friend DO Lugo Signature (if applicable): CC: ~ Signed [facility]07-08-2025 Progress note Author Nikki Harrell [facility] Note Date/Time January 26, 2025 2:38p m [facility] Medical Records Department [address] [place] [address] Progress Note - Hospitalist 01/26/25 0725 MR#: [id number] Acct: [id number] Name: JUDITH HURLEY Rep #:[id number] : 2005 19 From: Nikki Harrell MD PCP: Dr. Deya Chavez MD Status:ADM I N Location: [place] [address] Reason for Visit Reason for Visit: Diagnoses Ulcerative colitis, unspecified, without complications (01/26/25) Subjective Subjective Patient notes clinical improvement since initial ED arrival with resolved abdominal pain, no recent diarrhea and toleration of diet. Discussed plan of care which included continued IV steroids and evaluation with gastroenterology. She notes when she was having more loose stools she denied any hematochezia or bloody stools. Patient denies fevers, chills, nausea, emesis, abdominal pain, chest pain or dyspnea. Objective Data Objective Data Vital Signs: Vital Signs Temp Pulse Resp BP Pulse Ox O2 Del Method 97.7 F L 76 16 93/65 98 Room Air 01/26/25 05:00 01/26/25 05:00 01/26/25 05:00 01/26/25 05:00 01/26/25 05:00 01/26/25 05:00 Oxygen Delivery Method Room Air Weight: 121 lb 4.068 oz Body Mass Index (BMI) 21.4 Intake & Output: Intake and Output for Last 24 Hours 01/24/25 01/25/25 01/26/25 23:59 23:59 23:59 Intake Total 1600 / 1600 Balance 1600 / 1600 Lab / Micro Data 01/26/25 03:37 01/26/25 03:37 Labs: Laboratory Results - last 24 hr 01/25/25 21:50: WBC 12.1 H, RBC 3.74 L, Hgb 10.3 L, Hct 31.9 L, MCV 85.3, MCH 27.5, MCHC 32.3, RDW Std Deviation 42.0, RDW Coeff of Lokesh 13.7, Plt Count 456 H,MPV 9.3, Immature Gran % (Auto) 0.600, Neut % (Auto) 75.5 H, Lymph % (Auto) 11.8L, Prairie % (Auto) 10.7 H, Eos % (Auto) 1.0, Baso % (Auto) 0.4, Absolute Neuts (auto) 9.2 H, Absolute Lymphs (auto) 1.43, Nucleated RBC % 0, PT 13.0, INR 1.0, APTT 26.7, Sodium 136, Potassium 3.6, Chloride 104, Carbon Dioxide 19.3 L, AnionGap 12, BUN 13, Creatinine 0.86, Estim Creat Clear Calc 87.04, Est GFR (MDRD) Non-Af 99, BUN/Creatinine Ratio 14.6, Glucose 126 H, Lactic Acid < 1.0, Calcium 8.6, Iron 11 L, TIBC 223 L, Iron Saturation 4.9 L, Unsaturated IBC 212 L, Ferritin 104, Total Bilirubin 0.16, AST 18, ALT 8, Alkaline Phosphatase 81, Total Protein 6.6, Albumin 3.4 L, Globulin 3.2, Albumin/Globulin Ratio 1.0, Vitamin B12 2622 H 01/25/25 23:26: Urine Color SEE COMMENT BELOW, Urine Clarity Sl. Cloudy, Urine pH 6.5, Ur Specific Aldrich 1.005, Urine Protein 30 H, Urine Glucose (UA) Normal, Urine Ketones Negative, Urine Occult Blood 250 H, Urine Nitrite Negative, Urine Bilirubin Negative, Urine Urobilinogen Normal, Ur Leukocyte Esterase 500 H, Urine RBC 10- 25 SEEN, Urine WBC 10-25 SEEN, Ur Squamous Epith Cells 5-10 SEEN, Urine Bacteria 3+, Urine Mucus 0 SEEN 01/26/25 03:37: WBC 15.0 H, RBC 3.54 L, Hgb 9.9 L, Hct 30.5 L, MCV 86.2, MCH 28.0, MCHC 32.5, RDW Std Deviation 42.3, RDW Coeff of Lokesh 13.6, Plt Count 385, MPV 9.5, Sodium 139, Potassium 4.2, Chloride 109 H, Carbon Dioxide 20.3 L, AnionGap 10, BUN 8, Creatinine 0.67 L, Estim Creat Clear Calc 111.72, Est GFR (MDRD) Non-Af 129, BUN/Creatinine Ratio 12.4, Glucose 170 H, Calcium 8.5 Micro: Microbiology 01/25/25 21:45 Mucosa - Nose SARS-CoV-2, Influenza & RSV (PCR) - Final Radiography Diagnostic Testing: Radiology Impression Chest X-Ray 01/25/25 22:30 IMPRESSION: No acute pulmonary disease. Reading Location: [id number] Abdomen/Pelvis CT 01/25/25 22:37 IMPRESSION: Diffuse rectal and colonic wall thickening and enhancement with prominent isael-rectal, ileocolic and mesenteric lymph nodes, possibly inflammatory (colitis). Advise clinical correlation. Mild gastric wall thickening, possibly gastritis. Advise clinical correlation. Reading Location: [place] [address] Physical Exam Narrative Physical Examination: General: Awake, alert, oriented x 3 and cooperative, seated upright in PCU bed is MedSurg patient, no acute distress. Skin: Normal color, normal turgor, no icterus, no cyanosis. HEENT: AT/NC, EOMI, PERRLA, improved MMM. Lungs: CTA bilaterally, moderate effort, mild decrease BL bases, no rales, ronchi or wheezing. Heart: Regular rate and rhythm; no gallop, rub audible. Abdomen: Soft, NTTP, ND, mildly hyperactive BS. Extremities: No cyanosis, clubbing, or edema. Neurological: Patient awake, alert, oriented as noted, cognitive function intact; pupils equally reactive to light and accommodation, cranial nerves grossly normal, moving all 4 extremities, no focal deficits, strength mildly globally creased. Psychiatric: Affect appears fatigued otherwise normal, no acute evidence of depressive or anxiety feelings. Assessment & Plan Assessment/Plan (1) Ulcerative colitis, acute: PLAN: Plan The patient is an 19 y/o F w/ PMHx: Ulcerative colitis, Chronic anemia who presents to the [facility] ED on 01/26/25 with history of significant persistent diarrhea as well as fevers noted to be on Humira monthly with history of previous mild UC flares however never as severe as her current presentation with worsening loose stools for the last 5 days with some mucus in the stools and minimal blood with nausea without emesis prompting eventual ED evaluation. #1. Acute exacerbation ulcerative colitis with associated mild hematochezia: Patient admitted to medical surgical floor, initiated on Solu-Medrol 20 mg IV every 8, will continue to trend CBC, pain regimen and antiemetic regimen as needed, currently on clear liquids, GI consulted and evaluation pending. #2. Chronic normocytic anemia: Admission hemoglobin 10.3, MCV 85, unclear exactbaseline, repeat 01/27/2020 5 AM hemoglobin 9.9, MCV 86.2, given acute presentation #1 some concerns about associated mild blood loss, vitamin B12 2622, iron 11, TIBC 223, iron saturation 4.9%, unsaturated IBC 212, ferritin 104, will transfusion of iron 200 mg IV daily x 3 days with then transition to oral regimen following, will continue to trend CBC. #3. Questionable acute complicated urinary tract infection: UA with positive leukocyte esterase, 10-25 urine WBCs and 3+ bacteria, no marked history of dysuria however initiated with empiric IV Rocephin, will continue pending urine culture. #4. Hyperglycemia with no diabetic history: Admission glucose initially 126, repeat 170, ongoing steroid treatments with no previous diabetic history, will obtain hemoglobin C be cautious but low suspicion. #5. DVT prophylaxis: Low risk, encourage ambulation. Charges/Coding Procedures Hospitalists Procedures: Other Procedure - See Report (Billing Code: 63697, nonbillable, admitted same day.) 01/26/25 1438 <Electronically signed by Nikki Harrell MD> Cosigner Signature (if applicable): CC: ~ Signed [facility] Work Phone: 1(205) 277-375507-08-2025 Progress note [facility] Medical Records Department [address] [place] [address] Progress Note - Hospitalist 01/26/25 0725 MR#: [id number] Acct: [id number] Name: JUDITH HURLEY Rep #:[id number] : 2005 19 From: Nikki Harrell MD PCP: Dr. Deya Chavez MD Status:ADM I N Location: [place] [address] Reason for Visit Reason for Visit: Diagnoses Ulcerative colitis, unspecified, without complications (01/26/25) Subjective Subjective Patient notes clinical improvement since initial ED arrival with resolved abdominal pain, no recentdiarrhea and toleration of diet. Discussed plan of care which included continued IV steroids and evaluation with gastroenterology. She notes when she was having more loose stools she denied any hematochezia or bloody stools. Patient denies fevers, chills, nausea, emesis, abdominal pain, chest pain or dyspnea. Objective Data Objective Data Vital Signs: Vital Signs Temp Pulse Resp BP Pulse Ox O2 Del Method 97.7 F L 76 16 93/65 98 Room Air 01/26/25 05:00 01/26/25 05:00 01/26/25 05:00 01/26/25 05:00 01/26/25 05:00 01/26/25 05:00 Oxygen Delivery Method Room Air Weight: 121 lb 4.068 oz Body Mass Index (BMI) 21.4 Intake & Output: Intake and Output for Last 24 Hours 01/24/25 01/25/25 01/26/25 23:59 23:59 23:59 Intake Total 1600 / 1600 Balance 1600 / 1600 Lab / Micro Data 01/26/25 03:37 01/26/25 03:37 Labs: Laboratory Results - last 24 hr 01/25/25 21:50: WBC 12.1 H, RBC 3.74 L, Hgb 10.3 L, Hct 31.9 L, MCV 85.3, MCH 27.5, MCHC 32.3, RDW Std Deviation 42.0, RDW Coeff of Lokesh 13.7, Plt Count 456 H,MPV 9.3, Immature Gran % (Auto) 0.600, Neut % (Auto) 75.5 H, Lymph % (Auto) 11.8L, Prairie % (Auto) 10.7 H, Eos % (Auto) 1.0, Baso % (Auto) 0.4,Absolute Neuts (auto) 9.2 H, Absolute Lymphs (auto) 1.43, Nucleated RBC % 0, PT 13.0, INR 1.0, APTT26.7, Sodium 136, Potassium 3.6, Chloride 104, Carbon Dioxide 19.3 L, AnionGap 12, BUN 13, Creatinine 0.86, Estim Creat Clear Calc 87.04, Est GFR (MDRD) Non-Af 99, BUN/Creatinine Ratio 14.6, Glucose 126 H, Lactic Acid < 1.0, Calcium 8.6, Iron 11 L, TIBC 223 L, Iron Saturation 4.9 L, Unsaturated IBC 212 L, Ferritin 104, Total Bilirubin 0.16, AST 18, ALT 8, Alkaline Phosphatase 81, Total Protein6.6, Albumin 3.4 L, Globulin 3.2, Albumin/Globulin Ratio 1.0, Vitamin B12 2622 H 01/25/25 23:26: Urine Color SEE COMMENT BELOW, Urine Clarity Sl. Cloudy, Urine pH 6.5, Ur Specific Aldrich 1.005, Urine Protein 30 H, Urine Glucose (UA) Normal, Urine Ketones Negative, Urine Occult Blood 250 H, Urine Nitrite Negative, Urine Bilirubin Negative, Urine Urobilinogen Normal, Ur Leukocyte Esterase 500 H, Urine RBC 10-25 SEEN, Urine WBC 10-25 SEEN, Ur Squamous Epith Cells 5-10 SEEN, Urine Bacteria 3+, Urine Mucus 0 SEEN 01/26/25 03:37: WBC 15.0 H, RBC 3.54 L, Hgb 9.9 L, Hct 30.5 L, MCV 86.2, MCH 28.0, MCHC 32.5, RDW Std Deviation 42.3, RDW Coeff of Lokesh 13.6, Plt Count 385, MPV 9.5, Sodium 139, Potassium 4.2, Chloride 109 H, Carbon Dioxide 20.3 L, AnionGap 10, BUN 8, Creatinine 0.67 L, Estim Creat Clear Calc 111.72, Est GFR (MDRD) Non-Af 129, BUN/Creatinine Ratio 12.4, Glucose 170 H, Calcium 8.5 Micro: Microbiology 01/25/25 21:45 Mucosa - Nose SARS-CoV-2, Influenza & RSV (PCR) - Final Radiography Diagnostic Testing: Radiology Impression Chest X-Ray 01/25/25 22:30 IMPRESSION: No acute pulmonary disease. Reading Location: [facility] Abdomen/Pelvis CT 01/25/25 22:37 IMPRESSION: Diffuse rectal and colonic wall thickening and enhancement with prominent isael- rectal, ileocolic and mesenteric lymph nodes, possibly inflammatory (colitis). Advise clinical correlation. Mild gastric wall thickening, possibly gastritis. Advise clinical correlation. Reading Location: [place] [address] Physical Exam Narrative Physical Examination: General: Awake, alert, oriented x 3 and cooperative, seated upright in PCU bed is MedSur patient, no acute distress. Skin: Normal color, normal turgor, no icterus, no cyanosis. HEENT: AT/NC, EOMI, PERRLA, improved MMM. Lungs: CTA bilaterally, moderate effort, mild decrease BL bases, no rales, ronchi or wheezing. Heart: Regular rate and rhythm; no gallop, rub audible. Abdomen: Soft, NTTP, ND, mildly hyperactive BS. Extremities: No cyanosis, clubbing, or edema. Neurological: Patient awake, alert, oriented as noted, cognitive function intact; pupils equally reactive to light and accommodation, cranial nerves grossly normal, moving all 4 extremities, no focaldeficits, strength mildly globally creased. Psychiatric: Affect appears fatigued otherwise normal, no acute evidence of depressive or anxiety feelings. Assessment & Plan Assessment/Plan (1) Ulcerative colitis, acute: PLAN: Plan The patient is an 19 y/o F w/ PMHx: Ulcerative colitis, Chronic anemia who presents to the [facility] ED on 01/26/25 with history of significant persistent diarrhea as well as fevers noted to be on Humira monthly with history of previous mild UC flares however never as severe as her current presentation with worsening loose stools for the last 5 days with some mucus in the stools and minimal blood with nausea without emesis prompting eventual ED evaluation. #1. Acute exacerbation ulcerative colitis with associated mild hematochezia: Patient admitted to medical surgical floor, initiated on Solu-Medrol 20 mg IV every 8, will continue to trend CBC, pain regimen and antiemetic regimen as needed, currently on clear liquids, GI consulted and evaluation pending. #2. Chronic normocytic anemia: Admission hemoglobin 10.3, MCV 85, unclear exactbaseline, repeat 01/27/2020 5 AM hemoglobin 9.9, MCV 86.2, given acute presentation #1 some concerns about associated mildblood loss, vitamin B12 2622, iron 11, TIBC 223, iron saturation 4.9%, unsaturated IBC 212, ferritin 104, will transfusion of iron 200 mg IV daily x 3 days with then transition to oral regimen following, will continue to trend CBC. #3. Questionable acute complicated urinary tract infection: UA with positive leukocyte esterase, 10-25 urine WBCs and 3+ bacteria, no marked history of dysuria however initiated with empiric IV Rocephin, will continue pending urine culture. #4. Hyperglycemia with no diabetic history: Admission glucose initially 126, repeat 170, ongoing steroid treatments with no previous diabetic history, will obtain hemoglobin C be cautious but low suspicion. #5. DVT prophylaxis: Low risk, encourage ambulation. Charges/Coding Procedures Hospitalists Procedures: Other Procedure - See Report (Billing Code: [id number], nonbillable, admitted same day.) 01/26/25 1438 Cosigner Signature (if applicable): CC: ~ Signed [facility]07-08-2025 History and physical note Author Tj Pritchardromán [facility] Note Date/Time January 26, 2025 2:15a m [facility] Medical Records Department [address] [place] [address] H&P Exam - Hospitalist 01/26/25 0018 MR#: [id number] Acct: [id number] Name: JUDITH HURLEY Rep #:[id number] : 2005 19 From: Tj rodas DO PCP: Dr. Deya Chavez MD Status:ADM I N Location: [place] [address] HPI - General General Date of Admission: 01/26/25 Date of Service: 01/26/25 Chief Complaint: Diarrhea and fevers HPI Narrative JUDITH HURLEY, is a 19 F who presented to [facility] ED on 01/26/2025 with diarrhea and fevers. Medical history significant for ulcerative colitis. She was diagnosed 3 years ago and follows with Dr. Artis. She is currently on Humira monthly. Has history of mild UC flares but has not had a flare like this since her initial diagnosis. She has had worsening diarrhea forthe past 5 days. There has been some mucus in the diarrhea but minimal blood. She has also had a fever over the past few days now without chills. She does report some nausea but no vomiting. She also reports arthralgias in multiple joints. Vitals in the ED notable for temp 102.8 F, sinus tachycardia to the 120s, BP in the 90s over 50s, otherwise stable on room air. Labs notable for mild leukocytosis with WBC count of 12 and hemoglobin 10.3. BMP was benign. UAinfectious appearing with 500 leukocyte esterase, negative nitrates but 3+ bacteria. CT abdomen pelvis showed diffuse rectal and colonic wall thickening and enhancement with prominent perirectal, ileocolic and mesenteric lymph nodes,along with mild gastric wall thickening. Patient was given IV fluids and a doseof IV Solu-Medrol, and hospitalist was contacted for admission. I saw the patient at bedside in the ED, mom and dad were present. Patient was laying backcomfortably in bed, conversing normally, in no acute distress. She denied any current abdominal pain or discomfort. Has not had a bowel movement since arriving to the ED. Did feel dry and stated the IV fluids were somewhat helpfulfor this. No other acute concerns currently. Will be admitted for further management. [facility] Medical History Ulcerative colitis Home Medications ?Medication ?Instructions ?Recorded ?Last Taken ?Type Unobtainable 01/25/25 Unknown History Allergy/AdvReac Type Severity Reaction Status Date / Time morphine Allergy Hives Verified 01/25/25 21:35 prednisone AdvReac can't take Verified 01/25/25 21:35 due to ulcerative colitis Family History no significant family his Surgical History Hx of tonsillectomy Social History (Updated 01/26/25 @ 00:[address] Speedy Amor MD) household members: family Smoking Status: Never smoker ROS Constitutional Constitutional: Reports fatigue and fever(s); Denies chills or weakness Eyes Eyes: Denies change in vision Cardiovascular Cardiovascular: Denies chest pain Respiratory/Chest Respiratory/Chest: Denies shortness of breath at rest Gastrointestinal Gastrointestinal: Reports diarrhea and nausea; Denies abdominal pain, constipation or vomiting Genitourinary Genitourinary: Denies dysuria Musculoskeletal Musculoskeletal: Denies arthralgias or myalgias Neurologic Neurologic: Denies dizziness, focal weakness or headache(s) Vital Signs Vital Signs Vital Signs: 01/25/25 21:32 01/25/25 21:59 01/25/25 21:59 Temperature 102.8 F H 100.2 F H Temperature Source Oral Oral Pulse Rate 142 H 115 H Respiratory Rate 18 20 H Respiratory Effort Normal Respiratory Pattern Normal Blood Pressure 97/54 L 106/66 Blood Pressure Mean 68 79 Pulse Ox 98 100 Oxygen Delivery Method Room Air Room Air 01/25/25 21:59 01/25/25 21:59 01/25/25 21:59 Temperature Temperature Source Pulse Rate 112 H Respiratory Rate 20 H Respiratory Effort Respiratory Pattern Blood Pressure 106/66 Blood Pressure Mean 79 Pulse Ox 100 100 Oxygen Delivery Method Room Air Room Air Room Air 01/25/25 22:34 01/25/25 23:00 01/26/25 00:00 Temperature 100.2 F H 99.4 F H 99.4 F H Temperature Source Oral Oral Oral Pulse Rate 114 H 103 H 115 H Respiratory Rate 23 H 20 H 18 Respiratory Effort Respiratory Pattern Blood Pressure 99/56 L 95/53 L 95/54 L Blood Pressure Mean 70 67 67 Pulse Ox 100 100 99 Oxygen Delivery Method Room Air Room Air Room Air Weight Weight: 55.52 kg Body Mass Index (BMI) 21.7 Physical Exam Const alert, oriented x3, no apparent distress, average body habitus, healthy appearing and well nourished Constitutional Narrative: Pleasant young female, sitting back comfortably in bed, conversing normally, in no acute distress. General Appearance: cooperative, comfortable, well kempt and well developed HEENT normocephalic, head/scalp atraumatic, hearing grossly normal bilaterally and nasal mucous membranes and turbinates normal HEENT Narrative: Dry mucous membranes. Eyes PERRL, EOMs intact bilaterally and conjunctivae normal Neck full ROM Chest inspection of chest normal Resp normal respiratory effort, normal air movement, no use of accessory muscles and clear to auscultation bilaterally Cardio no murmurs and peripheral pulses 2+ throughout Cardio Narrative: Tachycardic, regular rhythm. GI GI Narrative: Mild diffuse tenderness to palpation but otherwise soft and nondistended. Back/Spine normal ROM Extremity normal to inspection, full ROM and no pedal edema Skin Skin Narrative: Erythema nodosum noted on lower extremities. Psych mental status grossly normal Results Lab / Micro Data 01/25/25 21:50 01/25/25 21:50 Labs: Laboratory Results - last 24 hr 01/25/25 21:50: WBC 12.1 H, RBC 3.74 L, Hgb 10.3 L, Hct 31.9 L, MCV 85.3, MCH 27.5, MCHC 32.3, RDW Std Deviation 42.0, RDW Coeff of Lokesh 13.7, Plt Count 456 H,MPV 9.3, Immature Gran % (Auto) 0.600, Neut % (Auto) 75.5 H, Lymph % (Auto) 11.8L, Prairie % (Auto) 10.7 H, Eos % (Auto) 1.0, Baso % (Auto) 0.4, Absolute Neuts (auto) 9.2 H, Absolute Lymphs (auto) 1.43, Nucleated RBC % 0, PT 13.0, INR 1.0, APTT 26.7, Sodium 136, Potassium 3.6, Chloride 104, Carbon Dioxide 19.3 L, AnionGap 12, BUN 13, Creatinine 0.86, Estim Creat Clear Calc 87.04, Est GFR (MDRD) Non-Af 99, BUN/Creatinine Ratio 14.6, Glucose 126 H, Lactic Acid < 1.0, Calcium 8.6, Total Bilirubin 0.16, AST 18, ALT 8, Alkaline Phosphatase 81, Total Protein6.6, Albumin 3.4 L, Globulin 3.2, Albumin/Globulin Ratio 1.0 01/25/25 23:26: Urine Color SEE COMMENT BELOW, Urine Clarity Sl. Cloudy, Urine pH 6.5, Ur Specific Aldrich 1.005, Urine Protein 30 H, Urine Glucose (UA) Normal, Urine Ketones Negative, Urine Occult Blood 250 H, Urine Nitrite Negative, Urine Bilirubin Negative, Urine Urobilinogen Normal, Ur Leukocyte Esterase 500 H Micro: Microbiology 01/25/25 21:45 Mucosa - Nose SARS-CoV-2, Influenza & RSV (PCR) - Final Imaging Radiology Impression Chest X-Ray 01/25/25 22:30 IMPRESSION: No acute pulmonary disease. Reading Location: [facility] Abdomen/Pelvis CT 01/25/25 22:37 IMPRESSION: Diffuse rectal and colonic wall thickening and enhancement with prominent isael-rectal, ileocolic and mesenteric lymph nodes, possibly inflammatory (colitis). Advise clinical correlation. Mild gastric wall thickening, possibly gastritis. Advise clinical correlation. Reading Location: [place] [address] Assessment & Plan Assessment/Plan (1) Ulcerative colitis, acute: PLAN: Plan Patient is a 19-year-old female who presented to [facility] ED on 01/26/2025 with diarrhea and fevers. 1. Acute ulcerative colitis flare ? Admit under inpatient status to [facility]. GI consulted. Patient diagnosed with UC in 2021, follows with Dr. Artis. On Humsydni every 4 weeks. History ofmild UC flares but no significant flares like this since diagnosis. CT abdomen pelvis showed diffuse rectal and colonic wall thickening and enhancement with prominent perirectal, ileocolic and mesenteric lymph nodes, along with mild gastric wall thickening. Febrile, mild hypotension to the 90s over 50s and tachycardic to the 110s on admission. Given 2 L of IV fluids and will run maintenance IV fluids for now as well. Okay for clear liquid diet. Stool PCR panel ordered. Given dose of IV Solu- Medrol 125 mg in the ED; will treat with IV Solu-Medrol 20 mg every 8 hours for now, appreciate further GI recommendations. 2. Concern for UTI ? UA infectious appearing with 500 leukocyte esterase, 10-25 WBCs and 3+ bacteria. Patient denies dysuria but will empirically treat with IV ceftriaxonefor now. Follow-up urine culture. 3. Mild normocytic anemia ? Hemoglobin 10.3, MCV 85 on admit. Baseline unknown. Iron studies, B12 and folate ordered for further evaluation. DVT prophylaxis: Low risk, ambulate CODE STATUS: Full code, verified Expected disposition: Home, TBD Total clinical time spent by myself addressing the patient's medical issues, reviewing all the data, and collaborating with patient's care team: 55 minutes. Charges/Coding Visit Charges Inpatient E&M: 16660 Init Hosp L2 01/26/25 0215 <Electronically signed by Tj Dewey DO> Cosigner Signature (if applicable): CC: Dr. Tj Dewey DO; Dr. Deya Chavez MD~ Signed [facility] Work Phone: 1(123) 606-489007-08-2025 Discharge summary Author Speedy Amor [facility] Note Date/Time January 26, 2025 12:21 am [facility] Medical Records Department [address] [place] [address] Emergency Department Summary 01/26/25 MR#: [id number] Acct: [id number] Name: JUDITH HURLEY Rep #:[id number] : 2005 19 From: Speedy Amor MD PCP: Dr. Deya Chavez MD Status:REG E R Location: ED HPI History of Present Illness Chief Complaint: Fever Detail of Chief Complaint: Fever, arthralgias, skin lesion, increased diarrhea with mucus in blood Informant: patient and parent Onset/Context/Timing Onset: Days Context: Sudden Onset Timing: Intermittent Quality: Diarrhea worse at night Location: GI, bowel Current Severity: Moderate Maximum Severity: Severe Worsened by: At night per patient and parents Relieved by: Nothing Associated Symptoms Associated Symptoms: Fever, arthralgias, mild abdominal discomfort, rash Narrative Narrative: Patient is a 19-year-old female who is under the care of Dr. Rodriguez. Her last dose of Humira was 4 weeks ago. She has known history of ulcerative colitis. She presents with several days of increased diarrhea especially at night. She states at night she has 10 loose stools. There is mucus as well as minimal blood. She has had fever without chills. She does report nausea without vomiting. She denies urologic symptoms. She denies upper respiratory symptoms. The rash started 24 to 48 hours ago. Prior similar symptoms: No Recent [facility]ness[facility] Medical History Ulcerative colitis Home Medications ?Medication ?Instructions ?Recorded ?Last Taken ?Type Unobtainable 01/25/25 Unknown History Allergy/AdvReac Type Severity Reaction Status Date / Time morphine Allergy Hives Verified 01/25/25 21:35 prednisone AdvReac can't take Verified 01/25/25 21:35 due to ulcerative colitis Family History no significant family his Surgical History Hx of tonsillectomy Social History (Updated 01/26/25 @ 00:[address] Speedy Amor MD) household members: family Smoking Status: Never smoker ROS ROS ED Constitutional Constitutional ED: Reports fever(s) and sweats; Denies subjective Eyes Eyes: Denies blurry vision or change in vision ENT ENT ED: Denies ear pain, rhinorrhea or sore throat Cardiovascular Cardiovascular: Denies chest pain or palpitations Respiratory/Chest Respiratory/Chest: Denies cough, dyspnea or dyspnea on exertion Genitourinary Genitourinary ED: Denies dysuria or urinary frequency Musculoskeletal Musculoskeletal: Reports arthralgias; Denies back pain, myalgias or neck pain Integumentary Reports rash; Denies abscess or Abrasions Neurologic Neurologic: Reports weakness; Denies headache(s) or paresthesias Endocrine Endocrinology: Denies cold intolerance or heat intolerance Hematologic/Lymphatic Hematologic/Lymphatic: Reports systems reviewed and no addt'l complaints, exceptas documented EXAM Physical Exam Const Vital Signs: 01/25/25 21:32 01/25/25 21:59 01/25/25 21:59 Temperature 102.8 F H 100.2 F H Temperature Source Oral Oral Pulse Rate 142 H 115 H Respiratory Rate 18 20 H Respiratory Effort Normal Respiratory Pattern Normal Blood Pressure 97/54 L 106/66 Blood Pressure Mean 68 79 Pulse Ox 98 100 Oxygen Delivery Method Room Air Room Air 01/25/25 21:59 01/25/25 21:59 01/25/25 21:59 Temperature Temperature Source Pulse Rate 112 H Respiratory Rate 20 H Respiratory Effort Respiratory Pattern Blood Pressure 106/66 Blood Pressure Mean 79 Pulse Ox 100 100 Oxygen Delivery Method Room Air Room Air Room Air 01/25/25 22:34 01/25/25 23:00 01/26/25 00:00 Temperature 100.2 F H 99.4 F H 99.4 F H Temperature Source Oral Oral Oral Pulse Rate 114 H 103 H 115 H Respiratory Rate 23 H 20 H 18 Respiratory Effort Respiratory Pattern Blood Pressure 99/56 L 95/53 L 95/54 L Blood Pressure Mean 70 67 67 Pulse Ox 100 100 99 Oxygen Delivery Method Room Air Room Air Room Air Vitals are remarkable for low blood pressure. Most recent blood pressure is approximately 109 systolic. She is still tachycardic. Her fever has improved. Positive well nourished and well developed Constitutional Narrative: She appears ill but not toxic. She appears in no obvious discomfort. She appears slightly pale. General Appearance ED: well developed and NAD; Negative for cyanotic, diaphoretic or pallor HEENT Reports dry mucous membranes HEENT Narrative: Head is atraumatic normocephalic. Ears normal. Nares patent. Posterior pharynx is normal. Mouth ED: Yes dry mucous membranes Mouth: dry mucous membranes Eyes PERRL and EOMs intact bilaterally General Eye ED: Negative for pale conjunctiva or scleral icterus Neck no lymphadenopathy, supple and no JVD Chest Wall inspection of chest normal and palpation of chest normal Resp normal respiratory effort and clear to auscultation bilaterally Cardio regular rhythm, S1 normal heart sound, S2 normal heart sound and no murmurs; Negative for regular rate Rate: tachycardic GI normal to inspection, nondistended, normoactive bowel sounds and no masses; Negative for non-tender, non-distended or hepatosplenomegaly GI Narrative: Abdomen is slightly tympanitic. She has slight tenderness left lower quadrant. There is voluntary guarding not involuntary guarding. Auscultation: hyperactive bowel sounds Palpation: soft and tender LLQ Back/Spine no CVA tenderness Extremity Negative for normal to inspection Extremity Narrative: Erythema nodosum lower extremity. General Extremety ED: Yes tenderness; Negative for edema General Extremity: Negative for edema Neuro oriented x3, CN's II-XII intact bilaterally and no sensory deficits noted Sensorium / Orientation: alert Motor Exam: strength 5/5 throughout Psych mental status grossly normal Skin No no rashes or lesions noted, no wounds and skin turgor normal General Skin Exam: Negative for jaundice or pallor MDM MDM MDM Narrative Medical decision making narrative: Concern patient has a flare of ulcerative colitis. In light of the fact she hasleft lower quadrant abdominal pain fever tachycardia hypotensive we will obtain a CT of the abdomen to assess for abscess, microperforation. There are no priorrecords for review. Lab Data Attestation: I reviewed the patient's lab results. Lab results narrative: White count is elevated 12.1 thousand. There is a slight shift. Comprehensive metabolic panel is unremarkable. Lactate is normal. UA reveals a spec gravity 1.005. Macro is positive for leukoesterase occult blood negative nitrites. Labs: Laboratory Results - last 24 hr 01/25/25 01/25/25 21:50 23:26 WBC 12.1 H RBC 3.74 L Hgb 10.3 L Hct 31.9 L MCV 85.3 MCH 27.5 MCHC 32.3 RDW Std Deviation 42.0 RDW Coeff of Lokesh 13.7 Plt Count 456 H MPV 9.3 Immature Gran % (Auto) 0.600 Neut % (Auto) 75.5 H Lymph % (Auto) 11.8 L Prairie % (Auto) 10.7 H Eos % (Auto) 1.0 Baso % (Auto) 0.4 Absolute Neuts (auto) 9.2 H Absolute Lymphs (auto) 1.43 Nucleated RBC % 0 PT 13.0 INR 1.0 APTT 26.7 Sodium 136 Potassium 3.6 Chloride 104 Carbon Dioxide 19.3 L Anion Gap 12 BUN 13 Creatinine 0.86 Estim Creat Clear Calc 87.04 Est GFR (MDRD) Non-Af 99 BUN/Creatinine Ratio 14.6 Glucose 126 H Lactic Acid < 1.0 Calcium 8.6 Total Bilirubin 0.16 AST 18 ALT 8 Alkaline Phosphatase 81 Total Protein 6.6 Albumin 3.4 L Globulin 3.2 Albumin/Globulin Ratio 1.0 Urine Color SEE COMMENT BELOW Urine Clarity Sl. Cloudy Urine pH 6.5 Ur Specific Aldrich 1.005 Urine Protein 30 H Urine Glucose (UA) Normal Urine Ketones Negative Urine Occult Blood 250 H Urine Nitrite Negative Urine Bilirubin Negative Urine Urobilinogen Normal Ur Leukocyte Esterase 500 H Radiography Chest X-Ray - ED: Read by ED Physician (Chest x-ray was obtained per nurse protocol. This reveals no acute pathology. Cardiac silhouette and size normal. Lung parenchyma normal. There is no effusion noted. Osseous structures are unremarkable.) Diagnostic Testing: Clinical Impression(s) from Imaging Studies Chest X-Ray 01/25/25 22:30 IMPRESSION: No acute pulmonary disease. Reading Location: [facility] Abdomen/Pelvis CT 01/25/25 22:37 IMPRESSION: Diffuse rectal and colonic wall thickening and enhancement with prominent isael-rectal, ileocolic and mesenteric lymph nodes, possibly inflammatory (colitis). Advise clinical correlation. Mild gastric wall thickening, possibly gastritis. Advise clinical correlation. Reading Location: [place] [address] The CAT scan was reviewed radiologist. The impression was reviewed. Management Discussion w/another healthcare provider: Hospitalist (Spoke with Dr. Dewey. Patient full admit MedSur. He will consult GI.) Discharge Plan Triage Chief Complaint: Fever ED Provider: [facility] Dx/Rx/DC Orders Clinical Impression: Ulcerative colitis, rectosigmoid, Erythema nodosum, Arthralgia, Mesenteric lymphadenopathy, Sinus tachycardia, Acute hypotension, Fever Prescriptions: No Action Unobtainable Primary Care Provider: Deya Chavez Referrals: Deya Chavez MD [Primary Care Provider] - Print Language: Tunisian What to do if you have Problems For any increased pain, shortness of breath, bleeding, nausea or vomiting, chestpain, or any unexpected problems, contact your Primary Care Provider. Call [facility] ([phone]) or report to the closest Emergency Room. Call 911 if necessary. 01/26/25 0021 <Electronically signed by Speedy Amor MD> Cosigner Signature (if applicable): CC: Dr. Deya Chavez MD ~ Signed [facility] Work Phone: 1(557) 522-921607-08-2025 Evaluation note* Diagnosis Onset Date Resolution Status Admit Date Acute hypotension acute January 12:18am Arthralgia acute January 26, 2025 12:18am Erythema nodosum acute January 12:18am Fever acute January 26, 2025 12:18am Hypotension acute January 26 12:18am Iron deficiency anemia acute 2024 12:18am Leukocytosis acute January 26 12:18am Mesenteric lymphadenopathy acute January 26, 2025 12:18am Other specified abnormal fin dings of blood chemistry acute January 26 12:18am Sinus tachycardia acute January 12:18am Ulcerative colitis, acute acute January 26, 2025 12:18am Ulcerative colitis, rectosigmoid acu te January 26, 2025 12:18am [facility] Work Phone: 1(325) 160-746207-08-2025 Evaluation note* Diagnosis Onset Date Resolution Status Admit Date Erythema nodosum inactive January 12:18am Iron deficiency anemia inactive 2024 12:18am Ulcerative colitis, rectosigmoid gaye ctive January 26, 2025 12:18am Acute hypotension deleted January 12:18am Arthralgia deleted January 26, 2025 12:18am Fever deleted January 26, 2025 12:18am Hypotension deleted January 26 12:18am Leukocytosis deleted January 26 12:18am Mesenteric lymphadenopathy deleted January 26, 2025 12:18am Other specified abnormal findings of blood chemistry deleted January 26, 2025 12:18am Sinus tachycardia deleted January 12:18am Ulcerative colitis, acute deleted January 26, 2025 12:18am [facility] Work Phone: 1(245) 879-969907-08-2025 Evaluation note* Diagnosis Onset Date Resolution Status Admit Date Erythema nodosum inactive January 12:18am Iron deficiency anemia inactive 2024 12:18am Ulcerative colitis, rectosigmoid gaye ctive January 26, 2025 12:18am Acute hypotension deleted January 12:18am Arthralgia deleted January 26, 2025 12:18am Fever deleted January 26, 2025 12:18am Hypotension deleted January 26 12:18am Leukocytosis deleted January 26 12:18am Mesenteric lymphadenopathy deleted January 26, 2025 12:18am Other specified abnormal findings of blood chemistry deleted January 26, 2025 12:18am Sinus tachycardia deleted January 12:18am Ulcerative colitis, acute deleted January 26, 2025 12:18am Ulcerative colitis chronic January 202024 8:22am [facility] Work Phone: [phone] 490-815307-08-2025 History and physical note [facility] Medical Records Department [address] [place] [address] H&P Exam - Hospitalist 01/26/25 0018 MR#: [id number] Acct: [id number] Name: JUDITH HURLEY Rep #:[id number] : 2005 19 From: Tj rodas DO PCP: Dr. Deya Chavez MD Status:ADM I N Location: [place] [address] HPI - General General Date of Admission: 01/26/25 Date of Service: 01/26/25 Chief Complaint: Diarrhea and fevers HPI Narrative JUDITH HURLEY, is a 19 F who presented to [facility] ED on 01/26/2025 with diarrhea and fevers. Medical history significant for ulcerative colitis. She was diagnosed 3 years ago andfollows with Dr. Artis. She is currently on Humira monthly. Has history of mild UC flares but hasnot had a flare like this since her initial diagnosis. She has had worsening diarrhea forthe past 5days. There has been some mucus in the diarrhea but minimal blood. She has also had a fever over the past few days now without chills. She does report some nausea but no vomiting. She also reports arthralgias in multiple joints. Vitals in the ED notable for temp 102.8 F, sinus tachycardia to the 120 s, BP in the 90s over 50s, otherwise stable on room air. Labs notable for mild leukocytosis with WBC count of 12 and hemoglobin 10.3. BMP was benign. UAinfectious appearing with 500 leukocyte esterase, negative nitrates but 3+ bacteria. CT abdomen pelvis showed diffuse rectal and colonic wall thickening and enhancement with prominent perirectal, ileocolic and mesenteric lymph nodes,along with mild gastric wall thickening. Patient was given IV fluids and a doseof IV Solu-Medrol, and hospitalist was contacted for admission. I saw the patient at bedside in the ED, mom and dad were present. Patient was laying backcomfortably in bed, conversing normally, in no acute distress. She denied any current abdominal pain or discomfort. Has not had a bowel movement since arriving to the ED. Did feel dry and stated the IV fluids were somewhat helpfulfor this. No other acute concerns currently. Will beadmitted for further management. [facility] Medical History Ulcerative colitis Home Medications ?Medication ?Instructions ?Recorded ?Last Taken ?Type Unobtainable 01/25/25 Unknown History Allergy/AdvReac Type Severity Reaction Status Date / Time morphine Allergy Hives Verified 01/25/25 21:35 prednisone AdvReac can't take Verified 01/25/25 21:35 due to ulcerative colitis Family History no significant family his Surgical History Hx of tonsillectomy Social History (Updated 01/26/25 @ 00:[address] Speedy Amor MD) household members: family Smoking Status: Never smoker ROS Constitutional Constitutional: Reports fatigue and fever(s); Denies chills or weakness Eyes Eyes: Denies change in vision Cardiovascular Cardiovascular: Denies chest pain Respiratory/Chest Respiratory/Chest: Denies shortness of breath at rest Gastrointestinal Gastrointestinal: Reports diarrhea and nausea; Denies abdominal pain, constipation or vomiting Genitourinary Genitourinary: Denies dysuria Musculoskeletal Musculoskeletal: Denies arthralgias or myalgias Neurologic Neurologic: Denies dizziness, focal weakness or headache(s) Vital Signs Vital Signs Vital Signs: 01/25/25 21:32 01/25/25 21:59 01/25/25 21:59 Temperature 102.8 F H 100.2 F H Temperature Source Oral Oral Pulse Rate 142 H 115 H Respiratory Rate 18 20 H Respiratory Effort Normal Respiratory Pattern Normal Blood Pressure 97/54 L 106/66 Blood Pressure Mean 68 79 Pulse Ox 98 100 Oxygen Delivery Method Room Air Room Air 01/25/25 21:59 01/25/25 21:59 01/25/25 21:59 Temperature Temperature Source Pulse Rate 112 H Respiratory Rate 20 H Respiratory Effort Respiratory Pattern Blood Pressure 106/66 Blood Pressure Mean 79 Pulse Ox 100 100 Oxygen Delivery Method Room Air Room Air Room Air 01/25/25 22:34 01/25/25 23:00 01/26/25 00:00 Temperature 100.2 F H 99.4 F H 99.4 F H Temperature Source Oral Oral Oral Pulse Rate 114 H 103 H 115 H Respiratory Rate 23 H 20 H 18 Respiratory Effort Respiratory Pattern Blood Pressure 99/56 L 95/53 L 95/54 L Blood Pressure Mean 70 67 67 Pulse Ox 100 100 99 Oxygen Delivery Method Room Air Room Air Room Air Weight Weight: 55.52 kg Body Mass Index (BMI) 21.7 Physical Exam Const alert, oriented x3, no apparent distress, average body habitus, healthy appearing and well nourished Constitutional Narrative: Pleasant young female, sitting back comfortably in bed, conversing normally, in no acute distress. General Appearance: cooperative, comfortable, well kempt and well developed HEENT normocephalic, head/scalp atraumatic, hearing grossly normal bilaterally and nasal mucous membranesand turbinates normal HEENT Narrative: Dry mucous membranes. Eyes PERRL, EOMs intact bilaterally and conjunctivae normal Neck full ROM Chest inspection of chest normal Resp normal respiratory effort, normal air movement, no use of accessory muscles and clear to auscultation bilaterally Cardio no murmurs and peripheral pulses 2+ throughout Cardio Narrative: Tachycardic, regular rhythm. GI GI Narrative: Mild diffuse tenderness to palpation but otherwise soft and nondistended. Back/Spine normal ROM Extremity normal to inspection, full ROM and no pedal edema Skin Skin Narrative: Erythema nodosum noted on lower extremities. Psych mental status grossly normal Results Lab / Micro Data 01/25/25 21:50 01/25/25 21:50 Labs: Laboratory Results - last 24 hr 01/25/25 21:50: WBC 12.1 H, RBC 3.74 L, Hgb 10.3 L, Hct 31.9 L, MCV 85.3, MCH 27.5, MCHC 32.3, RDW Std Deviation 42.0, RDW Coeff of Lokesh 13.7, Plt Count 456 H,MPV 9.3, Immature Gran % (Auto) 0.600, Neut % (Auto) 75.5 H, Lymph % (Auto) 11.8L, Prairie % (Auto) 10.7 H, Eos % (Auto) 1.0, Baso % (Auto) 0.4,Absolute Neuts (auto) 9.2 H, Absolute Lymphs (auto) 1.43, Nucleated RBC % 0, PT 13.0, INR 1.0, APTT26.7, Sodium 136, Potassium 3.6, Chloride 104, Carbon Dioxide 19.3 L, AnionGap 12, BUN 13, Creatinine 0.86, Estim Creat Clear Calc 87.04, Est GFR (MDRD) Non-Af 99, BUN/Creatinine Ratio 14.6, Glucose 126 H, Lactic Acid < 1.0, Calcium 8.6, Total Bilirubin 0.16, AST 18, ALT 8, Alkaline Phosphatase 81, Total Protein6.6, Albumin 3.4 L, Globulin 3.2, Albumin/Globulin Ratio 1.0 01/25/25 23:26: Urine Color SEE COMMENT BELOW, Urine Clarity Sl. Cloudy, Urine pH 6.5, Ur Specific Aldrich 1.005, Urine Protein 30 H, Urine Glucose (UA) Normal, Urine Ketones Negative, Urine Occult Blood 250 H, Urine Nitrite Negative, Urine Bilirubin Negative, Urine Urobilinogen Normal, Ur Leukocyte Esterase 500 H Micro: Microbiology 01/25/25 21:45 Mucosa - Nose SARS-CoV-2, Influenza & RSV (PCR) - Final Imaging Radiology Impression Chest X-Ray 01/25/25 22:30 IMPRESSION: No acute pulmonary disease. Reading Location: [id number] Abdomen/Pelvis CT 01/25/25 22:37 IMPRESSION: Diffuse rectal and colonic wall thickening and enhancement with prominent isael- rectal, ileocolic and mesenteric lymph nodes, possibly inflammatory (colitis). Advise clinical correlation. Mild gastric wall thickening, possibly gastritis. Advise clinical correlation. Reading Location: [place] [address] Assessment & Plan Assessment/Plan (1) Ulcerative colitis, acute: PLAN: Plan Patient is a 19-year-old female who presented to [facility] ED on 01/26/2025 with diarrhea and fevers. 1. Acute ulcerative colitis flare ? Admit under inpatient status to [facility]. GI consulted. Patient diagnosed with UC in 2021, followswith Dr. Artis. On Humira every 4 weeks. History ofmild UC flares but no significant flares like this since diagnosis. CT abdomen pelvis showed diffuse rectal and colonic wall thickening and enhancement with prominent perirectal, ileocolic and mesenteric lymph nodes, along with mild gastric wall t hickening. Febrile, mild hypotension to the 90s over 50s and tachycardic to the 110s on admission. Given 2 L of IV fluids and will run maintenance IV fluids for now as well. Okay for clear liquid diet. Stool PCR panel ordered. Given dose of IV Solu-Medrol 125 mg in the ED; will treat with IV Solu-Medrol 20 mg every 8 hours for now, appreciate further GI recommendations. 2. Concern for UTI ? UA infectious appearing with 500 leukocyte esterase, 10-25 WBCs and 3+ bacteria. Patient denies dysuria but will empirically treat with IV ceftriaxonefor now. Follow-up urine culture. 3. Mild normocytic anemia ? Hemoglobin 10.3, MCV 85 on admit. Baseline unknown. Iron studies, B12 and folate ordered for further evaluation. DVT prophylaxis: Low risk, ambulate CODE STATUS: Full code, verified Expected disposition: Home, TBD Total clinical time spent by myself addressing the patient's medical issues, reviewing all the data, and collaborating with patient's care team: 55 minutes. Charges/Coding Visit Charges Inpatient E&M: 35990 Init Hosp L2 01/26/25 0215 Cosigner Signature (if applicable): CC: Dr. Tj Dewey DO; Dr. Deya Chavez MD~ Signed [facility]07-08-2025 Discharge summary [facility] Medical Records Department [address] [place] [address] Emergency Department Summary 01/26/25 MR#: [id number] Acct: [id number] Name: RAINER HURLEYIDI Rep #:[id number] : 2005 19 From: Speedy Amor MD PCP: Dr. Deya Chavez MD Status:REG E R Location: ED HPI History of Present Illness Chief Complaint: Fever Detail of Chief Complaint: Fever, arthralgias, skin lesion, increased diarrhea with mucus in blood Informant: patient and parent Onset/Context/Timing Onset: Days Context: Sudden Onset Timing: Intermittent Quality: Diarrhea worse at night Location: GI, bowel Current Severity: Moderate Maximum Severity: Severe Worsened by: At night per patient and parents Relieved by: Nothing Associated Symptoms Associated Symptoms: Fever, arthralgias, mild abdominal discomfort, rash Narrative Narrative: Patient is a 19-year-old female who is under the care of Dr. Rodriguez. Her last dose of Humira was 4 weeks ago. She has known history of ulcerative colitis. She presents with several days of increased diarrhea especially at night. She states at night she has 10 loose stools. There is mucus as well asminimal blood. She has had fever without chills. She does report nausea without vomiting. She denies urologic symptoms. She denies upper respiratory symptoms. The rash started 24 to 48 hours ago. Prior similar symptoms: No Recent Illness/Hospitalization: No PFSH PFS Medical History Ulcerative colitis Home Medications ?Medication ?Instructions ?Recorded ?Last Taken ?Type Unobtainable 01/25/25 Unknown History Allergy/AdvReac Type Severity Reaction Status Date / Time morphine Allergy Hives Verified 01/25/25 21:35 prednisone AdvReac can't take Verified 01/25/25 21:35 due to ulcerative colitis Family History no significant family his Surgical History Hx of tonsillectomy Social History (Updated 01/26/25 @ 00:[address] Speedy Amor MD) household members: family Smoking Status: Never smoker ROS ROS ED Constitutional Constitutional ED: Reports fever(s) and sweats; Denies subjective Eyes Eyes: Denies blurry vision or change in vision ENT ENT ED: Denies ear pain, rhinorrhea or sore throat Cardiovascular Cardiovascular: Denies chest pain or palpitations Respiratory/Chest Respiratory/Chest: Denies cough, dyspnea or dyspnea on exertion Genitourinary Genitourinary ED: Denies dysuria or urinary frequency Musculoskeletal Musculoskeletal: Reports arthralgias; Denies back pain, myalgias or neck pain Integumentary Reports rash; Denies abscess or Abrasions Neurologic Neurologic: Reports weakness; Denies headache(s) or paresthesias Endocrine Endocrinology: Denies cold intolerance or heat intolerance Hematologic/Lymphatic Hematologic/Lymphatic: Reports systems reviewed and no addt'l complaints, exceptas documented EXAM Physical Exam Const Vital Signs: 01/25/25 21:32 01/25/25 21:59 01/25/25 21:59 Temperature 102.8 F H 100.2 F H Temperature Source Oral Oral Pulse Rate 142 H 115 H Respiratory Rate 18 20 H Respiratory Effort Normal Respiratory Pattern Normal Blood Pressure 97/54 L 106/66 Blood Pressure Mean 68 79 Pulse Ox 98 100 Oxygen Delivery Method Room Air Room Air 01/25/25 21:59 01/25/25 21:59 01/25/25 21:59 Temperature Temperature Source Pulse Rate 112 H Respiratory Rate 20 H Respiratory Effort Respiratory Pattern Blood Pressure 106/66 Blood Pressure Mean 79 Pulse Ox 100 100 Oxygen Delivery Method Room Air Room Air Room Air 01/25/25 22:34 01/25/25 23:00 01/26/25 00:00 Temperature 100.2 F H 99.4 F H 99.4 F H Temperature Source Oral Oral Oral Pulse Rate 114 H 103 H 115 H Respiratory Rate 23 H 20 H 18 Respiratory Effort Respiratory Pattern Blood Pressure 99/56 L 95/53 L 95/54 L Blood Pressure Mean 70 67 67 Pulse Ox 100 100 99 Oxygen Delivery Method Room Air Room Air Room Air Vitals are remarkable for low blood pressure. Most recent blood pressure is approximately 109 systolic. She is still tachycardic. Her fever has improved. Positive well nourished and well developed Constitutional Narrative: She appears ill but not toxic. She appears in no obvious discomfort. She appears slightly pale. General Appearance ED: well developed and NAD; Negative for cyanotic, diaphoretic or pallor HEENT Reports dry mucous membranes HEENT Narrative: Head is atraumatic normocephalic. Ears normal. Nares patent. Posterior pharynx is normal. Mouth ED: Yes dry mucous membranes Mouth: dry mucous membranes Eyes PERRL and EOMs intact bilaterally General Eye ED: Negative for pale conjunctiva or scleral icterus Neck no lymphadenopathy, supple and no JVD Chest Wall inspection of chest normal and palpation of chest normal Resp normal respiratory effort and clear to auscultation bilaterally Cardio regular rhythm, S1 normal heart sound, S2 normal heart sound and no murmurs; Negative for regular rate Rate: tachycardic GI normal to inspection, nondistended, normoactive bowel sounds and no masses; Negative for non-tender, non-distended or hepatosplenomegaly GI Narrative: Abdomen is slightly tympanitic. She has slight tenderness left lower quadrant. There is voluntary guarding not involuntary guarding. Auscultation: hyperactive bowel sounds Palpation: soft and tender LLQ Back/Spine no CVA tenderness Extremity Negative for normal to inspection Extremity Narrative: Erythema nodosum lower extremity. General Extremety ED: Yes tenderness; Negative for edema General Extremity: Negative for edema Neuro oriented x3, CN's II-XII intact bilaterally and no sensory deficits noted Sensorium / Orientation: alert Motor Exam: strength 5/5 throughout Psych mental status grossly normal Skin No no rashes or lesions noted, no wounds and skin turgor normal General Skin Exam: Negative for jaundice or pallor MDM MDM MDM Narrative Medical decision making narrative: Concern patient has a flare of ulcerative colitis. In light of the fact she hasleft lower quadrant abdominal pain fever tachycardia hypotensive we will obtain a CT of the abdomen to assess for abscess, microperforation. There are no priorrecords for review. Lab Data Attestation: I reviewed the patient's lab results. Lab results narrative: White count is elevated 12.1 thousand. There is a slight shift. Comprehensive metabolic panel is unremarkable. Lactate is normal. UA reveals a spec gravity 1.005. Macro is positive for leukoesterase occult blood negative nitrites. Labs: Laboratory Results - last 24 hr 01/25/25 01/25/25 21:50 23:26 WBC 12.1 H RBC 3.74 L Hgb 10.3 L Hct 31.9 L MCV 85.3 MCH 27.5 MCHC 32.3 RDW Std Deviation 42.0 RDW Coeff of Lokesh 13.7 Plt Count 456 H MPV 9.3 Immature Gran % (Auto) 0.600 Neut % (Auto) 75.5 H Lymph % (Auto) 11.8 L Prairie % (Auto) 10.7 H Eos % (Auto) 1.0 Baso % (Auto) 0.4 Absolute Neuts (auto) 9.2 H Absolute Lymphs (auto) 1.43 Nucleated RBC % 0 PT 13.0 INR 1.0 APTT 26.7 Sodium 136 Potassium 3.6 Chloride 104 Carbon Dioxide 19.3 L Anion Gap 12 BUN 13 Creatinine 0.86 Estim Creat Clear Calc 87.04 Est GFR (MDRD) Non-Af 99 BUN/Creatinine Ratio 14.6 Glucose 126 H Lactic Acid < 1.0 Calcium 8.6 Total Bilirubin 0.16 AST 18 ALT 8 Alkaline Phosphatase 81 Total Protein 6.6 Albumin 3.4 L Globulin 3.2 Albumin/Globulin Ratio 1.0 Urine Color SEE COMMENT BELOW Urine Clarity Sl. Cloudy Urine pH 6.5 Ur Specific Aldrich 1.005 Urine Protein 30 H Urine Glucose (UA) Normal Urine Ketones Negative Urine Occult Blood 250 H Urine Nitrite Negative Urine Bilirubin Negative Urine Urobilinogen Normal Ur Leukocyte Esterase 500 H Radiography Chest X-Ray - ED: Read by ED Physician (Chest x-ray was obtained per nurse protocol. This reveals no acute pathology. Cardiac silhouette and size normal. Lung parenchyma normal. There is no effusion noted. Osseous structures are unremarkable.) Diagnostic Testing: Clinical Impression(s) from Imaging Studies Chest X-Ray 01/25/25 22:30 IMPRESSION: No acute pulmonary disease. Reading Location: [facility] Abdomen/Pelvis CT 01/25/25 22:37 IMPRESSION: Diffuse rectal and colonic wall thickening and enhancement with prominent isael- rectal, ileocolic and mesenteric lymph nodes, possibly inflammatory (colitis). Advise clinical correlation. Mild gastric wall thickening, possibly gastritis. Advise clinical correlation. Reading Location: [place] [address] The CAT scan was reviewed radiologist. The impression was reviewed. Management Discussion w/another healthcare provider: Hospitalist (Spoke with Dr. Dewey. Patient full admitMedSurg. He will consult GI.) Discharge Plan Triage Chief Complaint: Fever ED Provider: MtSpeedy Dx/Rx/DC Orders Clinical Impression: Ulcerative colitis, rectosigmoid, Erythema nodosum, Arthralgia, Mesenteric lymphadenopathy, Sinus tachycardia, Acute hypotension, Fever Prescriptions: No Action Unobtainable Primary Care Provider: Deya Chavez Referrals: Deya Chavez MD [Primary Care Provider] - Print Language: Tunisian What to do if you have Problems For any increased pain, shortness of breath, bleeding, nausea or vomiting, chestpain, or any unexpected problems, contact your Primary Care Provider. Call [facility] ([phone]) or report tothe closest Emergency Room. Call 911 if necessary. 01/26/25 0021 Cosigner Signature (if applicable): CC: Dr. Deya Chavez MD ~ Signed [facility]07-08-2025 Radiology Diagnostic study note [facility] Imaging Services [address] [place] [address] Abdomen/Pelvis W IV Cont ONLY MR#: [id number] Acct: [id number] Name: JUDITH HURLEY Rep #: [id number] 1 : 2005 F 19 From: Ananda Castaneda MD PCP: Dr. Deya Chavez MD Status: REG E R Study:Abdomen/Pelvis W IV Cont ONLY Date of E xam: 01/25/25 Exam# [id number] Ordering Dr: Flor Amor MD PROCEDURE: ABDOMEN/PELVIS W IV CONT ONLY 01/26/2025 REASON FOR EXAM: ABDOMINAL PAIN, DIARRHEA, FEVER, ULCERATIVE COLITI None TECHNIQUE: ABDOMEN/PELVIS W IV CONT ONLY Coronal and Sagittal reconstruction series were provided. CONTRAST: VOLUME: mL One or more dose reduction techniques were used (e.g., Automated exposure control, adjustment of the mA and/or kV according to patient size, use of iterative reconstruction technique. RADIATION DOSE SUMMARY: CTDlvol: mGy DLP: mGycm COMPARISON: none FINDINGS: Diffuse rectal and colonic wall thickening and enhancement with prominent isael- rectal, ileocolic and mesenteric lymph nodes, possibly inflammatory (colitis). Advise clinical correlation. Mild gastric wall thickening, possibly gastritis. Advise clinical correlation. The small bowel loops are unremarkable. The appendix is not identified Average sized liver showing homogenous parenchymal attenuation. No dilated intraor extra-hepatic biliary tracts. Gall bladder showing no radiodense calculi. No abnormal mural thickening. Clear surrounding fat planes with no sizeable collections. Normal appearance of the pancreas with clear surrounding fat planes. The spleen, adrenal glands, aorta and IVC are unremarkable. Both kidneys are of average size and showing smooth outline with preserved parenchymal thickness. No renal calculi. No hydronephrosis. Distension of the urinary bladder showing minimal uniform mural thickening with no obvious masses. No obvious masses related to the pelvic viscera. Physiological pelvic fluid noted No ascites or free air. No obvious pathologically enlarged lymph nodes. Scanned osseous structures show no osseous destruction. Scanned lung bases show no obvious abnormalities. CT/Abdomen/Pelvis W IV Cont ONLY IMPRESSION: Diffuse rectal and colonic wall thickening and enhancement with prominent isael- rectal, ileocolic and mesenteric lymph nodes, possibly inflammatory (colitis). Advise clinical correlation. Mild gastric wall thickening, possibly gastritis. Advise clinical correlation. Reading Location: [place] [address] CC: Dr. Speedy Amor MD; Dr. Deya Chavez MD ~ Beauty Therapist: Signed [facility]07-07-2025 Radiology Diagnostic study note [facility] Imaging Services [address] [place], [place] [id number] Chest PA and Lateral MR#: [id number] Acct: [id number] Name: JUDITH HURLEY Rep #: [id number] 1 : 2005 F 19 From: Ciro Shah MD PCP: Dr. Deya Chavez MD Status: REG E R Study:Chest PA and Lateral Date of Exam: 01/25/25 Exam# [id number] Ordering Dr: Flor Amor MD PROCEDURE: CHEST PA AND LATERAL 01/25/2025 REASON FOR EXAM: FEVER TECHNIQUE: CHEST PA AND LATERAL COMPARISON: None. FINDINGS: Lungs/Pleura: Clear. No pleural effusions. Heart/Mediastinum: Normal in size. Bones/Soft tissues: Unremarkable. RAD/Chest PA and Lateral IMPRESSION: No acute pulmonary disease. Reading Location: [facility] CC: Dr. Speedy Amor MD; Dr. Deya Chavez MD ~ Beauty Therapist: [facility]igned [facility] Author Speedy Amor [facility] Note Date/Time January 26, 2025 12:21 am [facility] Medical Records Department [address] [place] [address] Emergency Department Summary 01/26/25 MR#: [id number] Acct: [id number] Name: JUDITH HURLEY Rep #:[id number] 4 : 2005 19 From: Speedy Amor MD PCP: Dr. Deya Chavez MD Status:REG E R Location: ED HPI History of Present Illness Chief Complaint: Fever Detail of Chief Complaint: Fever, arthralgias, skin lesion, increased diarrhea with mucus in blood Informant: patient and parent Onset/Context/Timing Onset: Days Context: Sudden Onset Timing: Intermittent Quality: Diarrhea worse at night Location: GI, bowel Current Severity: Moderate Maximum Severity: Severe Worsened by: At night per patient and parents Relieved by: Nothing Associated Symptoms Associated Symptoms: Fever, arthralgias, mild abdominal discomfort, rash Narrative Narrative: Patient is a 19-year-old female who is under the care of Dr. Rodriguez. Her last dose of Humira was 4 weeks ago. She has known history of ulcerative colitis. She presents with several days of increased diarrhea especially at night. She states at night she has 10 loose stools. There is mucus as well as minimal blood. She has had fever without chills. She does report nausea without vomiting. She denies urologic symptoms. She denies upper respiratory symptoms. The rash started 24 to 48 hours ago. Prior similar symptoms: No Recent Illness/Hospitalization: No PFSH PFSH Medical History Ulcerative colitis Home Medications ?Medication ?Instructions ?Recorded ?Last Taken ?Type Unobtainable 01/25/25 Unknown History Allergy/AdvReac Type Severity Reaction Status Date / Time morphine Allergy Hives Verified 01/25/25 21:35 prednisone AdvReac can't take Verified 01/25/25 21:35 due to ulcerative colitis Family History no significant family his Surgical History Hx of tonsillectomy Social History (Updated 01/26/25 @ 00:[address] Speedy Amor MD) household members: family Smoking Status: Never smoker ROS ROS ED Constitutional Constitutional ED: Reports fever(s) and sweats; Denies subjective Eyes Eyes: Denies blurry vision or change in vision ENT ENT ED: Denies ear pain, rhinorrhea or sore throat Cardiovascular Cardiovascular: Denies chest pain or palpitations Respiratory/Chest Respiratory/Chest: Denies cough, dyspnea or dyspnea on exertion Genitourinary Genitourinary ED: Denies dysuria or urinary frequency Musculoskeletal Musculoskeletal: Reports arthralgias; Denies back pain, myalgias or neck pain Integumentary Reports rash; Denies abscess or Abrasions Neurologic Neurologic: Reports weakness; Denies headache(s) or paresthesias Endocrine Endocrinology: Denies cold intolerance or heat intolerance Hematologic/Lymphatic Hematologic/Lymphatic: Reports systems reviewed and no addt'l complaints, exceptas documented EXAM Physical Exam Const Vital Signs: 01/25/25 21:32 01/25/25 21:59 01/25/25 21:59 Temperature 102.8 F H 100.2 F H Temperature Source Oral Oral Pulse Rate 142 H 115 H Respiratory Rate 18 20 H Respiratory Effort Normal Respiratory Pattern Normal Blood Pressure 97/54 L 106/66 Blood Pressure Mean 68 79 Pulse Ox 98 100 Oxygen Delivery Method Room Air Room Air 01/25/25 21:59 01/25/25 21:59 01/25/25 21:59 Temperature Temperature Source Pulse Rate 112 H Respiratory Rate 20 H Respiratory Effort Respiratory Pattern Blood Pressure 106/66 Blood Pressure Mean 79 Pulse Ox 100 100 Oxygen Delivery Method Room Air Room Air Room Air 01/25/25 22:34 01/25/25 23:00 01/26/25 00:00 Temperature 100.2 F H 99.4 F H 99.4 F H Temperature Source Oral Oral Oral Pulse Rate 114 H 103 H 115 H Respiratory Rate 23 H 20 H 18 Respiratory Effort Respiratory Pattern Blood Pressure 99/56 L 95/53 L 95/54 L Blood Pressure Mean 70 67 67 Pulse Ox 100 100 99 Oxygen Delivery Method Room Air Room Air Room Air Vitals are remarkable for low blood pressure. Most recent blood pressure is approximately 109 systolic. She is still tachycardic. Her fever has improved. Positive well nourished and well developed Constitutional Narrative: She appears ill but not toxic. She appears in no obvious discomfort. She appears slightly pale. General Appearance ED: well developed and NAD; Negative for cyanotic, diaphoretic or pallor HEENT Reports dry mucous membranes HEENT Narrative: Head is atraumatic normocephalic. Ears normal. Nares patent. Posterior pharynx is normal. Mouth ED: Yes dry mucous membranes Mouth: dry mucous membranes Eyes PERRL and EOMs intact bilaterally General Eye ED: Negative for pale conjunctiva or scleral icterus Neck no lymphadenopathy, supple and no JVD Chest Wall inspection of chest normal and palpation of chest normal Resp normal respiratory effort and clear to auscultation bilaterally Cardio regular rhythm, S1 normal heart sound, S2 normal heart sound and no murmurs; Negative for regular rate Rate: tachycardic GI normal to inspection, nondistended, normoactive bowel sounds and no masses; Negative for non-tender, non-distended or hepatosplenomegaly GI Narrative: Abdomen is slightly tympanitic. She has slight tenderness left lower quadrant. There is voluntary guarding not involuntary guarding. Auscultation: hyperactive bowel sounds Palpation: soft and tender LLQ Back/Spine no CVA tenderness Extremity Negative for normal to inspection Extremity Narrative: Erythema nodosum lower extremity. General Extremety ED: Yes tenderness; Negative for edema General Extremity: Negative for edema Neuro oriented x3, CN's II-XII intact bilaterally and no sensory deficits noted Sensorium / Orientation: alert Motor Exam: strength 5/5 throughout Psych mental status grossly normal Skin No no rashes or lesions noted, no wounds and skin turgor normal General Skin Exam: Negative for jaundice or pallor MDM MDM MDM Narrative Medical decision making narrative: Concern patient has a flare of ulcerative colitis. In light of the fact she hasleft lower quadrant abdominal pain fever tachycardia hypotensive we will obtain a CT of the abdomen to assess for abscess, microperforation. There are no priorrecords for review. Lab Data Attestation: I reviewed the patient's lab results. Lab results narrative: White count is elevated 12.1 thousand. There is a slight shift. Comprehensive metabolic panel is unremarkable. Lactate is normal. UA reveals a spec gravity 1.005. Macro is positive for leukoesterase occult blood negative nitrites. Labs: Laboratory Results - last 24 hr 01/25/25 01/25/25 21:50 23:26 WBC 12.1 H RBC 3.74 L Hgb 10.3 L Hct 31.9 L MCV 85.3 MCH 27.5 MCHC 32.3 RDW Std Deviation 42.0 RDW Coeff of Lokesh 13.7 Plt Count 456 H MPV 9.3 Immature Gran % (Auto) 0.600 Neut % (Auto) 75.5 H Lymph % (Auto) 11.8 L [place] % (Auto) 10.7 H Eos % (Auto) 1.0 Baso % (Auto) 0.4 Absolute Neuts (auto) 9.2 H Absolute Lymphs (auto) 1.43 Nucleated RBC % 0 PT 13.0 INR 1.0 APTT 26.7 Sodium 136 Potassium 3.6 Chloride 104 Carbon Dioxide 19.3 L Anion Gap 12 BUN 13 Creatinine 0.86 Estim Creat Clear Calc 87.04 Est GFR (MDRD) Non-Af 99 BUN/Creatinine Ratio 14.6 Glucose 126 H Lactic Acid < 1.0 Calcium 8.6 Total Bilirubin 0.16 AST 18 ALT 8 Alkaline Phosphatase 81 Total Protein 6.6 Albumin 3.4 L Globulin 3.2 Albumin/Globulin Ratio 1.0 Urine Color SEE COMMENT BELOW Urine Clarity Sl. Cloudy Urine pH 6.5 Ur Specific Aldrich 1.005 Urine Protein 30 H Urine Glucose (UA) Normal Urine Ketones Negative Urine Occult Blood 250 H Urine Nitrite Negative Urine Bilirubin Negative Urine Urobilinogen Normal Ur Leukocyte Esterase 500 H Radiography Chest X-Ray - ED: Read by ED Physician (Chest x-ray was obtained per nurse protocol. This reveals no acute pathology. Cardiac silhouette and size normal. Lung parenchyma normal. There is no effusion noted. Osseous structures are unremarkable.) Diagnostic Testing: Clinical Impression(s) from Imaging Studies Chest X-Ray 01/25/25 22:30 IMPRESSION: No acute pulmonary disease. Reading Location: [facility] Abdomen/Pelvis CT 01/25/25 22:37 IMPRESSION: Diffuse rectal and colonic wall thickening and enhancement with prominent isael-rectal, ileocolic and mesenteric lymph nodes, possibly inflammatory (colitis). Advise clinical correlation. Mild gastric wall thickening, possibly gastritis. Advise clinical correlation. Reading Location: [place] [address] The CAT scan was reviewed radiologist. The impression was reviewed. Management Discussion w/another healthcare provider: Hospitalist (Spoke with Dr. Dewey. Patient full admit MedSurg. He will consult GI.) Discharge Plan Triage Chief Complaint: Fever ED Provider: Speedy Amor Dx/Rx/DC Orders Clinical Impression: Ulcerative colitis, rectosigmoid, Erythema nodosum, Arthralgia, Mesenteric lymphadenopathy, Sinus tachycardia, Acute hypotension, Fever Prescriptions: No Action Unobtainable Primary Care Provider: Deya Chavez Referrals: Deya Chavez MD [Primary Care Provider] - Print Language: Tunisian What to do if you have Problems For any increased pain, shortness of breath, bleeding, nausea or vomiting, chestpain, or any unexpected problems, contact your Primary Care Provider. Call [facility] ([phone]) or report to the closest Emergency Room. Call 911 if necessary. 01/26/25 0021 <Electronically signed by Speedy Amor MD> Cosigner Signature (if applicable): CC: Dr. Deya Chavez MD ~ Signed [facility] Work Phone: Evaluation note* Diagnosis Onset Date Resolution Status Admit Date Acute hypotension acute January h2024 12:18am Arthralgia acute January 26, 2025 12:18am Erythema nodosum acute January 12:18am Fever acute January 26, 2025 12:18am Mesenteric lymphadenopathy acute January 26, 2025 12:18am Sinus tachycardia acute January 12:18am Ulcerative colitis, rectosigmoid acu te January 26, 2025 12:18am [facility] Work Phone: Hospital Discharge instructionsAdditional Instructions ADDITIONAL FOLLOW-UP/INSTRUCTIONS: --Please continue prednisone 60 mg daily until re-evaluation with Gastroenterology. --Please continue omeprazole 20 mg daily while on the high-dose prednisone therapy. --Please continue Keflex 500 mg twice daily to completion for urinary tract infection concern. -- Please continue initiated iron supplementation oral therapy with plan repeat outpatient iron studies and complete blood count at PCP versus gastroenterology discretion. -- Labs pending upon discharge per GI which may be followed up with them in their office at reevaluation included: IBD SGI, adalimumab levels, ANCA check, KUSHAL, food allergy panel. -- Please follow-up with gastroenterology in 2 weeks. You may contact her office earlier if there is any concerns or questions. --Urine culture is pending at your discharge, this may be rechecked at follow-up with your primary care physician. [facility]: [facility]: Reason for referral (narrative)No reason for referral information availableWMercy Health Will[facility] Hospital Work Phone: Summary Purpose Family History No Family History Records FoundNo Family History Records Found Advance Directives No Advanced Directives Records Found Advance Directive Response Recorded Date/ Time Do you have a Healthcare Power of Biology Research Assistant? No January 25, 2025 9:59pm Advance Directive Response Recorded Date/ Time Do you have a Healthcare Power of Biology Research Assistant? No January 26, 2025 1:46am Chief Complaint and Reason for Visit Chief Complaint Admit Date ACUTE UC FLARE January 26, 2025 12:18 am Reason for Visit Admit Date Acute hypotension January 26, 2025 12:18 am Arthralgia January 26, 2025 12:18 am Erythema nodosum January 26, 2025 12:18 am Fever January 26, 2025 12:18 am Mesenteric lymphadenopathy January 26 12:18am Sinus tachycardia January 26, 2025 12:18 am Ulcerative colitis, rectosigmoid January 12:18am Chief Complaint Admit Date ACUTE UC FLARE January 26, 2025 12:18 am ACUTE UC FLARE January 26, 2025 5:30p m ACUTE UC FLARE January 27, 2025 6:51a m Reason for Visit Admit Date Acute hypotension January 26, 2025 12:18 am Arthralgia January 26, 2025 12:18 am Erythema nodosum January 26, 2025 12:18 am Fever January 26, 2025 12:18 am Hypotension January 26, 2025 12:18 am Iron deficiency anemia January 26, 2025 12 :18am Leukocytosis January 26, 2025 12:18 am Mesenteric lymphadenopathy January 26 12:18am Other specified abnormal findings of blo od chemistry January 26, 2025 12:18am Sinus tachycardia January 26, 2025 12:18 am Ulcerative colitis, acute January 26, 2025 12:18am Ulcerative colitis, rectosigmoid January 12:18am Chief Complaint Admit Date ACUTE UC FLARE January 26, 2025 12:18 am ACUTE UC FLARE January 26, 2025 5:30p m ACUTE UC FLARE January 27, 2025 6:51a m ACUTE UC FLARE January 27, 2025 6:43p m HOSP FU February 11, 2025 8:22 am Reason for Visit Admit Date Erythema nodosum January 26, 2025 12:18 am Iron deficiency anemia January 26, 2025 12 :18am Ulcerative colitis, rectosigmoid January 12:18am Acute hypotension January 26, 2025 12:18 am Arthralgia January 26, 2025 12:18 am Fever January 26, 2025 12:18 am Hypotension January 26, 2025 12:18 am Leukocytosis January 26, 2025 12:18 am Mesenteric lymphadenopathy January 26 12:18am Other specified abnormal findings of blo od chemistry January 26, 2025 12:18am Sinus tachycardia January 26, 2025 12:18 am Ulcerative colitis, acute January 26, 2025 12:18am Chief Complaint Admit Date ACUTE UC FLARE January 26, 2025 12:18 am ACUTE UC FLARE January 26, 2025 5:30p m ACUTE UC FLARE January 27, 2025 6:51a m ACUTE UC FLARE January 27, 2025 6:43p m HOSP FU February 11, 2025 8:22 am E ORDERS March 11, 2025 12 :57pm Reason for Visit Admit Date Erythema nodosum January 26, 2025 12:18 am Iron deficiency anemia January 26, 2025 12 :18am Ulcerative colitis, rectosigmoid January 12:18am Acute hypotension January 26, 2025 12:18 am Arthralgia January 26, 2025 12:18 am Fever January 26, 2025 12:18 am Hypotension January 26, 2025 12:18 am Leukocytosis January 26, 2025 12:18 am Mesenteric lymphadenopathy January 26 12:18am Other specified abnormal findings of blo od chemistry January 26, 2025 12:18am Sinus tachycardia January 26, 2025 12:18 am Ulcerative colitis, acute January 26, 2025 12:18am Ulcerative colitis February 11, 2025 8:22 am Chief Complaint Admit Date ACUTE UC FLARE January 26, 2025 12:18 am ACUTE UC FLARE January 26, 2025 5:30p m ACUTE UC FLARE January 27, 2025 6:51a m ACUTE UC FLARE January 27, 2025 6:43p m HOSP FU February 11, 2025 8:22 am E ORDERS March 11, 2025 12 :57pm 2 M FU March 25, 2025 1:23pm Additional Source Comments INFORMATION SOURCE (unrecogn ized section and content) DATE CREATED AUTHOR [facility]/27/2022 [facility] DATE CREATED AUTHOR AUTHOR'S ORGANSARIAH ATION 03/27/2025 [facility] Care Teams (unrecognized sec tion and content) Team Status: Active Member Role/Relationship Status Dates Dr. Deya Chavez MD Primary Care Provider Active Team Status: Active Member Role/Relationship Status Dates Dr. Deya Chavez MD Primary Care Provider Active Start: January 26, 2025 Dr. Speedy Amor MD Emergency Provider Active Sta rt: January 26, 2025 Dr. Tj Dewey DO Admit Provider Active Start: January 26, 2025 Dr. Tj Dewey DO Attending Provider Active Start: January 26, 2025 Team Status: Inactive Member Role/Relationship Status Dates Dr. Deya Chavez MD Primary Care Provider Active Start: January 26, 2025 End: January 27, 2025 Dr. Speedy Amor MD Emergency Provider Active Sta rt: January 26, 2025 End: January 27, 2025 Dr. Tj Dewey DO Admit Provider Active Start: January 26, 2025 End: January 27, 2025 Dr. Tj Dewey DO Other Provider Active Start: January 26, 2025 End: January 27, 2025 Dr. Nikki Harrell MD Attending Provider Active Start: January 26, 2025 End: January 27, 2025 Team Status: Active Member Role/Relationship Status Dates Dr. Deya Chavez MD Primary Care Provider Active Start: January 26, 2025 Dr. Speedy Amor MD Emergency Provider Active Sta rt: January 26, 2025 Dr. Tj Dewey DO Admit Provider Active Start: January 26, 2025 Dr. Tj Dewey DO Other Provider Active Start: January 26, 2025 Dr. Nikki Harrell MD Other Provider Active St art: January 26, 2025 SHEREE Menchaca Attending Provider Active S tart: January 26, 2025 Team Status: Active Member Role/Relationship Status Dates Dr. Deya Chavez MD Primary Care Provider Active Start: January 27, 2025 Dr. Speedy Amor MD Emergency Provider Active Sta rt: January 27, 2025 Dr. Tj Dewey DO Admit Provider Active Start: January 27, 2025 Dr. Tj Dewey DO Other Provider Active Start: January 27, 2025 Dr. Nikki Harrell MD Attending Provider Active Start: January 27, 2025 Dr. Nikki Harrell MD Other Provider Active St art: January 27, 2025 Team Status: Active Member Role/Relationship Status Dates Dr. Deya Chavez MD Primary Care Provider Active Start: January 27, 2025 Dr. Speedy Amor MD Emergency Provider Active Sta rt: January 27, 2025 Dr. Tj Dewey DO Admit Provider Active Start: January 27, 2025 Dr. Tj Dewey DO Other Provider Active Start: January 27, 2025 Dr. Nikki Harrell MD Other Provider Active St art: January 27, 2025 Dr. Agustín Gonzalez DO Attending Provider Active Start: January 27, 2025 Team Status: Inactive Member Role/Relationship Status Dates Dr. Deya Chavez MD Primary Care Provider Active Start: February 11, 2025 End: February 11, 2025 Dr. Deya Chavez MD Referring Provider Active Start: February 11, 2025 End: February 11, 2025 SHEREE Menchaca Attending Provider Active S tart: February 11, 2025 End: February 11, 2025 Team Status: Active Member Role/Relationship Status Dates Dr. Deya Chavez MD Primary Care Provider Active Start: January 26, 2025 Dr. Speedy Amor MD Emergency Provider Active Sta rt: January 26, 2025 Dr. Tj Dewey DO Admit Provider Active Start: January 26, 2025 Dr. Tj eDwey DO Referring Provider Active Start: January 26, 2025 Dr. Tj Dewey DO Other Provider Active Start: January 26, 2025 Dr. Nikki Harrell MD Other Provider Active St art: January 26, 2025 Dr. Agustín Gonzalez DO Attending Provider Active Start: January 26, 2025 Team Status: Active Member Role/Relationship Status Dates Dr. Deya Chavez MD Primary Care Provider Active Start: January 27, 2025 Dr. Speedy Amor MD Emergency Provider Active Sta rt: January 27, 2025 Dr. Tj Dewey DO Admit Provider Active Start: January 27, 2025 Dr. Tj Dewey DO Other Provider Active Start: January 27, 2025 Dr. Nikki Harrell MD Referring Provider Active Start: January 27, 2025 Dr. Nikki Harrell MD Other Provider Active St art: January 27, 2025 Dr. Agustín Gonzalez DO Attending Provider Active Start: January 27, 2025 Team Status: Inactive Member Role/Relationship Status Dates Dr. Deya Chavez MD Primary Care Provider Active Start: March 11, 2025 End: March 11, 2025 SHEREE Menchaca Attending Provider Active S tart: March 11, 2025 End: March 11, 2025 SHEREE Menchaca Referring Provider Active S tart: March 11, 2025 End: March 11, 2025 Team Status: Inactive Member Role/Relationship Status Dates Dr. Deya Chavez MD Primary Care Provider Active Start: March 25, 2025 End: March 25, 2025 Dr. Deya Chavez MD Referring Provider Active Start: March 25, 2025 End: March 25, 2025 Dr. Agustín Gonzalez DO Attending Provider Active Start: March 25, 2025 End: March 25, 2025 Goals (unrecognized section and content) Goals may be documented in a n alternate section FOR RECORDS PERTAINING TO PATIENTS WHO ARE OR HAVE BEEN ENROLLED IN A CHEMICAL DEPENDENCY/SUBSTANCEABUSE PROGRAM, SOME INFORMATION MAY BE OMITTED. This clinical summary was aggregated from multiple sources. Caution should be exercised in using it in the provision of clinical care. This summary normalizes information from multiple sources, and as a consequence, information in this document may materially change the coding, format and clinical context of patient data. In addition, data may be omitted in some cases. CLINICAL DECISIONS SHOULD BE BASED ON THE PRIMARY CLINICAL RECORDS. [facility] [employer] provides no warranty or guarantee of the accuracy or completeness of information in this document.
[2025-06-24 20:38] LABS: Differential Comment SCANNED
[2025-06-29 20:08] LABS: Calprotectin, Stool 1690 ug/g (0-120)
== END | disposition home or self-care (01) ==
LOC: LAB 14:05
PROVIDERS: PCP Family Medicine; Referring Provider Student in an Organized Health Care Education/Training Program; Visit Provider Student in an Organized Health Care Education/Training Program
DX: K51.919 Ulcerative colitis, unspecified with unspecified complications (principal)
CPT/HCPCS: 36415; 80053; 83993; 85025; 86140